=== PATIENT | female | born 2000 | race Caucasian/White ===

== ENCOUNTER → 2019-12-29 | Outpatient (CLI) | payer MEDICAID, SELFPAY ==
[2019-12-29 17:02] LABS: Chlamydia Trachomatis by PCR Negative (Negative); Neisserai gonorrhoeae by PCR Negative (Negative); Probe Check PASS; Sample Adequacy Control PASS; Specimen Processing Control PASS
== END | disposition home or self-care (01) ==
LOC: LABSPEC 14:45
PROVIDERS: Visit Provider Obstetrics & Gynecology
DX: Z11.3 Encounter for screening for infections with a predominantly sexual mode of transmission (principal)
CPT/HCPCS: 87491; 87591

== ENCOUNTER → 2020-01-19 14:29 | Outpatient (CLI) | payer MEDICAID, SELFPAY ==
[2020-01-19 15:53] LABS: Absolute Lymphocyte Count 1.73 X10^3/uL (0.83-4.51); Absolute Neutrophil Count 6.6 X10^3/uL (2.0-7.7); Basophil# 0.03 X10^3/uL; Basophil% 0.3 % (0-1); Eosinophil# 0.02 X10^3/uL; Eosinophils% 0.2 % (0-5); Hematocrit 42.8 % (37-47); Hemoglobin 14.2 g/dL (12.0-15.0); Lymphocyte # 1.73 X10^3/ul (4.0); Lymphocyte % 19.4 % (19-41); Mean Corp Hgb Conc 33.2 g/dL (32-36); Mean Corpuscular Hgb 28.2 pg (27.0-32.0); Mean Corpuscular Volume 85.1 fL (81-99); Mean Platelet Vol. 10.1 fl (6.2-12.0); Monocyte# 0.46 X10^3/uL; Monocyte% 5.2 % (0-10); NRBC Flagged by Analyzer 0 % (0-5); Neutrophil # 6.63 X10^3/uL (2.7-7.7); Neutrophil % 74.5 % (47-70); Platelet Count 337 K/mm3 (150-450); Red Blood Count 5.03 M/mm3 (4.2-5.4); White Blood Count 8.9 K/mm3 (4.4-11.0)
[2020-01-19 15:54] LABS: Color, Urine Yellow (Yellow); Glucose, Dipstick Normal (Normal); Leukocyte Esterase-Dipstick Negative /ul (Negative); Nitrite-Dipstick Negative (Negative); Occult Blood-Urine 25 /ul (Negative); Protein-Dipstick 15 mg/dl (Negative); Urine Bilirubin Dipstick Negative (Negative); Urine Clarity Sl. Cloudy (Clear); Urine Urobilinogen 1 mg/dl (Normal)
[2020-01-19 16:00] LABS: Ketone-Dipstick 150 mg/dl (Negative)
[2020-01-19 16:37] LABS: Amphetamine Urine VISTA NEGATIVE (<1000 ng/mL); Barbiturate Urine VISTA NEGATIVE (< 200 ng/mL); Benzodiazepine Urine VISTA NEGATIVE (< 200 ng/mL); Cocaine Urine VISTA NEGATIVE (< 300 ng/mL); Ecstacy Urine VISTA NEGATIVE (< 500 ng/mL); Methadone Urine VISTA NEGATIVE (< 300 ng/mL); PCP Urine VISTA NEGATIVE (< 25 ng/mL); THC Urine VISTA NEGATIVE (< 50 ng/mL); Vista UDS pH Range 6
[2020-01-19 17:06] LABS: Thyroid Stim Hormone (TSH) 1.24 uIU/mL (0.358-3.74)
[2020-01-20 11:20] LABS: HIV - WCH Non-Reactive (Nonreactive); Hepatitis B Surface Antigen Non-Reactive (Nonreactive); Hepatitis C Antibody Non-Reactive (Nonreactive); Rubella IgG 0.5 IU/mL
[2020-01-21 00:55] LABS: Prenatal RPR NONREACTIVE (NONREACTIVE)
== END ==
PROVIDERS: Visit Provider Obstetrics & Gynecology
DX: Z34.81 Encounter for supervision of other normal pregnancy, first trimester (principal)
CPT/HCPCS: 36415; 80307; 81002; 84443; 85025; 86703; 86762; 86803; 87340

== ENCOUNTER → 2020-06-01 10:34 | Outpatient (CLI) | payer MEDICAID, SELFPAY ==
[2020-06-01 14:01] LABS: Glucose Challenge Gest 1H 50g 194 mg/dL (70-140)
[2020-06-01 14:03] LABS: Hematocrit 34.5 % (37-47); Hemoglobin 11.1 g/dL (12.0-15.0); Mean Corp Hgb Conc 32.2 g/dL (32-36); Mean Corpuscular Hgb 28.6 pg (27.0-32.0); Mean Corpuscular Volume 88.9 fL (81-99); Mean Platelet Vol. 10.2 fl (6.2-12.0); Platelet Count 264 K/mm3 (150-450); RBC Distribution Width CV 13.7 % (11.6-14.6); RBC Distribution Width SD 44.7 fl (35.1-43.9); Red Blood Count 3.88 M/mm3 (4.2-5.4); White Blood Count 12.6 K/mm3 (4.4-11.0)
== END ==
PROVIDERS: Visit Provider Obstetrics & Gynecology
DX: Z34.83 Encounter for supervision of other normal pregnancy, third trimester (principal)
CPT/HCPCS: 36415; 82950; 85027

== ENCOUNTER → 2020-06-09 10:01 | Outpatient (CLI) ==
[2020-06-09 10:39] LABS: Glucose GTT-Gestation. Fasting 93 mg/dL (<105)
[2020-06-09 11:48] LABS: Glucose GTT-Gestational 1 Hr 137 mg/dL (<190)
== END ==
PROVIDERS: Referring Provider Obstetrics & Gynecology; Visit Provider Obstetrics & Gynecology
DX: O24.912 Unspecified diabetes mellitus in pregnancy, second trimester (principal); Z3A.00 Weeks of gestation of pregnancy not specified
CPT/HCPCS: 36415; 82951; 82952

== ENCOUNTER → 2020-06-15 06:59 | Outpatient (CLI) | payer MEDICAID, SELFPAY ==
[2020-06-15 07:57] LABS: Glucose GTT-Gestation. Fasting 86 mg/dL (<105)
[2020-06-15 08:53] LABS: Glucose GTT-Gestational 1 Hr 139 mg/dL (<190)
[2020-06-15 11:21] LABS: Glucose GTT-Gestational 3 Hr 130 L (<145)
[2020-06-15 11:23] LABS: Glucose GTT-Gestational 2 Hr 124 mg/dL (<165)
== END ==
PROVIDERS: Referring Provider Student in an Organized Health Care Education/Training Program; Visit Provider Student in an Organized Health Care Education/Training Program
DX: Z34.93 Encounter for supervision of normal pregnancy, unspecified, third trimester (principal)
CPT/HCPCS: 36415; 82951; 82952

== ENCOUNTER → 2020-08-02 | Outpatient (CLI) | payer MEDICAID, SELFPAY | END | disposition home or self-care (01) | LOC: LABSPEC 16:21 | PROVIDERS: Visit Provider Student in an Organized Health Care Education/Training Program | DX: Z36.85 Encounter for antenatal screening for Streptococcus B (principal) | CPT/HCPCS: 87081 ==

== ENCOUNTER → 2020-08-10 | Outpatient (CLI) | payer MEDICAID, SELFPAY | END | disposition home or self-care (01) | LOC: LABSPEC 10:12 | PROVIDERS: Referring Provider Student in an Organized Health Care Education/Training Program; Visit Provider Student in an Organized Health Care Education/Training Program | DX: Z03.818 Encounter for observation for suspected exposure to other biological agents ruled out (principal) | CPT/HCPCS: 87635; C9803; U0003 ==

== ENCOUNTER 2020-08-17 06:55 | Inpatient (IN) | payer MEDICAID, SELFPAY ==
[2020-08-17 07:11] VITALS: BMI 40.8
[2020-08-17 07:28] VITALS: BP 101/66; PULSE 107
[2020-08-17 08:10] VITALS: TEMP 36.8
[2020-08-17 08:21] LABS: Absolute Lymphocyte Count 1.82 X10^3/uL (0.83-4.51); Absolute Neutrophil Count 7.6 X10^3/uL (2.0-7.7); Basophil# 0.04 X10^3/uL; Basophil% 0.4 % (0-1); Eosinophil# 0.03 X10^3/uL; Eosinophils% 0.3 % (0-5); Hematocrit 31.4 % (37-47); Hemoglobin 10.1 g/dL (12.0-15.0); Lymphocyte # 1.82 X10^3/ul (4.0); Lymphocyte % 17.6 % (19-41); Mean Corp Hgb Conc 32.2 g/dL (32-36); Mean Corpuscular Hgb 26.4 pg (27.0-32.0); Mean Corpuscular Volume 82.2 fL (81-99); Mean Platelet Vol. 10.9 fl (6.2-12.0); Monocyte# 0.74 X10^3/uL; Monocyte% 7.1 % (0-10); NRBC Flagged by Analyzer 0 % (0-5); Neutrophil % 73.2 % (47-70); Platelet Count 164 K/mm3 (150-450); RBC Distribution Width CV 15.1 % (11.6-14.6); RBC Distribution Width SD 43.3 fl (35.1-43.9); Red Blood Count 3.82 M/mm3 (4.2-5.4); White Blood Count 10.4 K/mm3 (4.4-11.0)
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
[2020-08-17 12:04] VITALS: BP 129/61; PULSE 102; TEMP 36.6
[2020-08-17] MEDS: miSOPROStol 25 MCG TABLET VAGINAL (12:48)
[2020-08-17] MEDS: miSOPROStol 50 MCG TABLET VAGINAL (16:30)
[2020-08-17 18:04] VITALS: BP 121/75; PULSE 90; TEMP 36.9
[2020-08-17] MEDS: Acetaminophen 500 MG Tablet PO (18:59)
[2020-08-17 19:29] VITALS: BP 123/75; PULSE 88
[2020-08-17] MEDS: 0.9% Saline Lock 10 ML Syringe IV (19:39)
[2020-08-17] MEDS: Lactated Ringers 500 ML 999 ML IV ×2 (19:42→22:46)
[2020-08-17] MEDS: Lactated Ringers 1,000 ML 50 ML IV (19:43)
[2020-08-17 22:48] VITALS: BP 112/64; PULSE 80; TEMP 37.1; O2SAT 98
[2020-08-18] VITALS (64 sets, daily range): BP systolic 94–130; BP diastolic 43–81; PULSE 59–97; RESP 12–20; TEMP 36.1–36.9; O2SAT 92–100
--- NOTE | 2020-08-18 01:30 | PCM.PN.BLA ---
Progress Note LABOR PROGRESS NOTE Reports mild contractions. AVSS GEN - NAD, AAO x 3 FHR 140, moderate variability, + accelerations, + variable deceleration TOCO 4/10 min SVE 1.5/60/-4, soft, midposition A/P: 20yo G1 @ 39 1/7wga, Cat I FHR -Contractions too frequent for cytotec -Attempted lepe bulb placement however poorly tolerated and unable to maintain catheter placement due to patient movement -Start pitocin STROKE Vital Signs/Narrative: Vital Signs Temp Pulse BP Pulse Ox 08/17/20 22:48 98.8 F 80 112/64 98
[2020-08-18] MEDS: Ondansetron 4 MG/2 ML Vial IV (02:06)
[2020-08-18] MEDS: 0.9% Saline Lock 10 ML Syringe IV (02:08)
[2020-08-18] MEDS: Acetaminophen 500 MG Tablet PO ×2 (02:25→09:33)
[2020-08-18] MEDS: Oxytocin 30 units/NS 500 ml 30 UNITS/500 ML IV.SOLN IV (02:35)
--- NOTE | 2020-08-18 07:53 | PCM.PN.BLA ---
Progress Note LABOR PROGRESS NOTE No complaints. AVSS GEN - NAD, AAO x 3 FHR 135, moderate variability, +accelerations, no decelerations TOCO 4/10 min SVE 3/60/-3, soft, midposition A/P: 20yo G1 @ 39 1/7wga, Cat I FHR -Continue pitocin as tolerated by mother and fetus -Discussed amniotomy r/b, pt declines at this time. May consider again following epidural. -Maternal and statuses reassuring STROKE Vital Signs/Narrative: Vital Signs Temp Pulse BP Pulse Ox 08/18/20 07:33 97.3 F L 80 98 08/18/20 07:32 78 127/66 H 08/18/20 06:14 97.5 F L 75 112/68 97 08/18/20 05:50 75 112/66 08/18/20 05:49 97.1 F L 98 08/18/20 04:39 97.0 F L 69 115/61 98
[2020-08-18] MEDS: Lactated Ringers 500 ML 999 ML IV (09:34)
[2020-08-18] MEDS: fentaNYL-bupivacaine (epidural) 100 ML BAG EPIDURAL ×3 (10:30→18:07)
[2020-08-18] MEDS: Lactated Ringers 1,000 ML 200 ML IV ×2 (11:33→16:30)
--- NOTE | 2020-08-18 19:15 | PCM.PN.OB ---
Patient Problems: Active and Suspected Problems (Last Updated 08/17/20 @ 08:[address] Fernanda Leyva MD) 39 weeks gestation of (Acute) Subjective: Patient has progressed to 5 to 6 cm 80% -1 station and has been at approximately that station and dilation for approximately 7-8 hours. Adequate contractions verified with internal and intrauterine pressure catheter monitors. Epidural is not functioning well despite multiple adjustments and replacement. Given this the patient and her request that we proceed with section for failure to progress. We have discussed the procedure at length including the possibly of bleeding, infection, and injury to surrounding structures such as bowel bladder and they desire that we proceed. All questions were answered. - Physical Exam Vitals/I&O's: Vital Signs Temp Pulse BP Pulse Ox 97.6 F L 76 122/80 H 100 08/18/20 18:12 08/18/20 19:11 08/18/20 19:09 08/18/20 19:11 Weight: 223 lb Body Mass Index (BMI) 40.8 Intake and Output for Last 24 Hours 08/16/20 08/17/20 08/18/20 23:59 23:59 23:59 Intake Total 1152.5 / 1152.5 3173.39 / 3173.39 Output Total 1200 / 1200 Balance 1152.5 / 1152.5 1973.39 / 1973.39 Current Medications Acetaminophen (Acetaminophen 500 Mg Tablet) 500 - 1,000 mg PO Q6H PRN PRN PRN Reason: Pain Score 1-3 Last Admin: 08/18/20 09:33 Dose: 1,000 mg Documented by: Al Hydroxide/Mg Hydroxide (Mag Hydrox/Al Hydrox/Simeth 30 Ml Udc) 15 - 30 ml PO Q4H PRN PRN PRN Reason: INDIGESTION Citric Acid/Sodium Citrate (Sodium Citrate/Citric Acid 30 Ml Udc) 30 ml PO X1 PRN PRN Reason: Section Ephedrine Sulfate (Ephedrine Sulfate 50 Mg/Ml Ampul) 10 mg IV Q10M PRN PRN Reason: hypotension Ephedrine Sulfate (Ephedrine Sulfate 50 Mg/Ml Ampul) 10 mg IM Q30M PRN PRN Reason: hypotension Fentanyl Citrate (Fentanyl 100 Mcg/2 Ml Ampul) 25 - 50 mcg IV Q2H PRN PRN PRN Reason: Pain Score 4-10 Fentanyl/Bupivacaine/Sodium Chlor (Fentanyl-Bupivacaine (Epidural) 100 Ml Bag) 0 ml EPIDURAL UD FIDELINA; Protocol Last Admin: 08/18/20 18:07 Dose: 100 ml Documented by: Lactated Ringer's () 500 mls @ 999 mls/hr IV .Q31M PRN PRN Reason: Epidural Last Infusion: 08/18/20 10:05 Dose: Infused Documented by: Lactated Ringer's () 500 mls @ 999 mls/hr IV .Q31M PRN PRN Reason: Corrective Measures Last Infusion: 08/17/20 23:17 Dose: Infused Documented by: Lactated Ringer's () 1,000 mls @ 50 mls/hr IV .Q20H FIDELINA Last Admin: 08/18/20 16:30 Dose: 200 mls/hr Documented by: Oxytocin/Sodium Chloride () 30 units in 500 mls @ 2 mls/hr IV .Q250H FIDELINA Last Infusion: 08/18/20 12:30 Dose: 14 mls/hr Documented by: Nalbuphine HCl (Nalbuphine 10 Mg/Ml Ampul) 5 mg IV Q3H PRN PRN PRN Reason: ITCHING Naloxone HCl (Naloxone 0.4 Mg/Ml Syringe) 0.02 mg IV Q1M PRN PRN Reason: RR <10 and pt unresponsive Ondansetron HCl (Ondansetron 4 Mg/2 Ml Vial) 4 mg IV Q4H PRN PRN PRN Reason: NAUSEA Last Admin: 08/18/20 02:06 Dose: 4 mg Documented by: Prochlorperazine Edisylate (Prochlorperazine 10 Mg/2 Ml Vial) 10 mg IV Q6H PRN PRN PRN Reason: NAUSEA Sodium Chloride (0.9% Saline Lock 10 Ml Syringe) 10 - 40 ml IV X1 PRN PRN Reason: SALINE FLUSH Last Admin: 08/18/20 02:08 Dose: 10 ml Documented by: Medical Necessity - Tobacco Use Smoking Status: Never smoker Assessment/Plan All Active Problems (Last Updated 08/17/20 @ 08:[address] Fernanda Leyva MD) 39 weeks gestation of (Acute)
--- NOTE | 2020-08-18 19:26 | OP.PCM_ITS ---
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 Baby weighed 9 pounds 0 ounces and was not well engaged in the pelvis. Indication: This is a 20-year-old who presented for elective induction at 39 weeks gestation. Cytotec followed by Mcnulty bulb catheter was used to ripen the cervix. Rupture of membranes was completed and patient progressed to about 5 to 6 cm but despite adequate contractions noted on internal monitors the cervix failed to progress after approximately 8 hours. Further epidural could not be adjusted and despite replacement the patient continued to be extremely painful. care has otherwise been uneventful. The patient has been counseled regarding the risk and indications of this procedure including the possibility of bleeding infection and injury to surrounding structures such as bowel bladder. All questions were answered. Procedure: Patient was taken to the operating room where after spinal anesthesia was placed, the patient was prepped and draped in usual sterile fashion. A Mcnulty catheter had been previously placed. The abdomen was entered through a Pfannenstiel incision and peritoneum was entered bluntly. After developing a bladder flap on the lower uterine segment a low transverse incision was made on the uterus and head was easily delivered onto the operative field the nose mouth and oropharynx were bulb suctioned. Subsequently a viable male infant was born with Apgars of 8/9. The infant was noted to cry move all extremities vigorously on the operative field. The umbilical cord was doubly clamped and ligated and infant handed to the nursery personnel who were present for the delivery. Placenta was delivered and noted to be 3 vessels and normal. Uterus was exteriorized and remaining placental tissue was removed. The uterus was then closed in 2 layers first with running locked 0 Vicryl suture followed by a second imbricating layer with 0 Vicryl suture. 0 Vicryl suture was then used in a horizontal mattress interrupted fashion to affect final hemostasis of the uterine incision line. Normal fallopian tubes and ovaries were visualized and the uterus was returned to the pelvis. Hemostasis was noted and rectus abdominis muscles were reapproximated in the midline with interrupted Number 0 Vicryl suture in a horizontal mattress fashion. Fascia was closed with running Number 1 PDS Strata fix suture. Subcutaneous tissue was irrigated with copious amounts of saline solution and then closed with running 3-0 Vicryl suture. Skin was closed with 4-0 monocryl suture in a running subcuticular fashion. Steri strips and a Mepilex dressing were placed across the incision. The patient tolerated the procedure well and was taken to the recovery room in satisfactory condition. Sponge, needle, and instrument counts were all reportedly correct. EBL was less than 500 cc. Ancef 2 gms IV was given prior to the procedure. Specimen to Pathology: None Complications: None Amniotic Membrane Rupture Type: Artificial Amniotic Fluid Description: Clear Placenta Disposition: [facility] Specimen(s) sent to pathology: None Drain: Mcnulty to straight drain Fluids Replaced: Crystalloid Cord Vessel Description: 3 Vessels Esitmated Blood Loss (ml): 500 cc Infant Gender: Male (1 minute): 8 (5 minute): 9 Antibiotic Given: Ancef 2 grams IV x1 Pt instructed on risks of surgery: Bleeding, Infection, Injury to surrounding structure(s) including bowel and bladder Complications: None - Admit VTE Documentation VTE Present on Admission: Yes VTE Mechan Device Prophylaxis: SCD's VTE Pharm Prophylaxis ordered?: Yes
[2020-08-18] MEDS: Acetaminophen 500 MG Tablet 1000 MG PO (19:28)
[2020-08-18] MEDS: Sodium Citrate/Citric Acid 30 ML UDC PO (19:29)
--- NOTE | 2020-08-18 19:33 | DCINST_ITS ---
Discharge Diet: No Restrictions Discharge Activity: May not drive while taking narcotic pain medications., May Shower, May Take a Tub Bath May resume sexual activity in: 4-6 weeks Lifting Restrictions: 20 pounds Additional Activity Instructions:: Nothing in the vagina for 4-6 weeks. You may return to work/school in 6 weeks. Call your doctor if your incision/area has: Continuous Slow Oozing, Sudden Increased Bleeding, Increased Pain/ Swelling, Increased Redness, Foul Smelling Discharge Call your doctor if you observe: Fever of 101 or Higher, Inability to urinate, Inability to have a bowel movement, Using more than one pad per hour Additional Instructions: If you experience any of the following, contact your healthcare provider. * Bleeding that soaks a pad every hour for 2 hours * Fever 100.4 or higher * Unrelieved incision or abdominal pain * Swelling, redness, discharge or bleeding from your incision or episiotomy site * Your incision begins to separate * Problems urinating (including inability to urinate or burning while urinating). * Visual changes * Severe headache * Flu-like symptoms * Pain or redness in one of both of your breasts * Pain, warmth, tenderness or swelling in your legs, especially the calf area * Frequent nausea and vomiting * Symptoms of depression or anxiety If you experience any of the following, call 911 or go to the nearest Emergency Room. * Chest pain * Problems breathing * Seizure activity * Partial or complete paralysis of a body part, slurred speech, weakness or drooping of the face, or a sudden inability to walk or hold your balance Allergies/Adverse Reactions: Allergies No Known Allergies Allergy (Verified 08/17/20 07:56) Medications to take at Discharge Docusate Sodium [Colace] 100 mg PO BID PRN PRN #60 cap 08/18/20 Oxycodone [Oxyir] 5 mg PO Q6H PRN PRN 7 Days #20 tablet 08/18/20 The following prescriptions were given: Docusate Sodium [Colace] 100 mg PO BID PRN PRN #60 cap PRN Reason: Constipation Transmission Status: Pending to [facility] Oxycodone [Oxyir] 5 mg PO Q6H PRN PRN 7 Days #20 tablet PRN Reason: Pain Score 6-10 Transmission Status: Sent to [facility] Follow-Up: Call to make an appointment with your doctor for an incision check in 1-2 weeks. You will also need a 6 week post- follow up appointment. Test results from this visit will be discussed in further detail at your follow- up appointment, if applicable. Please Follow Up With: Liliam Murdock, DO - [phone] When: Call to make an appointment for an incision check in 2 weeks. Primary Care Physician: Care Physician,No Primary [Primary Care Provider] -
[2020-08-18] MEDS: Cefazolin 2 GM in 0.9% Normal Saline 100 ML IV (19:46)
[2020-08-18] MEDS: Oxytocin 30 units/NS 500 ml 30 UNITS/500 ML IV.SOLN 167 UNITS IV (21:12)
--- NOTE | 2020-08-18 23:22 | NURSING ---
This RN assuming care of patient and infant at this time. Report received for Reyes Nam RN.
[2020-08-19] VITALS (16 sets, daily range): BP systolic 87–110; BP diastolic 48–61; PULSE 64–93; RESP 12–16; TEMP 36.2–36.8; O2SAT 96–99
[2020-08-19] MEDS: Lactated Ringers 1,000 ML 100 ML IV ×2 (00:14→13:11)
[2020-08-19] MEDS: Ketorolac 30 MG/ML Syringe IV ×4 (02:05→21:42)
[2020-08-19] MEDS: Acetaminophen 500 MG Tablet 1000 MG PO ×4 (02:05→21:15)
[2020-08-19] MEDS: DiphenhydrAMINE 25 MG Capsule PO ×2 (02:12→08:49)
[2020-08-19] MEDS: Cefazolin 1 GM/50 ML BAG IV ×2 (03:12→11:02)
[2020-08-19] MEDS: Ondansetron 4 MG/2 ML Vial IV (03:12)
[2020-08-19 03:38] LABS: Hematocrit 32.2 % (37-47); Hemoglobin 10.4 g/dL (12.0-15.0); Mean Corp Hgb Conc 32.3 g/dL (32-36); Mean Corpuscular Hgb 25.6 pg (27.0-32.0); Mean Corpuscular Volume 79.1 fL (81-99); Platelet Count 196 K/mm3 (150-450); RBC Distribution Width CV 14.4 % (11.6-14.6); RBC Distribution Width SD 40.4 fl (35.1-43.9); Red Blood Count 4.07 M/mm3 (4.2-5.4); White Blood Count 18.3 K/mm3 (4.4-11.0)
[2020-08-19] MEDS: Enoxaparin 40 MG/0.4 ML Syringe SC ×2 (08:02→21:16)
--- NOTE | 2020-08-19 09:01 | PN.OBGYN_ITS ---
Patient Problems: Active and Suspected Problems (Last Updated 08/17/20 @ 08:[address] Fernanda Leyva MD) 39 weeks gestation of (Acute) Subjective: Patient without complaints. Tolerating liquids well. Reports minimal vaginal bleeding and minimal pain. Breast-feeding going well but baby does have a small cleft palate. Objective: Wound is clean, dry, intact. Good urine output. Hemoglobin stable. - Physical Exam Vitals/I&O's: Vital Signs Temp Pulse Resp BP Pulse Ox 97.7 F L 71 14 102/55 L 99 08/19/20 08:59 08/19/20 08:59 08/19/20 08:59 08/19/20 08:59 08/19/20 08:59 Oxygen Delivery Method Room Air Weight: 223 lb Body Mass Index (BMI) 40.8 Intake and Output for Last 24 Hours 08/17/20 08/18/20 08/19/20 23:59 23:59 23:59 Intake Total 1152.5 / 1152.5 3996.96 / 3996.96 550 / 550 Output Total 1400 / 1400 425 / 425 Balance 1152.5 / 1152.5 2596.96 / 2596.96 125 / 125 Laboratory Results 08/19/20 03:25: WBC 18.3 H, RBC 4.07 L, Hgb 10.4 L, Hct 32.2 L, MCV 79.1 L, MCH 25.6 L, MCHC 32.3, RDW Std Deviation 40.4, RDW Coeff of [place] 14.4, Plt Count 196, MPV 11.0 Current Medications Acetaminophen (Acetaminophen 500 Mg Tablet) 1,000 mg PO Q6H [facility] Last Admin: 08/19/20 08:02 Dose: 1,000 mg Documented by: Bisacodyl (Bisacodyl 10 Mg Suppository) 10 mg RECTAL UD PRN PRN Reason: If no BM Diphenhydramine HCl (Diphenhydramine 25 Mg Capsule) 25 mg PO Q6H PRN PRN PRN Reason: ITCHING Stop: 08/19/20 21:17 Last Admin: 08/19/20 08:49 Dose: 25 mg Documented by: Enoxaparin Sodium (Enoxaparin 40 Mg/0.4 Ml Syringe) 40 mg SC Q12H [facility] Last Admin: 08/19/20 08:02 Dose: 40 mg Documented by: Hydrocortisone (Hydrocortisone 2.5% Crm) 1 applic TOPICAL TID PRN PRN; Protocol PRN Reason: Discomfort Cefazolin Sodium () 1 gm in 50 mls @ 150 mls/hr IV Q8H [facility] Stop: 08/19/20 11:49 Last Infusion: 08/19/20 03:45 Dose: Infused Documented by: Lactated Ringer's () 1,000 mls @ 100 mls/hr IV .Q10H [facility] Last Admin: 08/19/20 00:14 Dose: 100 mls/hr Documented by: Ibuprofen (Ibuprofen 600 Mg Tablet) 600 mg PO Q6H [facility] Ketorolac Tromethamine (Ketorolac 30 Mg/Ml Syringe) 30 mg IV Q6H [facility] Stop: 08/19/20 20:01 Last Admin: 08/19/20 08:02 Dose: 30 mg Documented by: Methylergonovine Maleate (Methylergonovine 0.2 Mg/Ml Ampul) 0.2 mg IM X1 PRN PRN Reason: Uterine Atony Nalbuphine HCl (Nalbuphine 10 Mg/Ml Ampul) 5 mg IV Q3H PRN PRN PRN Reason: ITCHING Stop: 08/19/20 21:17 Naloxone HCl (Naloxone 0.4 Mg/Ml Syringe) 0.02 mg IV Q1M PRN PRN Reason: RR <10 and pt unresponsive Ondansetron HCl (Ondansetron 4 Mg/2 Ml Vial) 4 mg IV Q4H PRN PRN PRN Reason: Nausea Last Admin: 08/19/20 03:12 Dose: 4 mg Documented by: Oxycodone HCl (Oxycodone 5 Mg Tablet) 5 - 10 mg PO Q4H PRN PRN PRN Reason: Pain Score 4-10 Prochlorperazine Edisylate (Prochlorperazine 10 Mg/2 Ml Vial) 10 mg IV Q6H PRN PRN PRN Reason: NAUSEA Senna/Docusate Sodium (Senna/Docusate Sodium 1 Tablet) 1 - 2 tablet PO DAILY [facility] Simethicone (Simethicone 80 Mg Tablet) 80 mg PO PCHS PRN PRN Reason: Indigestion/stomach pain Sodium Chloride (0.9% Saline Lock 10 Ml Syringe) 5 - 15 ml IV PRN PRN PRN Reason: SALINE FLUSH Sodium Chloride (0.9% Saline Lock 10 Ml Syringe) 5 - 15 ml IV UD PRN PRN Reason: SALINE FLUSH Medical Necessity - Tobacco Use Smoking Status: Never smoker Assessment/Plan All Active Problems (Last Updated 08/17/20 @ 08:[address] Fernanda Leyva MD) 39 weeks gestation of (Acute) Doing well postoperative day #1 status post primary section for failure to progress and cephalopelvic disproportion. Continuing present care.
[2020-08-19] MEDS: Senna/Docusate Sodium 1 Tablet PO (11:02)
[2020-08-19] MEDS: 0.9% Saline Lock 10 ML Syringe IV ×2 (15:39→21:43)
[2020-08-20 01:32] VITALS: BP 103/58; PULSE 90; TEMP 36.2
[2020-08-20] MEDS: Acetaminophen 500 MG Tablet 1000 MG PO ×4 (05:06→23:08)
[2020-08-20] MEDS: Ibuprofen 600 MG Tablet PO ×4 (05:07→23:07)
[2020-08-20 08:19] VITALS: BP 107/56; PULSE 90; RESP 14; TEMP 36.4
[2020-08-20] MEDS: Enoxaparin 40 MG/0.4 ML Syringe SC ×2 (10:56→23:07)
[2020-08-20] MEDS: Senna/Docusate Sodium 1 Tablet PO (10:56)
--- NOTE | 2020-08-20 11:08 | PCM.PN.OB ---
Patient Problems: Active and Suspected Problems (Last Updated 08/17/20 @ 08:[address] Fernanda Leyva MD) 39 weeks gestation of (Acute) Subjective: Patient without complaints. Tolerating diet well. Positive flatus. Minimal vaginal bleeding reported. Is ready to go home but thinks the baby may need to stay a few more days. Objective: Wound is clean, dry, intact. - Physical Exam Vitals/I&O's: Vital Signs Temp Pulse Resp BP Pulse Ox 97.6 F L 90 14 107/56 L 97 08/20/20 08:19 08/20/20 08:19 08/20/20 08:19 08/20/20 08:19 08/19/20 20:43 Oxygen Delivery Method Room Air Weight: 223 lb Body Mass Index (BMI) 40.8 Intake and Output for Last 24 Hours 08/18/20 08/19/20 08/20/20 23:59 23:59 23:59 Intake Total 3996.96 / 3996.96 2116.67 / 2116.67 Output Total 1400 / 1400 1475 / 1475 Balance 2596.96 / 2596.96 641.67 / 641.67 Current Medications Acetaminophen (Acetaminophen 500 Mg Tablet) 1,000 mg PO Q6H [facility] Last Admin: 08/20/20 10:56 Dose: 1,000 mg Documented by: Bisacodyl (Bisacodyl 10 Mg Suppository) 10 mg RECTAL UD PRN PRN Reason: If no BM Enoxaparin Sodium (Enoxaparin 40 Mg/0.4 Ml Syringe) 40 mg SC Q12H [facility] Last Admin: 08/20/20 10:56 Dose: 40 mg Documented by: Hydrocortisone (Hydrocortisone 2.5% Crm) 1 applic TOPICAL TID PRN PRN; Protocol PRN Reason: Discomfort Ibuprofen (Ibuprofen 600 Mg Tablet) 600 mg PO Q6H [facility] Last Admin: 08/20/20 10:56 Dose: 600 mg Documented by: Methylergonovine Maleate (Methylergonovine 0.2 Mg/Ml Ampul) 0.2 mg IM X1 PRN PRN Reason: Uterine Atony Naloxone HCl (Naloxone 0.4 Mg/Ml Syringe) 0.02 mg IV Q1M PRN PRN Reason: RR <10 and pt unresponsive Ondansetron HCl (Ondansetron 4 Mg/2 Ml Vial) 4 mg IV Q4H PRN PRN PRN Reason: Nausea Last Admin: 08/19/20 03:12 Dose: 4 mg Documented by: Oxycodone HCl (Oxycodone 5 Mg Tablet) 5 - 10 mg PO Q4H PRN PRN PRN Reason: Pain Score 4-10 Prochlorperazine Edisylate (Prochlorperazine 10 Mg/2 Ml Vial) 10 mg IV Q6H PRN PRN PRN Reason: NAUSEA Senna/Docusate Sodium (Senna/Docusate Sodium 1 Tablet) 1 - 2 tablet PO DAILY [facility] Last Admin: 08/20/20 10:56 Dose: 1 tablet Documented by: Simethicone (Simethicone 80 Mg Tablet) 80 mg PO PCHS PRN PRN Reason: Indigestion/stomach pain Sodium Chloride (0.9% Saline Lock 10 Ml Syringe) 5 - 15 ml IV PRN PRN PRN Reason: SALINE FLUSH Last Admin: 08/19/20 21:43 Dose: 10 ml Documented by: Sodium Chloride (0.9% Saline Lock 10 Ml Syringe) 5 - 15 ml IV UD PRN PRN Reason: SALINE FLUSH Medical Necessity - Tobacco Use Smoking Status: Never smoker Assessment/Plan All Active Problems (Last Updated 08/17/20 @ 08:[address] Fernanda Leyva MD) 39 weeks gestation of (Acute) Doing well postoperative day #2 status post repeat . Home-going instructions given but anticipate that patient may stay 1-2 more days because the baby will need to stay.
[2020-08-20 13:48] VITALS: BP 112/64; PULSE 85; RESP 15; TEMP 36.2
--- NOTE | 2020-08-20 17:45 | CASEMGMT ---
Social Work Assessment Labor and Delivery Unit Date of Referral: 08/18/2020 Time of Referral: 21:43 Date of Intervention: 08/20/2020 Time of Intervention: 17:45 Reason for Referral: History of depression History obtained from: Medical record and mother of baby (MOB) Household composition: MOB reports lives home with significant other/FOB- Issa Maradiaga Educational Status: MOB reports graduated high school Financial Status: Limited Supplies: MOB reports to have all needs met for baby including, diapers, bottles, wipes, clothes, car seat, crib etc. Childcare/Caregiver(s): MOB reports good support from family and states her mother lives about 5 minutes away and will be able to help out with baby Lawrence smyth when needed. Transportation: MOB denies any issues Programs/Agencies Involved: [facility], [facility] Children Services/Legal Issues: No issues Behavioral Health Issues: Mental Health History: MOB reports history of depression after aunt . MOB reports did not feel counseling or medication was needed. MOB denies any current issues or concerns with mental health. Reviewed signs/symptoms of Post- Depression and provided MOB and FOB with resources. Substance Use History: MOB and FOB deny any issues with substance use. Family/Social Stressors: MOB reports baby was born with cleft palette. Support Systems: MOB reports good support from FOB and family. Depression and Anxiety/Shaken Baby/Safe Sleeping: Reviewed and resources provided. ASSESSMENT: Met with MOB and FOB in room. Introduced role and reason for referral. MOB openly discussed history of depression after her aunt . MOB denies any issues or concerns with mental health. MOB bottle feeding baby Lawrence smyth upon entering room. MOB states attempted to breastfeed and began discussing that baby was born with cleft palette. MOB states baby doing well with feedings. MOB and FOB discussed being new parents. Education provided on [employer] [facility]. MOB in agreement to referral. MOB and FOB deny any further needs or concerns at this time. Nursing updated on the above. Nursing continue to provide teaching. PLAN: Home with resources provided. Referral to [facility]. No other services requested or indicated. Yary Rosas, MUNICIPAL FIREFIGHTER, GRAIN MILL WORKER
[2020-08-20 21:00] VITALS: BP 113/59; PULSE 95; RESP 18; TEMP 36.8; O2SAT 97
[2020-08-21 01:15] VITALS: BP 109/65; PULSE 83; RESP 18; TEMP 36.6; O2SAT 97
--- NOTE | 2020-08-21 03:37 | NURSING ---
This RN assuming care of patient and infant at this time. Report received from Amaury WELCH.
[2020-08-21] MEDS: Ibuprofen 600 MG Tablet PO ×2 (05:08→11:02)
[2020-08-21] MEDS: Acetaminophen 500 MG Tablet 1000 MG PO ×2 (05:08→11:02)
[2020-08-21 08:45] VITALS: BP 132/72; PULSE 79; RESP 18; TEMP 36.4; O2SAT 97
--- NOTE | 2020-08-21 09:52 | PCM.PN.OB ---
Patient Problems: Active and Suspected Problems (Last Updated 08/17/20 @ 08:[address] Fernanda Leyva MD) 39 weeks gestation of (Acute) Subjective: Patient without complaints. Bottlefeeding. Ready to go home. Objective: Mepilex dressing is clean and dry. - Physical Exam Vitals/I&O's: Vital Signs Temp Pulse Resp BP Pulse Ox 97.5 F L 79 18 132/72 H 97 08/21/20 08:45 08/21/20 08:45 08/21/20 08:45 08/21/20 08:45 08/21/20 08:45 Oxygen Delivery Method Room Air Weight: 223 lb Body Mass Index (BMI) 40.8 Intake and Output for Last 24 Hours 08/19/20 08/20/20 08/21/20 23:59 23:59 23:59 Intake Total 2116.67 / 2116.67 Output Total 1475 / 1475 Balance 641.67 / 641.67 Current Medications Acetaminophen (Acetaminophen 500 Mg Tablet) 1,000 mg PO Q6H [facility] Last Admin: 08/21/20 05:08 Dose: 1,000 mg Documented by: Bisacodyl (Bisacodyl 10 Mg Suppository) 10 mg RECTAL UD PRN PRN Reason: If no BM Enoxaparin Sodium (Enoxaparin 40 Mg/0.4 Ml Syringe) 40 mg SC Q12H [facility] Hydrocortisone (Hydrocortisone 2.5% Crm) 1 applic TOPICAL TID PRN PRN; Protocol PRN Reason: Discomfort Ibuprofen (Ibuprofen 600 Mg Tablet) 600 mg PO Q6H [facility] Last Admin: 08/21/20 05:08 Dose: 600 mg Documented by: Methylergonovine Maleate (Methylergonovine 0.2 Mg/Ml Ampul) 0.2 mg IM X1 PRN PRN Reason: Uterine Atony Naloxone HCl (Naloxone 0.4 Mg/Ml Syringe) 0.02 mg IV Q1M PRN PRN Reason: RR <10 and pt unresponsive Ondansetron HCl (Ondansetron 4 Mg/2 Ml Vial) 4 mg IV Q4H PRN PRN PRN Reason: Nausea Last Admin: 08/19/20 03:12 Dose: 4 mg Documented by: Oxycodone HCl (Oxycodone 5 Mg Tablet) 5 - 10 mg PO Q4H PRN PRN PRN Reason: Pain Score 4-10 Prochlorperazine Edisylate (Prochlorperazine 10 Mg/2 Ml Vial) 10 mg IV Q6H PRN PRN PRN Reason: NAUSEA Senna/Docusate Sodium (Senna/Docusate Sodium 1 Tablet) 1 - 2 tablet PO DAILY [facility] Last Admin: 08/20/20 10:56 Dose: 1 tablet Documented by: Simethicone (Simethicone 80 Mg Tablet) 80 mg PO PCHS PRN PRN Reason: Indigestion/stomach pain Sodium Chloride (0.9% Saline Lock 10 Ml Syringe) 5 - 15 ml IV PRN PRN PRN Reason: SALINE FLUSH Last Admin: 08/19/20 21:43 Dose: 10 ml Documented by: Sodium Chloride (0.9% Saline Lock 10 Ml Syringe) 5 - 15 ml IV UD PRN PRN Reason: SALINE FLUSH Medical Necessity - Tobacco Use Smoking Status: Never smoker Assessment/Plan All Active Problems (Last Updated 08/17/20 @ 08:[address] Fernanda Leyva MD) 39 weeks gestation of (Acute) Doing well post operative day #3 status post primary section for failure to progress. Will release to home with routine instructions.
--- NOTE | 2020-08-21 09:56 | DS.PCM_ITS ---
Discharge Summary Date of Admission: 08/17/20 Date of Discharge: 08/21/20 Summary: Admission diagnosis: Term Intrauterine Discharge diagnosis: Term Intrauterine and Failure to Progress Procedure: Primary Low Transverse Cervical Section HPI: Uneventful care. PE: Unremarkable. Hospital Course: The patient is a 20 year old G 1 P 0 who presented to L and D at 39 weeks gestation. She subsequently had a primary for failure to progress. Postoperatively she did well demonstrating a stable HGB on POD 1 and bowel fxn by POD 3 at which time it was felt she was ready for discharge. Homegoing Instruction: She was instructed not to drive for several days or if using narcotic pain medication, not to put anything in the vagina for 4 weeks, not to lift >25 lbs for 6 weeks and to call the office for an appointment in 2 weeks and 6 weeks. Discharge Medications: She was given a prescription for Oxycodone and Colace and also plans to use Aleve or Motrin or Tylenol at home as needed for pain and constipation. Patient Problems: Active and Suspected Problems (Last Updated 08/17/20 @ 08:[address] Fernanda Leyva MD) 39 weeks gestation of (Acute) - Physical Exam Vitals/I&O's: Vital Signs Temp Pulse Resp BP Pulse Ox 97.5 F L 79 18 132/72 H 97 08/21/20 08:45 08/21/20 08:45 08/21/20 08:45 08/21/20 08:45 08/21/20 08:45 Oxygen Delivery Method Room Air Weight: 223 lb Body Mass Index (BMI) 40.8 Intake and Output for Last 24 Hours 08/19/20 08/20/20 08/21/20 23:59 23:59 23:59 Intake Total 2116.67 / 2116.67 Output Total 1475 / 1475 Balance 641.67 / 641.67 Current Medications Acetaminophen (Acetaminophen 500 Mg Tablet) 1,000 mg PO Q6H [facility] Last Admin: 08/21/20 05:08 Dose: 1,000 mg Documented by: Bisacodyl (Bisacodyl 10 Mg Suppository) 10 mg RECTAL UD PRN PRN Reason: If no BM Enoxaparin Sodium (Enoxaparin 40 Mg/0.4 Ml Syringe) 40 mg SC Q12H [facility] Hydrocortisone (Hydrocortisone 2.5% Crm) 1 applic TOPICAL TID PRN PRN; Protocol PRN Reason: Discomfort Ibuprofen (Ibuprofen 600 Mg Tablet) 600 mg PO Q6H [facility] OF [facility] Last Admin: 08/21/20 05:08 Dose: 600 mg Documented by: Methylergonovine Maleate (Methylergonovine 0.2 Mg/Ml Ampul) 0.2 mg IM X1 PRN PRN Reason: Uterine Atony Naloxone HCl (Naloxone 0.4 Mg/Ml Syringe) 0.02 mg IV Q1M PRN PRN Reason: RR <10 and pt unresponsive Ondansetron HCl (Ondansetron 4 Mg/2 Ml Vial) 4 mg IV Q4H PRN PRN PRN Reason: Nausea Last Admin: 08/19/20 03:12 Dose: 4 mg Documented by: Oxycodone HCl (Oxycodone 5 Mg Tablet) 5 - 10 mg PO Q4H PRN PRN PRN Reason: Pain Score 4-10 Prochlorperazine Edisylate (Prochlorperazine 10 Mg/2 Ml Vial) 10 mg IV Q6H PRN PRN PRN Reason: NAUSEA Senna/Docusate Sodium (Senna/Docusate Sodium 1 Tablet) 1 - 2 tablet PO DAILY [facility] Last Admin: 08/20/20 10:56 Dose: 1 tablet Documented by: Simethicone (Simethicone 80 Mg Tablet) 80 mg PO PCHS PRN PRN Reason: Indigestion/stomach pain Sodium Chloride (0.9% Saline Lock 10 Ml Syringe) 5 - 15 ml IV PRN PRN PRN Reason: SALINE FLUSH Last Admin: 08/19/20 21:43 Dose: 10 ml Documented by: Sodium Chloride (0.9% Saline Lock 10 Ml Syringe) 5 - 15 ml IV UD PRN PRN Reason: SALINE FLUSH
[2020-08-21] MEDS: Senna/Docusate Sodium 1 Tablet PO (11:03)
== END 2020-08-21 12:40 | disposition home or self-care (01) | DRG 540 ==
PROVIDERS: Student in an Organized Health Care Education/Training Program; Admitting Provider Obstetrics & Gynecology; Referring Provider Obstetrics & Gynecology; Visit Provider Obstetrics & Gynecology
DX: O62.1 Secondary uterine inertia (principal); O66.2 Obstructed labor due to unusually large fetus; Z3A.39 39 weeks gestation of pregnancy; Z37.0 Single live birth; O76 Abnormality in fetal heart rate and rhythm complicating labor and delivery
CPT/HCPCS: 59025; 59050; 85025; 85027; 86850; 86900; 86901; 99218; J7120; A4216; G0378; J2405; J3490

== ENCOUNTER → 2020-09-26 | Outpatient (CLI) | payer MEDICAID, SELFPAY ==
[2020-09-30 01:30] LABS: HPV Reflexed? NOT INDICATED
== END | disposition home or self-care (01) ==
LOC: LABSPEC 16:55
PROVIDERS: Visit Provider Student in an Organized Health Care Education/Training Program
DX: Z12.4 Encounter for screening for malignant neoplasm of cervix (principal)
CPT/HCPCS: 88175; G0145

== ENCOUNTER → 2023-01-22 | Outpatient (CLI) | payer OTHER, SELFPAY ==
[2023-01-22 16:13] LABS: Absolute Lymphocyte Count 1.61 X10^3/uL (0.83-4.51); Absolute Neutrophil Count 6.1 X10^3/uL (2.0-7.7); Basophil# 0.04 X10^3/uL; Basophil% 0.5 % (0-1); Eosinophil# 0.02 X10^3/uL; Eosinophils% 0.2 % (0-5); Hematocrit 40.1 % (37-47); Hemoglobin 13.2 g/dL (12.0-15.0); Lymphocyte # 1.61 X10^3/ul (0.83-4.51); Lymphocyte % 19.1 % (19-41); Mean Corp Hgb Conc 32.9 g/dL (32-36); Mean Corpuscular Hgb 27.1 pg (27.0-32.0); Mean Corpuscular Volume 82.3 fL (81-99); Mean Platelet Vol. 10.7 fl (6.2-12.0); Monocyte# 0.59 X10^3/uL; NRBC Flagged by Analyzer 0 % (0-5); Neutrophil # 6.13 X10^3/uL (2.7-7.7); Neutrophil % 72.8 % (47-70); Platelet Count 256 K/mm3 (150-450); RBC Distribution Width SD 41.2 fl (35.1-43.9); Red Blood Count 4.87 M/mm3 (4.2-5.4); White Blood Count 8.4 K/mm3 (4.4-11.0)
[2023-01-22 17:16] LABS: HIV - WCH Non-Reactive (Nonreactive); Hepatitis B Surface Antigen Non-Reactive (Nonreactive); Hepatitis C Antibody Non-Reactive (Nonreactive); Rubella IgG Reactive (Nonreactive); Syphilis Antibodies Non-reactive
[2023-01-24 05:07] LABS: V-Zoster IgG (Immunity) < 135 index (Immune >165)
== END | disposition home or self-care (01) ==
LOC: WOBLAB 15:24
PROVIDERS: Visit Provider Student in an Organized Health Care Education/Training Program
DX: Z34.81 Encounter for supervision of other normal pregnancy, first trimester (principal)
CPT/HCPCS: 36415; 85025; 86703; 86762; 86780; 86787; 86803; 87086; 87088; 87340

== ENCOUNTER → 2023-06-18 | Outpatient (CLI) | payer OTHER, SELFPAY ==
[2023-06-18 10:08] LABS: Glucose GTT-Gestation. Fasting 79 mg/dL (<105)
[2023-06-18 10:37] LABS: HIV - WCH Non-Reactive (Nonreactive); Syphilis Antibodies Non-reactive
[2023-06-18 11:36] LABS: Absolute Lymphocyte Count 1.55 X10^3/uL (0.83-4.51); Absolute Neutrophil Count 7.7 X10^3/uL (2.0-7.7); Basophil# 0.04 X10^3/uL; Basophil% 0.4 % (0-1); Eosinophil# 0.06 X10^3/uL; Eosinophils% 0.6 % (0-5); Hematocrit 35.2 % (37-47); Hemoglobin 11.9 g/dL (12.0-15.0); Lymphocyte # 1.55 X10^3/ul (0.83-4.51); Lymphocyte % 15.8 % (19-41); Mean Corp Hgb Conc 33.8 g/dL (32-36); Mean Corpuscular Hgb 28.6 pg (27.0-32.0); Mean Corpuscular Volume 84.6 fL (81-99); Mean Platelet Vol. 10.4 fl (6.2-12.0); Monocyte# 0.37 X10^3/uL; Monocyte% 3.8 % (0-10); NRBC Flagged by Analyzer 0 % (0-5); Neutrophil # 7.65 X10^3/uL (2.7-7.7); Neutrophil % 78.3 % (47-70); Platelet Count 209 K/mm3 (150-450); RBC Distribution Width SD 42.8 fl (35.1-43.9); Red Blood Count 4.16 M/mm3 (4.2-5.4); White Blood Count 9.8 K/mm3 (4.4-11.0)
[2023-06-18 12:04] LABS: Glucose GTT-Gestational 1 Hr 152 mg/dL (<190)
[2023-06-18 12:19] LABS: Glucose GTT-Gestational 2 Hr 123 mg/dL (<165)
[2023-06-18 13:09] LABS: Glucose GTT-Gestational 3 Hr 124 L (<145)
== END | disposition home or self-care (01) ==
LOC: LAB 09:07
PROVIDERS: Referring Provider Advanced Practice Midwife; Visit Provider Advanced Practice Midwife
DX: O09.90 Supervision of high risk pregnancy, unspecified, unspecified trimester (principal); Z3A.00 Weeks of gestation of pregnancy not specified
CPT/HCPCS: 36415; 82951; 82952; 85025; 86703; 86780

== ENCOUNTER → 2023-08-20 | Outpatient (CLI) | payer OTHER, SELFPAY ==
--- OUTSIDE RECORDS SUMMARY | 2023-08-20 18:30 | XMS RPT_ITS | CCD ---
Author Name Unknown Address [address] [place] [address] Organization [facility] Care Team Providers Care Healthcare Account Manager Name Role Phone ORONA, KELLIE T Unavailable Unavailable ORONA, KELLIE T Unavailable Unavailable ORONA, KELLIE T Unavailable Unavailable ORONA, KELLIE T Unavailable Unavailable PROVIDER, UNKNOWN Unavailable Unavailable PROVIDER, UNKNOWN Unavailable Unavailable PROVIDER, UNKNOWN Unavailable Unavailable SANCHO ORONA MD Unavailable Unavailable SANCHO ORONA MD Unavailable Unavailable SANCHO ORONA MD Unavailable Unavailable ORONA, KELLIE T Unavailable Unavailable PROVIDER, UNKNOWN Unavailable Unavailable PROVIDER, UNKNOWN Unavailable Unavailable PROVIDER, UNKNOWN Unavailable Unavailable BRISEYDA NOVAK MD Unavailable Unavailable BRISEYDA NOVAK MD Unavailable Unavailable BRISEYDA NOVAK MD Unavailable Unavailable ORONA, KELLIE T Unavailable Unavailable PROVIDER, UNKNOWN Unavailable Unavailable PROVIDER, UNKNOWN Unavailable Unavailable PROVIDER, UNKNOWN Unavailable Unavailable MATTY GROSSMANOTHY DO Unavailable Unavailable OMLEY ROXANNE DO Unavailable Unavailable OMLEY, ROXANNE DO Unavailable Unavailable ORONA, KELLIE T Unavailable Unavailable ORONA, KELLIE T Unavailable Unavailable PROVIDER, UNKNOWN Unavailable Unavailable PROVIDER, UNKNOWN Unavailable Unavailable PROVIDER, UNKNOWN Unavailable Unavailable Problems Problem Classification Problem Date Documented Da te Episodic/Chronic Abdominal pain (3 sources) Right upper quadrant pain; Translations: [Right upper quadrant pain] Onset: 04-08-2017 Episodic Genitourinary symptoms and ill-defined conditions (1 source) Other specified disorders of urinary system; Translations: [Other specified disorders of urinary system] Onset: 03-15-2017 Episodic Results Test Name Value Interpretation Reference Range Facil ity Encounters Encounter Date Encounter Type Care Provider Facility Start: 03-04-2018 End: 03-04-2018 Emergency department patient visit ROXANNE DAY [facility] Start: 04-11-2017 End: 04-11-2017 Emergency department patient visit BRISEYDA NOVAK [facility] Start: 04-08-2017 End: 04-08-2017 Patient encounter SANCHO ORONA [facility] Start: 03-15-2017 End: 03-15-2017 Patient encounter KELLIE Hernandez [facility] Payers Date Payer Category Payer Policy ID Unknown [id number] Summary Purpose Family History No Family History Records Found Advance Directives No Advanced Directives Records Found Additional Source Comments INFORMATION SOURCE (unrecogn ized section and content) FOR RECORDS PERTAINING TO PATIENTS WHO ARE OR HAVE BEEN ENROLLED IN A CHEMICAL DEPENDENCY/SUBSTANCEABUSE PROGRAM, SOME INFORMATION MAY BE OMITTED. This clinical summary was aggregated from multiple sources. Caution should be exercised in using it in the provision of clinical care. This summary normalizes information from multiple sources, and as a consequence, information in this document may materially change the coding, format and clinical context of patient data. In addition, data may be omitted in some cases. CLINICAL DECISIONS SHOULD BE BASED ON THE PRIMARY CLINICAL RECORDS. [employer] [facility]. provides no warranty or guarantee of the accuracy or completeness of information in this document.
== END | disposition home or self-care (01) ==
PROVIDERS: Referring Provider Advanced Practice Midwife; Visit Provider Advanced Practice Midwife
DX: Z34.90 Encounter for supervision of normal pregnancy, unspecified, unspecified trimester (principal)
CPT/HCPCS: 87081

== ENCOUNTER 2023-09-09 05:30 | Inpatient (IN) | payer OTHER, SELFPAY ==
[2023-09-09] VITALS (26 sets, daily range): BP systolic 96–125; BP diastolic 44–102; PULSE 70–97; RESP 13–21; TEMP 36.1–36.9; O2SAT 16–100
--- OUTSIDE RECORDS SUMMARY | 2023-09-09 05:43 | XMS RPT_ITS | CCD ---
Author Name Unknown Address [address] [place] [address] Organization [facility] Care Team Providers Care Traffic Director Name Role Phone ORONA, KELLIE T Unavailable [...] 03-04-2018 Emergency department patient visit ROXANNE DAY [facility] Start: 04-11-2017 End: 04-11-2017 Emergency department patient visit BRISEYDA NOVAK [facility] Start: 04-08-2017 End: 04-08-2017 Patient encounter SANCHO ORONA [facility] Start: 03-15-2017 End: 03-15-2017 Patient encounter KELLIE [facility] Payers Date Payer Category Payer Policy ID Unknown [id number] Summary Purpose Family History No Family History [...] BE BASED ON THE PRIMARY CLINICAL RECORDS. [facility]. provides no warranty or guarantee of the accuracy or completeness of information in this document.
[2023-09-09] MEDS: Lactated Ringers 1,000 ML 999 ML IV (05:55)
[2023-09-09 06:27] LABS: Absolute Lymphocyte Count 2.33 X10^3/uL (0.83-4.51); Absolute Neutrophil Count 7.6 X10^3/uL (2.0-7.7); Basophil# 0.07 X10^3/uL; Basophil% 0.6 % (0-1); Eosinophil# 0.09 X10^3/uL; Eosinophils% 0.8 % (0-5); Hematocrit 32.9 % (37-47); Hemoglobin 10.6 g/dL (12.0-15.0); Lymphocyte # 2.33 X10^3/ul (0.83-4.51); Lymphocyte % 20.9 % (19-41); Mean Corp Hgb Conc 32.2 g/dL (32-36); Mean Corpuscular Hgb 25.9 pg (27.0-32.0); Mean Corpuscular Volume 80.4 fL (81-99); Mean Platelet Vol. 10.6 fl (6.2-12.0); Monocyte# 0.81 X10^3/uL; Monocyte% 7.3 % (0-10); NRBC Flagged by Analyzer 0 % (0-5); Neutrophil # 7.64 X10^3/uL (2.7-7.7); Neutrophil % 68.5 % (47-70); Platelet Count 185 K/mm3 (150-450); RBC Distribution Width CV 14.6 % (11.6-14.6); RBC Distribution Width SD 41.6 fl (35.1-43.9); Red Blood Count 4.09 M/mm3 (4.2-5.4); White Blood Count 11.2 K/mm3 (4.4-11.0)
[2023-09-09] MEDS: Acetaminophen 500 MG Tablet 1000 MG PO ×3 (06:39→19:17)
[2023-09-09] MEDS: Sodium Citrate/Citric Acid 30 ML UDC PO (06:39)
[2023-09-09] MEDS: Lactated Ringers 1,000 ML 150 ML IV (07:01)
--- NOTE | 2023-09-09 07:21 | HP.PCM.OB_ITS ---
HPI - General General Date of Admission: 09/09/23 HPI Narrative GABRIELE SCHWARTZ, is a 23 y/o @ 39 weeks 2 days who presents to L&D for a repeat section Maternal Data Information VILMA Calculator Estimated Delivery Date Method Current WG Current Estimate 09/14/23 Manual 39w 2d [facility] PFS PFS Medical History Depression Home Medications docusate sodium 100 mg capsule 100 mg PO BID PRN PRN Constipation #60 caps 08/18/20 [Rx Last Taken Unknown] Allergy/AdvReac Type Severity Reaction Status Date / Time No Known Allergies Allergy Verified 09/06/23 10:09 Family History Grandmother No problems noted. Son Cleft palate Other Diabetes Heart disease Surgical History H/O section Social History adopted: No household members: spouse and children housing: house current occupational status: employed current occupation: [employer] current occupational exposures/hazards: No pets and animals: No history of recent travel: No sexually active: Yes Smoking Status: Former smoker alcohol intake: never substance use type: does not use caffeine: Yes seatbelt use: always do you feel safe at home: Yes additional social history: spouse - issa children - lawrence History 2 Elective abortions Hx Para 1 Spontaneous abortions Hx # Term Pregnancies Ectopic pregnancies Hx # Pregnancies Multiple births # of living children 1 Past Pregnancies Del. Date Name GA/Weeks Outcome Route Bth Weight Gen Labor Lgth Anesthesia Del Locatn Provider FOB 08/18/20 Lawrence 2020 38 live - full term Male [facility] Andrzej Delivery Date: 08/18/20 Last Updated by: Lindsey Recinos Baby with cleft palate Visit Details Expected Delivery Route/Plan desires repeat C/S Plans Covid status: unvaccinated Flu vaccine: Declines Tdap vaccine: [] Rhogam: NA LARC form signed: yes Problem list reviewed and updated with the most current plan of care details and appropriate orders placed. Relevant counseling for the gestational age provided. Continue routine care and follow up unless otherwise noted in visit notes/problem list details OB Flowsheet Initial Weight: Not Recorded Date -?-?-?-?-?-?-?-?-?-?-?-?- EGA Weight BP Urine Prot -?-?-?-?-?-?-?-?-?-?-?-?- Glucose FHR FuHt Pres Dilation -?-?-?-?-?-?-?-?-?-?-?-?- Effaced St Visit Note 05/28/23 -?-?-?-?-?-?-?-?-?-?-?-?- 24w 3d 219 lb 114/81 Negative -?-?-?-?-?-?-?-?-?-?-?-?- Negative 140 -?-?-?-?-?-?-?-?-?-?-?-?- KW-Transfer from [place], had all appts until 20 weeks with them. Had labs and anatomy US with them. R C/S desired. Desires to skip 1 hour GCT and do 3 hour at 28 weeks. no vb/cramping. good fm. Larc done today 06/18/23 -?-?-?-?-?-?-?-?-?-?-?-?- 27w 3d 222 lb 6 oz 115/81 Nega tive -?-?-?-?-?-?-?-?-?-?-?-?- Negative 140 -?-?-?-?-?-?-?-?-?-?-?-?- KW- no vb/ctx/lo f/ good fm. passed 3 hr gct. C/S with JV 09/09/23 730am 07/08/23 -?-?-?-?-?-?-?-?-?-?-?-?- 30w 2d 221 lb 6 oz 113/78 Nega tive -?-?-?-?-?-?-?-?-?-?-?-?- Negative 141 -?-?-?-?-?-?-?-?-?-?-?-?- JV- no lof, vagi nal bleeding, or dec fm. tdap today. 07/23/23 -?-?-?-?-?-?-?-?-?-?-?-?- 32w 3d 224 lb 6 oz 125/76 Nega tive -?-?-?-?-?-?-?-?-?-?-?-?- Negative 159 32 -?-?-?-?-?-?-?-?-?-?-?-?- JV- pt complains of back and hip pain. exercises discussed. 08/06/23 -?-?-?-?-?-?-?-?-?-?-?-?- 34w 3d 230 lb 6 oz 117/80 Nega tive -?-?-?-?-?-?-?-?-?-?-?-?- Negative 155 35 -?-?-?-?-?-?-?-?-?-?-?-?- KW-no vb/ryne allen fm. discussed feeding plan. wants to pump not breastfeed. gbs next visit. 08/20/23 -?-?-?-?-?-?-?-?-?-?-?-?- 36w 3d 230 lb 6 oz Negative -?-?-?-?-?-?-?-?-?-?-?-?- Negative 150 36 -?-?-?-?-?-?-?-?-?-?-?-?- KW- no vb/john rey. declines SVE. GBS done. 08/27/23 -?-?-?-?-?-?-?-?-?-?-?-?- 37w 3d 231 lb 2 oz 116/78 Nega tive -?-?-?-?-?-?-?-?-?-?-?-?- Negative 150 37 -?-?-?-?-?-?-?-?-?-?-?-?- kw- no vb/lof/ct xVirgen rey. 09/06/23 -?-?-?-?-?-?-?-?-?-?-?-?- 38w 6d 233 lb 2 oz 124/80 Nega tive -?--?-?-?-?-?-?-?-?-?-?-?- Negative 150 39 -?-?-?-?-?-?-?-?-?-?-?-?- JV- no lof vagin al bleeding, or dec fm. consent signed for surgery today. ROS Constitutional Constitutional: Denies change in weight, fatigue, fever(s), headache(s), poor appetite or weakness Eyes Eyes: Denies blurry vision, change in vision, seeing flashes or spots in vision ENT HEENT: Denies dizziness, headache(s), loss taste/smell or sore throat Cardiovascular Cardiovascular: Denies chest pain, dizziness, dyspnea, irregular heart rhythm, leg edema, palpitations, rapid heart rate or vomiting Respiratory/Chest Respiratory/Chest: Denies chest tightness, cough, dyspnea or breast pain Gastrointestinal Gastrointestinal: Denies abdominal pain, anorexia, constipation, cramping, diarrhea, hemorrhoids, vomiting or weight changes Genitourinary Genitourinary: Denies dysuria, flank pain, genital lesions, genital pain, urinary frequency or urinary urgency Musculoskeletal Musculoskeletal: Denies back pain, difficulty walking, joint pain, limited range of motion, muscle cramps or numbness Integumentary Integumentary: Denies lesions or unusual bruising Neurologic Neurologic: Denies abnormal movements, abnormal speech, dizziness, numbness, seizure-like activity or syncope Psychiatric Psychiatric: Denies anxiety, behavioral changes, change in appetite, change in libido, cognitive impairment, confusion, depression, difficulty concentrating, hallucinations or suicidal thoughts Endocrine Endocrinology: Denies excessive sweating, polydipsia or polyuria Hematologic/Lymphatic Hematologic/Lymphatic: Denies easy bleeding, easy bruising or lymphadenopathy Allergic/Immunologic Allergic/Immunologic: Denies itchy eyes, lip swelling, seasonal rhinorrhea, rhinitis, throat swelling, tongue swelling, eczemia, wheezing or asthma Vital Signs Vital Signs Vital Signs: 09/09/23 05:41 09/09/23 05:41 09/09/23 06:02 Temperature 97.4 F L Temperature Source Temporal Pulse Rate 73 73 Respiratory Rate 15 Blood Pressure 123/72 H 123/72 H Blood Pressure Mean 89 BP Systolic 123 BP Diastolic 72 Blood Pressure Source Monitor Blood Pressure Position Semi-Fowlers Blood Pressure Location Left Arm Pulse Ox 98 Oxygen Delivery Method Room Air Weight Weight: 231 lb 4.238 oz Physical Exam Const alert, oriented x3, no apparent distress and healthy appearing General Appearance: cooperative; Negative for anxious HEENT normocephalic Face and Sinus: normal facial exam Eyes EOMs intact bilaterally and no scleral icterus General Eye: normal appearance of both eyes Neck full ROM and supple Lymph Lymphatic: no lymphadenopathy noted Chest Chest: abnormal inspection of the chest Resp normal respiratory effort Effort and Inspection: able to speak in complete sentences Cardio regular rate GI soft to palpation and non-tender Inspection: gravid Palpation: soft; Negative for tender Back/Spine no CVA tenderness Extremity normal to inspection, full ROM and no clubbing, cyanosis or edema General Extremity: Negative for calf tenderness or edema Skin Lesions: no lesions Rashes: no rashes Psych mental status grossly normal Labs Labs Labs: Blood Type O POSITIVE Antibody Screen NEGATIVE Hct 32.9 % (37-47) L Hgb 10.6 g/dL (12.0-15.0) L Syphilis Total Ab Non-reactive VZV IgG Antibody < 135 index (Immune >165) L Rubella IgG Antibody Reactive (Nonreactive) Hep Bs Antigen Non-Reactive (Nonreactive) Hepatitis C Antibody Non-Reactive (Nonreactive) HIV 1&2 Antibody Non-Reactive (Nonreactive) Glucose 1 Hr 50 gm 194 mg/dL (70-140) H Gest Glucose Tolerance MG/DL Rhogam given: No Assessment & Plan (1) Need for Tdap vaccination: COMMENT: Given 07/08/23 (2) Obesity affecting : COMMENT: passed 3 hour gct (3) History of delivery affecting : COMMENT: plans RLTCS. Scheduled for 09/09/23 @ 7:30 with JV (4) : QUALIFIERS: Weeks of gestation: 38 weeks Qualified Code(s): Z3A.38 - 38 weeks gestation of COMMENT: GBS neg, declines NIPT (5) Supervision of high-risk : COMMENT: VILMA 09/14/23 PC: Lawrence, Spouse Issa PLAN: Plan After discussing the patient's diagnosis and treatment plan options, patient wishes to proceed with surgical management. I have discussed with the patient the risks, benefits, and alternatives of the procedure which include but are not limited to risks of anesthesia, bleeding, infection, possible damage to bowel, bladder, or surrounding vasculature which could lead to additional surgery to evaluate any complications. Patient agrees to procedure and wishes to proceed. ACOG/uptodate references given for additional information regarding procedure. plan repeat section today.
--- NOTE | 2023-09-09 07:22 | DCINST_ITS ---
Discharge Instructions Diet Discharge Diet: No restrictions Activity Discharge Activity: May Not Drive (for 2 weeks or while taking narcotic pain medications.), May Shower and May Take a Tub Bath (in 7 days.) May resume sexual activity in: 4-6 weeks Weight Bearing Status: Full weight bearing Lifting Restrictions: 20 pounds Dressing / Incision Call your doctor if your incision/area has: Continuous Slow Oozing, Sudden Increased Bleeding, Increased Pain/ Swelling, Increased Redness and Foul Smelling Discharge Call your doctor if you observe: Fever of 101 or Higher and Using more than 1 pad per hour Suture Line Care: Avoid Pulling/Pushing and Avoid Pinching/Bending Cleanse incision/area with: Soap & Water and Keep Dressing Clean & Dry Follow Up Care Please Follow Up With: Priscilla Moroe DO When: Call [phone] to make an appointment for an incision check in 1-2 weeks. Test Results: Test results from this visit will be discussed in further detail at your follow- up appointment, if applicable. Discharge Plan Admission Admit Date/Time: 09/09/23 05:30 Attending Provider: Priscilla Moore Primary Care Provider: Care Physician,Lauren Primary Discharge Orders/Prescriptions Prescriptions: New naproxen 500 mg tablet 500 mg PO BID PRN (Reason: pain) Qty: 30 0RF No Action docusate sodium 100 MG capsule 100 mg PO BID PRN PRN (Reason: Constipation) Qty: 60 1RF Referrals / Follow Up: Care PhysicianLauren Primary [Primary Care Provider] - Disposition Disposition (needs filled in before D/C Order can be placed): Home, Self Care
[2023-09-09] MEDS: Cefazolin 2 GM in 0.9% Normal Saline (100mL Bag) 100 ML IV (07:25)
--- NOTE | 2023-09-09 08:34 | OP.PCM_ITS ---
Assessment & Plan (1) Obesity affecting : COMMENT: passed 3 hour gct (2) History of delivery affecting : COMMENT: plans RLTCS. Scheduled for 09/09/23 @ 7:30 with JV (3) : QUALIFIERS: Weeks of gestation: 38 weeks Qualified Code(s): Z3A.38 - 38 weeks gestation of COMMENT: GBS neg, declines NIPT (4) Supervision of high-risk : COMMENT: VILMA 09/14/23 PC: Lawrence, Spouse Issa Maternal Data Information VILMA Calculator Estimated Delivery Date Method Current WG Current Estimate 09/14/23 Manual 39w 2d per [facility] records Final VILMA Source: LMP Details Operative Information Date of Procedure: 09/09/23 Pre-Operative Diagnosis: 23 y/o @ 39 weeks 2 days, prior section, desires repeat section Post-Operative Diagnosis: 23 y/o @ 39 weeks 2 days, prior section, desires repeat section Indications for : Repeat Elective Classification: Scheduled Procedure Type: low transverse computer support specialist #1: Daniel Prince Type of Anesthesia: Spinal Antibiotic Given: Ancef 3 grams IV x1 Estimated Blood Loss: 400cc Procedure Start Time: 07:48 Time of Delivery: 08:29 Findings Description of Procedure: The patient is a 23 presented for repeat . Spinal anesthesia was placed without difficulty. Mcnulty catheter was placed. The patient was placed in the dorsal supine position with leftward tilt. Patient was prepped and draped in the normal sterile fashion. Pfannenstiel skin incision was made with the scalpel and carried through to the underlying layer of fascia with the sca lpel. Fascia was nicked in the midline and the incision extended laterally. The rectus bellies were dissected off superiorly and inferiorly with out complication both sharply and bluntly. The peritoneum was entered digitally. The incision was stretched and a low transverse uterine incision was made with the scalpel. The 's head was delivered atraumatically followed by the anterior and posterior shoulders without complication the rest of the infant delivered. The cord was clamped and cut and the infant was handed off to awaiting nurse. The placenta was delivered spontaneously immediately following and was noted to be intact and have a three-vessel cord. The uterus was exteriorized cleared of all clots and debris, and the incision was closed in a double layer closure using #1 Vicryl and Monocryl. The ovaries and fallopian tubes were noted to be within normal limits. The uterus was returned to the maternal abdomen and gutters were cleared of all clots and debris. The pe ritoneum was closed with 3-0 Monocryl in a running fashion. Gloves were changed prior to fascial closure. Fascia was closed with 0 PDS in a running fashion. Subcutaneous tissue was copiously irrigated and the skin was closed with 3-0 Monocryl in a subcuticular fashion. Mepilex dressing was applied without complication. Patient was taken to recovery in stable condition. It was discussed with the patient that based on the clinical information obtained during this encounter, combined with her history, at this time I would recommend for future deliveries if further pregnancies are desired. Presentation: Positive for Vertex Amniotic Membrane Rupture Type: Artificial Time of Membrane Ruptured: 0752 Amniotic Fluid Description: Clear Placental Delivery Description: Manual Removal Placenta Disposition: [facility] Cord Vessel Description: 3 Vessels Cord Entanglement: None A Gender: Male (1 minute): 9 (5 minute): 9 Delayed Cord Clamping: Yes Complications Risks of Surgery Discussed w/Patient: Bleeding, Anesthesia Risks, Infection, Need for Future C-Sections and Injury to surrounding structure(s) including bowel and bladder Complications: none Multi Select Codes Urinary/Genital Urinary/Genital CPT Codes: 61105 Delivery [facility]
[2023-09-09 08:47] LABS: Syphilis Antibodies Non-reactive
[2023-09-09] MEDS: Oxytocin 15 Units/NS 250ml 15 UNITS/250 ML IV.SOLN 83 UNITS IV (08:50)
[2023-09-09] MEDS: Ketorolac 30 MG/ML Syringe IV ×3 (09:21→21:33)
[2023-09-09] MEDS: Lactated Ringers 1,000 ML 100 ML IV (11:50)
[2023-09-09] MEDS: Enoxaparin 40 MG/0.4 ML Syringe SC (20:32)
[2023-09-09] MEDS: 0.9% Saline Lock 10 ML Syringe IV (21:33)
[2023-09-10 01:02] VITALS: RESP 16; O2SAT 96
[2023-09-10] MEDS: Acetaminophen 500 MG Tablet 1000 MG PO ×3 (01:11→13:29)
[2023-09-10] MEDS: Ketorolac 30 MG/ML Syringe IV (03:00)
[2023-09-10] MEDS: 0.9% Saline Lock 10 ML Syringe IV (03:00)
[2023-09-10 03:02] VITALS: BP 118/68; PULSE 80; RESP 16; TEMP 36.6; O2SAT 98
[2023-09-10 04:19] LABS: Hematocrit 28.1 % (37-47); Mean Corpuscular Hgb 26.2 pg (27.0-32.0); Mean Corpuscular Volume 81.7 fL (81-99); Mean Platelet Vol. 10.3 fl (6.2-12.0); Platelet Count 140 K/mm3 (150-450); RBC Distribution Width CV 14.9 % (11.6-14.6); RBC Distribution Width SD 42.5 fl (35.1-43.9); Red Blood Count 3.44 M/mm3 (4.2-5.4); White Blood Count 10.9 K/mm3 (4.4-11.0)
[2023-09-10 05:02] VITALS: RESP 16; O2SAT 98
--- NOTE | 2023-09-10 08:07 | PN.OBGYN_ITS ---
Subjective Subjective Patient doing well without complaints. Tolerating PO. Ambulating and voiding without difficulty. Feeding well. Denies chest pain, shortness of breath, calf pain/swelling, fevers, chills, lightheadedness. Objective Data Objective Data Vital Signs: Vital Signs Temp Pulse Resp BP Pulse Ox O2 Del Method 97.8 F 80 16 118/68 98 Room Air 09/10/23 03:02 09/10/23 03:02 09/10/23 05:02 09/10/23 03:02 09/10/23 05:02 09/10/23 05:02 Oxygen Delivery Method Room Air Weight: 231 lb 4.238 oz Intake & Output: Intake and Output for Last 24 Hours 09/08/23 09/09/23 09/10/23 23:59 23:59 23:59 Intake Total 3624 / 3624 Output Total 0 / 0 1200 / 1200 Balance 1974 / 1574 -1200 / -1200 Lab / Micro Data 09/10/23 04:12 Labs: Laboratory Results - last 24 hr 09/09/23 06:05: Syphilis Total Ab Non-reactive 09/10/23 04:12: WBC 10.9, RBC 3.44 L, Hgb 9.0 L, Hct 28.1 L, MCV 81.7, MCH 26.2 L, MCHC 32.0, RDW Std Deviation 42.5, RDW Coeff of [place] 14.9 H, Plt Count 140 L, MPV 10.3 Micro: Microbiology 09/09/23 06:00 Interface Orders Chlamydia trachomatis (PCR) - Final 09/09/23 06:00 Interface Orders Neisseria gonorrhoeae (PCR) - Final ROS Constitutional Constitutional: Reports systems reviewed and no addt'l complaints, except as documented; Denies anorexia or headache(s) Cardiovascular Cardiovascular: Reports systems reviewed and no addt'l complaints, except as documented; Denies dizziness, dyspnea, nausea or tachypnea Respiratory/Chest Respiratory/Chest: Reports systems reviewed and no addt'l complaints, except as documented; Denies cough, dyspnea, shortness of breath at rest or tachypnea Gastrointestinal Gastrointestinal: Reports systems reviewed and no addt'l complaints, except as documented; Denies abdominal pain, constipation or nausea Genitourinary Genitourinary: Reports systems reviewed and no addt'l complaints, except as documented; Denies burning urination, difficulty urinating, dysuria, urinary frequency or urinary incontinence Musculoskeletal Musculoskeletal: Reports systems reviewed and no addt'l complaints, except as documented Integumentary Integumentary: Reports systems reviewed and no addt'l complaints, except as documented Neurologic Neurologic: Reports systems reviewed and no addt'l complaints, except as do cumented; Denies abnormal speech, dizziness or headache(s) Psychiatric Psychiatric: Reports systems reviewed and no addt'l complaints, except as docume nted Endocrine Endocrinology: Reports systems reviewed and no addt'l complaints, except as documented Hematologic/Lymphatic Hematologic/Lymphatic: Reports systems reviewed and no addt'l complaints, except as documented Physical Exam Const alert, oriented x3 and no apparent distress Neck full ROM Resp normal respiratory effort, normal air movement and no retractions Effort and Inspection: able to speak in complete sentences and symmetric chest movement GI soft to palpation Inspection: incision intact Bladder / Kidney Exam: bladder normal to palpation Uterus Palpation: uterus fundus firm Extremity normal to inspection and full ROM Psych mental status grossly normal, thought process normal and cooperative Assessment & Plan (1) Status post repeat low transverse section: PLAN: s/p LTCS PPD # 1 1. routine post care 2. breast feeding- support given 3. rh positive 4. rubella immune 5. Discharge Home (2) Supervision of high-risk : COMMENT: VILMA 09/14/23 PC: Lawrence, Spouse Issa (3) : QUALIFIERS: Weeks of gestation: 38 weeks Qualified Code(s): Z3A.38 - 38 weeks gestation of COMMENT: GBS neg, declines NIPT (4) History of delivery affecting : COMMENT: plans RLTCS. Scheduled for 09/09/23 @ 7:30 with JV (5) Obesity affecting : COMMENT: passed 3 hour gct (6) Need for Tdap vaccination: COMMENT: Given 07/08/23 Charges/Coding Multi Select Codes Urinary/Genital Urinary/Genital CPT Codes: No Charge
--- NOTE | 2023-09-10 08:10 | DCINST_ITS ---
Discharge Instructions Diet Discharge Diet: No restrictions Activity May resume sexual activity in: 4-6 weeks Weight Bearing Status: Full weight bearing Dressing / Incision Call your doctor if your incision/area has: Continuous Slow Oozing, Sudden Increased Bleeding, Increased Pain/ Swelling, Increased Redness and Foul Smelling Discharge Call your doctor if you observe: Fever of 101 or Higher and Using more than 1 pad per hour Suture Line Care: Avoid Pulling/Pushing and Avoid Pinching/Bending Cleanse incision/area with: Soap & Water and Keep Dressing Clean & Dry Follow Up Care Please Follow Up With: Priscilla Moore DO Test Results: Test results from this visit will be discussed in further detail at your follow- up appointment, if applicable. Discharge Plan Admission Admit Date/Time: 09/09/23 05:30 Attending Provider: Priscilla Moore Primary Care Provider: Lauren Bender Primary Discharge Orders/Prescriptions Prescriptions: New naproxen 500 mg tablet 500 mg PO BID PRN (Reason: pain) Qty: 30 0RF No Action docusate sodium 100 MG capsule 100 mg PO BID PRN PRN (Reason: Constipation) Qty: 60 1RF Referrals / Follow Up: Care Physician,Lauren Primary [Primary Care Provider] - Disposition Disposition (needs filled in before D/C Order can be placed): Home, Self Care
[2023-09-10 08:15] VITALS: BP 109/78; PULSE 90; RESP 18; TEMP 36.6; O2SAT 100
[2023-09-10] MEDS: Enoxaparin 40 MG/0.4 ML Syringe SC (08:19)
[2023-09-10] MEDS: Senna/Docusate Sodium 1 Tablet PO (09:37)
[2023-09-10] MEDS: Naproxen 500 MG Tablet PO (09:38)
--- NOTE | 2023-09-10 11:08 | CASEMGMT ---
Social Work Assessment Labor and Delivery Unit Patient Address:[address] [place] [id number] Phone number: [phone] Date of Referral: 09/09/23 Time of Referral:? 163 Referred By: Priscilla Moore Date of Intervention: ?09/10/23? Time of Intervention:? 1030 Reason for Referral:? hx of depression Sw completed chart review and acknowledges social work consult due to maternal history of depression. Sw presented to bedside and introduced self to mother of baby (CARMEN- Teresa) and father of baby (FOB- Jason). Sw explained sw role during hospitalization and completed psychosocial assessment. Sw asked FOB to step out of room momentarily so that MOB could complete Dobbins Depression Scale. FOB left room respectfully. History obtained from: medical records, MOB and FOB Household composition: Currently residing in the family home is ULICES MORALES, their older son (Lawrence- 08/18/21) and now baby boy. Parents state that there are no housing concerns, they house is safe and secure, not in jeopardy of losing it. Patient's parent/guardian status:? ?MOB states that she and FOJame have been together for 7 years, they met while they were in school together. While meeting with MOB privately she denies any concerns of domestic violence or intimate partner violence. Medical History: ?CARMEN is 23 year old female who is 2, para 1- now 2 following delivery of . CARMEN received routine care with [facility] during . CARMEN delivered baby via repeat on 09/08/23 at 39 weeks gestation. Baby boy, named Juve Gonzalez, was born weighing 7lb 8oz and his apgars were 9 and 9 at one and five minutes of life respectfully. CARMEN states that she is pumping and bottle feeding baby. Baby will be followed by Dr. Ash for pediatrics. Educational Status:? Both parents graduated high school, no college education. CARMEN states that she grew up Sikh until her parents left the amish when she was in 5th grade. CARMEN states that when she was transitioned to their local elementary school they put her on an IEP to help her get caught up with same aged peers. Financial Status: Both parents are gainfully employed outside of the home. 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 Infant Supplies:?? Parents state that they have obtained all necessary baby supplies, including: car seat, safe sleep space, clothes, diapers, wipes and a breast pump. Childcare/Caregiver(s):? MOB states that when both parents have returned to work she has a mining manager watch the children. Transportation:?? Both parents have their drivers license and reliable means of transportation. No barriers at this time. Programs/Agencies Involved: ???None Children Services/Legal Issues:??? No history of involvement, no issues or concerns warranting a referral to be made at this time. Behavioral Health Issues: ??Mental Health History:?FOaJme states that he was diagnosed with ADHD as a child and was prescribed medication when he was in school. MOB states that 6 or 7 years ago she was diagnosed with depression when her aunt . MOB states that she did not want to take medication to help with symptoms so she has always managed her symptoms on her own. MOB states that her depression does not debilitate her and she is still able to participate in daily functioning. MOB completed Dobbins Depression scale, her score was an 8. Sw provided support and education. MOB states that she has a sister she can talk to if she starts to feel as though she is experiencing symptoms. ?? Substance Use History: MOB denies substance use prior to and during . ?? Family History: Parents deny family history of addiction/ substance use and significant mental health history. ? Drug Screens: No toxicology screens observed for this in chart review. ?? Family/Social Stressors:? Parents deny any stressors or concerns at this time. Support Systems: MOB states that her sisters and her mom are their biggest supports. Depression/Shaken Baby/Safe Sleeping:? Sw educated parents on signs and symptoms of baby blues, depression and anxiety. Parents expressed understanding. Sw educated parents on shaken baby prevention and ABCs of safe sleep. Parents expressed understanding. ASSESSMENT:? MOB and baby admitted following labor and delivery. MOB and FOB both participated in psychosocial assessment. MOB answered questions, initially MOB appeared slightly withdrawn, throughout conversation MOB engaged more and made eye contact with this sw'er. Parents appreciative of sw involvement and support. Parents have obtained all necessary baby supplies and have adequate supports in place. PLAN:? MOB and baby to be discharged when medically ready. ?No other services requested or indicated. Renée Gutierrez, FILE DRAWER FINISHER, MARKETING INTELLIGENCE ANALYST
[2023-09-10 12:25] VITALS: BP 135/65; PULSE 94; RESP 16; TEMP 36.4
== END 2023-09-10 13:35 | disposition home or self-care (01) | DRG 788 ==
PROVIDERS: Admitting Provider Obstetrics & Gynecology; Visit Provider Obstetrics & Gynecology
PROC: 10D00Z1 Extraction of Products of Conception, Low, Open Approach (ICD-10-PCS; CPT 59514; principal; 2023-09-09 07:15)
DX: O34.211 Maternal care for low transverse scar from previous cesarean delivery (principal); E66.8 Other obesity; O99.214 Obesity complicating childbirth; Z37.0 Single live birth; Z87.891 Personal history of nicotine dependence; Z3A.39 39 weeks gestation of pregnancy
CPT/HCPCS: 59025; 85025; 85027; 86780; 86850; 86900; 86901; 87491; 87591; 99221; J7120; A4216; G0378; J2405

== ENCOUNTER → 2023-10-23 | Outpatient (CLI) | payer OTHER, SELFPAY ==
--- OUTSIDE RECORDS SUMMARY | 2023-10-23 18:44 | XMS RPT_ITS | CCD ---
Author Name Unknown Address [address] [place] [address] Organization [facility] Care Team Providers Care Log Loader Name Role Phone ORONA, KELLIE T Unavailable [...] department patient visit ROXANNE DAY [facility] Start: 04-11-2017 End: 04-11-2017 Emergency department patient visit BRISEYDA NOVAK [facility] Start: 04-08-2017 End: 04-08-2017 Patient encounter SANCHO ORONA [facility] Start: 03-15-2017 End: 03-15-2017 Patient encounter KELLIE Hernandez [facility] Payers Date Payer Category Payer Policy ID Unknown [id number] Summary Purpose Family History No Family History [...] BE BASED ON THE PRIMARY CLINICAL RECORDS. [employer] [facility]. provides no warranty or guarantee of the accuracy or completeness of information in this document.
[2023-10-30 12:43] LABS: HPV Reflexed? NOT INDICATED
== END | disposition home or self-care (01) ==
LOC: LABSPEC 13:55
PROVIDERS: Referring Provider Registered Nurse; Visit Provider Registered Nurse
DX: Z12.4 Encounter for screening for malignant neoplasm of cervix (principal)
CPT/HCPCS: 88175; G0145

== ENCOUNTER → 2025-08-06 | Outpatient (CLI) | payer SELFPAY ==
[2025-08-09 17:08] LABS: Chlamydia By Nucleic Acid AMP Negative (Negative); Gonococcus By Nucleic Acid AMP Negative (Negative)
== END | disposition home or self-care (01) ==
PROVIDERS: Visit Provider Advanced Practice Midwife
DX: O09.90 Supervision of high risk pregnancy, unspecified, unspecified trimester (principal); O20.0 Threatened abortion
CPT/HCPCS: 36415; 84702; 87086; 87088; 87491; 87591

== ENCOUNTER → 2025-08-08 | Outpatient (CLI) | payer MEDICAID, SELFPAY ==
--- OUTSIDE RECORDS SUMMARY | 2025-08-08 14:52 | XMS RPT_ITS | CCD ---
Author Organization [facility] Care Team Providers Care Municipal Bond Trader Name Role Phone ORONA, KELLIE T Unavailable [...] UNKNOWN Unavailable Unavailable PROVIDER, UNKNOWN Unavailable Unavailable OMLEY, ROXANNE DO Unavailable Unavailable OMLEY, ROXANNE DO Unavailable Unavailable OMLEY, ROXANNE DO Unavailable Unavailable ORONA, KELLIE T Unavailable Unavailable ORONA, KELLIE T Unavailable Unavailable PROVIDER, UNKNOWN Unavailable Unavailable PROVIDER, UNKNOWN Unavailable Unavailable PROVIDER, UNKNOWN Unavailable Unavailable Care Physician, No Primary Primary Care Provider Unavailable Care Physician, No Primary Referring Provider Un available BETH Nichols Attending Provider [phone] Care Physician, No Primary Primary Care Provider Unavailable Care Physician, No Primary Referring Provider Un available BETH Nichols Attending Provider [phone] Dr. Priscilla Moore Attending Provider [phone] Dr. Priscilla Moore Admit Provider Dr. Priscilla Moore Other Provider Care Physician, No Primary Primary Care Provider Unavailable Care Physician, No Primary Referring Provider Un available Dr. Priscilla Moore Attending Provider [phone] BETH Nichols Attending Provider [phone] Priscilla Moore Admit Provider Dr. Priscilla Moore Other Provider Flash PAZ, JACKSON-Maury Summers Attending Provider BETH Ohara Attending Provider Care Physician, No Primary Primary Care Unava ilable Feli Nichols Attending Unavailable Feli Nichols Referring Unavailable Care Physician, No Primary Primary Care Unava ilable Feli Nichols Attending Unavailable Feli Nichols Referring Unavailable Care Physician, No Primary Primary Care Unava ilable Care Physician, No Primary Referring Unava ilable Feli Nichols Attending Unavailable Care Physician, No Primary Primary Care Unava ilable Care Physician, No Primary Referring Unava ilable Feli Nichols Attending Unavailable Care Physician, No Primary Primary Care Unava ilable Feli Nichols Attending Unavailable Care Physician, No Primary Referring Unava ilable Care Physician, No Primary Primary Care Unava ilable Care Physician, No Primary Referring Unava ilable Priscilla Moore Attending Unavailabl e Care Physician, No Primary Primary Care Unava ilable Care Physician, No Primary Referring Unava ilable Priscilla Moore Attending Unavailabl e Care Physician, No Primary Primary Care Unava ilable Care Physician, No Primary Referring Unava ilable Feli Nichols Attending Unavailable Care Physician, No Primary Primary Care Unava ilable Feli Nichols Attending Unavailable Care Physician, No Primary Referring Unava ilable Care Physician, No Primary Referring Unava ilable Care Physician, No Primary Primary Care Unava ilable Priscilla Moore Attending Unavailabl e Care Physician, No Primary Referring Unava ilable Care Physician, No Primary Primary Care Unava ilable Melina Vidales NP Attending Unavailable Lily Ohara Attending Unavailable Care Physician, No Primary Referring Unava ilable Care Physician, No Primary Primary Care Unava ilable Priscilla Moore Consulting Unavailabl e Care Physician, No Primary Primary Care Unava ilable Priscilla Moore Admitting UnavailFeli Booth Attending Unavailable Priscilla Moore Attending Unavailabl e Care Physician, No Primary Primary Care Unava ilable Priscilla Moore Admitting Unavailabl e Priscilla Moore Attending Unavailabl e Care Physician, No Primary Primary Care Unava ilable Liliam Murdock Attending Unavailable Lily Ohara Referring Unavailable Lily Ohara Attending Unavailable Care Physician, No Primary Primary Care Unava ilable Unavailable Primary Care Provider Unavailabl e SELF Referring Unavailable LINDSEY TINEO Attending Unavailable Medications Current Medications Medication Drug Class(es) Dates Sig (Normalized) Sig (Original) Levonorgestrel-Eth inyl Estrad (2 sources) Progestin, Estrogen, Progestin-containing Intrauterine Device Start: 10-23-2023 Levonorgestrel-Et hinyl Estrad (Altavera (28)) 0.15-0.03 mg tablet Active 1 TABLET PO DAILY October 23, 2023 12:47pm continuous use Start: 09-23-2023 End: 10-23-2023 Levonorgestrel-Ethinyl Estra d (Altavera (28)) 0.15-0.03 mg tablet Discontinued 1 TABLET PO DAILY September 23, 2023 1:00am October 23, 2023 12:56pm Ethinyl Estradiol / norgestimate (3 sources) Progestin, Estrogen Start: 10-27-2024 take 1 tablet by mouth once daily SPRINTEC 0.25-35 mg-mcg per tablet Take 1 tablet by mouth once daily. 84 tablet 4 10/27/2024 Active Start: 09-01-2024 End: 10-27-2024 take 1 tablet by mouth once daily SPRINTEC 0.25-35 mg-mcg per tablet Take 1 tablet by mouth once daily. 09/01/2024 10/27/2024 Discontinued Completed/Discontinued Medications Medication Drug Class(es) Dates Sig (Normalized) Sig (Original) docusate sodium 100 mg oral capsule (3 sources) Start: 08-18-2020 End: 09-23-2023 take 100 mg by mouth twice daily as needed Docusate Sodium Discontinued 100 MG PO TWICE DAILY NEEDED August 18, 2020 1:00am September 23, 2023 12:05pm naproxen 500 mg oral tablet (2 sources) Nonsteroidal Anti-inflammatory Drug Start: 09-09-2023 End: 09-23-2023 take 500 mg by mouth twice daily Naproxen Discontinued 500 MG PO TWICE A DAY September 09, 2023 1:00am September 23, 2023 12:04pm oxyCODONE hydrochloride 5 mg oral tablet (5 sources) Opioid Agonist Start: 09-10-2023 End: 09-23-2023 take 5-10 mg by mouth every four hours as needed Oxycodone Discontinued 5 - 10 MG PO EVERY 4 HOURS NEEDED 05 21September 10, 2023 September 23, 2023 12:05pm Start: 08-18-2020 End: 08-25-2020 take 5 mg by mouth every six hours as needed Oxycodone Discontinued 5 MG PO EVERY 6 HOURS NEEDED 07 03August 18, 2020 August 25, 2020 1:02am Problems Active Problems Problem Classification Problem Date Documented Date Episodic/Chronic Contraceptive and procreative management (1 source) Oral contraception; Translations: [Encounter for surveillance of contraceptive pills] 10-27-2024 Episodic Immunizations and screening for infectious disease (17 sources) Requires diphtheria, tetanus and pertussis vaccination; Translations: [Encounter for immunization] Onset: 08-27-2023 07-08-2023 Episodic Other aftercare (2 sources) Encounter for follow-up examination after completed treatment for conditions other than malignant neoplasm; Translations: [Follow-up examination, following surgery, unspecified] Onset: 09-23-2023 09-23-2023 Episodic Other complications of (3 sources) Maternal obesity complicating , childbirth and the puerperium, antepartum; Translations: [Obesity complicating , unspecified trimester] 06-18-2023 Chronic Other complications of (20 sources) Obesity complicating , unspecified trimester; Translations: [Obesity complicating , childbirth, or the puerperium, unspecified as to episode of care or not applicable] Onset: 08-27-2023 05-28-2023 Chronic Other complications of (3 sources) High risk ; Translations: [Supervision of high risk , unspecified, unspecified trimester] 05-28-2023 Episodic Other complications of (20 sources) Supervision of high risk , unspecified, unspecified trimester; Translations: [Supervision of unspecified high-risk ] Onset: 08-27-2023 05-28-2023 Episodic Other complications of (1 source) Supervision of other high risk pregnancies, third trimester; Translations: [Supervision of other high risk pregnancies, third trimester] Onset: 09-16-2023 Episodic Other and delivery including normal (20 sources) ; Translations: [Encounter for supervision of normal , unspecified, unspecified trimester] Onset: 01-25-2023 06-18-2023 Episodic Other screening for suspected conditions (not mental disorders or infectious disease) (2 sources) Encounter for screening for malignant neoplasm of cervix; Translations: [Cancer cervix screening status] Onset: 10-28-2023 10-27-2024 Episodic Previous (13 sources) Maternal care for unspecified type scar from previous delivery; Translations: [Previous delivery, unspecified as to episode of care or not applicable] Onset: 08-27-2023 05-28-2023 Episodic Residual codes; unclassified (5 sources) History of uterine scar from previous surgery; Translations: [Other postprocedural status] Onset: 09-16-2023 09-10-2023 Episodic Residual codes; unclassified (1 source) 38 weeks gestation of ; Translations: [38 weeks gestation of ] Onset: 09-16-2023 Episodic Residual codes; unclassified (1 source) 37 weeks gestation of ; Translations: [37 weeks gestation of ] Onset: 08-27-2023 Episodic Residual codes; unclassified (1 source) 36 weeks gestation of ; Translations: [36 weeks gestation of ] Onset: 08-20-2023 Episodic Residual codes; unclassified (1 source) 34 weeks gestation of ; Translations: [34 weeks gestation of ] Onset: 08-06-2023 Episodic Past or Other Problems Problem Classification Problem Date Documented Da te Episodic/Chronic Abdominal pain (3 sources) Right upper quadrant pain; Translations: [Right upper quadrant pain] Onset: 04-08-2017 Episodic Genitourinary symptoms and ill-defined conditions (1 source) Other specified disorders of urinary system; Translations: [Other specified disorders of urinary system] Onset: 03-15-2017 Episodic Residual codes; unclassified (1 source) 32 weeks gestation of ; Translations: [32 weeks gestation of ] Onset: 07-23-2023 Episodic Residual codes; unclassified (1 source) 27 weeks gestation of ; Translations: [27 weeks gestation of ] Onset: 06-18-2023 Episodic Results Test Name Value Interpretation Reference Range Facil ity CNCOon 11-10-2024 CNCO Letter Text Normal [facility] CNOVon 10-27-2024 CNOV Office Visit (OBGYWM) TERESA CERON V ([id number]) 2000 F Date Time Provider Department 10/27/24 10:00 AM LINDSEY TINEO OBGYWM During your visit today, we recorded the following information about you: Blood pressure Weight Height Last Period 112/64 103.9 kg 1.575 m 10/19/24 Lindsey Tineo APRN.CNM 10/27/2024 11:09 AM Signed Teresa is a 24 year old who presents for an annual gynecologic exam without complaints. Still get period: Yes LMP: 10/19/2024 Menses: takes OCP continuously gets period every 3 months Menstrual flow: Heavy Bleeding amount bothersome: Yes Bleeding between periods: No Period symptoms: Cramps, headaches Sexually active: Yes Contraception: Pill Contraception frequency: Always HPV vaccine: No HPV: NA Last pap smear: possibly 1 year ago per patient History of abnormal pap: No Colposcopy: No. Leep: No. Cone biopsy: No. Bothersome pelvic pain: No Last mammogram: never Sexually active: Yes Pain with intercourse: No Postcoital bleeding: No Mood swings: No Insomnia: No OB History Gravida2 Para2 Term2 Preterm0 AB0 Living2 SAB0 IAB0 Ectopic0 Multiple0 Live Births2 Auditor History LMP: 10/19/2024 (Exact Date), Having periods Age at Menarche: Age at First : Age at Menopause: Auditor History Comments: Sexual Activity: Yes; Male Contraception: Pill No past medical history on file.No past surgical history on file.No family history on file.SOCIAL HISTORY Social History Tobacco Use Smoking status: Never Smokeless tobacco: Never Substance Use Topics Alcohol use: Never Drug use: Never REVIEW OF SYSTEMS Abdomen: No abdominal pain, nausea, vomiting, diarrhea, or constipation. No bloating, early satiety, indigestion, or increased flatulence. Bladder: No dysuria, gross hematuria, urinary frequency, urinary urgency, or incontinence. Breast: No breast lumps, nipple d/c, overlying skin changes, redness or skin retraction. Allergies and current medication updated:Yes SENSITIVE EXAM: The sensitive examination was discussed with the Patient or Patient's Authorized Electric Motor Tester. As applicable, any other physician, advance practice provider, medical student, or other health professional student that will be observing or involved in the sensitive examination for educational or training purposes was discussed with the Patient or Authorized Electric Motor Tester. The Patient or Authorized Electric Motor Tester has agreed to proceed with the sensitive examination. (Sensitive examination includes inspection and/or palpation of the breasts, pelvis, prostate and anorectal regions). EXAM: BP 112/64 Ht 5' 2 (1.58m) Wt 229 lb (103.9kg) LMP 10/19/2024 BMI 41.87 kg/(m2). GENERAL: pleasant, female in no apparent distress HEENT: Normocephalic, atraumatic, mucus membranes moist, and no lesions NECK: Supple, full range of motion, no adenopathy, and thyroid normal DERMATOLOGY: Normal, without lesions, non-icteric, and non-hirsute BREAST: soft, non-tender, symmetric, no dominant mass, normal nipple-areolar complex, no lymphadenopathy, and no nipple discharge CHEST: Normal inspiratory effort ABDOMEN: soft, non-tender, and no masses PELVIC: external genitalia normal, normal Bartholin's glands, urethra, Trail's glands, no vulvar lesions, no cervical lesions, good vaginal support, physiologic discharge present, normal appearing perineal body and perianal region BIMANUAL: uterus normal size, shape and consistency, no adnexal masses, and non-tender RECTOVAGINAL: deferred. NEURO: alert and oriented x3,exam grossly non-focal EXTREMITIES: normal ASSESSMENT/PLAN: 1. Encounter for gynecological examination (general) (routine) with abnormal findings - ICD9: V72.31, ICD10: Z01.411 (primary diagnosis) - Completed pelvic and breast exam - Encouraged monthly BSE - Follow up for annual exam in one year. - PAP TEST 2. Screening for cervical cancer - ICD9: V76.2, ICD10: Z12.4 - Completed pelvic and breast exam - Encouraged monthly BSE - Follow up for annual exam in one year. - PAP TEST 3. Encounter for screening for human papillomavirus (HPV) - ICD9: V73.81, ICD10: Z11.51 - PAP TEST 4. Encounter for surveillance of contraceptive pills - ICD9: V25.41, ICD10: Z30.41 - discussed with patient on how to take OCP's. - counseled on benefits, risks and possible severe side effects of OCP's. - discussed need to use Condoms to help to prevent STD's including HIV etc. 1) Health maintenance: Pap done with HPV. Nutrition, exercise and routine health maintenance exams reviewed. Calcium/Vitamin D supplementation information provided. Lipids/glucose: followed by PCP Vitamin D: followed by PCP 2) Contraception: combined hormonal contraceptives. Contraceptive options reviewed and information provided. 3) STD screening: Declined STD check. 4) Follow (more content not included)... Normal [facility] PAP TESTon 10-27-2024 ADEQUACY Normal [facility] Comment on above: Order Comment: Speci men Type: FLUID SPECIMEN Ordering Facility: [facility] Address: [address] [place] [address] Result Comment: Mu sfactory for interpretation. Transformation zone present Performed By: #### L [id number] #### [facility] CLIA [id number] [address] [place] [address] [place] CASE REPORT Normal [facility] Comment on above: Order Comment: Speci men Type: FLUID SPECIMEN Ordering Facility: [facility] Address: [address] [place] [address] Result Comment: Gyne cologic Cytology Report Case: [id number] Authorizing Provider: Lindsey Tineo APRN.CNM Collected: 10/27/2024 10:29 AM Ordering Location: OB/Gynecology Received: 10/27/2024 01:20 PM First Screen: Deanna Beltrán CT, ASCP Specimen: Pap Test, ThinPrep, Cervix Performed By: #### L [id number] #### [facility] CLIA [id number] [address] [place] [address] [place] CLINICAL HISTORY, CYTOLOGY, TUBE WINDER Routine Exam Normal [facility] Comment on above: Order Comment: Speci men Type: FLUID SPECIMEN Ordering Facility: [facility] Address: [address] [place], [place] [id number] Performed By: #### L [id number] #### [facility] CLIA [id number] [address] [place] [address] [place] FINAL PERFORMING LAB Normal [facility] Comment on above: Order Comment: Speci men Type: FLUID SPECIMEN Ordering Facility: [facility] Address: [address] [place] [address] Result Comment: Tech nical component, radiator core tester screening performed at [facility], [address] [place] [address] [place] [address] CLIA# [id number] Diagnostic interpretation performed at [facility], [address] [place] [address] [place] [address] CLIA# [id number] Hydrometer Tester: Kwesi Parsons M.D. Performed By: #### L [id number] #### [facility] CLIA [id number] [address] [place] [address] [place] INTERPRETATION, CYTOLOGY, TUBE WINDER Normal [facility] Comment on above: Order Comment: Speci men Type: FLUID SPECIMEN Ordering Facility: [facility] Address: [address] [place], [place] [id number] Result Comment: Nega tive for intraepithelial lesion or malignancy. at 1227 EDT Performed By: #### L [id number] #### [facility] CLIA [id number] [address] [place] [address] [place] LMP 10/19/2024 Normal [facility] Comment on above: Order Comment: Speci men Type: FLUID SPECIMEN Ordering Facility: [facility] Address: [address] [place] [address] Performed By: #### L [id number] #### [facility] CLIA [id number] [address] [place] [address] [place] PAP DISCLAIMER COMMENT The Pap Smear is a screening test for cervical cancer. False negative results occur with all screening tests, emphasizing the need for rescreening at recommended intervals, and clinical correlation. Normal [facility] Comment on above: Order Comment: Speci men Type: FLUID SPECIMEN Ordering Facility: [facility] Address: [address] [place] [address] Performed By: #### L [id number] #### [facility] CLIA [id number] [address] [place] [address] PAP ERISA ATTORNEY COMMENT This specimen has been analyzed by the ThinPrep Imaging System, an automated imaging and review system, which assists the laboratory in evaluating cells on ThinPrep Pap tests. Following automated imaging, selected mata from every slide are reviewed by a radiator core tester. Normal [facility] Comment on above: Order Comment: Speci men Type: FLUID SPECIMEN Ordering Facility: [facility] Address: [address] [place] [address] Performed By: #### L [id number] #### [facility] CLIA [id number] [address] [place] [address] [place] PAP I-G w/rfx hrHPV-Aptimaon 10-28-2023 ADEQ Comment Normal . [facility] Comment on above: Order Comment: Speci men Comment: [id number] Comment: Source.............CervixSpecimen Comment: Other..............OtherSpecimen Comment: No. of containers..01 ThinPrep Vial Result Comment: Sati sfactory for evaluation. Endocervical and/or squamous metaplastic cells (endocervical component) are present. Performed By: #### L [id number] ####[facility] [address] [place], [address] COMM . Normal . [facility] Comment on above: Order Comment: Speci men Comment: [id number] Comment: Source.............CervixSpecimen Comment: Other..............OtherSpecimen Comment: No. of containers..01 ThinPrep Vial Performed By: #### L [id number] ####[facility] [address] [place], [place], [id number] COMMENT Comment Normal . [facility] Comment on above: Order Comment: Speci men Comment: [id number] Comment: Source.............CervixSpecimen Comment: Other..............OtherSpecimen Comment: No. of containers..01 ThinPrep Vial Result Comment: This liquid based ThinPrep(R) pap test was screened with the use of an image guided system. Performed By: #### L [id number] ####[facility] [address] [place], [place], [id number] DIAG Comment Normal . [facility] Comment on above: Order Comment: Speci men Comment: [id number] Comment: Source.............CervixSpecimen Comment: Other..............OtherSpecimen Comment: No. of containers..01 ThinPrep Vial Result Comment: NEGA TIVE FOR INTRAEPITHELIAL LESION OR MALIGNANCY. Performed By: #### L [id number] ####[facility] [address] [place], [place], [id number] HPV RFLX Comment Normal . [facility] Comment on above: Order Comment: Speci men Comment: [id number] Comment: Source.............CervixSpecimen Comment: Other..............OtherSpecimen Comment: No. of containers..01 ThinPrep Vial Result Comment: The HPV DNA reflex criteria were not met with this specimen result therefore, no HPV testing was performed. Performed at: [address] [id number] Greens Picker: Pricila Montesinos MD, Phone: [phone] Performed By: #### L [id number] ####[facility] [address] [place], [place], [id number] PAPSMR Comment Normal . [facility] Comment on above: Order Comment: Speci men Comment: [id number] Comment: Source.............CervixSpecimen Comment: Other..............OtherSpecimen Comment: No. of containers..01 ThinPrep Vial Result Comment: The Pap smear is a screening test designed to aid in the detection of premalignant and malignant conditions of the uterine cervix. It is not a diagnostic procedure and should not be used as the sole means of detecting cervical cancer. Both false-positive and false-negative reports do occur. Performed By: #### L [id number] ####[facility] [address] [place], [place], [id number] PERFORM Comment Normal . [facility] Comment on above: Order Comment: Speci men Comment: [id number] Comment: Source.............CervixSpecimen Comment: Other..............OtherSpecimen Comment: No. of containers..01 ThinPrep Vial Result Comment: Deepthi Ortega Highway Patrol Pilot (ASCP) Performed By: #### L [id number] ####[facility] [address] [place], [place], [id number] Irrigation Technician Office Visit Reporton 10-23-2023 Irrigation Technician Office Visit Report [facility] [address] [place], [place] [address] OFFICE VISIT Date of Service: 10/23/23 MR#: [id number] Acct: [id number] Name: TERESA CERON V Rep #: [id number] : 2000 Provider: BETH scruggs Age/Sex: 23/F Location: [facility] Status: Signed Intake Vital Signs 09/23/23 10:58 10/23/23 11:32 10/23/23 11:33 Height 5 ft 2 in 5 ft 2 in 5 ft 2 in Weight: 211 lb 6 oz 210 lb BMI 38.6 38.4 BP 112/72 119/75 Intake Visit Reasons: visit (obstetrics) Chief Complaint: pt here for 6 week visit. Director Hr Communications Required: No Is patient in pain?: No Allergies No Known Allergies Allergy (Verified 10/23/23 11:31) Medications levonorgestrel 0.15 mg-ethinyl estradiol 0.03 mg tablet (Altavera (28)) 1 tab PO DAILY control #28 tabs 10/23/23 [Rx Confirmed 10/23/23] : No PFSH Medical History Depression Surgical History H/O section History of delivery affecting Family History Grandmother No problems noted. Son Cleft palate Other Diabetes Heart disease Social History (Updated 10/23/23 @ 11:35 by Cindy Rodriguez) adopted: No household members: spouse and children housing: house number of children: 2 current occupational status: employed current occupation: [employer] current occupational exposures/hazards: No pets and animals: No history of recent travel: No sexually active: Yes Smoking Status: Former smoker alcohol intake: never substance use type: does not use caffeine: Yes seatbelt use: always do you feel safe at home: Yes additional social history: spouse - issa children - lawrence History 2 Elective abortions Hx Para 2 Spontaneous abortions Hx # Term Pregnancies Ectopic pregnancies Hx # Pregnancies Multiple births # of living children 2 Past Pregnancies Del. Date Name GA/Weeks Outcome Route Bth Weight Gen Labor Lgth Anesthesia Del Locatn Provider FOB 08/18/20 Lawrence 2020 38 live - full term Male [facility] Andrzej 09/09/23 Juve 39 live - full term 7lbs 8oz Male spinal [facility] Priscilla Rudolph Delivery Date: 08/18/20 Last Updated by: Lindsey Recinos Baby with cleft palate Delivery Date: 09/09/23 Last Updated by: Grecia Sinha repeat section Depression Screen PHQ-2/9 PHQ-2 Over the last 2 weeks, how often have you been bothered by any of the following problems? 1. Little interest or pleasure in doing things: not at all 2. Feeling down, depressed, or hopeless: not at all Total score: 0 Post HPI Routine Follow-Up: Details: TERESA CERON is a 23 year old who presents for her post visit. Infant Feeding: Bottle Menses resumed: Yes [place] since delivery: Yes Emotional Support: Yes Last Pap:: 09/2020 ROS Const Denies excessive sweating Card Reports system reviewed and no additional complaints, except as documented, Denies chest pain, Denies chest pain with activity, Denies edema, Denies leg edema and Denies palpitations Resp Reports system reviewed and no additional complaints, except as documented GI Reports system reviewed and no additional complaints, except as documented, Denies abdominal pain and Denies bloating Reports system reviewed and no additional complaints, except as documented, Denies difficulty voiding, Denies dysuria, Denies urinary frequency, Denies urinary incontinence, Denies urinary hesitancy, Denies urinary urgency, Denies vaginal discharge and Denies vaginal odor Musc Reports system reviewed and no additional complaints, except as documented Skin/Breast Reports system reviewed and no additional complaints, except as documented Neuro Yes system reviewed and no additional complaints, except as documented Psych Reports system reviewed and no additional complaints, except as documented Endo Reports system reviewed and no additional complaints, except as documented, Denies cold intolerance, Denies deepening of the voice, Denies excessive sweating, Denies heat intolerance, Denies palpitations, Denies polydipsia and Denies polyuria Chris/Lymph Reports system reviewed and no additional complaints, except as documented Aller/Immun Reports system reviewed and no additional complaints, except as documented Exam Const General: cooperative, healthy appearing and comfortable Neck Neck: no lymphadenopathy and supple Thyroid: thyroid normal Chest Breast inspection: normal inspection of the breasts and normal inspection of the axillae Resp Effort Inspection: normal respi (more content not included)... Normal [facility] Irrigation Technician Office Visit Reporton 09-23-2023 Irrigation Technician Office Visit Report [facility] [address] [place] [address] OFFICE VISIT Date of Service: 09/23/23 MR#: [id number] Acct: [id number] Name: TERESA CERON V Rep #: [id number] : 2000 Provider: ANTON hoyos Age/Sex: 23/F Location: [facility] Status: Signed Intake Vital Signs 08/06/23 10:51 09/06/23 10:11 09/23/23 10:58 Height 5 ft 2 in 5 ft 2 in 5 ft 2 in Weight: 211 lb 6 oz BMI 38.6 BP 112/72 Intake Visit Reasons: 2 WK C/S CHECK, *sched 6 wk pp visit* Chief Complaint: 2 Week incision check Director Hr Communications Required: No Is patient in pain?: No Allergies No Known Allergies Allergy (Verified 09/23/23 10:59) Medications levonorgestrel 0.15 mg-ethinyl estradiol 0.03 mg tablet (Altavera (28)) 1 tab PO DAILY #28 tabs 09/23/23 [Rx Confirmed 09/23/23] Is last menstrual period known: No Post menopausal: No Patient : No : Yes PFSH Medical History Depression Surgical History H/O section History of delivery affecting Family History Grandmother No problems noted. Son Cleft palate Other Diabetes Heart disease Social History adopted: No household members: spouse and children housing: house current occupational status: employed current occupation: [employer] current occupational exposures/hazards: No pets and animals: No history of recent travel: No sexually active: Yes Smoking Status: Former smoker alcohol intake: never substance use type: does not use caffeine: Yes seatbelt use: always do you feel safe at home: Yes additional social history: spouse - issa children - lawrence HPI 2 WK C/S CHECK, *sched 6 wk pp visit* Details: TERESA CERON is a 23 year old who presents for 2 week postop c section Dr Moore. States doing well physically and emotionally. Baby Juve also doing well, bottle feeding. She is anxious to start oral contraceptives as she does not want another . She is not sexually active History 2 Elective abortions Hx Para 2 Spontaneous abortions Hx # Term Pregnancies Ectopic pregnancies Hx # Pregnancies Multiple births # of living children 2 Past Pregnancies Del. Date Name GA/Weeks Outcome Route Bth Weight Gen Labor Lgth Anesthesia Del Locatn Provider FOB 08/18/20 Lawrence 2020 38 live - full term Male [facility] Weeman 09/09/23 Juve 39 live - full term 7lbs 8oz Male spinal [facility] Priscilla Claude Espitia Issa Delivery Date: 08/18/20 Last Updated by: Lindsey Recinos Baby with cleft palate Delivery Date: 09/09/23 Last Updated by: Grecia Sinha repeat section Exam Const General: cooperative and no acute distress Orientation: oriented x3 GI Inspection: incision (well healed, nonerythematous) Palpation: soft and nontender Coding Level of Care Code No Charge Diagnoses Postop check Z09 Status post repeat low transverse section Z98.891 Assessment and Plan Assessment and Plan (1) Postop check: (2) Status post repeat low transverse section: Status: Acute Comment: 09/09/23 NING An Medications: New levonorgestrel-ethin yl estrad 0.15-0.03 mg (Altavera (28)) 1 TAB PO DAILY 28 tabs 3RF Plan Discussed use, benefits, risks and side effects of altavera. Instruct on today start and reviewed use of condoms. Written information given. routine pp care RTO 4 weeks 09/23/23 1115 Date Melina Vidales MEAL COOK MEAL COOK-C Cosigner Signature: Date (if applicable) CC: Normal [facility] Basophil percentageOrdered B y: Priscilla Espitia on 09-10-2023 Hemoglobin (Bld) [Mass/Vol] 9.0 g/dL 12.0-15.0 [facility] WBC (Bld) [#/Vol] 10.9 10*3/uL 4.4-11.0 [facility] CBC-Complete Blood Cnt No Di ffon 09-10-2023 Erythrocyte distribution width (RBC) [Ratio] 14.9 % High 11.6-14.6 [facility] Comment on above: Order Comment: Comme nts: Day #1Reason for Laboratory Test Performed By: #### L 100.0500 ####[facility] [address] [place], [address] Hematocrit (Bld) [Volume fraction] 28.1 % Low 37-47 [facility] Comment on above: Order Comment: Comme nts: Day #1Reason for Laboratory Test Performed By: #### L 100.0500 ####[facility] [address] [place], [address] Hemoglobin (Bld) [Mass/Vol] 9.0 g/dL Low 12.0-15.0 [facility] Comment on above: Order Comment: Comme nts: Day #1Reason for Laboratory Test Performed By: #### L 100.0500 ####[facility] [address] [place], [address] MCH (RBC) [Entitic mass] 26.2 pg Low 27.0-32.0 [facility] Comment on above: Order Comment: Comme nts: Day #1Reason for Laboratory Test Performed By: #### L 100.0500 ####[facility] [address] [place], [address] MCHC (RBC) [Mass/Vol] 32.0 g/dL Normal 32-36 [facility] Comment on above: Order Comment: Comme nts: Day #1Reason for Laboratory Test Performed By: #### L 100.0500 ####[facility] [address] [place], [address] MCV (RBC) [Entitic vol] 81.7 fL Normal 81-99 [facility] Comment on above: Order Comment: Comme nts: Day #1Reason for Laboratory Test Performed By: #### L 100.0500 ####[facility] [address] [place], [address] Platelet mean volume (Bld) [Entitic vol] 10.3 fL Normal 6.2-12.0 [facility] Comment on above: Order Comment: Comme nts: Day #1Reason for Laboratory Test Performed By: #### L 100.0500 ####[facility] [address] [place], [address] Platelets (Bld) [#/Vol] 140 10*3/uL Low 150-450 [facility] Comment on above: Order Comment: Comme nts: Day #1Reason for Laboratory Test Performed By: #### L 100.0500 ####[facility] [address] [place], [address] RBC (Bld) [#/Vol] 3.44 10*6/uL Low 4.2-5.4 [facility] Comment on above: Order Comment: Comme nts: Day #1Reason for Laboratory Test Performed By: #### L 100.0500 ####[facility] [address] [place], [address] RDW SD 42.5 fl Normal 35.1-43.9 [facility] Comment on above: Order Comment: Comme nts: Day #1Reason for Laboratory Test Performed By: #### L 100.0500 ####[facility] [address] [place], [address] WBC (Bld) [#/Vol] 10.9 10*3/uL Normal 4.4-11.0 [facility] Comment on above: Order Comment: Comme nts: Day #1Reason for Laboratory Test Performed By: #### L 100.0500 ####[facility] [address] [place], [address] Determination of erythrocyte mean corpuscular volume (MCV)Ordered By: Priscilla Espitia on 09-10-2023 MCV (RBC) [Entitic vol] 81.7 fL 81-99 [facility] Discharge Instructionon 08-20 Discharge Instruction [facility] Medical Records Department [address] [place] [address] Instructions for Home/Discharge Instructions 09/10/23 0810 MR#: [id number] Acct: [id number] Name: TERESA CERON V Rep #: [id number] : 2000 23 From: Feli Nichols CNM PCP: Adan Physician,No Primary Status:ADM IN Discharge Instructions Diet Discharge Diet: No restrictions Activity May resume sexual activity in: 4-6 weeks Weight Bearing Status: Full weight bearing Dressing / Incision Call your doctor if your incision/area has: Continuous Slow Oozing, Sudden Increased Bleeding, Increased Pain/ Swelling, Increased Redness and Foul Smelling Discharge Call your doctor if you observe: Fever of 101 or Higher and Using more than 1 pad per hour Suture Line Care: Avoid Pulling/Pushing and Avoid Pinching/Bending Cleanse incision/area with: Soap Water and Keep Dressing Clean Dry Follow Up Care Please Follow Up With: Priscilla Moore DO Test Results: Test results from this visit will be discussed in further detail at your follow-up appointment, if applicable. Discharge Plan Admission Admit Date/Time: 09/09/23 05:30 Attending Provider: Priscilla Moore Primary Care Provider: Care Physician,No Primary Discharge Orders/Prescriptions Prescriptions: New naproxen 500 mg tablet 500 mg PO BID PRN (Reason: pain) Qty: 30 0RF No Action docusate sodium 100 MG capsule 100 mg PO BID PRN PRN (Reason: Constipation) Qty: 60 1RF Referrals / Follow Up: Care Physician,No Primary [Primary Care Provider] - Disposition Disposition (needs filled in before D/C Order can be placed): Home, Self Care 09/10/23 0810 Feli Nichols CNM CC: No Primary Care Physician Signed Normal [facility] Erythrocyte distribution wid th ratioOrdered By: Priscilla Espitia on 09-10-2023 Erythrocyte distribution width (RBC) [Ratio] 14.9 % 11.6-14.6 [facility] Erythrocyte distribution wid th standard deviationOrdered By: Priscilla Espitia on 09-10-2023 Erythrocyte distribution width (RBC) [Entitic vol] 42.5 fL 35.1-43.9 [facility] Hematocrit Auto (Bld) [Volum e fraction]Ordered By: Priscilla Espitia on 09-10-2023 Hematocrit (Bld) [Volume fraction] 28.1 % 37-47 [facility] Laboratory - Hematology and Cell countsOrdered By: Priscilla Espitia on 09-10-2023 MCH (RBC) [Entitic mass] 26.2 pg 27.0-32.0 [facility] MCHC (RBC) [Mass/Vol] 32.0 g/dL 32-36 [facility] Platelets (Bld) [#/Vol] 140 10*3/uL 150-450 [facility] Platelet mean volume Jonny-Ec ker (Bld) [Entitic vol]Ordered By: Priscilla Espitia on 09-10-2023 Platelet mean volume (Bld) [Entitic vol] 10.3 fL 6.2-12.0 [facility] RBC Auto (Bld) [#/Vol]Ordere d By: Priscilla Espitia on 09-10-2023 RBC (Bld) [#/Vol] 3.44 10*6/uL 4.2-5.4 [facility] Absolute lymphocyte countOrd ered By: Priscilla Espitia on 09-09-2023 Lymphocytes Auto (Unsp spec) [#/Vol] 2.33 10*3/uL 0.83-4.51 [facility] Automated lymphocyte count a s percentage of total leukocytesOrdered By: Priscilla Espitia on 09-09-2023 Lymphocytes/100 WBC Auto (Unsp spec) 20.9 % 19-41 [facility] Basophil percentageOrdered B y: Priscilla Espitia on 09-09-2023 Basophils/100 WBC (Bld) 0.6 % 0-1 [facility] Eosinophils/100 WBC (Bld) 0.8 % 0-5 [facility] Monocytes/100 WBC (Bld) 7.3 % 0-10 [facility] Neutrophils (Bld) [#/Vol] 7.6 10*3/uL 2.0-7.7 [facility] Neutrophils/100 WBC (Bld) 68.5 % 47-70 [facility] CBC W/Diff, Automatedon 08-20 Absolute Lymph 2.33 X10 3/uL Normal 0.83-4.51 [facility] Comment on above: Performed By: #### Jame TS, L100.0100 #### [facility] [address] [place], [address] Absolute Neut 7.6 X10 3/uL Normal 2.0-7.7 [facility] Comment on above: Performed By: #### Jame TS, L100.0100 #### [facility] [address] [place], [address] Basophils/100 WBC (Bld) 0.6 % Normal 0-1 [facility] Comment on above: Performed By: #### Jame TS, L100.0100 #### [facility] [address] [place], [address] Eosinophils/100 WBC (Bld) 0.8 % Normal 0-5 [facility] Comment on above: Performed By: #### Jame TS, L100.0100 #### [facility] [address] [place], [address] Erythrocyte distribution width (RBC) [Ratio] 14.6 % Normal 11.6-14.6 [facility] Comment on above: Performed By: #### Jame WOO, L100.0100 #### [facility] [address] [place], [address] Hematocrit (Bld) [Volume fraction] 32.9 % Low 37-47 [facility] Comment on above: Performed By: #### Jame WOO, L100.0100 #### [facility] [address] [place], [address] Hemoglobin (Bld) [Mass/Vol] 10.6 g/dL Low 12.0-15.0 [facility] Comment on above: Performed By: #### Jame WOO, L100.0100 #### [facility] [address] [place], [address] IG% 1.900 High 0.0-0.9 [facility] Comment on above: Result Comment: IG% - Immature Granulocytes (promyelocytes, myelocytes and metamyelocytes) > 1% indicates that a LEFT SHIFT is Present. Performed By: #### Jame WOO, L100.0100 #### [facility] [address] [place], [address] Lymphocytes/100 WBC (Bld) 20.9 % Normal 19-41 [facility] Comment on above: Performed By: #### Jame WOO, L100.0100 #### [facility] [address] [place], [address] MCH (RBC) [Entitic mass] 25.9 pg Low 27.0-32.0 [facility] Comment on above: Performed By: #### Jame WOO, L100.0100 #### [facility] [address] [place], [address] MCHC (RBC) [Mass/Vol] 32.2 g/dL Normal 32-36 [facility] Comment on above: Performed By: #### Jame WOO, L100.0100 #### [facility] [address] [place], [address] MCV (RBC) [Entitic vol] 80.4 fL Low 81-99 [facility] Comment on above: Performed By: #### Jame WOO, L100.0100 #### [facility] [address] [place], [address] Monocytes/100 WBC (Bld) 7.3 % Normal 0-10 [facility] Comment on above: Performed By: #### Jame WOO, L100.0100 #### [facility] [address] [place], [address] Neutrophils/100 WBC (Bld) 68.5 % Normal 47-70 [facility] Comment on above: Performed By: #### Jame WOO, L100.0100 #### [facility] [address] [place], [address] Nucleated RBC (Bld) [#/Vol] 0 10*3/uL Normal 0-5 [facility] Comment on above: Performed By: #### Jame WOO, L100.0100 #### [facility] [address] [place], [address] Platelet mean volume (Bld) [Entitic vol] 10.6 fL Normal 6.2-12.0 [facility] Comment on above: Performed By: #### Jame WOO, L100.0100 #### [facility] [address] [place], [address] Platelets (Bld) [#/Vol] 185 10*3/uL Normal 150-450 [facility] Comment on above: Performed By: #### Jame WOO, L100.0100 #### [facility] [address] [place], [address] RBC (Bld) [#/Vol] 4.09 10*6/uL Low 4.2-5.4 [facility] Comment on above: Performed By: #### B TS, L100.0100 #### [facility] [address] [place], [address] RDW SD 41.6 fl Normal 35.1-43.9 [facility] Comment on above: Performed By: #### B TS, L100.0100 #### [facility] [address] [place], [address] WBC (Bld) [#/Vol] 11.2 10*3/uL High 4.4-11.0 [facility] Comment on above: Performed By: #### B , L100.0100 #### [facility] [address] [place], [address] Discharge Instructionon 08-20 Discharge Instruction [facility] Medical Records Department [address] [place] [address] Instructions for Home/Discharge Instructions 09/09/23 0722 MR#: [id number] Acct: [id number] Name: TERESA CERON V Rep #: [id number] : 2000 23 From: Priscilla Moore DO PCP: Care Physician,No Primary Status:ADM IN Discharge Instructions Diet Discharge Diet: No restrictions Activity Discharge Activity: May Not Drive (for 2 weeks or while taking narcotic pain medications.), May Shower and May Take a Tub Bath (in 7 days.) May resume sexual activity in: 4-6 weeks Weight Bearing Status: Full weight bearing Lifting Restrictions: 20 pounds Dressing / Incision Call your doctor if your incision/area has: Continuous Slow Oozing, Sudden Increased Bleeding, Increased Pain/ Swelling, Increased Redness and Foul Smelling Discharge Call your doctor if you observe: Fever of 101 or Higher and Using more than 1 pad per hour Suture Line Care: Avoid Pulling/Pushing and Avoid Pinching/Bending Cleanse incision/area with: Soap Water and Keep Dressing Clean Dry Follow Up Care Please Follow Up With: Priscilla Moore DO When: Call [phone] to make an appointment for an incision check in 1-2 weeks. Test Results: Test results from this visit will be discussed in further detail at your follow-up appointment, if applicable. Discharge Plan Admission Admit Date/Time: 09/09/23 05:30 Attending Provider: Priscilla Moore Primary Care Provider: Adan Physician,Lauren Primary Discharge Orders/Prescriptions Prescriptions: New naproxen 500 mg tablet 500 mg PO BID PRN (Reason: pain) Qty: 30 0RF No Action docusate sodium 100 MG capsule 100 mg PO BID PRN PRN (Reason: Constipation) Qty: 60 1RF Referrals / Follow Up: Care Physician,No Primary [Primary Care Provider] - Disposition Disposition (needs filled in before D/C Order can be placed): Home, Self Care 09/09/23722 Priscilla Moore DO CC: No Primary Care Physician Signed [facility] H AND P Exam - OB/GYNon 08-20 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 [facility] Medical Records Department [address] [place] [address] H P Exam - DEMOLITION CRANE OPERATOR 09/09/23720 MR#: [id number] Acct: [id number] Name: TERESA CERON V Rep #: [id number] : 2000 23 From: Priscilla Moore DO PCP: Care Physician,No Primary Status:ADM IN Location: [address] HPI - General General Date of Admission: 09/09/23 HPI Narrative TERESA CERON, is a 23 y/o @ 39 weeks 2 days who presents to [facility] for a repeat section Maternal Data Information VILMA Calculator Estimated Delivery Date Method Current WG Current Estimate 09/14/23 Manual 39w 2d per [place] records [facility] Medical History Depression Home Medications docusate sodium 100 mg capsule 100 mg PO BID PRN PRN Constipation #60 caps 08/18/20 [Rx Last Taken Unknown] Allergy/AdvReac Type Severity Reaction Status Date / Time No Known Allergies Allergy Verified 09/06/23 10:09 Family History Grandmother No problems noted. Son Cleft palate Other Diabetes Heart disease Surgical History H/O section Social History adopted: No household members: spouse and children housing: house current occupational status: employed current occupation: [employer] current occupational exposures/hazards: No pets and animals: No history of recent travel: No sexually active: Yes Smoking Status: Former smoker alcohol intake: never substance use type: does not use caffeine: Yes seatbelt use: always do you feel safe at home: Yes additional social history: spouse - issa children - lawrence History 2 Elective abortions Hx Para 1 Spontaneous abortions Hx # Term Pregnancies Ectopic pregnancies Hx # Pregnancies Multiple births # of living children 1 Past Pregnancies Del. Date Name GA/Weeks Outcome Route Bth Weight Gen Labor Lgth Anesthesia Del Locatn Provider FOB 08/18/20 Lawrence 2020 38 live - full term Male [facility]: [facility] [place] Delivery Date: 08/18/20 Last Updated by: Lindsey Recinos Baby with cleft palate Visit Details Expected Delivery Route/Plan desires repeat C/S Plans Covid status: unvaccinated Flu vaccine: Declines Tdap vaccine: [] Rhogam: NA LARC form signed: yes Problem list reviewed and updated with the most current plan of care details and appropriate orders placed. Relevant counseling for the gestational age provided. Continue routine care and follow up unless otherwise noted in visit notes/problem list details OB Flowsheet Initial Weight: Not Recorded Date -???-???-???-???-??? -???-???-???-???-??? -???-???- EGA Weight BP Urine Prot -???-???-???-???-??? -???-???-???-???-??? -???-???- Glucose FHR FuHt Pres Dilation -???-???-???-???-??? -???-???-???-???-??? -???-???- Effaced St Visit Note 05/28/23 -???-???-???-???-??? -???-???-???-???-??? -???-???- 24w 3d 219 lb 114/81 Negative -???-???-???-???-??? -???-???-???-???-??? -???-???- Negative 140 -???-???-???-???-??? -???-???-???-???-??? -???-???- KW-Transfer from [place], had all appts until 20 weeks with them. Had labs and anatomy US with them. R C/S desired. Desires to skip 1 hour GCT and do 3 hour at 28 weeks. no vb/cramping. good fm. Larc done today 06/18/23 -???-???-???-???-??? -???-???-???-???-??? -???-???- 27w 3d 222 lb 6 oz 115/81 Negative -???-???-???-???-??? -???-???-???-???-??? -???-???- Negative 140 -???-???-???-???-??? -???-???-???-???-??? -???-???- KW- no vb/ct x/lof/ good fm. passed 3 hr gct. C/S with JV 09/09/23 730am 07/08/23 -???-???-???-???-??? -???-???-???-???-??? -???-???- 30w 2d 221 lb 6 oz 113/78 Negative -???-???-???-???-??? -???-???-???-???-??? -???-???- Negative 141 -???-???-???-???-??? -???-???-???-???-??? -???-???- JV- no lof, vaginal bleeding, or dec fm. tdap today. 07/23/23 -???-???-???-???-??? -???-???-???-???-??? -???-???- 32w 3d 224 lb 6 oz 125/76 Negative -???-???-???-???-??? -???-???-???-???-??? -???-???- Negative 159 32 -???-???-???-???-??? -???-???-???-???-??? -???-???- JV- pt compl ains of back and hip pain. exercises discussed. 08/06/23 -???-???-???-???-??? -???-???-???-???-??? -???-???- 34w 3d 230 lb 6 oz 117/80 Negative -???-???-???-???-??? -???-???-???-???-??? -???-???- Negative 155 35 -???-???-???-???-??? -???-???-???-???-??? 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 discussed infant feeding plan. wants to pump not breastfeed. gbs next visit. 08/20/23 -???-???-???-???-??? -???-???-???-???-??? -???-???- 36w 3d 230 lb 6 oz Negative -???-???-???-???-??? -???-???-???-???-??? -???-???- Negative 150 36 -???-???-???-???-??? -?? (more content not included)... Normal [facility] Immature granulocytes/100 WB C Auto (Bld)Ordered By: Priscilla Espitia on 09-09-2023 Immature granulocytes/100 WBC (Bld) 1.900 % 0.0-0.9 [facility] Comment on above: IG% - Immature Granu locytes (promyelocytes, myelocytes and metamyelocytes) > 1% indicates that a LEFT SHIFT is Present. L509.8000on 09-09-2023 Syphilis Abs Non-Reactive Normal [facility] Comment on above: Performed By: #### L 509.8000 #### [facility] [address] [place], [place], [address] Laboratory - Hematology and Cell countsOrdered By: Priscilla Espitia on 09-09-2023 Nucleated RBC/100 WBC (Bld) [Ratio] 0 % 0-5 [facility] M8200.2100on 09-09-2023 M8200.2100 Normal Reference Range = Negative Chlamydia Trachomatis PCR GeneXpert Instrument, PCR method Chlamydia Trachomatis PCR Negative Normal [facility] Comment on above: Performed By: #### M 8200.2200, M8200.2100 ####[facility] [id number] [place], [place], [address] M8200.2200on 09-09-2023 M8200.2200 Normal Reference Range = Negative N gonorrhoea DNA Genital Ql JUSTIN+probe GeneXpert Instrument, PCR method N. gonorrhoeae PCR Negative Normal [facility] Comment on above: Performed By: #### M 8200.2200, M8200.2100 ####[facility] [address] [place], [address] Neisseria gonorrhoeae genita l PCROrdered By: Ruth Will on 09-09-2023 N. gonorrhoeae DNA JUSTIN+probe Ql (Genital specimen) [facility] No Panel InformationOrdered By: Ruth Will on 09-09-2023 Chlamydia trachomatis (PCR) [facility] Operative Reporton 4 Operative Report [facility] Medical Records Department [address] [place] [address] Operative Report 09/09/23 0834 MR#: [id number] Acct: [id number] Name: TERESA CERON V Rep #: [id number] : 2000 23 From: Priscilla Moore DO PCP: Care Physician,No Primary Status:ADM IN Location: [place] [address] Assessment Plan (1) Obesity affecting : COMMENT: passed 3 hour gct (2) History of delivery affecting : COMMENT: plans RLTCS. Scheduled for 09/09/23 @ 7:30 with JV (3) : QUALIFIERS: Weeks of gestation: 38 weeks Qualified Code(s): Z3A.38 - 38 weeks gestation of COMMENT: GBS neg, declines NIPT (4) Supervision of high-risk : COMMENT: VILMA 09/14/23 PC: Lawrence, Spouse Issa Maternal Data Information VILMA Calculator Estimated Delivery Date Method Current WG Current Estimate 09/14/23 Manual 39w 2d [facility] Final VILMA Source: LMP Details Operative Information Date of Procedure: 09/09/23 Pre-Operative Diagnosis: 23 y/o @ 39 weeks 2 days, prior section, desires repeat section Post-Operative Diagnosis: 23 y/o @ 39 weeks 2 days, prior section, desires repeat section Indications for : Repeat Elective Classification: Scheduled Procedure Type: low transverse merchandise adjustment clerk #1: Daniel Prince Type of Anesthesia: Spinal Antibiotic Given: Ancef 3 grams IV x1 Estimated Blood Loss: 400cc Procedure Start Time: 07:48 Time of Delivery: 08:29 Findings Description of Procedure: The patient is a 23 presented for repeat . Spinal anesthesia was placed without difficulty. Mcnulty catheter was placed. The patient was placed in the dorsal supine position with leftward tilt. Patient was prepped and draped in the normal sterile fashion. Pfannenstiel skin incision was made with the scalpel and carried through to the underlying layer of fascia with the scalpel. Fascia was nicked in the midline and the incision extended laterally. The rectus bellies were dissected off superiorly and inferiorly with out complication both sharply and bluntly. The peritoneum was entered digitally. The incision was stretched and a low transverse uterine incision was made with the scalpel. The 's head was delivered atraumatically followed by the anterior and posterior shoulders without complication the rest of the delivered. The cord was clamped and cut and the infant was handed off to awaiting nurse. The placenta was delivered spontaneously immediately following and was noted to be intact and have a three-vessel cord. The uterus was exteriorized cleared of all clots and debris, and the incision was closed in a double layer closure using #1 Vicryl and Monocryl. The ovaries and fallopian tubes were noted to be within normal limits. The uterus was returned to the maternal abdomen and gutters were cleared of all clots and debris. The peritoneum was closed with 3-0 Monocryl in a running fashion. Gloves were changed prior to fascial closure. Fascia was closed with 0 PDS in a running fashion. Subcutaneous tissue was copiously irrigated and the skin was closed with 3-0 Monocryl in a subcuticular fashion. Mepilex dressing was applied without complication. Patient was taken to recovery in stable condition. It was discussed with the patient that based on the clinical information obtained during this encounter, combined with her history, at this time I would recommend for future deliveries if further pregnancies are desired. Presentation: Positive for Vertex Amniotic Membrane Rupture Type: Artificial Time of Membrane Ruptured: 0752 Amniotic Fluid Description: Clear Placental Delivery Description: Manual Removal Placenta Disposition: [facility] Cord Vessel Description: 3 Vessels Cord Entanglement: None Infant A Gender: Male (1 minute): 9 (5 minute): 9 Delayed Cord Clamping: Yes Complications Risks of Surgery Discussed w/Patient: Bleeding, Anesthesia Risks, Infection, Need for Future C- Sections and Injury to surrounding structure(s) including bowel and bladder Complications: none Multi Select Codes Urinary/Genital Urinary/Genital CPT Codes: 69223 Delivery global pkg 09/09/23 0841 Cosigner Signature (if applicable): CC: Dr. Priscilla Moore, ; No Primary Care Physician Signed Normal [facility] Serum Treponema species anti body detectionOrdered By: Priscilla Espitia on 09-09-2023 Treponema sp Ab Ql (S) Non-Reactive [facility] Type AND Screenon 09-09-2023 Ab SCREEN GEL Negative Normal [facility] Comment on above: Order Comment: S Performed By: #### B TS, L100.0100 #### [facility] [address] [place], [address] ABO and Rh group Nom (Bld) Blood group O Rh(D) positive Normal [facility] Comment on above: Order Comment: S Performed By: #### B TS, L100.0100 #### [facility] [address] [place], [address] Laboratory - Chemistry and C hemistry - challengeon 09-06-2023 Glucose Ql (U) Negative [facility] Laboratory - Urinalysison Protein Ql (U) Negative [facility] Irrigation Technician Office Visit Reporton 09-06-2023 Irrigation Technician Office Visit Report [facility] [address] [place] [address] OFFICE VISIT Date of Service: 09/06/23 MR#: [id number] Acct: [id number] Name: TERESA CERON V Rep #: [id number] : 2000 Provider: Dr. Priscilla Maya DO Age/Sex: 23/F Location: [facility] Status: Signed Intake Vital Signs 08/06/23 10:51 08/27/23 10:25 09/06/23 10:09 09/06/23 10:11 Height 5 ft 2 in 5 ft 2 in 5 ft 2 in 5 ft 2 in Weight: 233 lb 2 oz BMI 42.6 BP 124/80 H Intake Visit Reasons: 38 WK OB Director Hr Communications Required: No Is patient in pain?: No Allergies No Known Allergies Allergy (Verified 09/06/23 10:09) Medications docusate sodium 100 mg capsule 100 mg PO BID PRN PRN Constipation #60 caps 08/18/20 [Rx Confirmed 09/06/23] Last Menstrual Period: 11/08/22 Zika: Zika virus screening: Negative : No PFSH PFSH Medical History Depression Surgical History H/O section Family History Grandmother No problems noted. Son Cleft palate Other Diabetes Heart disease Social History adopted: No household members: spouse and children housing: house current occupational status: employed current occupation: [employer] current occupational exposures/hazards: No pets and animals: No history of recent travel: No sexually active: Yes Smoking Status: Never smoker alcohol intake: never substance use type: does not use caffeine: Yes seatbelt use: always do you feel safe at home: Yes additional social history: spouse - issa children - lawrence History 2 Elective abortions Hx Para 1 Spontaneous abortions Hx # Term Pregnancies Ectopic pregnancies Hx # Pregnancies Multiple births # of living children 1 Past Pregnancies Del. Date Name GA/Weeks Outcome Route Bth Weight Gen Labor Lgth Anesthesia Del Locatn Provider FOB 08/18/20 Lawrence 2020 38 live - full term Male [facility] Andr[facility] Delivery Date: 08/18/20 Last Updated by: Lindsey Recinos Baby with cleft palate HPI 38 WK OB Details: TERESA CERON is a 23 year old who presents for routine OB visit and pre-op exam. OB Visit VILMA Calculator Estimated Delivery Date Method Current WG Current Estimate 09/14/23 Manual 38w 6d per [facility] records Expected Delivery Route/Plan desires repeat C/S Specific Issue/Plans Covid status: unvaccinated Flu vaccine: Declines Tdap vaccine: [] Rhogam: NA LARC form signed: yes Problem list reviewed and updated with the most current plan of care details and appropriate orders placed. Relevant counseling for the gestational age provided. Continue routine care and follow up unless otherwise noted in visit notes/problem list details Initial Weight: Not Recorded Date -???-???-???-???-??? -???-???-???-???-??? -???-???- EGA Weight BP Urine Prot -???-???-???-???-??? -???-???-???-???-??? -???-???- Glucose FHR FuHt Pres Dilation -???-???-???-???-??? -???-???-???-???-??? -???-???- Effaced St Visit Note 05/28/23 -???-???-???-???-??? -???-???-???-???-??? -???-???- 24w 3d 219 lb 114/81 Negative -???-???-???-???-??? -???-???-???-???-??? -???-???- Negative 140 -???-???-???-???-??? -???-???-???-???-??? -???-???- KW-Transfer from [place], had all appts until 20 weeks with them. Had labs and anatomy US with them. R C/S desired. Desires to skip 1 hour GCT and do 3 hour at 28 weeks. no vb/cramping. good fm. Larc done today 06/18/23 -???-???-???-???-??? -???-???-???-???-??? -???-???- 27w 3d 222 lb 6 oz 115/81 Negative -???-???-???-???-??? -???-???-???-???-??? -???-???- Negative 140 -???-???-???-???-??? -???-???-???-???-??? -???-???- KW- no vb/ct x/lof/ good fm. passed 3 hr gct. C/S with JV 09/09/23 730am 07/08/23 -???-???-???-???-??? -???-???-???-???-??? -???-???- 30w 2d 221 lb 6 oz 113/78 Negative -???-???-???-???-??? -???-???-???-???-??? -???-???- Negative 141 -???-???-???-???-??? -???-???-???-???-??? -???-???- JV- no lof, vaginal bleeding, or dec fm. tdap today. 07/23/23 -???-???-???-???-??? -???-???-???-???-??? -???-???- 32w 3d 224 lb 6 oz 125/76 Negative -???-???-???-???-??? -???-???-???-???-??? -???-???- Negative 159 32 -???-???-???-???-??? -???-???-???-???-??? -???-???- JV- pt compl ains of back and hip pain. exercises discussed. 08/06/23 -???-???-???-???-??? -???-???-???-???-??? -???-???- 34w 3d 230 lb 6 oz 117/80 Negative -???-???-???-???-??? -???-???-???-???-??? -???-???- Negative 155 35 -???-???-???-???-??? -???-???-???-???-??? 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 alejandro fm. discussed (more content not included)... Normal [facility] Laboratory - Chemistry and C hemistry - challengeon 08-27-2023 Glucose Ql (U) Negative [facility] Laboratory - Urinalysison Protein Ql (U) Negative [facility] Irrigation Technician Office Visit Reporton 08-27-2023 Irrigation Technician Office Visit Report [facility] [address] [place] [address] OFFICE VISIT Date of Service: 08/27/23 MR#: [id number] Acct: [id number] Name: TERESA CERON V Rep #: [id number] : 2000 Provider: BETH Suarez ams Age/Sex: 23/F Location: [facility] Status: Signed Intake Vital Signs 08/06/23 10:51 08/20/23 14:21 08/27/23 10:25 Height 5 ft 2 in 5 ft 2 in 5 ft 2 in Weight: 231 lb 2 oz BMI 42.3 BP 116/78 Intake Visit Reasons: 37 WK OB Director Hr Communications Required: No Is patient in pain?: No Allergies No Known Allergies Allergy (Verified 08/27/23 10:25) Medications docusate sodium 100 mg capsule 100 mg PO BID PRN PRN Constipation #60 caps 08/18/20 [Rx Confirmed 08/27/23] Last Menstrual Period: 11/08/22 Zika: Zika virus screening: Negative : No PFSH PFSH Medical History Depression Surgical History H/O section Family History Grandmother No problems noted. Son Cleft palate Other Diabetes Heart disease Social History adopted: No household members: spouse and children housing: house current occupational status: employed current occupation: [employer] current occupational exposures/hazards: No pets and animals: No history of recent travel: No sexually active: Yes Smoking Status: Never smoker alcohol intake: never substance use type: does not use caffeine: Yes seatbelt use: always do you feel safe at home: Yes additional social history: spouse - issa children - lawrence History 2 Elective abortions Hx Para 1 Spontaneous abortions Hx # Term Pregnancies Ectopic pregnancies Hx # Pregnancies Multiple births # of living children 1 Past Pregnancies Del. Date Name GA/Weeks Outcome Route Bth Weight Gen Labor Lgth Anesthesia Del Locatn Provider FOB 08/18/20 [place] 2020 38 live - full term Male [facility] Andrzej Delivery Date: 08/18/20 Last Updated by: Lindsey Recinos Baby with cleft palate HPI 37 WK OB Details: TERESA CERON is a 23 year old who presents for routine OB visit. OB Visit VILMA Calculator Estimated Delivery Date Method Current Current Estimate 09/14/23 Manual 37w 3d per [facility] records Expected Delivery Route/Plan desires repeat C/S Specific Issue/Plans Covid status: unvaccinated Flu vaccine: Declines Tdap vaccine: [] Rhogam: NA LARC form signed: yes Problem list reviewed and updated with the most current plan of care details and appropriate orders placed. Relevant counseling for the gestational age provided. Continue routine care and follow up unless otherwise noted in visit notes/problem list details Initial Weight: Not Recorded Date -???-???-???-???-??? -???-???-???-???-??? -???-???- EGA Weight BP Urine Prot -???-???-???-???-??? -???-???-???-???-??? -???-???- Glucose FHR FuHt Pres Dilation -???-???-???-???-??? -???-???-???-???-??? -???-???- Effaced St Visit Note 05/28/23 -???-???-???-???-??? -???-???-???-???-??? -???-???- 24w 3d 219 lb 114/81 Negative -???-???-???-???-??? -???-???-???-???-??? -???-???- Negative 140 -???-???-???-???-??? -???-???-???-???-??? -???-???- KW-Transfer from [place], had all appts until 20 weeks with them. Had labs and anatomy US with them. R C/S desired. Desires to skip 1 hour GCT and do 3 hour at 28 weeks. no vb/cramping. good fm. Larc done today 06/18/23 -???-???-???-???-??? -???-???-???-???-??? -???-???- 27w 3d 222 lb 6 oz 115/81 Negative -???-???-???-???-??? -???-???-???-???-??? -???-???- Negative 140 -???-???-???-???-??? -???-???-???-???-??? -???-???- KW- no vb/ct x/lof/ good fm. passed 3 hr gct. C/S with JV 09/09/23 730am 07/08/23 -???-???-???-???-??? -???-???-???-???-??? -???-???- 30w 2d 221 lb 6 oz 113/78 Negative -???-???-???-???-??? -???-???-???-???-??? -???-???- Negative 141 -???-???-???-???-??? -???-???-???-???-??? -???-???- JV- no lof, vaginal bleeding, or dec fm. tdap today. 07/23/23 -???-???-???-???-??? -???-???-???-???-??? -???-???- 32w 3d 224 lb 6 oz 125/76 Negative -???-???-???-???-??? -???-???-???-???-??? -???-???- Negative 159 32 -???-???-???-???-??? -???-???-???-???-??? -???-???- JV- pt compl ains of back and hip pain. exercises discussed. 08/06/23 -???-???-???-???-??? -???-???-???-???-??? -???-???- 34w 3d 230 lb 6 oz 117/80 Negative -???-???-???-???-??? -???-???-???-???-??? -???-???- Negative 155 35 -???-???-???-???-??? -???-???-???-???-??? 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 discussed feeding plan. wants to pump not breastfeed. gbs (more content not included)... Normal [facility] Rule out Beta Strep (Grp. B) on 08-22-2023 JACQUELINE Group B Beta Streptococcus is not isolated. [facility] Comment on above: Performed By: #### L 8200.0000, M100.3400 #### [facility] [address] [place], [address] Group B Strep DNA By PCRon 0 08-20-2023 GBS DNA ASSAY Normal Negative [facility] Comment on above: Order Comment: Vagin al-Rectal Result Comment: ORDE R ERROR Performed By: #### L 8200.0000, M100.3400 #### [facility] [address] [place], [address] IC Normal [facility] Comment on above: Order Comment: Vagin al-Rectal Result Comment: ORDE R ERROR Performed By: #### L 8200.0000, M100.3400 #### [facility] [address] [place], [address] PROBE CHECK [facility] Comment on above: Order Comment: Vagin al-Rectal Result Comment: ORDE R ERROR Performed By: #### L 8200.0000, M100.3400 #### [facility] [address] [place], [address] SPC Normal [facility] Comment on above: Order Comment: Vagin al-Rectal Result Comment: ORDE R ERROR Performed By: #### L 8200.0000, M100.3400 #### [facility] [address] [place], [place], [id number] SWAB TYPE IS: Normal [facility] Comment on above: Order Comment: Vagin al-Rectal Result Comment: ORDE R ERROR Performed By: #### L 8200.0000, M100.3400 #### [facility] [address] [place], [address] Laboratory - Chemistry and C hemistry - challengeon 08-20-2023 Glucose Ql (U) Negative [facility] Laboratory - Urinalysison Protein Ql (U) Negative [facility] No Panel InformationOrdered By: Feli Nichols on 08-20-2023 Group B Streptococcus Culture Group B Beta Streptococcus is not isolated. [facility] Group B Streptococcus Culture Group B Beta Streptococcus is not isolated. [facility] Irrigation Technician Office Visit Reporton 08-20-2023 Irrigation Technician Office Visit Report [facility] [address] [place] [address] OFFICE VISIT Date of Service: 08/20/23 MR#: [id number] Acct: [id number] Name: TERESA CERON V Rep #: [id number] : 2000 Provider: BETH Suarez ams Age/Sex: 23/F Location: [facility] Status: Signed Intake Vital Signs 07/23/23 11:35 08/06/23 10:51 08/20/23 14:21 Height 5 ft 2 in 5 ft 2 in 5 ft 2 in Weight: 230 lb 6 oz BMI 42.1 Intake Visit Reasons: 36 WK OB Director Hr Communications Required: No Is patient in pain?: No Allergies No Known Allergies Allergy (Verified 08/20/23 14:21) Medications docusate sodium 100 mg capsule 100 mg PO BID PRN PRN Constipation #60 caps 08/18/20 [Rx Confirmed 08/20/23] Last Menstrual Period: 11/08/22 Zika: Zika virus screening: Negative : No PFSH PFSH Medical History Depression Surgical History H/O section Family History Grandmother No problems noted. Son Cleft palate Other Diabetes Heart disease Social History adopted: No household members: spouse and children housing: house current occupational status: employed current occupation: [employer] current occupational exposures/hazards: No pets and animals: No history of recent travel: No sexually active: Yes Smoking Status: Never smoker alcohol intake: never substance use type: does not use caffeine: Yes seatbelt use: always do you feel safe at home: Yes additional social history: spouse - issa children - lawrence History 2 Elective abortions Hx Para 1 Spontaneous abortions Hx # Term Pregnancies Ectopic pregnancies Hx # Pregnancies Multiple births # of living children 1 Past Pregnancies Del. Date Name GA/Weeks Outcome Route Bth Weight Infant Gen Labor Lgth Anesthesia Del Locatn Provider FOB 08/18/20 [place] 2020 38 live - full term Male [facility] Andrzej Delivery Date: 08/18/20 Last Updated by: Lindsey Recinos Baby with cleft palate HPI 36 WK OB Details: TERESA CERON is a 23 year old who presents for routine OB visit. OB Visit VILMA Calculator Estimated Delivery Date Method Current Current Estimate 09/14/23 Manual 36w 3d per [facility] records Expected Delivery Route/Plan desires repeat C/S Specific Issue/Plans Covid status: unvaccinated Flu vaccine: Declines Tdap vaccine: [] Rhogam: NA LARC form signed: yes Problem list reviewed and updated with the most current plan of care details and appropriate orders placed. Relevant counseling for the gestational age provided. Continue routine care and follow up unless otherwise noted in visit notes/problem list details Initial Weight: Not Recorded Date -???-???-???-???-??? -???-???-???-???-??? -???-???- EGA Weight BP Urine Prot -???-???-???-???-??? -???-???-???-???-??? -???-???- Glucose FHR FuHt Pres Dilation -???-???-???-???-??? -???-???-???-???-??? -???-???- Effaced St Visit Note 05/28/23 -???-???-???-???-??? -???-???-???-???-??? -???-???- 24w 3d 219 lb 114/81 Negative -???-???-???-???-??? -???-???-???-???-??? -???-???- Negative 140 -???-???-???-???-??? -???-???-???-???-??? -???-???- KW-Transfer from [place], had all appts until 20 weeks with them. Had labs and anatomy US with them. R C/S desired. Desires to skip 1 hour GCT and do 3 hour at 28 weeks. no vb/cramping. good fm. Larc done today 06/18/23 -???-???-???-???-??? -???-???-???-???-??? -???-???- 27w 3d 222 lb 6 oz 115/81 Negative -???-???-???-???-??? -???-???-???-???-??? -???-???- Negative 140 -???-???-???-???-??? -???-???-???-???-??? -???-???- KW- no vb/ct x/lof/ good fm. passed 3 hr gct. C/S with JV 09/09/23 730am 07/08/23 -???-???-???-???-??? -???-???-???-???-??? -???-???- 30w 2d 221 lb 6 oz 113/78 Negative -???-???-???-???-??? -???-???-???-???-??? -???-???- Negative 141 -???-???-???-???-??? -???-???-???-???-??? -???-???- JV- no lof, vaginal bleeding, or dec fm. tdap today. 07/23/23 -???-???-???-???-??? -???-???-???-???-??? -???-???- 32w 3d 224 lb 6 oz 125/76 Negative -???-???-???-???-??? -???-???-???-???-??? -???-???- Negative 159 32 -???-???-???-???-??? -???-???-???-???-??? -???-???- JV- pt compl ains of back and hip pain. exercises discussed. 08/06/23 -???-???-???-???-??? -???-???-???-???-??? -???-???- 34w 3d 230 lb 6 oz 117/80 Negative -???-???-???-???-??? -???-???-???-???-??? -???-???- Negative 155 35 -???-???-???-???-??? -???-???-???-???-??? 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 discussed feeding plan. wants to pump not breastfeed. gbs next visit. (more content not included)... Normal [facility] - Chemistry and C hemistry - challengeon 08-06-2023 Glucose Ql (U) Negative [facility] - Urinalysison Protein Ql (U) Negative [facility] Irrigation Technician Office Visit Reporton 08-06-2023 Irrigation Technician Office Visit Report [facility] [address] [place] [address] OFFICE VISIT Date of Service: 08/06/23 MR#: [id number] Acct: [id number] Name: TREESA CERON V Rep #: [id number] : 2000 Provider: BETH Suarez ams Age/Sex: 23/F Location: [facility] Status: Signed Intake Vital Signs 07/23/23 11:35 08/06/23 10:51 Height 5 ft 2 in 5 ft 2 in Weight: 230 lb 6 oz BMI 42.1 BP 117/80 Intake Visit Reasons: 34 WK OB Director Hr Communications Required: No Is patient in pain?: No Allergies No Known Allergies Allergy (Verified 08/06/23 10:52) Medications docusate sodium 100 mg capsule 100 mg PO BID PRN PRN Constipation #60 caps 08/18/20 [Rx Confirmed 08/06/23] Last Menstrual Period: 11/08/22 Zika: Zika virus screening: Negative : No PFSH PFSH Medical History Depression Surgical History H/O section Family History Grandmother No problems noted. Son Cleft palate Other Diabetes Heart disease Social History adopted: No household members: spouse and children housing: house current occupational status: employed current occupation: [employer] current occupational exposures/hazards: No pets and animals: No history of recent travel: No sexually active: Yes Smoking Status: Never smoker alcohol intake: never substance use type: does not use caffeine: Yes seatbelt use: always do you feel safe at home: Yes additional social history: spouse - issa children - lawrence History 2 Elective abortions Hx Para 1 Spontaneous abortions Hx # Term Pregnancies Ectopic pregnancies Hx # Pregnancies Multiple births # of living children 1 Past Pregnancies Del. Date Name GA/Weeks Outcome Route Bth Weight Gen Labor Lgth Anesthesia Del Locatn Provider FOB 08/18/20 [place] 2019 38 live - full term Male [facility] Andrzej Delivery Date: 08/18/20 Last Updated by: Lindsey Recinos Baby with cleft palate HPI 34 WK OB Details: TERESA CERON is a 23 year old who presents for routine OB visit. OB Visit VILMA Calculator Estimated Delivery Date Method Current WG Current Estimate 09/14/23 Manual 34w 3d per [facility] records Expected Delivery Route/Plan desires repeat C/S Specific Issue/Plans Covid status: unvaccinated Flu vaccine: Declines Tdap vaccine: [] Rhogam: NA LARC form signed: yes Problem list reviewed and updated with the most current plan of care details and appropriate orders placed. Relevant counseling for the gestational age provided. Continue routine care and follow up unless otherwise noted in visit notes/problem list details Initial Weight: Not Recorded Date -???-???-???-???-??? -???-???-???-???-??? -???-???- EGA Weight BP Urine Prot -???-???-???-???-??? -???-???-???-???-??? -???-???- Glucose FHR FuHt Pres Dilation -???-???-???-???-??? -???-???-???-???-??? -???-???- Effaced St Visit Note 05/28/23 -???-???-???-???-??? -???-???-???-???-??? -???-???- 24w 3d 219 lb 114/81 Negative -???-???-???-???-??? -???-???-???-???-??? -???-???- Negative 140 -???-???-???-???-??? -???-???-???-???-??? -???-???- KW-Transfer from [place], had all appts until 20 weeks with them. Had labs and anatomy US with them. R C/S desired. Desires to skip 1 hour GCT and do 3 hour at 28 weeks. no vb/cramping. good fm. Larc done today 06/18/23 -???-???-???-???-??? -???-???-???-???-??? -???-???- 27w 3d 222 lb 6 oz 115/81 Negative -???-???-???-???-??? -???-???-???-???-??? -???-???- Negative 140 -???-???-???-???-??? -???-???-???-???-??? -???-???- KW- no vb/ct x/lof/ good fm. passed 3 hr gct. C/S with JV 09/09/23 730am 07/08/23 -???-???-???-???-??? -???-???-???-???-??? -???-???- 30w 2d 221 lb 6 oz 113/78 Negative -???-???-???-???-??? -???-???-???-???-??? -???-???- Negative 141 -???-???-???-???-??? -???-???-???-???-??? -???-???- JV- no lof, vaginal bleeding, or dec fm. tdap today. 07/23/23 -???-???-???-???-??? -???-???-???-???-??? -???-???- 32w 3d 224 lb 6 oz 125/76 Negative -???-???-???-???-??? -???-???-???-???-??? -???-???- Negative 159 32 -???-???-???-???-??? -???-???-???-???-??? -???-???- JV- pt compl ains of back and hip pain. exercises discussed. 08/06/23 -???-???-???-???-??? -???-???-???-???-??? -???-???- 34w 3d 230 lb 6 oz 117/80 -???-???-???-???-??? -???-???-???-???-??? -???-???- 155 35 -???-???-???-???-??? -???-???-???-???-??? 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 discussed infant feeding plan. wants to pump not breastfeed. gbs next visit. ACOG First Trimester (more content not included)... Normal [facility] - Chemistry and C hemistry - challengeon 07-23-2023 Glucose Ql (U) Negative [facility] - Urinalysison 12 -05-2023 Protein Ql (U) Negative [facility] Irrigation Technician Office Visit Reporton 07-23-2023 Irrigation Technician Office Visit Report [facility] [address] [place] [address] OFFICE VISIT Date of Service: 07/23/23 MR#: [id number] Acct: [id number] Name: TERESA CERON V Rep #: [id number] : 2000 Provider: Dr. Priscilla Maya DO Age/Sex: 23/F Location: [facility] Status: Signed Intake Vital Signs 07/08/23 10:34 07/23/23 11:33 07/23/23 11:35 Height 5 ft 2 in 5 ft 2 in 5 ft 2 in Weight: 224 lb 6 oz BMI 41.0 BP 125/76 H Intake Visit Reasons: 32 WK OB Director Hr Communications Required: No Is patient in pain?: No Allergies No Known Allergies Allergy (Verified 07/23/23 11:32) Medications docusate sodium 100 mg capsule 100 mg PO BID PRN PRN Constipation #60 caps 08/18/20 [Rx Confirmed 07/23/23] Last Menstrual Period: 11/08/22 Zika: Zika virus screening: Negative : No PFSH PFSH Medical History Depression Surgical History H/O section Family History Grandmother No problems noted. Son Cleft palate Other Diabetes Heart disease Social History adopted: No household members: spouse and children housing: house current occupational status: employed current occupation: [employer] current occupational exposures/hazards: No pets and animals: No history of recent travel: No sexually active: Yes Smoking Status: Never smoker alcohol intake: never substance use type: does not use caffeine: Yes seatbelt use: always do you feel safe at home: Yes additional social history: spouse - issa children - lawrence History 2 Elective abortions Hx Para 1 Spontaneous abortions Hx # Term Pregnancies Ectopic pregnancies Hx # Pregnancies Multiple births # of living children 1 Past Pregnancies Del. Date Name GA/Weeks Outcome Route Bth Weight Gen Labor Lgth Anesthesia Del Rickatn Provider FOB 08/18/20 [place] 2019 38 live - full term Male PABLO Donnelly Delivery Date: 08/18/20 Last Updated by: Lindsey Recinos Baby with cleft palate HPI 32 WK OB Details: TERESA CERON is a 23 year old who presents for routine OB visit. OB Visit VILMA Calculator Estimated Delivery Date Method Current WG Current Estimate 09/14/23 Manual 32w 3d per [facility] records Expected Delivery Route/Plan desires repeat C/S Specific Issue/Plans Covid status: unvaccinated Flu vaccine: Declines Tdap vaccine: [] Rhogam: NA LARC form signed: yes Problem list reviewed and updated with the most current plan of care details and appropriate orders placed. Relevant counseling for the gestational age provided. Continue routine care and follow up unless otherwise noted in visit notes/problem list details Initial Weight: Not Recorded Date -???-???-???-???-??? -???-???-???-???-??? -???-???- EGA Weight BP Urine Prot -???-???-???-???-??? -???-???-???-???-??? -???-???- Glucose FHR FuHt Pres Dilation -???-???-???-???-??? -???-???-???-???-??? -???-???- Effaced St Visit Note 05/28/23 -???-???-???-???-??? -???-???-???-???-??? -???-???- 24w 3d 219 lb 114/81 Negative -???-???-???-???-??? -???-???-???-???-??? -???-???- Negative 140 -???-???-???-???-??? -???-???-???-???-??? -???-???- KW-Transfer from [place], had all appts until 20 weeks with them. Had labs and anatomy US with them. R C/S desired. Desires to skip 1 hour GCT and do 3 hour at 28 weeks. no vb/cramping. good fm. Larc done today 06/18/23 -???-???-???-???-??? -???-???-???-???-??? -???-???- 27w 3d 222 lb 6 oz 115/81 Negative -???-???-???-???-??? -???-???-???-???-??? -???-???- Negative 140 -???-???-???-???-??? -???-???-???-???-??? -???-???- KW- no vb/ct x/lof/ good fm. passed 3 hr gct. C/S with JV 09/09/23 730am 07/08/23 -???-???-???-???-??? -???-???-???-???-??? -???-???- 30w 2d 221 lb 6 oz 113/78 Negative -???-???-???-???-??? -???-???-???-???-??? -???-???- Negative 141 -???-???-???-???-??? -???-???-???-???-??? -???-???- JV- no lof, vaginal bleeding, or dec fm. tdap today. 07/23/23 -???-???-???-???-??? -???-???-???-???-??? -???-???- 32w 3d 224 lb 6 oz 125/76 -???-???-???-???-??? -???-???-???-???-??? -???-???- 159 32 -???-???-???-???-??? -???-???-???-???-??? -???-???- JV- pt compl ains of back and hip pain. exercises discussed. ACOG First Trimester First Trimester: Desire for , Alcohol, Tobacco Cessation, Illicit/Recreational Drug/Substance Use, Intimate Partner Violence, Barriers to care, Anticipated Course of Care, Use of Any medications, Sexual activity, Exercise, Dental Care, Sauna/Hot tub use, Seat Belt use, Chil (more content not included)... Normal [facility] - Chemistry and C hemistry - challengeon 07-08-2023 Glucose Ql (U) Negative [facility] - Urinalysison Protein Ql (U) Negative [facility] Irrigation Technician Office Visit Reporton 07-08-2023 Irrigation Technician Office Visit Report [facility] [address] [place] [address] [address] [place] [address] OFFICE VISIT Date of Service: 07/08/23 MR#: [id number] Acct: [id number] Name: TERESA CERON V Rep #: [id number] : 2000 Provider: Dr. Priscilla Maya DO Age/Sex: 23/F Location: [facility] Status: Signed Intake Vital Signs 06/18/23 13:15 06/18/23 13:36 07/08/23 10:34 07/08/23 10:34 Height 5 ft 2 in 5 ft 2 in 5 ft 2 in 5 ft 2 in Weight: 221 lb 6 oz BMI 40.4 BP 113/78 Intake Visit Reasons: 30 WK OB, pt to see JV per Kw Director Hr Communications Required: No Is patient in pain?: No Allergies No Known Allergies Allergy (Verified 07/08/23 10:34) Medications docusate sodium 100 mg capsule 100 mg PO BID PRN PRN Constipation #60 caps 08/18/20 [Rx Confirmed 07/08/23] Last Menstrual Period: 11/08/22 Zika: Zika virus screening: Negative : No PFSH PFSH Medical History Depression Surgical History H/O section Family History Grandmother No problems noted. Son Cleft palate Other Diabetes Heart disease Social History adopted: No household members: spouse and children housing: house current occupational status: employed current occupation: [employer] current occupational exposures/hazards: No pets and animals: No history of recent travel: No sexually active: Yes Smoking Status: Never smoker alcohol intake: never substance use type: does not use caffeine: Yes seatbelt use: always do you feel safe at home: Yes additional social history: spouse - issa children - lawrence History 2 Elective abortions Hx Para 1 Spontaneous abortions Hx # Term Pregnancies Ectopic pregnancies Hx # Pregnancies Multiple births # of living children 1 Past Pregnancies Del. Date Name GA/Weeks Outcome Route Bth Weight Gen Labor Lgth Anesthesia Del Locatn Provider FOB 08/18/20 [place] 2020 38 live - full term Male [facility] Andrzej Delivery Date: 08/18/20 Last Updated by: Lindsey Recinos Baby with cleft palate HPI 30 WK OB, pt to see JV per Kw Details: TERESA CERON is a 23 year old who presents for routine OB visit. OB Visit VILMA Calculator Estimated Delivery Date Method Current WG Current Estimate 09/14/23 Manual 30w 2d per [facility] records Expected Delivery Route/Plan desires repeat C/S Specific Issue/Plans Covid status: unvaccinated Flu vaccine: Declines Tdap vaccine: [] Rhogam: NA LARC form signed: yes Problem list reviewed and updated with the most current plan of care details and appropriate orders placed. Relevant counseling for the gestational age provided. Continue routine care and follow up unless otherwise noted in visit notes/problem list details Initial Weight: Not Recorded Date -???-???-???-???-??? -???-???-???-???-??? -???-???- EGA Weight BP Urine Prot -???-???-???-???-??? -???-???-???-???-??? -???-???- Glucose FHR FuHt Pres Dilation -???-???-???-???-??? -???-???-???-???-??? -???-???- Effaced St Visit Note 05/28/23 -???-???-???-???-??? -???-???-???-???-??? -???-???- 24w 3d 219 lb 114/81 Negative -???-???-???-???-??? -???-???-???-???-??? -???-???- Negative 140 -???-???-???-???-??? -???-???-???-???-??? -???-???- KW-Transfer from [place], had all appts until 20 weeks with them. Had labs and anatomy US with them. R C/S desired. Desires to skip 1 hour GCT and do 3 hour at 28 weeks. no vb/cramping. good fm. Larc done today 06/18/23 -???-???-???-???-??? -???-???-???-???-??? -???-???- 27w 3d 222 lb 6 oz 115/81 Negative -???-???-???-???-??? -???-???-???-???-??? -???-???- Negative 140 -???-???-???-???-??? -???-???-???-???-??? -???-???- KW- no vb/ct x/lof/ good fm. passed 3 hr gct. C/S with JV 09/09/23 730am 07/08/23 -???-???-???-???-??? -???-???-???-???-??? -???-???- 30w 2d 221 lb 6 oz 113/78 Negative -???-???-???-???-??? -???-???-???-???-??? -???-???- Negative 141 -???-???-???-???-??? -???-???-???-???-??? -???-???- JV- no lof, vaginal bleeding, or dec fm. tdap today. ACOG First Trimester First Trimester: Desire for , Alcohol, Tobacco Cessation, Illicit/Recreational Drug/Substance Use, Intimate Partner Violence, Barriers to care, Anticipated Course of Care, Use of Any medications, Sexual activity, Exercise, Dental Care, Sauna/Hot tub use, Seat Belt use, Childbirth classes/Hospital facilities, , Travel, Indications for Ultrasound and Screening for Aneuploidy; Discussed Unstable Housing, Discussed Communication Barriers, Discussed Environmenta (more content not included)... Normal [facility] Absolute lymphocyte countOrd ered By: Feli Nichols on 06-18-2023 Lymphocytes Auto (Unsp spec) [#/Vol] 1.55 10*3/uL 0.83-4.51 [facility] Basophil percentageOrdered B y: Feli Nichols on 06-18-2023 Basophils/100 WBC (Bld) 0.4 % 0-1 [facility] Eosinophils/100 WBC (Bld) 0.6 % 0-5 [facility] Neutrophils (Bld) [#/Vol] 7.7 10*3/uL 2.0-7.7 [facility] Neutrophils/100 WBC (Bld) 78.3 % 47-70 [facility] WBC (Bld) [#/Vol] 9.8 10*3/uL 4.4-11.0 [facility] Blood erythrocytes count (nu mber/volume)Ordered By: Feli Nichols on 06-18-2023 RBC (Bld) [#/Vol] 4.16 10*6/uL 4.2-5.4 [facility] Blood hemoglobin measurement (mass/volume)Ordered By: Feli Nichols on 06-18-2023 Hemoglobin (Bld) [Mass/Vol] 11.9 g/dL 12.0-15.0 [facility] Blood lymphocytes/100 leukoc ytesOrdered By: Feli Nichols on 06-18-2023 Lymphocytes/100 WBC (Bld) 15.8 % 19-41 [facility] Blood monocytes/100 leukocyt esOrdered By: Feli Nichols on 06-18-2023 Monocytes/100 WBC (Bld) 3.8 % 0-10 [facility] Blood platelet mean volumeOr dered By: Feli Nichosl on 06-18-2023 Platelet mean volume (Bld) [Entitic vol] 10.4 fL 6.2-12.0 [facility] CBC W/Diff, Automatedon 05-21 Absolute Lymph 1.55 X10 3/uL Normal 0.83-4.51 [facility] Comment on above: Performed By: #### L 100.0100, [id number], [id number], [id number] ####[facility] [address] [place], [address] Absolute Neut 7.7 X10 3/uL Normal 2.0-7.7 [facility] Comment on above: Performed By: #### L 100.0100, [id number], [id number], [id number] ####[facility] [address] [place], [address] Basophils/100 WBC (Bld) 0.4 % Normal 0-1 [facility] Comment on above: Performed By: #### L 100.0100, [id number], [id number], [id number] ####[facility] [address] [place], [address] Eosinophils/100 WBC (Bld) 0.6 % Normal 0-5 [facility] Comment on above: Performed By: #### L 100.0100, [id number], [id number], [id number] ####[facility] [address] [place], [address] Erythrocyte distribution width (RBC) [Ratio] 14.0 % Normal 11.6-14.6 [facility] Comment on above: Performed By: #### L 100.0100, [id number], [id number], [id number] ####[facility] [address] [place], [address] Hematocrit (Bld) [Volume fraction] 35.2 % Low 37-47 [facility] Comment on above: Performed By: #### L 100.0100, [id number], [id number], [id number] ####[facility] [address] [place], [address] Hemoglobin (Bld) [Mass/Vol] 11.9 g/dL Low 12.0-15.0 [facility] Comment on above: Performed By: #### L 100.0100, [id number], [id number], [id number] ####[facility] [address] [place], [address] IG% 1.100 High 0.0-0.9 [facility] Comment on above: Result Comment: IG% - Immature Granulocytes (promyelocytes, myelocytes and metamyelocytes) > 1% indicates that a LEFT SHIFT is Present. Performed By: #### L 100.0100, [id number], [id number], [id number] ####[facility] [address] [place], [address] Lymphocytes/100 WBC (Bld) 15.8 % Low 19-41 [facility] Comment on above: Performed By: #### L 100.0100, [id number], [id number], [id number] ####[facility] [address] [place], [address] MCH (RBC) [Entitic mass] 28.6 pg Normal 27.0-32.0 [facility] Comment on above: Performed By: #### L 100.0100, [id number], [id number], [id number] ####[facility] [address] [place], [address] MCHC (RBC) [Mass/Vol] 33.8 g/dL Normal 32-36 [facility] Comment on above: Performed By: #### L 100.0100, [id number], [id number], [id number] ####[facility] [address] [place], [address] MCV (RBC) [Entitic vol] 84.6 fL Normal 81-99 [facility] Comment on above: Performed By: #### L 100.0100, [id number], [id number], [id number] ####[facility] [address] [place], [address] Monocytes/100 WBC (Bld) 3.8 % Normal 0-10 [facility] Comment on above: Performed By: #### L 100.0100, [id number], [id number], [id number] ####[facility] [address] [place], [address] Neutrophils/100 WBC (Bld) 78.3 % High 47-70 [facility] Comment on above: Performed By: #### L 100.0100, [id number], [id number], [id number] ####[facility] [address] [place], [address] Nucleated RBC (Bld) [#/Vol] 0 10*3/uL Normal 0-5 [facility] Comment on above: Performed By: #### L 100.0100, [id number], [id number], [id number] ####[facility] [address] [place], [address] Platelet mean volume (Bld) [Entitic vol] 10.4 fL Normal 6.2-12.0 [facility] Comment on above: Performed By: #### L 100.0100, [id number], [id number], [id number] ####[facility] [address] [place], [address] Platelets (Bld) [#/Vol] 209 10*3/uL Normal 150-450 [facility] Comment on above: Performed By: #### L 100.0100, [id number], [id number], [id number] ####[facility] [address] [place], [address] RBC (Bld) [#/Vol] 4.16 10*6/uL Low 4.2-5.4 [facility] Comment on above: Performed By: #### L 100.0100, [id number], [id number], [id number] ####[facility] [address] [place], [address] RDW SD 42.8 fl Normal 35.1-43.9 [facility] Comment on above: Performed By: #### L 100.0100, [id number], [id number], [id number] ####[facility] [address] [place], [address] WBC (Bld) [#/Vol] 9.8 10*3/uL Normal 4.4-11.0 [facility] Comment on above: Performed By: #### L 100.0100, L3890.6005, L500.4710, L509.8000 ####[facility] [address] [place], [address] Determination of erythrocyte mean corpuscular volume (MCV)Ordered By: Feli Nichols on 06-18-2023 MCV (RBC) [Entitic vol] 84.6 fL 81-99 [facility] Gestational GTT 3HR 100gon 1 3HR GTT- GEST. Normal [facility] Comment on above: Order Comment: Y Result Comment: FAST ING 79 Col: 06/18/23 0917 GLUCOSE TOLERANCE TEST FOR Reference Interval GESTATIONAL DIABETES Fasting <105 mg/dL 1 hour <190 mg/dl 2 hour <165 mg/dl 3 hour <145 mg/dl 1 HR GLU 152 Col: 06/18/23 1025 2 HR GLU 123 Col: 06/18/23 1128 3 HR GLU 124 Col: 06/18/23 1228 Performed By: #### L 100.0100, L3890.6005, L500.4710, L509.8000 ####[facility] [address] [place], [address] HIV - WCHon 06-18-2023 [facility] Comment on above: Performed By: #### L 100.0100, L3890.6005, L500.4710, L509.8000 ####[facility] [address] [place], [address] HIV 1 and HIV-2 antibody ass ay with HIV-1 p24 antigen detectionOrdered By: Feli Nichols on 06-18-2023 HIV 1+2 Ab+HIV1 p24 Ag IA Ql Non-Reactive Nonreactive [facility] Hematocrit Auto (Bld) [Volum e fraction]Ordered By: Feli Nichols on 06-18-2023 Hematocrit (Bld) [Volume fraction] 35.2 % 37-47 [facility] L509.8000on 06-18-2023 Syphilis Abs Non-Reactive Normal [facility] Comment on above: Performed By: #### L 100.0100, L3890.6005, L500.4710, L509.8000 ####[facility] [address] [place], [place], [id number] Laboratory - Chemistry and C hemistry - challengeon 06-18-2023 Glucose Ql (U) Negative [facility] Laboratory - Hematology and Cell countsOrdered By: Feli Nichols on 06-18-2023 Erythrocyte distribution width (RBC) [Entitic vol] 42.8 fL 35.1-43.9 [facility] Erythrocyte distribution width (RBC) [Ratio] 14.0 % 11.6-14.6 [facility] Immature granulocytes/100 WBC (Bld) 1.100 % 0.0-0.9 [facility] Comment on above: IG% - Immature Granu locytes (promyelocytes, myelocytes and metamyelocytes) > 1% indicates that a LEFT SHIFT is Present. MCH (RBC) [Entitic mass] 28.6 pg 27.0-32.0 [facility] Nucleated RBC/100 WBC (Bld) [Ratio] 0 % 0-5 [facility] Laboratory - Urinalysison Protein Ql (U) Negative [facility] MCHC Auto (RBC) [Mass/Vol]Or dered By: Feli Nichols on 06-18-2023 MCHC (RBC) [Mass/Vol] 33.8 g/dL 32-36 [facility] Irrigation Technician Office Visit Reporton 06-18-2023 Irrigation Technician Office Visit Report [facility] [address] [place], [place] [address] OFFICE VISIT Date of Service: 06/18/23 MR#: [id number] Acct: [id number] Name: TERESA CERON V Rep #: [id number] : 2000 Provider: BETH Suarez ams Age/Sex: 22/F Location: [facility] Status: Signed Intake Vital Signs 05/28/23 13:24 06/18/23 13:14 06/18/23 13:15 Height 5 ft 2 in 5 ft 2 in 5 ft 2 in Weight: 222 lb 6 oz BMI 40.6 BP 115/81 H Intake Visit Reasons: 27 WK OB / 3 HR GLUCOSE in the AM Director Hr Communications Required: No Is patient in pain?: No Allergies No Known Allergies Allergy (Verified 06/18/23 13:15) Medications docusate sodium 100 mg capsule 100 mg PO BID PRN PRN Constipation #60 caps 08/18/20 [Rx Confirmed 06/18/23] Last Menstrual Period: 11/08/22 Zika: Zika virus screening: Negative : No PFSH PFSH Medical History (Updated 06/18/23 @ 13:33 by Feli Nichols CNM) Depression Surgical History H/O section Family History (Updated 05/28/23 @ 13:32 by Feli Nichols CNM) Grandmother No problems noted. Son Cleft palate Other Diabetes Heart disease Social History adopted: No household members: spouse and children housing: house current occupational status: employed current occupation: [employer] current occupational exposures/hazards: No pets and animals: No history of recent travel: No sexually active: Yes Smoking Status: Never smoker alcohol intake: never substance use type: does not use caffeine: Yes seatbelt use: always do you feel safe at home: Yes additional social history: spouse - issa children - lawrence History 2 Elective abortions Hx Para 1 Spontaneous abortions Hx # Term Pregnancies Ectopic pregnancies Hx # Pregnancies Multiple births # of living children 1 Past Pregnancies Del. Date Name GA/Weeks Outcome Route Bth Weight Gen Labor Lgth Anesthesia Del Locatn Provider FOB 08/18/20 Lawrence 2020 38 live - full term Male [facility] Andrzej Delivery Date: 08/18/20 Last Updated by: Lindsey Recinos Baby with cleft palate HPI 27 WK OB / 3 HR GLUCOSE in the AM Details: TERESA CERON is a 22 year old who presents for routine OB visit. OB Visit [facility]IL[facility] Calculator Estimated Delivery Date Method Current WG Current Estimate 09/14/23 Manual 27w 3d per [facility] records Expected Delivery Route/Plan desires repeat C/S Specific Issue/Plans Covid status: [] Flu vaccine: Declines Tdap vaccine: [] Rhogam: NA LARC form signed: yes Problem list reviewed and updated with the most current plan of care details and appropriate orders placed. Relevant counseling for the gestational age provided. Continue routine care and follow up unless otherwise noted in visit notes/problem list details Initial Weight: Not Recorded Date -???-???-???-???-??? -???-???-???-???-??? -???-???- EGA Weight BP Urine Prot -???-???-???-???-??? -???-???-???-???-??? -???-???- Glucose FHR FuHt Pres Dilation -???-???-???-???-??? -???-???-???-???-??? -???-???- Effaced St Visit Note 05/28/23 -???-???-???-???-??? -???-???-???-???-??? -???-???- 24w 3d 219 lb 114/81 Negative -???-???-???-???-??? -???-???-???-???-??? -???-???- Negative 140 -???-???-???-???-??? -???-???-???-???-??? -???-???- KW-Transfer from [place], had all appts until 20 weeks with them. Had labs and anatomy US with them. R C/S desired. Desires to skip 1 hour GCT and do 3 hour at 28 weeks. no vb/cramping. good fm. Larc done today 06/18/23 -???-???-???-???-??? -???-???-???-???-??? -???-???- 27w 3d 222 lb 6 oz 115/81 Negative -???-???-???-???-??? -???-???-???-???-??? -???-???- Negative 140 -???-???-???-???-??? -???-???-???-???-??? -???-???- KW- no vb/ct x/lof/ good fm. passed 3 hr gct. C/S with NING 09/09/23 730am ACOG First Trimester First Trimester: Desire for , Alcohol, Tobacco Cessation, Illicit/Recreational Drug/Substance Use, Intimate Partner Violence, Barriers to care, Anticipated Course of Care, Use of Any medications, Sexual activity, Exercise, Dental Care, Sauna/Hot tub use, Seat Belt use, Childbirth classes/Hospital facilities, , Travel, Indications for Ultrasound and Screening for Aneuploidy; Discussed Unstable Housing, Discussed Communication Barriers, Discussed Environmental/Work Hazards and Discussed Toxoplasmosis Precations Second Trimester Second Trimester: Signs and Symptoms of Labor, Selecting a care provider, Reproductive Life Planning Contreception, Care Planning, Depression/Anxiety and Intimate Partner Violence; Discussed Tobacco (more content not included)... Normal [facility] Platelets bldOrdered By: Yao Nichols on 06-18-2023 Platelets (Bld) [#/Vol] 209 10*3/uL 150-450 [facility] Quantitative serum or plasma 3 hour gestational glucose tolerance panelOrdered By: Feli Nichols on 06-18-2023 Glucose tolerance 3 hours gestational panel See comment [facility] Comment on above: FASTING 79 Col: 05/21 09/10 0917GLUCOSE TOLERANCE TEST FOR Reference Interval GESTATIONAL DIABETES Fasting <105 mg/dL 1 hour <190 mg/dl 2 hour <165 mg/dl 3 hour <145 mg/dl 1 HR GLU 152 Col: 06/18/23 1025 2 HR GLU 123 Col: 06/18/23 1128 3 HR GLU 124 Col: 06/18/23 1228 Serum Treponema species anti body detectionOrdered By: Feli Nichols on 06-18-2023 Treponema sp Ab Ql (S) Non-Reactive [facility] Laboratory - Chemistry and C hemistry - challengeon 05-28-2023 Glucose Ql (U) Negative [facility] Laboratory - Urinalysison Protein Ql (U) Negative [facility] Irrigation Technician Office Visit Reporton 05-28-2023 Irrigation Technician Office Visit Report [facility] [address] [place] [address] OFFICE VISIT Date of Service: 05/28/23 MR#: [id number] Acct: [id number] Name: TERESA CERON V Rep #: [id number] : 2000 Provider: BETH Suarez ams Age/Sex: 22/F Location: [facility] Status: Signed Intake Vital Signs 08/17/20 07:59 05/28/23 13:22 05/28/23 13:24 Height 5 ft 2 in 5 ft 2 in 5 ft 2 in Weight: 219 lb BMI 40.0 BP 114/81 H Intake Visit Reasons: transfer from [facility] 09/14 Director Hr Communications Required: No Is patient in pain?: No Allergies No Known Allergies Allergy (Verified 05/28/23 13:22) Medications docusate sodium 100 mg capsule 100 mg PO BID PRN PRN Constipation #60 caps 08/18/20 [Rx Confirmed 05/28/23] Last Menstrual Period: 11/08/22 Zika: Zika virus screening: Negative : No PFSH PFSH Medical History (Updated 05/28/23 @ 14:02 by Feli Nichols CNM) Depression Surgical History H/O section Family History (Updated 05/28/23 @ 13:32 by Feli Nichols CNM) Grandmother No problems noted. Son Cleft palate Other Diabetes Heart disease Social History adopted: No household members: spouse and children housing: house current occupational status: employed current occupation: [employer] current occupational exposures/hazards: No pets and animals: No history of recent travel: No sexually active: Yes Smoking Status: Never smoker alcohol intake: never substance use type: does not use caffeine: Yes seatbelt use: always do you feel safe at home: Yes additional social history: spouse - issa children - lawrence History 2 Elective abortions Hx Para 1 Spontaneous abortions Hx # Term Pregnancies Ectopic pregnancies Hx # Pregnancies Multiple births # of living children 1 Past Pregnancies Del. Date Name GA/Weeks Outcome Route Bth Weight Gen Labor Lgth Anesthesia Del Locatn Provider FOB 08/18/20 [place] 2020 38 live - full term Male [facility] Delivery Date: 08/18/20 Last Updated by: Lindsey Recinos Baby with cleft palate HPI transfer from [place] VILMA 09/14 Details: TERESA CERON is a 22 year old who presents for routine OB visit. OB Visit VILMA Calculator Estimated Delivery Date Method Current Current Estimate 09/14/23 Manual 24w 3d per [facility] records Comments: HIV: Urine Culture: Sequential Screen: NIPT Screen: Estimated Due Date: 09/14/23 Expected Delivery Route/Plan desires repeat C/S Specific Issue/Plans Covid status: [] Flu vaccine: Declines Tdap vaccine: [] Rhogam: NA LARC form signed: yes Problem list reviewed and updated with the most current plan of care details and appropriate orders placed. Relevant counseling for the gestational age provided. Continue routine care and follow up unless otherwise noted in visit notes/problem list details Initial Weight: Not Recorded Date -???-???-???-???-??? -???-???-???-???-??? -???-???- EGA Weight BP Urine Prot -???-???-???-???-??? -???-???-???-???-??? -???-???- Glucose FHR FuHt Pres Dilation -???-???-???-???-??? -???-???-???-???-??? -???-???- Effaced St Visit Note 05/28/23 -???-???-???-???-??? -???-???-???-???-??? -???-???- 24w 3d 219 lb 114/81 Negative -???-???-???-???-??? -???-???-???-???-??? -???-???- Negative 140 -???-???-???-???-??? -???-???-???-???-??? -???-???- KW-Transfer from [place], had all appts until 20 weeks with them. Had labs and anatomy US with them. R C/S desired. Desires to skip 1 hour GCT and do 3 hour at 28 weeks. no vb/cramping. good fm. Larc done today [facility] First Trimester First Trimester: Desire for , Alcohol, Tobacco Cessation, Illicit/Recreational Drug/Substance Use, Intimate Partner Violence, Barriers to care, Anticipated Course of Care, Use of Any medications, Sexual activity, Exercise, Dental Care, Sauna/Hot tub use, Seat Belt use, Childbirth classes/Hospital facilities, , Travel, Indications for Ultrasound and Screening for Aneuploidy; Discussed Unstable Housing, Discussed Communication Barriers, Discussed Environmental/Work Hazards and Discussed Toxoplasmosis Precations Second Trimester Second Trimester: Signs and Symptoms of Labor, Selecting a care provider, Reproductive Life Planning Contreception, Care Planning, Depression/Anxiety and Intimate Partner Violence; Discussed Tobacco Cessation Third Trimester Third Trimester: Pain Management Plans, Labor support person(s), Immediate Larc, Signs and Symptoms of Preeclampsia, Infant Feeding Yes , [place] [employer] (more content not included)... Normal [facility] V-Zoster IgG (Immunity)on V ZOSTER IgG < 135 Low Immune >165 [facility] Comment on above: Result Comment: Nega tive <135 Equivocal 135 - 165 Positive >165 A positive result generally indicates exposure to the pathogen or administration of specific immunoglobulins, but it is not indication of active infection or stage of disease. Performed at: [facility] [address] [id number] Greens Picker: Haris Flores PhD, Phone: [phone] Performed By: #### L 3400.0000, M100.2200, L3890.6300, L509.8000, L509.4005, BPNTSNC, L3890.6100, L100.0100, L3890.6005 ####[facility] [address] [place], [place], [id number] Urine Cultureon 01-23-2023 [facility] Mixed Gram Positive Organisms [place] Count 1000-10,000 MIXC Mixed contaminants. Submit a new specimen if indicated. Normal [facility] Comment on above: Performed By: #### L 3400.0000, M100.2200, L3890.6300, L509.8000, L509.4005, BPNTSNC, L3890.6100, L100.0100, L3890.6005 ####[facility] [address] [place], [place], [id number] CBC W/Diff, Automatedon Absolute Lymph 1.61 X10 3/uL Normal 0.83-4.51 [facility] Comment on above: Performed By: #### L 3400.0000, M100.2200, L3890.6300, L509.8000, L509.4005, BPNTSNC, L3890.6100, L100.0100, L3890.6005 ####[facility] [address] [place], [place], [id number] Absolute Neut 6.1 X10 3/uL Normal 2.0-7.7 [facility] Comment on above: Performed By: #### L 3400.0000, M100.2200, L3890.6300, L509.8000, L509.4005, BPNTSNC, L3890.6100, L100.0100, L3890.6005 ####[facility] [address] [place], [address] Basophils/100 WBC (Bld) 0.5 % Normal 0-1 [facility] Comment on above: Performed By: #### L 3400.0000, M100.2200, L3890.6300, L509.8000, L509.4005, BPNTSNC, L3890.6100, L100.0100, L3890.6005 ####[facility] [address] [place], [address] Eosinophils/100 WBC (Bld) 0.2 % Normal 0-5 [facility] Comment on above: Performed By: #### L 3400.0000, M100.2200, L3890.6300, L509.8000, L509.4005, BPNTSNC, L3890.6100, L100.0100, L3890.6005 ####[facility] [address] [place], [address] Erythrocyte distribution width (RBC) [Ratio] 14.0 % Normal 11.6-14.6 [facility] Comment on above: Performed By: #### L 3400.0000, M100.2200, L3890.6300, L509.8000, L509.4005, BPNTSNC, L3890.6100, L100.0100, L3890.6005 ####[facility] [address] [place], [address] Hematocrit (Bld) [Volume fraction] 40.1 % Normal 37-47 [facility] Comment on above: Performed By: #### L 3400.0000, M100.2200, L3890.6300, L509.8000, L509.4005, BPNTSNC, L3890.6100, L100.0100, L3890.6005 ####[facility] [address] [place], [address] Hemoglobin (Bld) [Mass/Vol] 13.2 g/dL Normal 12.0-15.0 [facility] Comment on above: Performed By: #### L 3400.0000, M100.2200, L3890.6300, L509.8000, L509.4005, BPNTSNC, L3890.6100, L100.0100, L3890.6005 ####[facility] [address] [place], [address] IG% 0.400 Normal 0.0-0.9 [facility] Comment on above: Result Comment: IG% - Immature Granulocytes (promyelocytes, myelocytes and metamyelocytes) > 1% indicates that a LEFT SHIFT is Present. Performed By: #### L 3400.0000, M100.2200, L3890.6300, L509.8000, L509.4005, BPNTSNC, L3890.6100, L100.0100, L3890.6005 ####[facility] [address] [place], [place], [phone](070) Lymphocytes/100 WBC (Bld) 19.1 % Normal 19-41 [facility] Comment on above: Performed By: #### L 3400.0000, M100.2200, L3890.6300, L509.8000, L509.4005, BPNTSNC, L3890.6100, L100.0100, L3890.6005 ####[facility] [address] [place], [address] MCH (RBC) [Entitic mass] 27.1 pg Normal 27.0-32.0 [facility] Comment on above: Performed By: #### L 3400.0000, M100.2200, L3890.6300, L509.8000, L509.4005, BPNTSNC, L3890.6100, L100.0100, L3890.6005 ####[facility] [address] [place], [address]( MCHC (RBC) [Mass/Vol] 32.9 g/dL Normal 32-36 [facility] Comment on above: Performed By: #### L 3400.0000, M100.2200, L3890.6300, L509.8000, L509.4005, BPNTSNC, L3890.6100, L100.0100, L3890.6005 ####[facility] [address] [place], [address] MCV (RBC) [Entitic vol] 82.3 fL Normal 81-99 [facility] Comment on above: Performed By: #### L 3400.0000, M100.2200, L3890.6300, L509.8000, L509.4005, BPNTSNC, L3890.6100, L100.0100, L3890.6005 ####[facility] [address] [place], [address] Monocytes/100 WBC (Bld) 7.0 % Normal 0-10 [facility] Comment on above: Performed By: #### L 3400.0000, M100.2200, L3890.6300, L509.8000, L509.4005, BPNTSNC, L3890.6100, L100.0100, L3890.6005 ####[facility] [address] [place], [address] Neutrophils/100 WBC (Bld) 72.8 % High 47-70 [facility] Comment on above: Performed By: #### L 3400.0000, M100.2200, L3890.6300, L509.8000, L509.4005, BPNTSNC, L3890.6100, L100.0100, L3890.6005 ####[facility] [address] [place], [address] Nucleated RBC (Bld) [#/Vol] 0 10*3/uL Normal 0-5 [facility] Comment on above: Performed By: #### L 3400.0000, M100.2200, L3890.6300, L509.8000, L509.4005, BPNTSNC, L3890.6100, L100.0100, L3890.6005 ####[facility] [address] [place], [address] Platelet mean volume (Bld) [Entitic vol] 10.7 fL Normal 6.2-12.0 [facility] Comment on above: Performed By: #### L 3400.0000, M100.2200, L3890.6300, L509.8000, L509.4005, BPNTSNC, L3890.6100, L100.0100, L3890.6005 ####[facility] [address] [place], [address] Platelets (Bld) [#/Vol] 256 10*3/uL Normal 150-450 [facility] Comment on above: Performed By: #### L 3400.0000, M100.2200, L3890.6300, L509.8000, L509.4005, BPNTSNC, L3890.6100, L100.0100, L3890.6005 ####[facility] [address] [facility] [place], [address] RBC (Bld) [#/Vol] 4.87 10*6/uL Normal 4.2-5.4 [facility] Comment on above: Performed By: #### L 3400.0000, M100.2200, L3890.6300, L509.8000, L509.4005, BPNTSNC, L3890.6100, L100.0100, L3890.6005 ####[facility] [address] [place], [address] RDW SD 41.2 fl Normal 35.1-43.9 [facility] Comment on above: Performed By: #### L 3400.0000, M100.2200, L3890.6300, L509.8000, L509.4005, BPNTSNC, L3890.6100, L100.0100, L3890.6005 ####[facility] [address] [place], [address] WBC (Bld) [#/Vol] 8.4 10*3/uL Normal 4.4-11.0 [facility] Comment on above: Performed By: #### L 3400.0000, M100.2200, L3890.6300, L509.8000, L509.4005, BPNTSNC, L3890.6100, L100.0100, L3890.6005 ####[facility] [address] [place], [address] HIV - WCHon 01-22-2023 HIV Non-Reactive Normal Nonreactive [facility] Comment on above: Performed By: #### L 3400.0000, M100.2200, L3890.6300, L509.8000, L509.4005, BPNTSNC, L3890.6100, L100.0100, L3890.6005 ####[facility] [address] [place], [address] Hepatitis B Surface Antigeno n 01-22-2023 HEP B Surf Ag Non-Reactive Normal Nonreactive [facility] Comment on above: Performed By: #### L 3400.0000, M100.2200, L3890.6300, L509.8000, L509.4005, BPNTSNC, L3890.6100, L100.0100, L3890.6005 ####[facility] [address] [facility] [place], [address] Hepatitis C Antibodyon 01-22 Hepatitis C Ab Non-Reactive Normal Nonreactive [facility] Comment on above: Result Comment: Non Reactive: < 0.8 Equivocal: >/= 0.8 to < 1.0 Reactive: >/= 1.0 The CDC recommends that a reactive/equivocal HCV antibody result be followed up by the HCV Nucleic Acid Amplification test (338714) Performed By: #### L 3400.0000, M100.2200, L3890.6300, L509.8000, L509.4005, BPNTSNC, L3890.6100, L100.0100, L3890.6005 ####[facility] [address] [place], [place], [id number] L509.8000on 01-22-2023 Syphilis Abs Non-Reactive Normal [facility] Comment on above: Performed By: #### L 3400.0000, M100.2200, L3890.6300, L509.8000, L509.4005, BPNTSNC, L3890.6100, L100.0100, L3890.6005 ####[facility] [address] [place], [address] T AND S-No Charge w /PNPon 01-22-2023 Ab SCREEN GEL Negative Normal [facility] Comment on above: Order Comment: PNN Performed By: #### L 3400.0000, M100.2200, L3890.6300, L509.8000, L509.4005, BPNTSNC, L3890.6100, L100.0100, L3890.6005 ####[facility] [address] [place], [address] ABO and Rh group Nom (Bld) Blood group O Rh(D) positive Normal [facility] Comment on above: Order Comment: PNN Performed By: #### L 3400.0000, M100.2200, L3890.6300, L509.8000, L509.4005, BPNTSNC, L3890.6100, L100.0100, L3890.6005 ####[facility] [id number] [place], [place], [id number] Rubella IgGon 01-22-2023 Rubella IgG Reactive Normal Nonreactive [facility] Comment on above: Result Comment: Anti body Results Interpretation of Immune Status Non Reactive Presumed Non-Immune Equivocal Equivocal Reactive Presumed Immune Performed By: #### L 3400.0000, M100.2200, L3890.6300, L509.8000, L509.4005, BPNTSNC, L3890.6100, L100.0100, L3890.6005 ####[facility] [id number] [place], [address] EMERGENCY REPORTon [address] [facility] EMERGENCY ROOM REPORT NAME ACCOUNT SEX AGE ADMIT DISCHARGE PT MED. RECORD# NUMBER DATE DATE TYPE TERESA CERON V [id number] F 03/04/18 03/04/18 3 [id number] ROOM: ER DATE OF : 2000 DICTATING PHYSICIAN: Roxanne Silva TIME SEEN: 0400 hours in room #7. CHIEF COMPLAINT/HISTORY OF PRESENT ILLNESS: Patient came to the emergency room complaining about sunburn. She was out swimming 48 hours ago and she used some sort of protection she said across her shoulders but she says now her shoulder is all blistering up. She has pain on them. She is using lotion on these now. She states it is very painful. She has been using Tylenol at home without relief of discomfort. She has never had this before. PAST MEDICAL HISTORY: She denies diabetes, , and chronic skin disorders. REVIEW OF SYSTEMS: No shortness of breath. No swallowing issues. No abdominal pain. No urinary problems. No fevers or chills. Review of systems otherwise negative. PHYSICAL EXAMINATION: Vital Signs: 131/92 blood pressure , 84 pulse, 14 respirations, 98.6 oral temperature, 96% saturation. She is seen in room #7 in the presence of her boyfriend and another woman who is the restaurant delivery driver. Very nice people. She is seen standing up because it hurt her so much to move. Her HEENT exam reveals normal pharynx, normal tympanic membranes. She has sunburn to the premaxillary area of both sides of her cheeks with blisters. No evidence of infection. Her lungs are clear. Heart rate and rhythm are regular without murmur. She has no expiratory wheeze or rales. She has blistering sunburn from the mid across the mantle of the shoulders down part of the way to the elbows and across her back, upper portion, about the upper 1/3 of her thoracic cavity to the level of the neck. Above the level of the neck it is a 1st degree burn. The 2nd degree burn area is the one that I just mentioned that is blistered. No evidence of infection. She has no low back pain. No abdominal discomfort. She is alert, oriented, and appropriate. EMERGENCY DEPARTMENT COURSE AND TREATMENT: She will be treated with ibuprofen 800 mg p.o. here, Depo-Medrol 40 mg, and tramadol 40 mg. We will give her a work excuse and instructions to reduce her exposure to sun. DIAGNOSIS: Actinic dermatitis. PLAN/DISPOSITION: Follow up with Dr. Ed Orona if not improved in 3 days. Page 1 of 2 TERESA CERON V Emergency Room Report Dictated By: Roxanne Silva DO 03/04/18 04:24 JOB #: [id number] Transcribed By: 03/04/18 20:44 Electronically signed by: E-SIGN ROXANNE SILVA DO 03/08/18 22:25 Page 2 of 2 TERESA CERON V Emergency Room Report Normal [facility] EMERGENCY REPORTon [address] [facility] EMERGENCY ROOM REPORT NAME NUMBER SEX AGE ADMIT DISC TYPE MED.RECORD# TERESA CERON V [id number] F 16 04/11/2017 04/11/2017 Cali.RVirgen [id number] ROOM:ER DATE OF :2000 PHYSICIAN NO.: PHYSICIAN NAME: PHYSICIAN:Briseyda Novak M.D. CHIEF COMPLAINT: Abdominal pain. HISTORY OF PRESENT ILLNESS: This is a 16-year-old female who presents with abdominal pain. The patient has had abdominal pain intermittently for several months. She has had a workup recently including the HIDA scan several days ago that was normal. However, the mother reports that the patient continues to have some symptoms this week and is having intermittent abdominal pain without nausea, vomiting or diarrhea. The patient is able to take p.o. PAST MEDICAL HISTORY: None. PAST SURGICAL HISTORY: None. SOCIAL HISTORY: Patient is not exposed to substances. REVIEW OF SYSTEMS: As per HPI, otherwise negative. PHYSICAL EXAMINATION: Afebrile, vital signs stable. This is a well-appearing female in no acute distress. Sclerae anicteric. Mucous membranes moist. Neck: No stridor. Lungs: Clear bilaterally without wheezes or rales. Heart: Regular without murmurs. Abdomen: Soft, mild upper abdominal tenderness to palpation without guarding or rebound. Extremities: No deformity. Skin examination: No rash. Neurologic: Alert and conversant. DIAGNOSTIC DATA: Urinalysis unremarkable. HCG is negative. CBC and CMP are unremarkable. EMERGENCY DEPARTMENT COURSE AND TREATMENT: Patient appears comfortable on reexamination after GI cocktail and actually feels better. DIAGNOSIS: Abdominal pain. PLAN/DISPOSITION: This is a chronic ongoing issue so the mother and the patient will continue to workup as an outpatient. Patient discharged home in improved condition. D: Briseyda Novak M.D. TD: 04/11/2017 17:21:06 JOB #: [id number] DR. BRISEYDA NOVAK EMERGENCY DEPARTMENT 05/01/17 09:51 Transcribed by: NMT 04/11/2017 17:21:06 Copy for: KISHORE RAIN MD Copy for: YEYO Guardado EMERGENCY ROOM REPORT TERESA CERON V 1 Normal [facility] CBCon 04-11-2017 Basophils Auto #/vol (Bld) 0.10 x10EE3/UL Normal 0.00 - 0.10 [facility] Comment on above: Performed By: #### 2 97900 ####[facility],[address] [place] [address] Basophils/100 WBC Auto (Bld) 0.8 % Normal 0.0 - 2.0 [facility] Comment on above: Performed By: #### 2 31780 ####[facility],[address] [place] [address] Blood morphology N/A Normal [facility] Comment on above: Result Comment: {CD] Performed By: #### 2 06855 ####[facility],[address] [place] [address] CBC Normal [facility] Comment on above: Result Comment: CBC- COMPLETE BLOOD COUNT Performed By: #### 2 95637 ####[facility],[address] [place] [address] 06704 Eosinophils 0.10 x10EE3/UL Normal 0.00 - 0.50 [facility] Comment on above: Performed By: #### 2 25383 ####[facility],[address] [place] [address] 85303 Eosinophils/100 leukocytes 1.0 % Normal 0.0 - 7.0 [facility] Comment on above: Performed By: #### 2 43338 ####[facility],[address] [place] [address] Erythrocyte distribution width Auto Ratio (RBC) 13.3 % Normal 12.0 - 15.6 [facility] Comment on above: Performed By: #### 2 62945 ####[facility],[address] [place], [place] [id number] Erythrocytes (RBC) 4.41 x 10EE6/UL Normal 4.10 - 5.30 [facility] Comment on above: Performed By: #### 2 10049 ####[facility],[address] [place] [address] 91024 Hematocrit (HCT) 36.1 % Normal 34.0 - 46.0 [facility] Comment on above: Performed By: #### 2 56269 ####[facility],[address] [place] [address] 17518 Hemoglobin mass conc (Bld) 12.0 g/dL Normal 12.0 - 16.0 [facility] Comment on above: Performed By: #### 2 94526 ####[facility],[address] [place] [address] 97560 Lymphocytes 2.30 x10EE3/UL Normal 0.80 - 2.80 [facility] Comment on above: Performed By: #### 2 68080 ####[facility],[address] [place] [address] 74075 Lymphocytes/100 leukocytes 31.1 % Normal 20.0 - 45.0 [facility] Comment on above: Performed By: #### 2 89127 ####[facility],[address] [place] [address] MANUAL DIFF N/A Normal [facility] Comment on above: Performed By: #### 2 42507 ####[facility],[address] [place] [address] MCH 27 pg Normal 27 - 33 [facility] Comment on above: Performed By: #### 2 50983 ####[facility],[address] [place] [address] MCHC mass conc (RBC) 33 X10 3 Normal 32 - 36 [facility] Comment on above: Performed By: #### 2 10888 ####[facility],[address] [place] [address] MCV 82 fL Normal 80 - 99 [facility] Comment on above: Performed By: #### 2 71302 ####[facility],[address] [place] [address] Monocytes 0.60 x10EE3/UL Normal 0.20 - 1.00 [facility] Comment on above: Performed By: #### 2 50394 ####[facility],[address] [place] [address] MONOS % 7.8 % Normal 0.0 - 10.0 [facility] Comment on above: Performed By: #### 2 24348 ####[facility],[address] [place] [address] Neutrophils 4.40 x10EE3/UL Normal 1.50 - 7.10 [facility] Comment on above: Performed By: #### 2 34132 ####[facility],[address] [place], [place] [id number] Neutrophils/100 WBC Auto (Bld) 59.3 % Normal 46.0 - 76.0 [facility] Comment on above: Performed By: #### 2 56533 ####[facility],[address] [place] [address] 83090 Platelet mean volume (PMV) 8.1 fL Normal 6.6 - 10.5 [facility] Comment on above: Result Comment: AUTO MATED DIFFERENTIAL Performed By: #### 2 23255 ####[facility],[address] [place] [address] 57887 Platelets 286 x10EE3/UL Normal 150 - 450 [facility] Comment on above: Performed By: #### 2 90457 ####[facility],[address] [place] [address] 52703 WBC (Leukocytes) 7.4 x 10EE3/UL Normal 4.5 - 10.8 [facility] Comment on above: Performed By: #### 2 38726 ####[facility],[address] [place] [address] 19631 CMP with eGFRon 04-11-2017 Age 16 years Normal [facility] Comment on above: Performed By: #### 2 78994 ####[facility],[address] [place] [address] 04636 Albumin 4.2 g/dL Normal 2.9 - 4.2 [facility] Comment on above: Performed By: #### 2 53219 ####[facility],[address] [place] [address] 20970 Albumin/Globulin Ratio 1.5 {ratio} Normal 0.9 - 1.6 [facility] Comment on above: Performed By: #### 2 92702 ####[facility],[address] [place] [address] 10263 ALK PHOS 53 U/L Normal 47 - 119 [facility] Comment on above: Performed By: #### 2 61669 ####[facility],[address] [place] [address] 15642 ALT/SGPT 14 U/L Normal 8 - 35 [facility] Comment on above: Performed By: #### 2 20516 ####[facility],[address] [place] [address] 29131 Anion gap 10 mmol/L Normal 10 - 20 [facility] Comment on above: Performed By: #### 2 04125 ####[facility],[address] [place] [address] 18770 AST/SGOT 14 U/L Normal 0 - 30 [facility] Comment on above: Performed By: #### 2 44763 ####[facility],[address] [place], [place] [address] B/C RATIO 15 ratio Normal 0 - 30 [facility] Comment on above: Performed By: #### 2 45733 ####[facility],[address] [place] [address] Bilirubin (total) 0.2 mg/dL Normal 0.0 - 1.5 [facility] Comment on above: Performed By: #### 2 36198 ####[facility],[address] [place], [place] [id number] Calcium 9.6 mg/dL Normal 8.6 - 9.8 [facility] Comment on above: Performed By: #### 2 67507 ####[facility],[address] [place], [place] [address] Chloride 105 mmol/L Normal 98 - 107 [facility] Comment on above: Performed By: #### 2 58989 ####[facility],[address] [place] [address] 19289 CO2 28.6 mmol/L Normal 21.0 - 31.0 [facility] Comment on above: Performed By: #### 2 33887 ####[facility],[address] [place] [address] 67205 Creatinine 0.6 mg/dL Low 0.8 - 1.2 [facility] Comment on above: Performed By: #### 2 72818 ####[facility],[address] [place], [place] [id number] eGFR (non-black) mL/min/{1.73_m2} Normal 60 - 999 [facility] Comment on above: Performed By: #### 2 49152 ####[facility],[address] [place] [address] 68849 Result Comment: ACCO RDING TO THE NATIONAL KIDNEY DISEASE EDUCATION PROGRAM(NKDE), A NORMAL eGFRIS A VALUE GREATER THAN OR EQUAL TO 60 ML/MIN/1.73 SQ METERS.CHRONIC KIDNEY DISEASE: <60mL/MIN/1.73 SQ METERSKIDNEY FAILURE: <15mL/MIN/1.73 SQ METERSTHIS TEST SHOULD ONLY BE USED FOR PATIENTS 18 YEARS OF AGE AND OLDER. eGFR (non-black) Normal [facility] Comment on above: Result Comment: COMP REHENSIVE METABOLIC PANEL Performed By: #### 2 36396 ####[facility],[address] [place] [address] 47442 Globulin 2.8 g/dL Normal 1.5 - 3.8 [facility] Comment on above: Performed By: #### 2 80084 ####[facility],[address] [place] [address] 67298 Glucose mass conc 84 mg/dL Normal 74 - 106 [facility] Comment on above: Performed By: #### 2 78538 ####[facility],[address] [place] [address] 63361 Potassium molar conc 3.5 mmol/L Normal 3.5 - 5.1 [facility] Comment on above: Performed By: #### 2 58376 ####[facility],[address] [place] [address] 95040 Protein 7.0 g/dL Normal 5.7 - 8.0 [facility] Comment on above: Performed By: #### 2 46107 ####[facility],[address] [place] [address] 30774 Sodium 140 mmol/L Normal 136 - 145 [facility] Comment on above: Performed By: #### 2 18800 ####[facility],[address] [place] [address] Urea nitrogen 9 mg/dL Normal 6 - 20 [facility] Comment on above: Performed By: #### 2 87210 ####[facility],[address] [place] [address] URINEon 04-11-2017 EXTERNAL QC DONE? YES Normal [facility] Comment on above: Performed By: #### 2 05321 ####[facility],[address] [place] [address] INTERNAL QC PASS Normal [facility] Comment on above: Performed By: #### 2 97760 ####[facility],[address] [place] [address] UR Negative Normal NEGATIVE [facility] Comment on above: Performed By: #### 2 42345 ####[facility],[address] [place] [address] URINALYSISon 04-11-2017 Amorphous NONE Normal [facility] Comment on above: Performed By: #### 2 60307 ####[facility],[address] [place] [address] Bacteria TRACE Normal [facility] Comment on above: Performed By: #### 2 64072 ####[facility],[address] [place] [address] 39429 Bilirubin Negative Normal NORMAL: NEGATIVE [facility] Comment on above: Performed By: #### 2 36328 ####[facility],[address] [place] [address] 22538 Blood 25 Abnormal NORMAL: NEGATIVE [facility] Comment on above: Performed By: #### 2 01658 ####[facility],[address] [place], [place] [id number] Casts NONE Normal [facility] Comment on above: Performed By: #### 2 36223 ####[facility],[address] [place] [address] Clarity clear Normal NORMAL: CLEAR [facility] Comment on above: Performed By: #### 2 70391 ####[facility],[address] [place] [address],[facility] [address] Color yellow Normal NORMAL: YELLOW [facility] Comment on above: Performed By: #### 2 05078 ####[facility],[address] [facility],[place] [address] Crystals NONE Normal [facility] Comment on above: Performed By: #### 2 26392 ####[facility],[address] [place] [address],[facility] [address] Epi Cells FEW Normal [facility] Comment on above: Performed By: #### 2 96826 ####[facility],[address] [place] [address],[facility] [address] Glucose NORM Normal NORMAL: NORMAL [facility] Comment on above: Performed By: #### 2 73873 ####[facility],[address] [place] [address],[facility] [address] Ketone Negative Normal NORMAL: NEGATIVE [facility] Comment on above: Performed By: #### 2 30970 ####[facility],[address] [place] [address],[facility] [address] Leukocytes Negative Normal NORMAL: NEGATIVE [facility] Comment on above: Performed By: #### 2 25690 ####[facility],[address] [place] [address],[facility] [address] Microscopic SEE BELOW Normal [facility] Comment on above: Result Comment: MICR OSCOPIC Performed By: #### 2 42483 ####[facility],[address] [place] [address],[facility] [address] Mucous TRACE Normal [facility] Comment on above: Performed By: #### 2 68754 ####[facility],[address] [place] [address],[facility] [address] Nitrite Negative Normal NORMAL: NEGATIVE [facility] Comment on above: Performed By: #### 2 64968 ####[facility],[address] [place] [address] 47612 ph 5 Normal NORMAL: 5.0-8.0 [facility] Comment on above: Performed By: #### 2 24720 ####[facility],[address] [place] [address] 29416 Protein 15 Abnormal NORMAL: NEGATIVE [facility] Comment on above: Performed By: #### 2 46489 ####[facility],[address] [place] [address] Rbc 0-5 Abnormal 0-3/hpf [facility] Comment on above: Performed By: #### 2 95611 ####[facility],[address] [place] [address] Sp [place] 1.025 Normal NORMAL: 1.010-1.030 [facility] Comment on above: Performed By: #### 2 68398 ####[facility],[address] [place] [address] Specimen Type Clean catch Normal [facility] Comment on above: Performed By: #### 2 31124 ####[facility],[address] [place] [address] URINALYSIS Normal [facility] Comment on above: Result Comment: URIN ALYSIS Performed By: #### 2 33485 ####[facility],[address] [place] [address] 22627 Urobilinog NORM Normal NORMAL: NORMAL [facility] Comment on above: Performed By: #### 2 76573 ####[facility],[address] [place] [address] 16706 Wbc NONE Normal 0-5/hpf [facility] Comment on above: Performed By: #### 2 53449 ####[facility],[address] [place] [address] 38484 Yeast NONE Normal [facility] Comment on above: Performed By: #### 2 76787 ####[facility],[address] [place], [place] [id number] NM HIDA SCANon 04-08-2017 NM HIDA SCAN [address] [address] Patient: TERESA CERON V. Phone#: : 2000 Age: 16 Gender: F Pt. Type: Out Account: [id number] Location: Ordering: SANCHO ORONA Exam Date: 04/08/2017/12:57 Family Phys: KELLIE ORONA Charge Code: [id number] Physician: [place] Order #: [id number] DLP Dose#: PROCEDURE: HIDA SCAN COMPARISON: None. INDICATIONS: Abdominal pain TECHNIQUE: Informed consent was obtained. A routine radionuclide hepatobiliary scan was performed after intravenous injection of 7.8 mCi Tc Choletec with sequential acquisitions every 5 minutes for one hour. Then, a repeat hepatobiliary scan with gallbladder ejection fraction analysis was performed after oral administration of 8 ounces of Ensure. Biliary imaging was again performed with sequential imaging performed every 30 seconds for 30 minutes, followed by computer quantitative ejection fraction analysis. PHARMACEUTICAL(S): Tc-99m BALJINDER derivative (see dose listed above). Cholecystokinin (Kinevac ) (see dose listed above). FINDINGS: BILIARY DUCTS: Normal radioisotopic biliary excretion. GALLBLADDER: Normal with no evidence of cystic duct obstruction. INTESTINE: Normal with no evidence of common biliary ductal obstruction. EJECTION FRACTION: 57 % at 30 minutes. (Normal EF > 35%). OTHER: Negative. CONCLUSION: 1. Normal HIDA scan. Ejection fraction is 57%. Dictated by: Derrell Fuentes MD on 04/08/2017 at 15:22 Approved by: Derrell Fuentes MD on 04/08/2017 at 15:22 Normal [facility] US PELVICon 03-15-[address] [address] Patient: TERESA CERON V. Phone#: : 2000 Age: 16 Gender: F Pt. Type: Out Account: [id number] Location: Ordering: KELLIE CASTROD Exam Date: 03/15/2017/12:57 Family Phys: Charge Code: [id number] Physician: [place] Order #: [id number] DLP Dose#: PROCEDURE: PELVIC ULTRASOUND, TRANSABDOMINAL COMPARISON: None. INDICATIONS: Dysfunctional Uterine Bleeding TECHNIQUE: Pelvic ultrasound was performed in the usual manner. FINDINGS: UTERUS: Size is 7.4 x 4.4 x 5.6 cm with unremarkable appearance. Endometrial thickness is 12.1 mm. ADNEXAE: The right ovary measures 4.4 x 3.1 x 3.3 cm. A 2.2 x 2.1 x 3.1 cm right ovarian cyst is present. Left ovary is 3.4 x 2.9 x 1.8 cm. CUL-DE-SAC: Normal. No fluid or mass. OTHER: Negative. CONCLUSION: 1. A 3.1 cm right ovarian cyst is present. 2. The endometrium is 12.1 mm in thickness. Dictated by: Derrell Fuentes MD on 03/15/2017 at 13:48 Approved by: Derrell Fuentes MD on 03/15/2017 at 13:48 Normal [facility] US RUQ (GB/PANCREAS)on 03-15 RUQ (GB/PANCREAS) [place] [address] Patient: TERESA CERON V. Phone#: : 2000 Age: 16 Gender: F Pt. Type: Out Account: [id number] Location: Ordering: KELLIE CASTROD Exam Date: 03/15/2017/9:10 Family Phys: Charge Code: [id number] Physician: [place] Order #: [id number] DLP Dose#: PROCEDURE: RUQ (GB) ULTRASOUND COMPARISON: None. INDICATIONS: Right Sided Pain FINDINGS: LIVER: Normal. Normal size and echotexture. No significant masses. BILIARY: The gallbladder is partially contracted. Gallbladder wall is at upper limits of normal in thickness and may be related to contraction. There is no evidence of intraluminal calculus. The common bile duct is normal at 3.2 mm. PANCREAS: Normal. No visible mass, abnormal atrophy, or ductal dilatation. RIGHT KIDNEY: Normal. No mass or obstruction. OTHER: Negative. CONCLUSION: 1. The gallbladder is mildly contracted. Gallbladder wall is at upper limits of normal in thickness. There is no evidence of intraluminal calculus. DICTATED BY: DERRELL FUENTES MD ON 03/15/2017 AT 9:47 APPROVED BY: DERRELL FUENTES MD ON 03/15/2017 AT 9:47 Normal [facility] Vital Signs Date Time Vital Sign Value Performing Clinician Ernesto rodríguez 10-27-2024 10:02-0400 Body height 157.5 cm Lindsey Tineo APRN.CNM Work Phone: [facility] 10-27-2024 10:02-0400 Body mass index (BMI) [Ratio] 41.88 kg/m2 Lindsey Tineo APRN.CNM Work Phone: [facility] 10-27-2024 10:02-0400 Body weight 103.87 kg Lindsey Tineo APRN.CNM Work Phone: [facility] 10-27-2024 10:02-0400 Diastolic blood pressure 64 mm[Hg] Lindsey Tineo APRN.CNM Work Phone: [facility] 10-27-2024 10:02-0400 Systolic blood pressure 112 mm[Hg] Lindsey Tineo APRN.CNM Work Phone: [facility] 10-23-2023 11:33-0500 Body height 157.48 cm No Primary Care Physician [facility] 10-23-2023 11:32-0500 Body mass index (BMI) [Ratio] 38.4 kg/m2 No Primary Care Physician [facility] 10-23-2023 11:32-0500 Body weight 95.25 kg No [facility] Physician [facility] [facility] 10-23-2023 11:32-0500 Diastolic blood pressure 75 mm[Hg] No Primary Care Physician [facility] 10-23-2023 11:32-0500 Systolic blood pressure 119 mm[Hg] No Primary Care Physician [facility] 09-23-2023 10:58-0500 Body mass index (BMI) [Ratio] 38.6 kg/m2 No Primary Care Physician [facility] 09-23-2023 10:58-0500 Body weight 95.87 kg No Primary Care Physician [facility] 09-23-2023 10:58-0500 Diastolic blood pressure 72 mm[Hg] No Primary Care Physician [facility] 09-23-2023 10:58-0500 Systolic blood pressure 112 mm[Hg] No Primary Care Physician [facility] 09-10-2023 12:25-0500 Body temperature 97.6 [degF] No Primary Care Physician [facility] 09-10-2023 12:25-0500 Diastolic blood pressure 65 mm[Hg] No Primary Care Physician [facility] 09-10-2023 12:25-0500 Heart rate 94 /min No Primary Care Physician [facility] 09-10-2023 12:25-0500 Respiratory rate 16 /min No Primary Care Physician [facility] 09-10-2023 12:25-0500 Systolic blood pressure 135 mm[Hg] No Primary Care Physician [facility] 09-10-2023 08:15-0500 SaO2% (BldA) [Mass fraction] 100 % No Primary Care Physician [facility] 09-09-2023 05:33-0500 Body weight 104.9 kg No Primary Care Physician [facility] 09-06-2023 10:11-0500 Body height 157.48 cm No Primary Care Physician [facility] 09-06-2023 10:09-0500 Body mass index (BMI) [Ratio] 42.6 kg/m2 No Primary Care Physician [facility] 09-06-2023 10:09-0500 Body weight 105.74 kg No Primary Care Physician [facility] 09-06-2023 10:09-0500 Diastolic blood pressure 80 mm[Hg] No Primary Care Physician [facility] 09-06-2023 10:09-0500 Systolic blood pressure 124 mm[Hg] No Primary Care Physician [facility] 08-27-2023 10:25-0500 Body mass index (BMI) [Ratio] 42.3 kg/m2 No Primary Care Physician [facility] 08-27-2023 10:25-0500 Body weight 104.83 kg No Primary Care Physician [facility] 08-27-2023 10:25-0500 Diastolic blood pressure 78 mm[Hg] No Primary Care Physician [facility] 08-27-2023 10:25-0500 Systolic blood pressure 116 mm[Hg] No Primary Care Physician [facility] 08-20-2023 14:21-0500 Body mass index (BMI) [Ratio] 42.1 kg/m2 No Primary Care Physician [facility] 08-20-2023 14:21-0500 Body weight 104.49 kg No Primary Care Physician [facility] 08-06-2023 10:51-0500 Body mass index (BMI) [Ratio] 42.1 kg/m2 No Primary Care Physician [facility] 08-06-2023 10:51-0500 Body weight 104.49 kg No Primary Care Physician [facility] 08-06-2023 10:51-0500 Diastolic blood pressure 80 mm[Hg] No Primary Care Physician [facility] 08-06-2023 10:51-0500 Systolic blood pressure 117 mm[Hg] No Primary Care Physician [facility] 07-23-2023 11:33-0500 Body mass index (BMI) [Ratio] 41 kg/m2 No Primary Care Physician [facility] 07-23-2023 11:33-0500 Body weight 101.77 kg No Primary Care Physician [facility] 07-23-2023 11:33-0500 Diastolic blood pressure 76 mm[Hg] No Primary Care Physician [facility] 07-23-2023 11:33-0500 Systolic blood pressure 125 mm[Hg] No Primary Care Physician [facility] 07-08-2023 10:34-0500 Body mass index (BMI) [Ratio] 40.4 kg/m2 No Primary Care Physician [facility] 07-08-2023 10:34-0500 Body weight 100.41 kg No Primary Care Physician [facility] 07-08-2023 10:34-0500 Diastolic blood pressure 78 mm[Hg] No Primary Care Physician [facility] 07-08-2023 10:34-0500 Systolic blood pressure 113 mm[Hg] No Primary Care Physician [facility] 06-18-2023 13:14-0400 Body mass index (BMI) [Ratio] 40.6 kg/m2 No Primary Care Physician [facility] 06-18-2023 13:14-0400 Body weight 100.86 kg No Primary Care Physician [facility] 06-18-2023 13:14-0400 Diastolic blood pressure 81 mm[Hg] No Primary Care Physician [facility] 06-18-2023 13:14-0400 Systolic blood pressure 115 mm[Hg] No Primary Care Physician [facility] 05-28-2023 13:22-0400 Body mass index (BMI) [Ratio] 40 kg/m2 No Primary Care Physician [facility] 05-28-2023 13:22-0400 Body weight 99.33 kg No Primary Care Physician [facility] 05-28-2023 13:22-0400 Diastolic blood pressure 81 mm[Hg] No Primary Care Physician [facility] 05-28-2023 13:-0400 Systolic blood pressure 114 mm[Hg] No Primary Care Physician [facility] Encounters Encounter Date Encounter Type Care Provider Facility Start: 11-05-2024 End: 01-05-2025 Follow-up encounter Trang Cruz APRN.CNP Work Phone: OB/Gynecology Start: 10-27-2024 End: 10-27-2024 ambulatory SELF Facility:[facility] Start: 10-27-2024 End: 10-27-2024 Patient encounter procedure Lindsey Tineo APRN.CNM Work Phone: OB/Gynecology Comment on above: Encounter for gyneco logical examination (general) (routine) with abnormal findings (Primary Dx); Screening for cervical cancer; Encounter for screening for human papillomavirus (HPV); Encounter for surveillance of contraceptive pills Start: 10-27-2024 End: 10-27-2024 Patient encounter status Lindsey Tineo APRN.CNM Work Phone: [facility] Start: 10-23-2023 End: 10-23-2023 Patient encounter procedure No Primary Care Physician [facility] Work Phone: Start: 10-23-2023 End: 10-23-2023 ambulatory No Primary Care Physician [facility] Work Phone: Start: 10-23-2023 End: 10-23-2023 Patient encounter procedure No [facility] Work Phone: Start: 09-23-2023 End: 09-23-2023 ambulatory No Primary Care Physician Facility:[facility] Start: 09-23-2023 End: 09-23-2023 Patient encounter procedure No Primary Care Physician [facility] Work Phone: Start: 09-10-2023 Non-patient / Non-visit No Ivy arrington [facility] Physician [facility] Start: 09-09-2023 ambulatory Priscilla Moore Fa cility:[facility] Start: 09-09-2023 End: 09-10-2023 Evaluation and management of inpatient No Primary Care Physician Facility:[facility] Start: 09-09-2023 Non-patient / Non-visit No Ivy arrington [facility] Physician [facility] Start: 09-09-2023 End: 09-10-2023 Evaluation and management of inpatient No Primary Care Physician [facility] Work Phone: Start: 09-06-2023 End: 09-06-2023 ambulatory No Primary Care Physician Facility:[facility] Start: 09-06-2023 End: 09-06-2023 Patient encounter procedure No Primary Care Physician [facility] Work Phone: Start: 08-27-2023 End: 08-27-2023 ambulatory No Primary Care Physician Facility:[facility] Start: 08-27-2023 End: 08-27-2023 Patient encounter procedure No Primary Care Physician [facility] Work Phone: Start: 08-20-2023 End: 08-20-2023 Patient encounter procedure No Primary Care Physician [facility] Work Phone: Start: 08-20-2023 End: 08-20-2023 Patient encounter procedure No Primary Care Physician [facility] Work Phone: Start: 08-20-2023 End: 08-20-2023 ambulatory No Primary Care Physician Facility:[facility] Start: 08-06-2023 End: 08-06-2023 ambulatory No Primary Care Physician Facility:[facility] Start: 08-06-2023 End: 08-06-2023 Patient encounter procedure No Primary Care Physician [facility] Work Phone: Start: 07-23-2023 End: 07-23-2023 ambulatory No Primary Care Physician Facility:[facility] Start: 07-23-2023 End: 07-23-2023 Patient encounter procedure No Primary Care Physician [facility] Work Phone: Start: 07-08-2023 End: 07-08-2023 ambulatory No Primary Care Physician Facility:[facility] Start: 07-08-2023 End: 07-08-2023 Patient encounter procedure No Primary Care Physician [facility] Work Phone: Start: 06-18-2023 End: 06-18-2023 ambulatory No Primary Care Physician Facility:[facility] Start: 06-18-2023 End: 06-18-2023 Patient encounter procedure No Primary Care Physician [facility] Work Phone: Start: 06-18-2023 End: 06-18-2023 ambulatory No Primary Care Physician [facility] Work Phone: Start: 06-18-2023 End: 06-18-2023 Patient encounter procedure No Primary Care Physician [facility] Work Phone: Start: 05-28-2023 End: 05-28-2023 ambulatory No Primary Care Physician Facility:[facility] Start: 05-28-2023 End: 05-28-2023 Patient encounter procedure No Primary Care Physician [facility] Work Phone: Start: 01-22-2023 End: 01-22-2023 ambulatory No Primary Care Physician Facility:[facility] Start: 03-04-2018 End: 03-04-2018 Emergency department patient visit ROXANNE DAY [facility] Start: 04-11-2017 End: 04-11-2017 Emergency department patient visit BRISEYDA NOVAK [facility] Start: 04-08-2017 End: 04-08-2017 Patient encounter SANCHO ORONA [facility] Start: 03-15-2017 End: 03-15-2017 Patient encounter KELLIE Guardado YEYO [facility] Procedures Date Procedure Procedure Detail Performing Clinician Start: 09-09-2023 Bacterial nucleic acid assay No Primary Care Physician Start: 09-09-2023 Chlamydia trachomatis (PCR) No Primary Care Physician Start: 08-20-2023 Group B Streptococcus Culture No Primary Care Physician H/O: section History of delivery affecting No Primary Care Physician H/O: section Status pos t repeat low transverse section No Primary Care Physician Plan of Treatment Date Care Activity Detail Author Start: 07-08-2033 Urine microalbumin profile DTaP,Tdap,Td Vaccine (3 - Td or Tdap) [facility] Start: 10-28-2027 Screening for malign ant neoplasm of cervix Cervical Cancer Screening [facility] Start: 10-27-2025 End: 10-27-2025 Patient encounter procedure 10/27/2025 8:15 AM EDT Office Visit OB/Gynecology [address] [place] [address] Lindsey Tineo APRN.CN [address] [place] [address] Annual OB/Gynecology Comment on above: Annual Start: 04-19-2025 Influenza vaccination Influenz a Vaccine (Season Ended) [facility] Start: 04-19-2024 Covid-19 Vaccine ( season) Covid-19 Vaccine ( season) [facility] Start: 04-19-2024 Influenza vaccination Influenza Vacc ine (#1) [facility] Start: 10-23-2023 Liquid based cervica l cytology screening [facility] Start: 09-10-2023 Application of abdom inal corset [facility] Start: 09-10-2023 Patient discharge [facility] Start: 09-09-2023 End: 09-10-2023 [facility] Start: 09-09-2023 Administration of medication [facility] Start: 09-09-2023 Ambulation therapy management [facility] Start: 09-09-2023 Application of device [facility] Start: 09-09-2023 Application of intermittent pneumatic compression device [facility] Start: 09-09-2023 Assessment of risk o f venous thromboembolism [facility] Start: 09-09-2023 Catheterization of vein [facility] Start: 09-09-2023 Deep breathing and coughing exercises [facility] Start: 09-09-2023 Exercises [facility] Start: 09-09-2023 Measuring intake and output [facility] Start: 09-09-2023 End: 09-09-2023 Notification of physician [facility] Start: 09-09-2023 Procedure discontinued [facility] Start: 09-09-2023 Provision of activit y privileges [facility] Start: 09-09-2023 Skin care [facility] Start: 09-09-2023 Wound care [facility] Start: 09-09-2023 Application of abdom inal corset [facility] Start: 09-09-2023 Continuous pulse oximetry [facility] Start: 09-09-2023 Oxygen therapy [facility] Start: 09-09-2023 Vital signs measurements [facility] Start: 09-09-2023 section Repeat C-Sect ion (Not Applicable) [facility] Start: 09-09-2023 Admission procedure [facility] Start: 09-09-2023 Consultation [facility] Start: 06-18-2023 [facility] Start: 2020 Screening for malign ant neoplasm of cervix Cervical Cancer Screening [facility] Start: 2018 Hepatitis B Vaccine (1 of 3 - 19+ 3-dose series) Hepatitis B Vaccine (1 of 3 - 19+ 3-dose series) [facility] Start: 2017 Anxiety Screening Anxiety Screening [facility] Start: 2017 Depression Screening Depression Scre lorena [facility] Start: 2017 Hepatitis C screening Hepatitis C Sc dara [facility] Start: 2017 HIV screening HIV Screening [facility] Start: 2014 HPV Vaccine (1 - 3-d ose series) HPV Vaccine (1 - 3-dose series) [facility] Start: 2013 Peds To Adult Transi tion Annual Assessment Peds To Adult Transition Annual Assessment [facility] Start: 2011 Peds To Adult Transi tion Initial Discussion Peds To Adult Transition Initial Discussion [facility] PAP TEST PAP TEST Lab Veronica monsalve Encounter for gynecological examination (general) (routine) with abnormal findings Screening for cervical cancer Encounter for screening for human papillomavirus (HPV) 10/27/2024 10:29 AM EDT [facility] Work Phone: Path report.final Dx Spec [facility] Patient Education After a [facility] Work Phone: Patient referral [facility] Work Phone: Immunizations Immunization Date Immunization Notes Care Provider [facility] 07-08-2023 tetanus toxoid, redu marylu diphtheria toxoid, and acellular pertussis vaccine, adsorbed No Primary Care Physician [facility] 08-20-2020 measles, mumps and rubella virus vaccine No Primary Care Physician [facility] Payers Date Payer Category Payer Medicaid [employer] Member Armstrong bscriber Plan / Payer (Effective 2024-Present) Name: Teresa Ceron V Relation to Subscriber: Self Name: Teresa Ceron V Payer ID: [id number] (NAIC) Group ID: Not on file Type: Medicaid Address: [place] [address] [id number] 2024 Medicaid [id number] 2023 Self-pay [id number] 2023 Unknown [id number] feecac Unknown [id number] Unknown [employer] [id number] Unknown [id number] Unknown [id number] Unknown [id number] Unknown [id number] Unknown [id number] [id number] Unknown [id number] [id number] Unknown [id number] [id number] Unknown [id number] [id number] Unknown [id number] [id number] Unknown [id number] [id number] Unknown [id number] [id number] Unknown [id number] [id number] Unknown [id number] [id number] Unknown [id number] [id number] Unknown [id number] [id number] Unknown [id number] [id number] Unknown [id number] Social History Date Type Detail Facility Start: 06-18-2023 End: 10-23-2023 Tobacco smoking status MOIS Unknown if ever smoked [facility] Start: 08-17-2020 None [facility] Start: 2000 Sex Assigned At Female [facility] Start: 10-27-2024 Tobacco smoking stat us NHIS Never smoked tobacco [facility] Start: 10-27-2024 Tobacco use and exposure Smokeless tobacco non-user [facility] Start: 10-27-2024 Alcoholic beverage intake Lifetime non-drinker (finding) [facility] Start: 10-27-2024 History of Social function [facility] Start: 10-27-2024 Tobacco use panel [facility] National Score (1-10 0), lower number is lower risk 83 [facility] Start: 2000 Sex assigned at Not on file [facility] Goals Date Patient Goal Desired Activity /State Mental Status Date Assessment Result Facility 09-10-2023 Cognitive function Voice/Name [facility] Work Phone: Clinical Notes 09-09-2023 to 11-10-2024 Telephone Encounter - Nette Chavira - 11/10/2024 9:24 AM EDTTelephone Encounter - Nette Chavira - 11/10/2024 9:24 AM Lindsey Velasquez APRN.CNM - 10/27/2024 9:58 AM EDT Note Date & Type Note Facility 11-10-2024 Telephone encounter Note Mailed letter [facility] 11-10-2024 Miscellaneous Notes Mailed letter documented in this encounter [facility] 10-27-2024 Note HNO ID: [id number] Author: LINDSEY TINEO APRN.CNM Service: ? Author Type: Paving Inspector Type: Progress Notes Filed: 10/27/2024 11:09 Note Text: Teresa is a 24 year old who presents for an annual gynecologic exam without complaints. Still get period: Yes LMP: 10/19/2024 Menses: takes OCP continuously gets period every 3 months Menstrual flow: Heavy Bleeding amount bothersome: Yes Bleeding between periods: No Period symptoms: Cramps, headaches Sexually active: Yes Contraception: Pill Contraception frequency: Always HPV vaccine: No HPV: NA Last pap smear: possibly 1 year ago per patient History of abnormal pap: No Colposcopy: No. Leep: No. Cone biopsy: No. Bothersome pelvic pain: No Last mammogram: never Sexually active: Yes Pain with intercourse: No Postcoital bleeding: No Mood swings: No Insomnia: No OB History Gravida2 Para2 Term2 Preterm0 AB0 Living2 SAB0 IAB0 Ectopic0 Multiple0 Live Births2 Auditor History LMP: 10/19/2024 (Exact Date), Having periods Age at Menarche: Age at First : Age at Menopause: Auditor History Comments: Sexual Activity: Yes; Male Contraception: Pill No past medical history on file.No past surgical history on file.No family history on file.SOCIAL HISTORY Social History Tobacco Use Smoking status: Never Smokeless tobacco: Never Substance Use Topics Alcohol use: Never Drug use: Never REVIEW OF SYSTEMS Abdomen: No abdominal pain, nausea, vomiting, diarrhea, or constipation. No bloating, early satiety, indigestion, or increased flatulence. Bladder: No dysuria, gross hematuria, urinary frequency, urinary urgency, or incontinence. Breast: No breast lumps, nipple d/c, overlying skin changes, redness or skin retraction. Allergies and current medication updated:Yes SENSITIVE EXAM: The sensitive examination was discussed with the Patient or Patient's Authorized Electric Motor Tester. As applicable, any other physician, advance practice provider, medical student, or other health professional student that will be observing or involved in the sensitive examination for educational or training purposes was discussed with the Patient or Authorized Electric Motor Tester. The Patient or Authorized Electric Motor Tester has agreed to proceed with the sensitive examination. (Sensitive examination includes inspection and/or palpation of the breasts, pelvis, prostate and anorectal regions). EXAM: BP 112/64 Ht 5' 2 (1.58m) Wt 229 lb (103.9kg) LMP 10/19/2024 BMI 41.87 kg/(m2). GENERAL: pleasant, female in no apparent distress HEENT: Normocephalic, atraumatic, mucus membranes moist, and no lesions NECK: Supple, full range of motion, no adenopathy, and thyroid normal DERMATOLOGY: Normal, without lesions, non-icteric, and non-hirsute BREAST: soft, non-tender, symmetric, no dominant mass, normal nipple-areolar complex, no lymphadenopathy, and no nipple discharge CHEST: Normal inspiratory effort ABDOMEN: soft, non-tender, and no masses PELVIC: external genitalia normal, normal Bartholin's glands, urethra, Trail's glands, no vulvar lesions, no cervical lesions, good vaginal support, physiologic discharge present, normal appearing perineal body and perianal region BIMANUAL: uterus normal size, shape and consistency, no adnexal masses, and non-tender RECTOVAGINAL: deferred. NEURO: alert and oriented x3,exam grossly non-focal EXTREMITIES: normal ASSESSMENT/PLAN: 1. Encounter for gynecological examination (general) (routine) with abnormal findings - ICD9: V72.31, ICD10: Z01.411 (primary diagnosis) - Completed pelvic and breast exam - Encouraged monthly BSE - Follow up for annual exam in one year. - PAP TEST 2. Screening for cervical cancer - ICD9: V76.2, ICD10: Z12.4 - Completed pelvic and breast exam - Encouraged monthly BSE - Follow up for annual exam in one year. - PAP TEST 3. Encounter for screening for human papillomavirus (HPV) - ICD9: V73.81, ICD10: Z11.51 - PAP TEST 4. Encounter for surveillance of contraceptive pills - ICD9: V25.41, ICD10: Z30.41 - discussed with patient on how to take OCP's. - counseled on benefits, risks and possible severe side effects of OCP's. - discussed need to use Condoms to help to prevent STD's including HIV etc. 1) Health maintenance: Pap done with HPV. Nutrition, exercise and routine health maintenance exams reviewed. Calcium/Vitamin D supplementation information provided. Lipids/glucose: followed by PCP Vitamin D: followed by PCP 2) Contraception: combined hormonal contraceptives. Contraceptive options reviewed and information provided. 3) STD screening: Declined STD check. 4) Follow up one year or sooner as needed Lindsey Tineo APRN.BETH [facility] 10-27-2024 History of Presen t illness Narrative Teresa is a 24 year old who presents for an annual gynecologic exam without complaints. Still get period: Yes LMP: 10/19/2024 Menses: takes OCP continuously gets period every 3 months Menstrual flow: Heavy Bleeding amount bothersome: Yes Bleeding between periods: No Period symptoms: Cramps, headaches Sexually active: Yes Contraception: Pill Contraception frequency: Always HPV vaccine: No HPV: NA Last pap smear: possibly 1 year ago per patient History of abnormal pap: No Colposcopy: No. Leep: No. Cone biopsy: No. Bothersome pelvic pain: No Last mammogram: never Sexually active: Yes Pain with intercourse: No Postcoital bleeding: No Mood swings: No Insomnia: No OB History Gravida2 Para2 Term2 Preterm0 AB0 Living2 SAB0 IAB0 Ectopic0 Multiple0 Live Births2 Auditor History LMP: 10/19/2024 (Exact Date), Having periods Age at Menarche: Age at First : Age at Menopause: Auditor History Comments: Sexual Activity: Yes; Male Contraception: Pill No past medical history on file.No past surgical history on file.No family history on file.SOCIAL HISTORY Social History Tobacco Use Smoking status: Never Smokeless tobacco: Never Substance Use Topics Alcohol use: Never Drug use: Never REVIEW OF SYSTEMS Abdomen: No abdominal pain, nausea, vomiting, diarrhea, or constipation. No bloating, early satiety, indigestion, or increased flatulence. Bladder: No dysuria, gross hematuria, urinary frequency, urinary urgency, or incontinence. Breast: No breast lumps, nipple d/c, overlying skin changes, redness or skin retraction. Allergies and current medication updated:Yes SENSITIVE EXAM: The sensitive examination was discussed with the Patient or Patient's Authorized Electric Motor Tester. As applicable, any other physician, advance practice provider, medical student, or other health professional student that will be observing or involved in the sensitive examination for educational or training purposes was discussed with the Patient or Authorized Electric Motor Tester. The Patient or Authorized Electric Motor Tester has agreed to proceed with the sensitive examination. (Sensitive examination includes inspection and/or palpation of the breasts, pelvis, prostate and anorectal regions). EXAM: BP 112/64 Ht 5' 2 (1.58m) Wt 229 lb (103.9kg) LMP 10/19/2024 BMI 41.87 kg/(m^2). GENERAL: pleasant, female in no apparent distress HEENT: Normocephalic, atraumatic, mucus membranes moist, and no lesions NECK: Supple, full range of motion, no adenopathy, and thyroid normal DERMATOLOGY: Normal, without lesions, non-icteric, and non-hirsute BREAST: soft, non-tender, symmetric, no dominant mass, normal nipple-areolar complex, no lymphadenopathy, and no nipple discharge CHEST: Normal inspiratory effort ABDOMEN: soft, non-tender, and no masses PELVIC: external genitalia normal, normal Bartholin's glands, urethra, Trail's glands, no vulvar lesions, no cervical lesions, good vaginal support, physiologic discharge present, normal appearing perineal body and perianal region BIMANUAL: uterus normal size, shape and consistency, no adnexal masses, and non-tender RECTOVAGINAL: deferred. NEURO: alert and oriented x3,exam grossly non-focal EXTREMITIES: normal ASSESSMENT/PLAN: 1. Encounter for gynecological examination (general) (routine) with abnormal findings - ICD9: V72.31, ICD10: Z01.411 (primary diagnosis) - Completed pelvic and breast exam - Encouraged monthly BSE - Follow up for annual exam in one year. - PAP TEST 2. Screening for cervical cancer - ICD9: V76.2, ICD10: Z12.4 - Completed pelvic and breast exam - Encouraged monthly BSE - Follow up for annual exam in one year. - PAP TEST 3. Encounter for screening for human papillomavirus (HPV) - ICD9: V73.81, ICD10: Z11.51 - PAP TEST 4. Encounter for surveillance of contraceptive pills - ICD9: V25.41, ICD10: Z30.41 - discussed with patient on how to take OCP's. - counseled on benefits, risks and possible severe side effects of OCP's. - discussed need to use Condoms to help to prevent STD's including HIV etc. 1) Health maintenance: Pap done with HPV. Nutrition, exercise and routine health maintenance exams reviewed. Calcium/Vitamin D supplementation information provided. Lipids/glucose: followed by PCP Vitamin D: followed by PCP 2) Contraception: combined hormonal contraceptives. Contraceptive options reviewed and information provided. 3) STD screening: Declined STD check. 4) Follow up one year or sooner as needed Lindsey Tineo APRN.CNM documented in this encounter [facility] 09-10-2023 Discharge summary Note Date/Time September 10, 2023 8:10am [facility] Medical Records Department [address] [place] [address] Instructions for Home/Discharge Instructions 09/10/23 0810 MR#: [id number] Acct: [id number] Name: TERESA CERON V Rep #:[id number] : 2000 23 From: Feli Nichols CNM PCP: Care Physician,No Primary Status :ADM IN Discharge Instructions Diet Discharge Diet: No restrictions Activity May resume sexual activity in: 4-6 weeks Weight Bearing Status: Full weight bearing Dressing / Incision Call your doctor if your incision/area has: Continuous Slow Oozing, Sudden Increased Bleeding, Increased Pain/ Swelling, Increased Redness and Foul Smelling Discharge Call your doctor if you observe: Fever of 101 or Higher and Using more than 1 pad per hour Suture Line Care: Avoid Pulling/Pushing and Avoid Pinching/Bending Cleanse incision/area with: Soap & Water and Keep Dressing Clean & Dry Follow Up Care Please Follow Up With: Priscilla Moore DO Test Results: Test results from this visit will be discussed in further detail at your follow-up appointment, if applicable. Discharge Plan Admission Admit Date/Time: 09/09/23 05:30 Attending Provider: Priscilla Moore Primary Care Provider: Adan Moncada,Lauren Primary Discharge Orders/Prescriptions Prescriptions: New naproxen 500 mg tablet 500 mg PO BID PRN (Reason: pain) Qty: 30 0RF No Action docusate sodium 100 MG capsule 100 mg PO BID PRN PRN (Reason: Constipation) Qty: 60 1RF Referrals / Follow Up: Care Physician,Lauren Primary [Primary Care Provider] - Disposition Disposition (needs filled in before D/C Order can be placed): Home, Self Care 09/10/23 0810<Electronically signed by Feli Nichols CNM>Feli Nichols CNM CC: No Primary Care Physician ~ Signed [facility] Work Phone: 1(975) 905-799801-23-2024 Progress note Author Feli Nichols [facility] September 10, 2023 8:09am Note Date/Time September 10, 2023 8 :10am [facility] Medical Records Department [address] [place] [address] Progress Note - OBGYN 09/10/23 0807 MR#: [id number] Acct: [id number] Name: TERESA CERON V Rep #:[id number] : 2000 23 From: Feli Nichols CNM PCP: Care Physician,No Primary Status :ADM IN Location: [place] [address] Subjective Subjective Patient doing well without complaints. Tolerating PO. Ambulating and voiding without difficulty. Feeding well. Denies chest pain, shortness of breath, calf pain/swelling, fevers, chills, lightheadedness. Objective Data Objective Data Vital Signs: Vital Signs Temp Pulse Resp BP Pulse Ox O2 Del Method 97.8 F 80 16 118/68 98 Room Air 09/10/23 03:02 09/10/23 03:02 09/10/23 05:02 09/10/23 03:02 09/10/23 05:02 09/10/23 05:02 Oxygen Delivery Method Room Air Weight: 231 lb 4.238 oz Intake & Output: Intake and Output for Last 24 Hours 09/08/23 09/09/23 09/10/23 23:59 23:59 23:59 Intake Total 3624 / 3624 Output Total 1650 / 2050 1200 / 1200 Balance 1974 / 1574 -1200 / -1200 Lab / Micro Data 09/10/23 04:12 Labs: Laboratory Results - last 24 hr 09/09/23 06:05: Syphilis Total Ab Non-reactive 09/10/23 04:12: WBC 10.9, RBC 3.44 L, Hgb 9.0 L, Hct 28.1 L, MCV 81.7, MCH 26.2 L, MCHC 32.0, RDW Std Deviation 42.5, RDW Coeff of [place] 14.9 H, Plt Count 140 L, MPV 10.3 Micro: Microbiology 09/09/23 06:00 Interface Orders Chlamydia trachomatis (PCR) - Final 09/09/23 06:00 Interface Orders Neisseria gonorrhoeae (PCR) - Final ROS Constitutional Constitutional: Reports systems reviewed and no addt'l complaints, except as documented; Denies anorexia or headache(s) Cardiovascular Cardiovascular: Reports systems reviewed and no addt'l complaints, except as documented; Denies dizziness, dyspnea, nausea or tachypnea Respiratory/Chest Respiratory/Chest: Reports systems reviewed and no addt'l complaints, except as documented; Denies cough, dyspnea, shortness of breath at rest or tachypnea Gastrointestinal Gastrointestinal: Reports systems reviewed and no addt'l complaints, except as documented; Denies abdominal pain, constipation or nausea Genitourinary Genitourinary: Reports systems reviewed and no addt'l complaints, except as documented; Denies burning urination, difficulty urinating, dysuria, urinary frequency or urinary incontinence Musculoskeletal Musculoskeletal: Reports systems reviewed and no addt'l complaints, except as documented Integumentary Integumentary: Reports systems reviewed and no addt'l complaints, except as documented Neurologic Neurologic: Reports systems reviewed and no addt'l complaints, except as documented; Denies abnormal speech, dizziness or headache(s) Psychiatric Psychiatric: Reports systems reviewed and no addt'l complaints, except as documented Endocrine Endocrinology: Reports systems reviewed and no addt'l complaints, except as documented Hematologic/Lymphatic Hematologic/Lymphatic: Reports systems reviewed and no addt'l complaints, exceptas documented Physical Exam Const alert, oriented x3 and no apparent distress Neck full ROM Resp normal respiratory effort, normal air movement and no retractions Effort and Inspection: able to speak in complete sentences and symmetric chest movement GI soft to palpation Inspection: incision intact Bladder / Kidney Exam: bladder normal to palpation Uterus Palpation: uterus fundus firm Extremity normal to inspection and full ROM Psych mental status grossly normal, thought process normal and cooperative Assessment & Plan (1) Status post repeat low transverse section: PLAN: s/p LTCS PPD # 1 1. routine post care 2. breast feeding- support given 3. rh positive 4. rubella immune 5. Discharge Home (2) Supervision of high-risk : COMMENT: VILMA 09/14/23 PC: Lawrence, Spouse Issa (3) : QUALIFIERS: Weeks of gestation: 38 weeks Qualified Code(s): Z3A.38 - 38 weeks gestation of COMMENT: GBS neg, declines NIPT (4) History of delivery affecting : COMMENT: plans RLTCS. Scheduled for 09/09/23 @ 7:30 with JV (5) Obesity affecting : COMMENT: passed 3 hour gct (6) Need for Tdap vaccination: COMMENT: Given 07/08/23 Charges/Coding Multi Select Codes Urinary/Genital Urinary/Genital CPT Codes: No Charge 09/10/23 0809 <Electronically signed by Feli Nichols CNM> Cosigner Signature (if applicable): CC: ~ Signed [facility] Work Phone: 1(166) 565-285501-22-2024 Discharge summary Author Priscilla Espitia [facility] September 09, 2023 7:23am Note Date/Time September 09, 2023 7 :22am [facility] Medical Records Department [address] [place] [address] Instructions for Home/Discharge Instructions 09/09/23 0722 MR#: [id number] Acct: [id number] Name: TERESA CERON V Rep #:[id number] : 2000 23 From: Priscilla Moore DO PCP: Care Physician,No Primary Status :ADM IN Discharge Instructions Diet Discharge Diet: No restrictions Activity Discharge Activity: May Not Drive (for 2 weeks or while taking narcotic pain medications.), May Shower and May Take a Tub Bath (in 7 days.) May resume sexual activity in: 4-6 weeks Weight Bearing Status: Full weight bearing Lifting Restrictions: 20 pounds Dressing / Incision Call your doctor if your incision/area has: Continuous Slow Oozing, Sudden Increased Bleeding, Increased Pain/ Swelling, Increased Redness and Foul Smelling Discharge Call your doctor if you observe: Fever of 101 or Higher and Using more than 1 pad per hour Suture Line Care: Avoid Pulling/Pushing and Avoid Pinching/Bending Cleanse incision/area with: Soap & Water and Keep Dressing Clean & Dry Follow Up Care Please Follow Up With: Priscilla Moore DO When: Call [phone] to make an appointment for an incision check in 1-2 weeks. Test Results: Test results from this visit will be discussed in further detail at your follow- up appointment, if applicable. Discharge Plan Admission Admit Date/Time: 09/09/23 05:30 Attending Provider: Priscilla Moore Primary Care Provider: Adan Physician,Lauren Primary Discharge Orders/Prescriptions Prescriptions: New naproxen 500 mg tablet 500 mg PO BID PRN (Reason: pain) Qty: 30 0RF No Action docusate sodium 100 MG capsule 100 mg PO BID PRN PRN (Reason: Constipation) Qty: 60 1RF Referrals / Follow Up: Care Physician,No Primary [Primary Care Provider] - Disposition Disposition (needs filled in before D/C Order can be placed): Home, Self Care 09/09/23 07<Electronically signed by Priscilla Moore DO>Priscilla Moore DO CC: No Primary Care Physician ~ Signed [facility] Work Phone: 1([phone]) 719-513901-22-2024 History and physical note Author Priscilla Espitia [facility] September 09, 2023 7:22am Note Date/Time September 09, 2023 7 :22am [facility] Medical Records Department [address] [facility] [place] [address] 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 09/09/23720 MR#: [id number] Acct: [id number] Name: TERESA CERON V Rep #:[id number] : 2000 23 From: Priscilla Moore DO PCP: Care Physician,No Primary Status :ADM IN Location: [id number] HPI - General General Date of Admission: 09/09/23 HPI Narrative TERESA CERON, is a 23 y/o @ 39 weeks 2 days who presents to L&D for a repeatcesarean section Maternal Data Information VILMA Calculator Estimated Delivery Date Method Current WG Current Estimate 09/14/23 Manual 39w 2d per [place] records PFSH PFSH Medical History Depression Home Medications docusate sodium 100 mg capsule 100 mg PO BID PRN PRN Constipation #60 caps 08/18/20 [Rx Last Taken Unknown] Allergy/AdvReac Type Severity Reaction Status Date / Time No Known Allergies Allergy Verified 09/06/23 10:09 Family History Grandmother No problems noted. Son Cleft palate Other Diabetes Heart disease Surgical History H/O section Social History adopted: No household members: spouse and children housing: house current occupational status: employed current occupation: [employer] current occupational exposures/hazards: No pets and animals: No history of recent travel: No sexually active: Yes Smoking Status: Former smoker alcohol intake: never substance use type: does not use caffeine: Yes seatbelt use: always do you feel safe at home: Yes additional social history: spouse - issa children - lawrence History 2 Elective abortions Hx Para 1 Spontaneous abortions Hx # Term Pregnancies Ectopic pregnancies Hx # Pregnancies Multiple births # of living children 1 Past Pregnancies Del. Date Name GA/Weeks Outcome Route Bth Weight Gen Labor Lgth Anesthesia Del Locatn Provider FOB 08/18/20 Lawrence 2019 38 live - full term Male [facility] Andrzej Delivery Date: 08/18/20 Last Updated by: Lindsey Recinos Baby with cleft palate Visit Details Expected Delivery Route/Plan desires repeat C/S Plans Covid status: unvaccinated Flu vaccine: Declines Tdap vaccine: [] Rhogam: NA LARC form signed: yes Problem list reviewed and updated with the most current plan of care details and appropriate orders placed. Relevant counseling for the gestational age provided. Continue routine care and follow up unless otherwise noted in visit notes/problem list details OB Flowsheet Initial Weight: Not Recorded Date -?-?-?-?-?-?-?-?-?-?-?-?- EGA Weight BP Urine Prot -?-?-?-?-?-?-?-?-?-?-?-?- Glucose FHR FuHt Pres Dilation -?-?-?-?-?-?-?-?-?-?-?-?- Effaced St Visit Note 05/28/23 -?-?-?-?-?-?-?-?-?-?-?-?- 24w 3d 219 lb 114/81 Negative -?-?-?-?-?-?-?-?-?-?-?-?- Negative 140 -?-?-?-?-?-?-?-?-?-?-?-?- KW-Transfer from [place], had all appts until 20 weeks with them. Had labs and anatomy US with them. R C/S desired. Desires to skip 1 hour GCT and do 3 hour at 28 weeks. no vb/cramping. good fm. Larc done today 06/18/23 -?-?-?-?-?-?-?-?-?-?-?-?- 27w 3d 222 lb 6 oz 115/81 Nega tive -?-?-?-?-?-?-?-?-?-?-?-?- Negative 140 -?-?-?-?-?-?-?-?-?-?-?-?- KW- no vb/ctx/lo f/ good fm. passed 3 hr gct. C/S with JV 09/09/23 730am 07/08/23 -?-?-?-?-?-?-?-?-?-?-?-?- 30w 2d 221 lb 6 oz 113/78 Nega tive -?-?-?-?-?-?-?-?-?-?-?-?- Negative 141 -?-?-?-?-?-?-?-?-?-?-?-?- JV- no lof, vagi nal bleeding, or dec fm. tdap today. 07/23/23 -?-?-?-?-?-?-?-?-?-?-?-?- 32w 3d 224 lb 6 oz 125/76 Nega tive -?-?-?-?-?-?-?-?-?-?-?-?- Negative 159 32 -?-?-?-?-?-?-?-?-?-?-?-?- JV- pt complains of back and hip pain. exercises discussed. 08/06/23 -?-?-?-?-?-?-?-?-?-?-?-?- 34w 3d 230 lb 6 oz 117/80 Nega tive -?-?-?-?-?-?-?-?-?-?-?-?- Negative 155 35 -?-?-?-?-?-?-?-?-?-?-?-?- KW-no vb/crampin gVirgen allen fm. discussed infant feeding plan. wants to pump not breastfeed. gbs next visit. 08/20/23 -?-?-?-?-?-?-?-?-?-?-?-?- 36w 3d 230 lb 6 oz Negative -?-?-?-?-?-?-?-?-?-?-?-?- Negative 150 36 -?-?-?-?-?-?-?-?-?-?-?-?- KW- no vb/crampi ng. good fm. declines SVE. GBS done. 08/27/23 -?-?-?-?-?-?-?-?-?-?-?-?- 37w 3d 231 lb 2 oz 116/78 Nega tive -?-?-?-?-?-?-?-?-?-?-?-?- Negative 150 37 -?-?-?-?-?-?-?-?-?-?-?-?- kw- no vb/lof/ct x. good fm. 09/06/23 -?-?-?-?-?-?-?-?-?-?-?-?- 38w 6d 233 lb 2 oz 124/80 Nega tive -?-?--?-?-?-?-?-?-?-?-?-?- Negative 150 39 -?-?-?-?-?-?-?-?-?-?-?-?- JV- no lof vagin al bleeding, or dec fm. consent signed for surgery today. ROS Constitutional Constitutional: Denies change in weight, fatigue, fever(s), headache(s), poor appetite or weakness Eyes Eyes: Denies blurry vision, change in vision, seeing flashes or spots in vision ENT HEENT: Denies dizziness, headache(s), loss taste/smell or sore throat Cardiovascular Cardiovascular: Denies chest pain, dizziness, dyspnea, irregular heart rhythm, leg edema, palpitations, rapid heart rate or vomiting Respiratory/Chest Respiratory/Chest: Denies chest tightness, cough, dyspnea or breast pain Gastrointestinal Gastrointestinal: Denies abdominal pain, anorexia, constipation, cramping, diarrhea, hemorrhoids, vomiting or weight changes Genitourinary Genitourinary: Denies dysuria, flank pain, genital lesions, genital pain, urinary frequency or urinary urgency Musculoskeletal Musculoskeletal: Denies back pain, difficulty walking, joint pain, limited range of motion, muscle cramps or numbness Integumentary Integumentary: Denies lesions or unusual bruising Neurologic Neurologic: Denies abnormal movements, abnormal speech, dizziness, numbness, seizure-like activity or syncope Psychiatric Psychiatric: Denies anxiety, behavioral changes, change in appetite, change in libido, cognitive impairment, confusion, depression, difficulty concentrating, hallucinations or suicidal thoughts Endocrine Endocrinology: Denies excessive sweating, polydipsia or polyuria Hematologic/Lymphatic Hematologic/Lymphatic: Denies easy bleeding, easy bruising or lymphadenopathy Allergic/Immunologic Allergic/Immunologic: Denies itchy eyes, lip swelling, seasonal rhinorrhea, rhinitis, throat swelling, tongue swelling, eczemia, wheezing or asthma Vital Signs Vital Signs Vital Signs: 09/09/23 05:41 09/09/23 05:41 09/09/23 06:02 Temperature 97.4 F L Temperature Source Temporal Pulse Rate 73 73 Respiratory Rate 15 Blood Pressure 123/72 H 123/72 H Blood Pressure Mean 89 BP Systolic 123 BP Diastolic 72 Blood Pressure Source Monitor Blood Pressure Position Semi-Fowlers Blood Pressure Location Left Arm Pulse Ox 98 Oxygen Delivery Method Room Air Weight Weight: 231 lb 4.238 oz Physical Exam Const alert, oriented x3, no apparent distress and healthy appearing General Appearance: cooperative; Negative for anxious HEENT normocephalic Face and Sinus: normal facial exam Eyes EOMs intact bilaterally and no scleral icterus General Eye: normal appearance of both eyes Neck full ROM and supple Lymph Lymphatic: no lymphadenopathy noted Chest Chest: abnormal inspection of the chest Resp normal respiratory effort Effort and Inspection: able to speak in complete sentences Cardio regular rate GI soft to palpation and non-tender Inspection: gravid Palpation: soft; Negative for tender Back/Spine no CVA tenderness Extremity normal to inspection, full ROM and no clubbing, cyanosis or edema General Extremity: Negative for calf tenderness or edema Skin Lesions: no lesions Rashes: no rashes Psych mental status grossly normal Labs Labs Labs: Blood Type O POSITIVE Antibody Screen NEGATIVE Hct 32.9 % (37-47) L Hgb 10.6 g/dL (12.0-15.0) L Syphilis Total Ab Non-reactive VZV IgG Antibody < 135 index (Immune >165) L Rubella IgG Antibody Reactive (Nonreactive) Hep Bs Antigen Non-Reactive (Nonreactive) Hepatitis C Antibody Non-Reactive (Nonreactive) HIV 1&2 Antibody Non-Reactive (Nonreactive) Glucose 1 Hr 50 gm 194 mg/dL (70-140) H Gest Glucose Tolerance MG/DL Rhogam given: No Assessment & Plan (1) Need for Tdap vaccination: COMMENT: Given 07/08/23 (2) Obesity affecting : COMMENT: passed 3 hour gct (3) History of delivery affecting : COMMENT: plans RLTCS. Scheduled for 09/09/23 @ 7:30 with JV (4) : QUALIFIERS: Weeks of gestation: 38 weeks Qualified Code(s): Z3A.38 - 38 weeks gestation of COMMENT: GBS neg, declines NIPT (5) Supervision of high-risk : COMMENT: VILMA 09/14/23 PC: Lawrence, Spouse Issa PLAN: Plan After discussing the patient's diagnosis and treatment plan options, patient wishes to proceed with surgical management. I have discussed with the patient the risks, benefits, and alternatives of the procedure which include but are not limited to risks of anesthesia, bleeding, infection, possible damage to bowel, bladder, or surrounding vasculature which could lead to additional surgery to evaluate any complications. Patient agrees to procedure and wishes to proceed. ACOG/uptodate references given for additional information regarding procedure. plan repeat section today. 09/09/23721 <Electronically signed by Priscilla Moore DO> Cosigner Signature (if applicable): CC: Dr. Priscilla Moore, ; No Primary Care Physician~ Signed [facility] Work Phone: 1(752) 264-721101-22-2024 Procedure [facility] Evaluation note* Diagnosis Onset Date Resolution Status History of delivery affecting acute Obesity affecting acute acute Supervision of high-risk acute History of delivery affecting acute Obesity affecting acute acute Supervision of high-risk acute [facility] Work Phone: Evaluation note* Diagnosis Onset Date Resolution Status History of delivery affecting acute Obesity affecting acute acute Supervision of high-risk acute History of delivery affecting acute Obesity affecting acute acute Supervision of high-risk acute History of delivery affecting acute Obesity affecting acute acute Supervision of high-risk acute History of delivery affecting acute Need for Tdap vaccination ac [place] Obesity affecting acute acute Supervision of high-risk acute History of delivery affecting acute Need for Tdap vaccination ac [place] Obesity affecting acute acute Supervision of high-risk acute History of delivery affecting acute Need for Tdap vaccination [place] Obesity affecting acute acute Supervision of high-risk acute History of delivery affecting acute Need for Tdap vaccination [place] Obesity affecting acute acute Supervision of high-risk acute History of delivery affecting acute Need for Tdap vaccination [place] Obesity affecting acute acute Supervision of high-risk acute History of delivery affecting acute Need for Tdap vaccination [place] Obesity affecting acute acute Status post repeat low transverse section acute Supervision of high-risk acute [facility] Work Phone: Evaluation note* Diagnosis Onset Date Resolution Status Obesity affecting resolved resolved Supervision of high-risk resolved Need for Tdap vaccination re solved Obesity affecting resolved resolved Supervision of high-risk resolved Need for Tdap vaccination re solved Obesity affecting resolved resolved Supervision of high-risk resolved Need for Tdap vaccination re solved Obesity affecting resolved resolved Supervision of high-risk resolved Need for Tdap vaccination re solved Obesity affecting resolved resolved Supervision of high-risk resolved Need for Tdap vaccination re solved Obesity affecting resolved resolved Supervision of high-risk resolved Status post repeat low transverse section acute Need for Tdap vaccination re solved Obesity affecting resolved resolved Supervision of high-risk resolved Status post repeat low transverse section acute Postop check noneactive Routine Follow-Up noneactive [facility] Work Phone: Evaluation note* Diagnosis Encounter for gynecological examination (general) (routine) with abnormal findings- Primary Screening for cervical cancer Screening for malignant neoplasm of the cervix Encounter for screening for human papillomavirus (HPV) Special screening examination for human papillomavirus (HPV) Encounter for surveillance of contraceptive pills Surveillance of previously prescribed contraceptive pill documented in this encounter [facility] Summary Purpose Family History Relationship Condition Age at Onset Recorded Date/T farzana Not Specified Diabetes mellitus Unknown Cardiac disease Unknown son Cleft palate Unknown Advance Directives Advance Directive Response Recorded Date/ Time Living Will No June 18 1:36pm Power of Geriatric Nurse Assistant No June 18, 2023 1:36pm Advance Directive Response Recorded Date/ Time Living Will No September 09 5:47am Power of Geriatric Nurse Assistant No September 09, 2023 5:47am Advance Directive Response Recorded Date/ Time Living Will No September 09 6:47am Power of Geriatric Nurse Assistant No September 09, 2023 6:47am Chief Complaint and Reason for Visit Chief Complaint transfer from [facility] 09/14 Encounter for screening for diabetes mellitus 27 WK OB / 3 HR GLUCOSE in the AM Reason for Visit History of delivery affecting Obesity affecting Supervision of high-risk History of delivery affecting Obesity affecting Supervision of high-risk Chief Complaint transfer from [facility] 09/14 Encounter for screening for diabetes mellitus 27 WK OB / 3 HR GLUCOSE in the AM 30 WK OB, pt to see JV per Kw 32 WK OB 34 WK OB 36 WK OB 37 WK OB 38 WK OB REPEAT C SECTION SCHEDULED C SECTION REPEAT C SECTION Reason for Visit History of delivery affecting Obesity affecting Supervision of high-risk History of delivery affecting Obesity affecting Supervision of high-risk History of delivery affecting Obesity affecting Supervision of high-risk History of delivery affecting Need for Tdap vaccination Obesity affecting Supervision of high-risk History of delivery affecting Need for Tdap vaccination Obesity affecting Supervision of high-risk History of delivery affecting Need for Tdap vaccination Obesity affecting Supervision of high-risk History of delivery affecting Need for Tdap vaccination Obesity affecting Supervision of high-risk History of delivery affecting Need for Tdap vaccination Obesity affecting Supervision of high-risk History of delivery affecting Need for Tdap vaccination Obesity affecting Status post repeat low transverse section Supervision of high-risk Chief Complaint 30 WK OB, pt to see JV per Kw 32 WK OB 34 WK OB 36 WK OB 37 WK OB 38 WK OB REPEAT C SECTION SCHEDULED C SECTION REPEAT C SECTION 2 WK C/S CHECK, *sched 6 wk pp visit* visit (obstetrics) Reason for Visit Obesity affecting pr egnancy Supervision of high-risk Need for Tdap vaccination Obesity affecting Supervision of high-risk Need for Tdap vaccination Obesity affecting Supervision of high-risk Need for Tdap vaccination Obesity affecting Supervision of high-risk Need for Tdap vaccination Obesity affecting Supervision of high-risk Need for Tdap vaccination Obesity affecting Supervision of high-risk Status post repeat low transverse section Need for Tdap vaccination Obesity affecting Supervision of high-risk Status post repeat low transverse section Postop check Routine Follow-Up Additional Source Comments INFORMATION SOURCE (unrecogn ized section and content) DATE CREATED AUTHOR 03/10/2018 Artie Hernandez [facility] DATE CREATED AUTHOR AUTHOR'S ORGANIZ ATION 10/29/2023 [facility] DATE CREATED AUTHOR AUTHOR'S ORGANIZ ATION 11/11/2024 [facility] Care Teams (unrecognized sec tion and content) Team Status: Active Member Role Status Dates No Primary Care Physician Primary Care Provider Active Team Status: Inactive Member Role Status Dates No Primary Care Physician Primary Care Provider, Refer ring Provider Active Feli Nichols CNM Attending Provider Active Team Status: Inactive Member Role Status Dates No Primary Care Physician Primary Care Provider Active Feli Nichols CNM Attending Provider, Referring Pro vider Active Team Status: Inactive Member Role Status Dates No Primary Care Physician Primary Care Provider, Refer ring Provider Active Dr. Priscilla Moore DO Attending Provider Activ e Team Status: Active Member Role Status Dates No Primary Care Physician Primary Care Provider Active Dr. Priscilla Moore DO Admit Prov ider, Attending Provider, Other Provider Active Team Status: Active Member Role Status Dates No Primary Care Physician Primary Care Provider Active Dr. Priscilla Moore DO Admit Provider, Other Pr ovider Active Feli Nichols CNM Attending Provider Active Team Status: Inactive Member Role Status Dates No Primary Care Physician Primary Care Provider Active Dr. Priscilla Moore DO Admit Provider, Attendin g Provider Active Team Status: Inactive Member Role Status Dates No Primary Care Physician Primary Care Provider, Refer ring Provider Active Melina Vidales MEAL COOK, MEAL COOK-C Attending Provider Active Team Status: Inactive Member Role Status Dates No Primary Care Physician Primary Care Provider, Refer ring Provider Active Lily Ohara CNM Attending Provider Active Team Status: Inactive Member Role Status Dates No Primary Care Physician Primary Care Provider Active Lily Ohara CNM Attending Provider, Referring Pr ovider Active Goals (unrecognized section and content) Goals may be documented in a n alternate section Source Comments (unrecognize d section and content) In the event this informatio n is protected by the Federal Confidentiality of Alcohol and Drug Abuse Patient Records regulations: The Federal rules restrict any use of the information to criminally investigate or prosecute any alcohol or drug abuse patient.[facility] the event this information is protected by the Federal Confidentiality of Alcohol and Drug Abuse Patient Records regulations: The Federal rules restrict any use of the information to criminally investigate or prosecute any alcohol or drug abuse patient.[facility] Reason for Visit (unrecogniz ed section and content) Reason Comments [facility] [employer] FOR RECORDS PERTAINING TO PATIENTS WHO ARE [...] BE BASED ON THE PRIMARY CLINICAL RECORDS. [employer] provides no warranty or guarantee of the accuracy or completeness of information in this document.
[2025-08-08 16:08] LABS: hCG Titer Quant., Serum 43070 mIU/mL (<9 non-preg)
== END | disposition home or self-care (01) ==
PROVIDERS: Referring Provider Advanced Practice Midwife; Visit Provider Advanced Practice Midwife
DX: O20.0 Threatened abortion (principal); Z3A.00 Weeks of gestation of pregnancy not specified
CPT/HCPCS: 36415; 84702

== ENCOUNTER → 2025-08-10 | Outpatient (CLI) | payer MEDICAID, SELFPAY ==
--- OUTSIDE RECORDS SUMMARY | 2025-08-10 17:10 | XMS RPT_ITS | CCD ---
Author Organization [facility] Care Team Providers Care Transportation Economics Teacher Name Role Phone ORONA, KELLIE T Unavailable [...] Provider Un available BETH Nichols Attending Provider [phone] Care Physician, No Primary Primary Care Provider Unavailable Care Physician, No Primary Referring Provider Un available BETH Nichols Attending Provider [phone] Dr. Priscilla Moore Attending Provider [phone] Dr. Priscilla Moore Admit Provider Dr. Priscilla Moore Other Provider Care Physician, No Primary Primary Care Provider Unavailable Care Physician, No Primary Referring Provider Un available Dr. Priscilla Moore Attending Provider [phone] BETH Nichols Attending Provider [phone] Priscilla Moore Admit Provider Dr. 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 As applicable, any other physician, advance practice provider, medical student, or other health professional student that will be observing or involved in the sensitive examination for educational or training purposes was discussed with the Patient or Authorized [employer]. The Patient or Authorized [employer] has agreed to proceed with the sensitive examination. (Sensitive examination includes inspection and/or palpation of the breasts, pelvis, prostate and anorectal regions). EXAM: BP 112/64 Ht 5' 2" (1.58m) Wt 229 lb (103.9kg) LMP 10/19/2024 [...] external genitalia normal, normal Bartholin's glands, urethra, [place]'s glands, no vulvar lesions, no cervical lesions, [...] 4) Follow (more content not included)... [facility] PAP TESTon 10-27-2024 ADEQUACY [facility] Comment on above: Order Comment: Speci men Type: FLUID SPECIMEN Ordering Facility: [facility] Address: [address] [place] [address] Result Comment: Mu sfactory for interpretation. Transformation zone present Performed By: #### L [id number] #### [facility] CLIA [id number] [address] [place] [address] [place] CASE REPORT [facility] Comment on above: Order Comment: Speci men Type: FLUID SPECIMEN Ordering Facility: [facility] Address: [address] [place] [address] Result Comment: Gyne cologic Cytology Report Case: [id number] Authorizing Provider: Lindsey Tineo APRN.CNM Collected: 10/27/2024 10:29 AM Ordering Location: OB/Gynecology Received: 10/27/2024 01:20 PM First Screen: Deanna Beltrán CT, ASCP Specimen: Pap Test, ThinPrep, Cervix Performed By: #### L [id number] #### [facility] CLIA [id number] [address] [place] [address] [place] CLINICAL HISTORY, CYTOLOGY, GRANULATOR TENDER Routine Exam [facility] Comment on above: Order Comment: Speci men Type: FLUID SPECIMEN Ordering Facility: [facility] Address: [address] [place], [place] [id number] Performed By: #### L [id number] #### [facility] CLIA [id number] [address] [place] [address] [place] FINAL PERFORMING LAB [facility] Comment on above: Order Comment: Speci men Type: FLUID SPECIMEN Ordering Facility: [facility] Address: [address] [place] [address] Result Comment: Tech nical component, mothers helper screening performed at [facility], [address] [place] [address] [place] [address] CLIA# [id number] Diagnostic interpretation performed at [facility], [address] [place] [address] [place] [address] CLIA# [id number] Fourdrinier Wire Weaver: Kwesi Parsons M.D. Performed By: #### L [id number] #### [facility] CLIA [id number] [address] [place] [address] [place] INTERPRETATION, CYTOLOGY, GRANULATOR TENDER [facility] Comment on above: Order Comment: Speci men Type: FLUID SPECIMEN Ordering Facility: [facility] Address: [address] [place] [address] Result Comment: Nega tive for intraepithelial lesion or malignancy. at 1227 EDT Performed By: #### L [id number] #### [facility] CLIA [id number] [address] [place] [address] [place] LMP 10/19/2024 [facility] Comment on above: Order Comment: Speci men Type: FLUID SPECIMEN Ordering Facility: [facility] Address: [address] [place] [address] Performed By: #### L [id number] #### [facility] CLIA [id number] [address] [place] [address] [place] PAP DISCLAIMER COMMENT The Pap Smear is a screening test for cervical cancer. False negative results occur with all screening tests, emphasizing the need for rescreening at recommended intervals, and clinical correlation. [facility] Comment on above: Order Comment: Speci men Type: FLUID SPECIMEN Ordering Facility: [facility] Address: [address] [place] [address] Performed By: #### L [id number] #### [facility] CLIA [id number] [address] [place] [address] [place] PAP DOOR INSTALLER COMMENT This specimen has been analyzed by the ThinPrep Imaging System, an automated imaging and review system, which assists the laboratory in evaluating cells on ThinPrep Pap tests. Following automated imaging, selected mata from every slide are reviewed by a mothers helper. [facility] Comment on above: Order Comment: Speci josefina Type: FLUID SPECIMEN Ordering Facility: [facility] Address: [address] [place] [address] Performed By: #### L [id number] #### [facility] CLIA [id number] [address] [place] [address] [place] PAP I-G w/rfx hrHPV-Aptimaon 10-28-2023 ADEQ Comment Normal . [facility] Comment on above: Order Comment: Speci men Comment: [id number] Comment: Source.............CervixSpecimen Comment: Other..............OtherSpecimen Comment: No. of containers..01 ThinPrep Vial Result Comment: Sati sfactory for evaluation. Endocervical and/or squamous metaplastic cells (endocervical component) are present. Performed By: #### L 7400.0353 ####[facility] [address] [place], [place], [id number] COMM . Normal . [facility] Comment on above: Order Comment: Speci men Comment: [id number] Comment: Source.............CervixSpecimen Comment: Other..............OtherSpecimen Comment: No. of containers..01 ThinPrep Vial Performed By: #### L 7400.0353 ####[facility] [address] [place], [place], [id number] COMMENT Comment Normal . [facility] Comment on above: Order Comment: Speci men Comment: [id number] Comment: Source.............CervixSpecimen Comment: Other..............OtherSpecimen Comment: No. of containers..01 ThinPrep Vial Result Comment: This liquid based ThinPrep(R) pap test was screened with the use of an image guided system. Performed By: #### L 7400.0353 ####[facility] [address] [place], [place], [id number] DIAG Comment Normal . [facility] Comment on above: Order Comment: Speci men Comment: [id number] Comment: Source.............CervixSpecimen Comment: Other..............OtherSpecimen Comment: No. of containers..01 ThinPrep Vial Result Comment: NEGA TIVE FOR INTRAEPITHELIAL LESION OR MALIGNANCY. Performed By: #### L 7400.0353 ####[facility] [address] [place], [place], [address] HPV RFLX Comment Normal . [facility] Comment on above: Order Comment: Speci men Comment: [id number] Comment: Source.............CervixSpecimen Comment: Other..............OtherSpecimen Comment: No. of containers..01 ThinPrep Vial Result Comment: The HPV DNA reflex criteria were not met with this specimen result therefore, no HPV testing was performed. Performed at: [address] [place] [id number] Machine Stripper: Pricila Montesinos MD, Phone: [phone] Performed By: #### L 7400.0353 ####[facility] [address] [place], [place], [id number] PAPSMR Comment Normal . [facility] Comment on above: Order Comment: Speci men Comment: [id number] Comment: Source.............CervixSpecimen Comment: Other..............OtherSpecimen Comment: No. of [...] do occur. Performed By: #### L 7400.0353 ####[facility] [address] [place], [place], [id number] PERFORM Comment Normal . [facility] Comment on above: Order Comment: Speci men Comment: [id number] Comment: Source.............CervixSpecimen Comment: Other..............OtherSpecimen Comment: No. of containers..01 ThinPrep Vial Result Comment: Deepthi Ortega Resource Director (ASCP) Performed By: #### L 7400.0353 ####[facility] [address] [place], [place], [id number] Print Line Tailer Office Visit Reporton 10-23-2023 Print Line Tailer Office Visit Report [facility] Department [address] [place], [place] [address] OFFICE VISIT Date of Service: 10/23/23 MR#: [id number] Acct: [id number] Name: TERESA CERON V Rep #: [id number] : 2000 Provider: BETH scruggs Age/Sex: 23/F Location[place] [facility] Status: Signed Intake Vital Signs 09/23/23 10:58 10/23/23 11:32 10/23/23 11:33 Height 5 ft 2 in 5 ft 2 in 5 ft 2 in Weight: 211 lb 6 oz 210 lb BMI 38.6 38.4 BP 112/72 119/75 Intake Visit Reasons: visit (obstetrics) Chief Complaint: pt here for 6 week visit. 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 Feeding: Bottle Menses resumed: Yes [place] since delivery: Yes Emotional Support: Yes Last [...] normal respi (more content not included)... Normal [facility] Print Line Tailer Office Visit Reporton 09-23-2023 Print Line Tailer Office Visit Report [facility] 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 current occupational exposures/hazards: No pets and animals: [...] 4 weeks 09/23/23 1115 Date Melina Vidales COILED COIL INSPECTOR COILED COIL INSPECTOR-C Cosigner Signature: Date (if applicable) CC: Normal [facility] Basophil percentageOrdered B y: Priscilla Espitia on 09-10-2023 Hemoglobin (Bld) [Mass/Vol] 9.0 g/dL 12.0-15.0 [facility] WBC (Bld) [#/Vol] 10.9 10*3/uL 4.4-11.0 [facility] CBC-Complete Blood Cnt No Di ffon 09-10-2023 Erythrocyte distribution width (RBC) [Ratio] 14.9 % High 11.6-14.6 [facility] Comment on above: Order Comment: Comme nts: Day #1Reason for Laboratory Test Performed By: #### L 100.0500 ####[facility] [address] [place], [address] Hematocrit (Bld) [Volume fraction] 28.1 % Low 37-47 [facility] Comment on above: Order Comment: Comme nts: Day #1Reason for Laboratory Test Performed By: #### L 100.0500 ####[facility] [address] [place], [address] Hemoglobin (Bld) [Mass/Vol] 9.0 g/dL Low 12.0-15.0 [facility] Comment on above: Order Comment: Comme nts: Day #1Reason for Laboratory Test Performed By: #### L 100.0500 ####[facility] [address] [place], [address] MCH (RBC) [Entitic mass] 26.2 pg Low 27.0-32.0 [facility] Comment on above: Order Comment: Comme nts: Day #1Reason for Laboratory Test Performed By: #### L 100.0500 ####[facility] [address] [place], [address] MCHC (RBC) [Mass/Vol] 32.0 g/dL Normal 32-36 [facility] Comment on above: Order Comment: Comme nts: Day #1Reason for Laboratory Test Performed By: #### L 100.0500 ####[facility] [address] [place], [address] MCV (RBC) [Entitic vol] 81.7 fL Normal 81-99 [facility] Comment on above: Order Comment: Comme nts: Day #1Reason for Laboratory Test Performed By: #### L 100.0500 ####[facility] [address] [place], [address] Platelet mean volume (Bld) [Entitic vol] 10.3 fL Normal 6.2-12.0 [facility] Comment on above: Order Comment: Comme nts: Day #1Reason for Laboratory Test Performed By: #### L 100.0500 ####[facility] [address] [place], [address] Platelets (Bld) [#/Vol] 140 10*3/uL Low 150-450 [facility] Comment on above: Order Comment: Comme nts: Day #1Reason for Laboratory Test Performed By: #### L 100.0500 ####[facility] [address] [place], [address] RBC (Bld) [#/Vol] 3.44 10*6/uL Low 4.2-5.4 [facility] Comment on above: Order Comment: Comme nts: Day #1Reason for Laboratory Test Performed By: #### L 100.0500 ####[facility] [address] [place], [address] RDW SD 42.5 fl Normal 35.1-43.9 [facility] Comment on above: Order Comment: Comme nts: Day #1Reason for Laboratory Test Performed By: #### L 100.0500 ####[facility] [address] [place], [place], [address] WBC (Bld) [#/Vol] 10.9 10*3/uL Normal 4.4-11.0 [facility] Comment on above: Order Comment: Comme nts: Day #1Reason for Laboratory Test Performed By: #### L 100.0500 ####[facility] [address] [place], [address] Determination of erythrocyte mean corpuscular volume (MCV)Ordered By: Priscilla Espitia on 09-10-2023 MCV (RBC) [Entitic vol] 81.7 fL 81-99 [facility] Discharge Instructionon 08-20 Discharge Instruction [facility] Medical Records Department [address] [place] [address] Instructions for Home/Discharge Instructions 09/10/23 0810 MR#: [id number] Acct: [id number] Name: TERESA CERON V Rep #: [id number] : 2000 23 From: Feli Nichols CNM PCP: Care Physician,No Primary Status:ADM IN Discharge [...] CC: No Primary Care Physician Signed Normal [facility] Erythrocyte distribution wid th ratioOrdered By: Priscilla Espitia on 09-10-2023 Erythrocyte distribution width (RBC) [Ratio] 14.9 % 11.6-14.6 [facility] Erythrocyte distribution wid th standard deviationOrdered By: Priscilla Espitia on 09-10-2023 Erythrocyte distribution width (RBC) [Entitic vol] 42.5 fL 35.1-43.9 [facility] Hematocrit Auto (Bld) [Volum e fraction]Ordered By: Priscilla Espitia on 09-10-2023 Hematocrit (Bld) [Volume fraction] 28.1 % 37-47 [facility] Laboratory - Hematology and Cell countsOrdered By: Priscilla Espitia on 09-10-2023 MCH (RBC) [Entitic mass] 26.2 pg 27.0-32.0 [facility] MCHC (RBC) [Mass/Vol] 32.0 g/dL 32-36 [facility] Platelets (Bld) [#/Vol] 140 10*3/uL 150-450 [facility] Platelet mean volume Jonny-Ec ker (Bld) [Entitic vol]Ordered By: Priscilla Espitia on 09-10-2023 Platelet mean volume (Bld) [Entitic vol] 10.3 fL 6.2-12.0 [facility] RBC Auto (Bld) [#/Vol]Ordere d By: Priscilla Espitia on 09-10-2023 RBC (Bld) [#/Vol] 3.44 10*6/uL 4.2-5.4 [facility] Absolute lymphocyte countOrd ered By: Priscilla Espitia on 09-09-2023 Lymphocytes Auto (Unsp spec) [#/Vol] 2.33 10*3/uL 0.83-4.51 [facility] Automated lymphocyte count a s percentage of total leukocytesOrdered By: Priscilla Espitia on 09-09-2023 Lymphocytes/100 WBC Auto (Unsp spec) 20.9 % 19-41 [facility] Basophil percentageOrdered B y: Priscilla Espitia on 09-09-2023 Basophils/100 WBC (Bld) 0.6 % 0-1 [facility] Eosinophils/100 WBC (Bld) 0.8 % 0-5 [facility] Monocytes/100 WBC (Bld) 7.3 % 0-10 [facility] Neutrophils (Bld) [#/Vol] 7.6 10*3/uL 2.0-7.7 [facility] Neutrophils/100 WBC (Bld) 68.5 % 47-70 [facility] CBC W/Diff, Automatedon 08-20 Absolute Lymph 2.33 X10 3/uL Normal 0.83-4.51 [facility] Comment on above: Performed By: #### Jame TS, L100.0100 #### [facility] [address] [place], [address] Absolute Neut 7.6 X10 3/uL Normal 2.0-7.7 [facility] Comment on above: Performed By: #### Jame TS, L100.0100 #### [facility] [address] [place], [address] Basophils/100 WBC (Bld) 0.6 % Normal 0-1 [facility] Comment on above: Performed By: #### Jame TS, L100.0100 #### [facility] [address] [place], [address] Eosinophils/100 WBC (Bld) 0.8 % Normal 0-5 [facility] Comment on above: Performed By: #### Jame TS, L100.0100 #### [facility] [address] [place], [address] Erythrocyte distribution width (RBC) [Ratio] 14.6 % Normal 11.6-14.6 [facility] Comment on above: Performed By: #### Jame WOO, L100.0100 #### [facility] [address] [place], [address] Hematocrit (Bld) [Volume fraction] 32.9 % Low 37-47 [facility] Comment on above: Performed By: #### Jame WOO, L100.0100 #### [facility] [address] [place], [address] Hemoglobin (Bld) [Mass/Vol] 10.6 g/dL Low 12.0-15.0 [facility] Comment on above: Performed By: #### Jame WOO, L100.0100 #### [facility] [address] [facility] [place], [address] IG% 1.900 High 0.0-0.9 [facility] Comment on above: Result Comment: IG% - Immature Granulocytes (promyelocytes, myelocytes and metamyelocytes) > 1% indicates that a LEFT SHIFT is Present. Performed By: #### Jame WOO, L100.0100 #### [facility] [address] [place], [address] Lymphocytes/100 WBC (Bld) 20.9 % Normal 19-41 [facility] Comment on above: Performed By: #### Jame WOO, L100.0100 #### [facility] [address] [place], [address] MCH (RBC) [Entitic mass] 25.9 pg Low 27.0-32.0 [facility] Comment on above: Performed By: #### Jame WOO, L100.0100 #### [facility] [address] [place], [address] MCHC (RBC) [Mass/Vol] 32.2 g/dL Normal 32-36 [facility] Comment on above: Performed By: #### Jame WOO, L100.0100 #### [facility] [address] [place], [address] MCV (RBC) [Entitic vol] 80.4 fL Low 81-99 [facility] Comment on above: Performed By: #### Jame WOO, L100.0100 #### [facility] [address] [place], [address] Monocytes/100 WBC (Bld) 7.3 % Normal 0-10 [facility] Comment on above: Performed By: #### Jame WOO, L100.0100 #### [facility] [address] [place], [address] Neutrophils/100 WBC (Bld) 68.5 % Normal 47-70 [facility] Comment on above: Performed By: #### Jame WOO, L100.0100 #### [facility] [address] [place], [address] Nucleated RBC (Bld) [#/Vol] 0 10*3/uL Normal 0-5 [facility] Comment on above: Performed By: #### Jame WOO, L100.0100 #### [facility] [address] [place], [address] Platelet mean volume (Bld) [Entitic vol] 10.6 fL Normal 6.2-12.0 [facility] Comment on above: Performed By: #### Jame WOO, L100.0100 #### [facility] [address] [place], [address] Platelets (Bld) [#/Vol] 185 10*3/uL Normal 150-450 [facility] Comment on above: Performed By: #### Jame WOO, L100.0100 #### [facility] [address] [place], [address] RBC (Bld) [#/Vol] 4.09 10*6/uL Low 4.2-5.4 [facility] Comment on above: Performed By: #### B TS, L100.0100 #### [facility] [address] [place], [address] RDW SD 41.6 fl Normal 35.1-43.9 [facility] Comment on above: Performed By: #### B TS, L100.0100 #### [facility] [address] [place], [address] WBC (Bld) [#/Vol] 11.2 10*3/uL High 4.4-11.0 [facility] Comment on above: Performed By: #### B TS, L100.0100 #### [facility] [address] [place], [address] Discharge Instructionon 08-20 Discharge Instruction [facility] Medical Records Department [address] [place] [address] Instructions for Home/Discharge Instructions 09/09/23 0722 MR#: [id number] Acct: [id number] Name: TERESA CERON V Rep #: [id number] : 2000 23 From: Priscilla Moore DO [...] Up With: Priscilla Moore DO When: Call [phone] to make an appointment for an incision [...] DO CC: No Primary Care Physician Signed [facility] H AND P Exam - OB/GYNon 08-20 H&P Exam - TELLERS SUPERVISOR [facility] Medical Records Department [address] [place] [address] H P Exam - TELLERS SUPERVISOR 09/09/23720 MR#: [id number] Acct: [id number] Name: TERESA CERON V Rep #: [id number] : 2000 23 From: Priscilla Moore DO PCP: Care Physician,No Primary Status:ADM IN Location: [place] [address] HPI - General General Date of Admission: 09/09/23 HPI Narrative TERESA CERON, is a 23 y/o @ 39 weeks 2 days who presents to [facility] for a repeat section Maternal Data Information VILMA Calculator Estimated Delivery Date Method Current WG Current Estimate 09/14/23 Manual 39w 2d per [facility] records [facility] Medical History Depression Home Medications docusate sodium [...] house 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 -???-???-???-???-??? -???-???- KW-Transfer from [place], had all appts until 20 weeks with [...] Negative 155 35 -???-???-???-???-??? -???-???-???-???-??? 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 good fm. discussed feeding plan. wants to pump not breastfeed. gbs next visit. 01/02/24 -???-???-???-???-??? -???-???-???-???-??? -???-???- 36w 3d 230 lb 6 oz Negative -???-???-???-???-??? -???-???-???-???-??? -???-???- Negative 150 36 -???-???-???-???-??? -?? (more content not included)... [facility] [facility] Immature granulocytes/100 WB C Auto (Bld)Ordered By: Priscilla Espitia on 09-09-2023 Immature granulocytes/100 WBC (Bld) 1.900 % 0.0-0.9 [facility] Comment on above: IG% - Immature Granu locytes (promyelocytes, myelocytes and metamyelocytes) > 1% indicates that a LEFT SHIFT is Present. L509.8000on 09-09-2023 Syphilis Abs Non-Reactive Normal [facility] Comment on above: Performed By: #### L 509.8000 #### [facility] [address] [place], [address] Laboratory - Hematology and Cell countsOrdered By: Priscilla Espitia on 09-09-2023 Nucleated RBC/100 WBC (Bld) [Ratio] 0 % 0-5 [facility] M8200.2100on 09-09-2023 M8200.2100 Normal Reference Range = Negative Chlamydia Trachomatis PCR GeneXpert Instrument, PCR method Chlamydia Trachomatis PCR Negative Normal [facility] Comment on above: Performed By: #### M 8200.2200, M8200.2100 ####[facility] [address] [facility]. [place], [place], [address] M8200.2200on 09-09-2023 M8200.2200 Normal Reference Range = Negative N gonorrhoea DNA Genital Ql JUSTIN+probe GeneXpert Instrument, PCR method N. gonorrhoeae PCR Negative Normal [facility] Comment on above: Performed By: #### M 8200.2200, M8200.2100 ####[facility] [address] [place], [address] Neisseria gonorrhoeae genita l PCROrdered By: Ruth Will on 09-09-2023 N. gonorrhoeae DNA JUSTIN+probe Ql (Genital specimen) [facility] No Panel InformationOrdered By: Ruth Will on 09-09-2023 Chlamydia trachomatis (PCR) [facility] Operative Reporton 4 Operative Report [facility] Medical Records Department [address] [place] [address] Operative Report 09/09/23 0834 MR#: [id number] Acct: [id number] Name: TERESA CERON V Rep #: [id number] : 2000 23 From: Priscilla Moore DO PCP: Care Physician,No Primary Status:ADM IN Location: [place] [address] Assessment Plan (1) Obesity affecting : COMMENT: [...] Current Estimate 09/14/23 Manual 39w 2d per [facility] records Final [facility] Source: LMP Details Operative Information Date of Procedure: 09/09/23 Pre-Operative Diagnosis: 23 y/o @ 39 weeks 2 days, prior section, desires repeat section Post-Operative Diagnosis: 23 y/o @ 39 weeks 2 days, prior section, desires repeat section Indications for : Repeat Elective Classification: Scheduled Procedure Type: low transverse setter out #1: Daniel Prince Type of Anesthesia: Spinal [...] Vessel Description: 3 Vessels Cord Entanglement: None A Gender: Male (1 minute): 9 (5 minute): 9 Delayed Cord Clamping: Yes Complications Risks of Surgery Discussed w/Patient: Bleeding, Anesthesia Risks, Infection, Need for Future C- Sections and Injury to surrounding structure(s) including bowel and bladder Complications: none Multi Select Codes Urinary/Genital Urinary/Genital CPT Codes: 42586 Delivery global pkg 09/09/23 0841 Cosigner Signature (if applicable): CC: Dr. Priscilla Moore, ; No Primary Care Physician Signed Normal [facility] Serum Treponema species anti body detectionOrdered By: Priscilla Espitia on 09-09-2023 Treponema sp Ab Ql (S) Non-Reactive [facility] Type AND Screenon 09-09-2023 Ab SCREEN GEL Negative Normal [facility] Comment on above: Order Comment: S Performed By: #### B TS, L100.0100 #### [facility] [address] [place], [address] ABO and Rh group Nom (Bld) Blood group O Rh(D) positive [facility] Comment on above: Order Comment: S Performed By: #### B TS, L100.0100 #### [facility] [address] [place], [address] Laboratory - Chemistry and C hemistry - challengeon 09-06-2023 Glucose Ql (U) Negative [facility] Laboratory - Urinalysison Protein Ql (U) Negative [facility] Print Line Tailer Office Visit Reporton 09-06-2023 Print Line Tailer Office Visit Report [facility] [address] [place] [address] OFFICE VISIT Date of Service: 09/06/23 MR#: [id number] Acct: [id number] Name: TERESA CERON V Rep #: [id number] : 2000 Provider: Dr. 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 -???-???-???-???-??? -???-???- KW-Transfer from [place], had all appts until 20 weeks with [...] Negative 155 35 -???-???-???-???-??? -???-???-???-???-??? 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 good fm. discussed (more content not included)... Normal [facility] Laboratory - Chemistry and C hemistry - challengeon 08-27-2023 Glucose Ql (U) Negative [facility] Laboratory - Urinalysison Protein Ql (U) Negative [facility] Print Line Tailer Office Visit Reporton 08-27-2023 Print Line Tailer Office Visit Report [facility] Emergency Department [address] [place] [address]. 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 OB Visit [facility] Calculator Estimated Delivery Date Method Current Current Estimate 09/14/23 Manual 37w 3d [facility] Expected Delivery Route/Plan desires repeat C/S [...] Negative 140 -???-???-???-???-??? -???-???-???-???-??? -???-???- KW-Transfer from [place], had all appts until 20 weeks with [...] Negative 155 35 -???-???-???-???-??? -???-???-???-???-??? 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 good fm. discussed feeding plan. wants to pump not breastfeed. gbs (more content not included)... Normal [facility] Rule out Beta Strep (Grp. B) on 08-22-2023 JACQUELINE Group B Beta Streptococcus is not isolated. [facility] Comment on above: Performed By: #### L 8200.0000, M100.3400 #### [facility] [address] [place], [address] Group B Strep DNA By PCRon 0 08-20-2023 GBS DNA ASSAY Normal Negative [facility] Comment on above: Order Comment: Vagin al-Rectal Result Comment: ORDE R ERROR Performed By: #### L 8200.0000, M100.3400 #### [facility] [address] [place], [address] IC [facility] Comment on above: Order Comment: Vagin al-Rectal Result Comment: ORDE R ERROR Performed By: #### L 8200.0000, M100.3400 #### [facility] [address] [place], [address] PROBE CHECK [facility] Comment on above: Order Comment: Vagin al-Rectal Result Comment: ORDE R ERROR Performed By: #### L 8200.0000, M100.3400 #### [facility] [address] [place], [address] SPC Normal [facility] Comment on above: Order Comment: Vagin al-Rectal Result Comment: ORDE R ERROR Performed By: #### L 8200.0000, M100.3400 #### [facility] [address] [place], [address] SWAB TYPE IS: Normal [facility] Comment on above: Order Comment: Vagin al-Rectal Result Comment: ORDE R ERROR Performed By: #### L 8200.0000, M100.3400 #### [facility] [address] [place], [address] Laboratory - Chemistry and C hemistry - challengeon 08-20-2023 Glucose Ql (U) Negative [facility] Laboratory - Urinalysison Protein Ql (U) Negative [facility] No Panel InformationOrdered By: Feli Nichols on 08-20-2023 Group B Streptococcus Culture Group B Beta Streptococcus is not isolated. [facility] Group B Streptococcus Culture Group B Beta Streptococcus is not isolated. [facility] Print Line Tailer Office Visit Reporton 08-20-2023 Print Line Tailer Office Visit Report [facility] 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 -???-???-???-???-??? -???-???- KW-Transfer from [place], had all appts until 20 weeks with [...] Negative 155 35 -???-???-???-???-??? -???-???-???-???-??? 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 good fm. discussed feeding plan. wants to pump not breastfeed. gbs next visit. (more content not included)... Normal [facility] Laboratory - Chemistry and C hemistry - challengeon 08-06-2023 Glucose Ql (U) Negative [facility] Laboratory - Urinalysison Protein Ql (U) Negative [facility] Print Line Tailer Office Visit Reporton 08-06-2023 Print Line Tailer Office Visit Report [facility] 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 -???-???-???-???-??? -???-???- KW-Transfer from [place], had all appts until 20 weeks with [...] -???-???- 155 35 -???-???-???-???-??? -???-???-???-???-??? 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 good fm. discussed infant feeding plan. wants to pump not breastfeed. gbs next visit. ACOG First Trimester (more content not included)... Normal [facility] Laboratory - Chemistry and C hemistry - challengeon 07-23-2023 Glucose Ql (U) Negative [facility] Laboratory - Urinalysison Protein Ql (U) Negative [facility] Print Line Tailer Office Visit Reporton 07-23-2023 Print Line Tailer Office Visit Report [facility] Emergency Department [address] [place] [address] OFFICE VISIT Date of Service: 07/23/23 MR#: [id number] Acct: [id number] Name: TERESA CERON V Rep #: [id number] : 2000 Provider: Dr. 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 -???-???-???-???-??? -???-???- KW-Transfer from [place], had all appts until 20 weeks with [...] use, Chil (more content not included)... Normal [facility] Laboratory - Chemistry and C hemistry - challengeon 07-08-2023 Glucose Ql (U) Negative [facility] Laboratory - Urinalysison Protein Ql (U) Negative [facility] Print Line Tailer Office Visit Reporton 07-08-2023 Print Line Tailer Office Visit Report [facility] Department [address] [place] [address]. [address] [place] [address] OFFICE VISIT Date of Service: 07/08/23 MR#: [id number] Acct: [id number] Name: TERESA CERON V Rep #: [id number] : 2000 Provider: Dr. 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 -???-???-???-???-??? -???-???- KW-Transfer from [place], had all appts until 20 weeks with [...] Discussed Environmenta (more content not included)... Normal [facility] Absolute lymphocyte countOrd ered By: Feli Nichols on 06-18-2023 Lymphocytes Auto (Unsp spec) [#/Vol] 1.55 10*3/uL 0.83-4.51 [facility] Basophil percentageOrdered B y: Feli Nichols on 06-18-2023 Basophils/100 WBC (Bld) 0.4 % 0-1 [facility] Eosinophils/100 WBC (Bld) 0.6 % 0-5 [facility] Neutrophils (Bld) [#/Vol] 7.7 10*3/uL 2.0-7.7 [facility] Neutrophils/100 WBC (Bld) 78.3 % 47-70 [facility] WBC (Bld) [#/Vol] 9.8 10*3/uL 4.4-11.0 [facility] Blood erythrocytes count (nu mber/volume)Ordered By: Feli Nichols on 06-18-2023 RBC (Bld) [#/Vol] 4.16 10*6/uL 4.2-5.4 [facility] Blood hemoglobin measurement (mass/volume)Ordered By: Feli Nichols on 06-18-2023 Hemoglobin (Bld) [Mass/Vol] 11.9 g/dL 12.0-15.0 [facility] Blood lymphocytes/100 leukoc ytesOrdered By: Feli Nichols on 06-18-2023 Lymphocytes/100 WBC (Bld) 15.8 % 19-41 [facility] Blood monocytes/100 leukocyt esOrdered By: Feli Nichols on 06-18-2023 Monocytes/100 WBC (Bld) 3.8 % 0-10 [facility] Blood platelet mean volumeOr dered By: Feli Nichols on 06-18-2023 Platelet mean volume (Bld) [Entitic vol] 10.4 fL 6.2-12.0 [facility] CBC W/Diff, Automatedon 05-21 Absolute Lymph 1.55 X10 3/uL Normal 0.83-4.51 [facility] Comment on above: Performed By: #### L 100.0100, L3890.6005, L500.4710, L509.8000 ####[facility] [address] [place], [address] Absolute Neut 7.7 X10 3/uL Normal 2.0-7.7 [facility] Comment on above: Performed By: #### L 100.0100, L3890.6005, L500.4710, L509.8000 ####[facility] [address] [place], [address] Basophils/100 WBC (Bld) 0.4 % Normal 0-1 [facility] Comment on above: Performed By: #### L 100.0100, L3890.6005, L500.4710, L509.8000 ####[facility] [address] [place], [address] Eosinophils/100 WBC (Bld) 0.6 % Normal 0-5 [facility] Comment on above: Performed By: #### L 100.0100, L3890.6005, L500.4710, L509.8000 ####[facility] [address] [place], [address] Erythrocyte distribution width (RBC) [Ratio] 14.0 % Normal 11.6-14.6 [facility] Comment on above: Performed By: #### L 100.0100, L3890.6005, L500.4710, L509.8000 ####[facility] [address] [place], [address] Hematocrit (Bld) [Volume fraction] 35.2 % Low 37-47 [facility] Comment on above: Performed By: #### L 100.0100, L3890.6005, L500.4710, L509.8000 ####[facility] [address] [place], [address] Hemoglobin (Bld) [Mass/Vol] 11.9 g/dL Low 12.0-15.0 [facility] Comment on above: Performed By: #### L 100.0100, L3890.6005, L500.4710, L509.8000 ####[facility] [address] [place], [address] IG% 1.100 High 0.0-0.9 [facility] Comment on above: Result Comment: IG% - Immature Granulocytes (promyelocytes, myelocytes and metamyelocytes) > 1% indicates that a LEFT SHIFT is Present. Performed By: #### L 100.0100, L3890.6005, L500.4710, L509.8000 ####[facility] [address] [place], [address] Lymphocytes/100 WBC (Bld) 15.8 % Low 19-41 [facility] Comment on above: Performed By: #### L 100.0100, L3890.6005, L500.4710, L509.8000 ####[facility] [address] [place], [address] MCH (RBC) [Entitic mass] 28.6 pg Normal 27.0-32.0 [facility] Comment on above: Performed By: #### L 100.0100, L3890.6005, L500.4710, L509.8000 ####[facility] [address] [place], [address] MCHC (RBC) [Mass/Vol] 33.8 g/dL Normal 32-36 [facility] Comment on above: Performed By: #### L 100.0100, L3890.6005, L500.4710, L509.8000 ####[facility] [address] [place], [address] MCV (RBC) [Entitic vol] 84.6 fL Normal 81-99 [facility] Comment on above: Performed By: #### L 100.0100, L3890.6005, L500.4710, L509.8000 ####[facility] [address] [place], [address] Monocytes/100 WBC (Bld) 3.8 % Normal 0-10 [facility] Comment on above: Performed By: #### L 100.0100, L3890.6005, L500.4710, L509.8000 ####[facility] [address] [place], [address] Neutrophils/100 WBC (Bld) 78.3 % High 47-70 [facility] Comment on above: Performed By: #### L 100.0100, L3890.6005, L500.4710, L509.8000 ####[facility] [address] [place], [address] Nucleated RBC (Bld) [#/Vol] 0 10*3/uL Normal 0-5 [facility] Comment on above: Performed By: #### L 100.0100, L3890.6005, L500.4710, L509.8000 ####[facility] [address] [place], [address] Platelet mean volume (Bld) [Entitic vol] 10.4 fL Normal 6.2-12.0 [facility] Comment on above: Performed By: #### L 100.0100, L3890.6005, L500.4710, L509.8000 ####[facility] [address] [place], [address] Platelets (Bld) [#/Vol] 209 10*3/uL Normal 150-450 [facility] Comment on above: Performed By: #### L 100.0100, L3890.6005, L500.4710, L509.8000 ####[facility] [address] [place], [address] RBC (Bld) [#/Vol] 4.16 10*6/uL Low 4.2-5.4 [facility] Comment on above: Performed By: #### L 100.0100, L3890.6005, L500.4710, L509.8000 ####[facility] [address] [place], [address] RDW SD 42.8 fl Normal 35.1-43.9 [facility] Comment on above: Performed By: #### L 100.0100, L3890.6005, L500.4710, L509.8000 ####[facility] [address] [place], [address] WBC (Bld) [#/Vol] 9.8 10*3/uL Normal 4.4-11.0 [facility] Comment on above: Performed By: #### L 100.0100, L3890.6005, L500.4710, L509.8000 ####[facility] [address] [place], [address] Determination of erythrocyte mean corpuscular volume (MCV)Ordered By: Feli Nichols on 06-18-2023 MCV (RBC) [Entitic vol] 84.6 fL 81-99 [facility] Gestational GTT 3HR 100gon 1 3HR GTT- GEST. Normal [facility] Comment on above: Order Comment: Y [...] By: #### L 100.0100, L3890.6005, L500.4710, L509.8000 ####[facility] [address] [place], [address] HIV - WCHon 06-18-2023 HIV Non-Reactive Normal Nonreactive [facility] Comment on above: Performed By: #### L 100.0100, L3890.6005, L500.4710, L509.8000 ####[facility] [address] [place], [address] HIV 1 and HIV-2 antibody ass ay with HIV-1 p24 antigen detectionOrdered By: Feli Nichols on 06-18-2023 HIV 1+2 Ab+HIV1 p24 Ag IA Ql Non-Reactive Nonreactive [facility] Hematocrit Auto (Bld) [Volum e fraction]Ordered By: Feli Nichols on 06-18-2023 Hematocrit (Bld) [Volume fraction] 35.2 % 37-47 [facility] L509.8000on 06-18-2023 Syphilis Abs Non-Reactive Normal [facility] Comment on above: Performed By: #### L 100.0100, L3890.6005, L500.4710, L509.8000 ####[facility] [address] [place], [address] Laboratory - Chemistry and C hemistry - challengeon 06-18-2023 Glucose Ql (U) Negative [facility] Laboratory - Hematology and Cell countsOrdered By: Feli Nichols on 06-18-2023 Erythrocyte distribution width (RBC) [Entitic vol] 42.8 fL 35.1-43.9 [facility] Erythrocyte distribution width (RBC) [Ratio] 14.0 % 11.6-14.6 [facility] Immature granulocytes/100 WBC (Bld) 1.100 % 0.0-0.9 [facility] Comment on above: IG% - Immature Granu locytes (promyelocytes, myelocytes and metamyelocytes) > 1% indicates that a LEFT SHIFT is Present. MCH (RBC) [Entitic mass] 28.6 pg 27.0-32.0 [facility] Nucleated RBC/100 WBC (Bld) [Ratio] 0 % 0-5 [facility] Laboratory - Urinalysison Protein Ql (U) Negative [facility] MCHC Auto (RBC) [Mass/Vol]Or dered By: Feli Nichols on 06-18-2023 MCHC (RBC) [Mass/Vol] 33.8 g/dL 32-36 [facility] Print Line Tailer Office Visit Reporton 06-18-2023 Print Line Tailer Office Visit Report [facility] Emergency Department [address] [place], [place] [address] OFFICE VISIT Date of Service: 06/18/23 MR#: [id number] Acct: [id number] Name: TERESA CERON V Rep #: [id number] : 2000 Provider: BETH Suarez ams Age/Sex: 22/F Location[place] [facility] [place] Status: Signed Intake Vital Signs 05/28/23 13:24 06/18/23 13:14 06/18/23 13:15 Height 5 ft 2 in 5 ft 2 in 5 ft 2 in Weight: 222 lb 6 oz BMI 40.6 BP 115/81 H Intake Visit Reasons: 27 WK OB / 3 HR GLUCOSE in the AM Civil Lawyer Required: No Is patient in pain?: No [...] 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 -???-???-???-???-??? -???-???- KW-Transfer from [facility], had all appts until 20 weeks with [...] Discussed Tobacco (more content not included)... Normal [facility] Platelets bldOrdered By: Yao Nichols on 06-18-2023 Platelets (Bld) [#/Vol] 209 10*3/uL 150-450 [facility] Quantitative serum or plasma 3 hour gestational glucose tolerance panelOrdered By: Feli Nichols on 06-18-2023 Glucose tolerance 3 hours gestational panel See comment [facility] Comment on above: FASTING 79 Col: [...] 06-18-2023 Treponema sp Ab Ql (S) Non-Reactive [facility] Laboratory - Chemistry and C hemistry - challengeon 05-28-2023 Glucose Ql (U) Negative [facility] - Urinalysison Protein Ql (U) Negative [facility] Print Line Tailer Office Visit Reporton 05-28-2023 Print Line Tailer Office Visit Report [facility] [address] [place] [address] OFFICE VISIT Date of Service: 05/28/23 MR#: [id number] Acct: [id number] Name: TERESA CERON V Rep #: [id number] : 2000 Provider: BETH Suarez ams Age/Sex: 22/F Location[place] [facility] [place]: Signed Intake Vital Signs 08/17/20 07:59 05/28/23 13:22 05/28/23 13:24 Height 5 ft 2 in 5 ft 2 in 5 ft 2 in Weight: 219 lb BMI 40.0 BP 114/81 H Intake Visit Reasons: transfer from [facility] 09/14 Civil Lawyer Required: No Is patient in pain?: No [...] Baby with cleft palate HPI transfer from [facility] 09/14 Details: TERESA CERON is a 22 year old who presents for routine OB visit. OB Visit [facility] Calculator Estimated Delivery Date Method Current Current Estimate 09/14/23 Manual 24w 3d per [facility] records Comments: HIV: Urine Culture: Sequential Screen: [...] Negative 140 -???-???-???-???-??? -???-???-???-???-??? -???-???- KW-Transfer from [facility], had all appts until 20 weeks with [...] Immediate Larc, Signs and Symptoms of Preeclampsia, Feeding Yes , Edu (more content not included)... Normal [facility] V-Zoster IgG (Immunity)on V ZOSTER IgG < 135 Low Immune >165 [facility] Comment on above: Result Comment: Nega tive <135 Equivocal 135 - 165 Positive >165 A positive result generally indicates exposure to the pathogen or administration of specific immunoglobulins, but it is not indication of active infection or stage of disease. Performed at: [facility] [address] [id number] Machine Stripper: Haris Flores PhD, Phone: [phone] Performed By: #### L 3400.0000, M100.2200, L3890.6300, L509.8000, L509.4005, BPNTSNC, L3890.6100, L100.0100, L3890.6005 ####[facility] [address] [place], [place], [id number] Urine Cultureon 01-23-2023 URC Mixed Gram Positive Organisms [place] Count 1000-10,000 MIXC Mixed contaminants. Submit a new specimen if indicated. Normal [facility] Comment on above: Performed By: #### L 3400.0000, M100.2200, L3890.6300, L509.8000, L509.4005, BPNTSNC, L3890.6100, L100.0100, L3890.6005 ####[facility] [address] [place], [place], [id number] CBC W/Diff, Automatedon Absolute Lymph 1.61 X10 3/uL Normal 0.83-4.51 [facility] Comment on above: Performed By: #### L 3400.0000, M100.2200, L3890.6300, L509.8000, L509.4005, BPNTSNC, L3890.6100, L100.0100, L3890.6005 ####[facility] [address] [place], [place], [id number] Absolute Neut 6.1 X10 3/uL Normal 2.0-7.7 [facility] Comment on above: Performed By: #### L 3400.0000, M100.2200, L3890.6300, L509.8000, L509.4005, BPNTSNC, L3890.6100, L100.0100, L3890.6005 ####[facility] [address] [place], [address] Basophils/100 WBC (Bld) 0.5 % Normal 0-1 [facility] Comment on above: Performed By: #### L 3400.0000, M100.2200, L3890.6300, L509.8000, L509.4005, BPNTSNC, L3890.6100, L100.0100, L3890.6005 ####[facility] [address] [place], [address] Eosinophils/100 WBC (Bld) 0.2 % Normal 0-5 [facility] Comment on above: Performed By: #### L 3400.0000, M100.2200, L3890.6300, L509.8000, L509.4005, BPNTSNC, L3890.6100, L100.0100, L3890.6005 ####[facility] [address] [place], [address] Erythrocyte distribution width (RBC) [Ratio] 14.0 % Normal 11.6-14.6 [facility] Comment on above: Performed By: #### L 3400.0000, M100.2200, L3890.6300, L509.8000, L509.4005, BPNTSNC, L3890.6100, L100.0100, L3890.6005 ####[facility] [address] [place], [address] Hematocrit (Bld) [Volume fraction] 40.1 % Normal 37-47 [facility] Comment on above: Performed By: #### L 3400.0000, M100.2200, L3890.6300, L509.8000, L509.4005, BPNTSNC, L3890.6100, L100.0100, L3890.6005 ####[facility] [address] [place], [address] Hemoglobin (Bld) [Mass/Vol] 13.2 g/dL Normal 12.0-15.0 [facility] Comment on above: Performed By: #### L 3400.0000, M100.2200, L3890.6300, L509.8000, L509.4005, BPNTSNC, L3890.6100, L100.0100, L3890.6005 ####[facility] [address] [place], [address] IG% 0.400 Normal 0.0-0.9 [facility] Comment on above: Result Comment: IG% - Immature Granulocytes (promyelocytes, myelocytes and metamyelocytes) > 1% indicates that a LEFT SHIFT is Present. Performed By: #### L 3400.0000, M100.2200, L3890.6300, L509.8000, L509.4005, BPNTSNC, L3890.6100, L100.0100, L3890.6005 ####[facility] [address] [place], [address] Lymphocytes/100 WBC (Bld) 19.1 % Normal 19-41 [facility] Comment on above: Performed By: #### L 3400.0000, M100.2200, L3890.6300, L509.8000, L509.4005, BPNTSNC, L3890.6100, L100.0100, L3890.6005 ####[facility] [address] [place], [address] MCH (RBC) [Entitic mass] 27.1 pg Normal 27.0-32.0 [facility] Comment on above: Performed By: #### L 3400.0000, M100.2200, L3890.6300, L509.8000, L509.4005, BPNTSNC, L3890.6100, L100.0100, L3890.6005 ####[facility] [address] [place], [address] MCHC (RBC) [Mass/Vol] 32.9 g/dL Normal 32-36 [facility] Comment on above: Performed By: #### L 3400.0000, M100.2200, L3890.6300, L509.8000, L509.4005, BPNTSNC, L3890.6100, L100.0100, L3890.6005 ####[facility] [address] [place], [address] MCV (RBC) [Entitic vol] 82.3 fL Normal 81-99 [facility] Comment on above: Performed By: #### L 3400.0000, M100.2200, L3890.6300, L509.8000, L509.4005, BPNTSNC, L3890.6100, L100.0100, L3890.6005 ####[facility] [address] [place], [address] Monocytes/100 WBC (Bld) 7.0 % Normal 0-10 [facility] Comment on above: Performed By: #### L 3400.0000, M100.2200, L3890.6300, L509.8000, L509.4005, BPNTSNC, L3890.6100, L100.0100, L3890.6005 ####[facility] [address] [place], [address] Neutrophils/100 WBC (Bld) 72.8 % High 47-70 [facility] Comment on above: Performed By: #### L 3400.0000, M100.2200, L3890.6300, L509.8000, L509.4005, BPNTSNC, L3890.6100, L100.0100, L3890.6005 ####[facility] [address] [place], [address] Nucleated RBC (Bld) [#/Vol] 0 10*3/uL Normal 0-5 [facility] Comment on above: Performed By: #### L 3400.0000, M100.2200, L3890.6300, L509.8000, L509.4005, BPNTSNC, L3890.6100, L100.0100, L3890.6005 ####[facility] [address] [place], [address] Platelet mean volume (Bld) [Entitic vol] 10.7 fL Normal 6.2-12.0 [facility] Comment on above: Performed By: #### L 3400.0000, M100.2200, L3890.6300, L509.8000, L509.4005, BPNTSNC, L3890.6100, L100.0100, L3890.6005 ####[facility] [address] [place], [address] Platelets (Bld) [#/Vol] 256 10*3/uL Normal 150-450 [facility] Comment on above: Performed By: #### L 3400.0000, M100.2200, L3890.6300, L509.8000, L509.4005, BPNTSNC, L3890.6100, L100.0100, L3890.6005 ####[facility] [address] [facility] [place], [address] RBC (Bld) [#/Vol] 4.87 10*6/uL Normal 4.2-5.4 [facility] Comment on above: Performed By: #### L 3400.0000, M100.2200, L3890.6300, L509.8000, L509.4005, BPNTSNC, L3890.6100, L100.0100, L3890.6005 ####[facility] [address] [place], [address] RDW SD 41.2 fl Normal 35.1-43.9 [facility] Comment on above: Performed By: #### L 3400.0000, M100.2200, L3890.6300, L509.8000, L509.4005, BPNTSNC, L3890.6100, L100.0100, L3890.6005 ####[facility] [address] [place], [address] WBC (Bld) [#/Vol] 8.4 10*3/uL Normal 4.4-11.0 [facility] Comment on above: Performed By: #### L 3400.0000, M100.2200, L3890.6300, L509.8000, L509.4005, BPNTSNC, L3890.6100, L100.0100, L3890.6005 ####[facility] [address] [place], [address] HIV - WCHon 01-22-2023 HIV Non-Reactive Normal Nonreactive [facility] Comment on above: Performed By: #### L 3400.0000, M100.2200, L3890.6300, L509.8000, L509.4005, BPNTSNC, L3890.6100, L100.0100, L3890.6005 ####[facility] [address] [place], [address] Hepatitis B Surface Antigeno n 01-22-2023 HEP B Surf Ag Non-Reactive Normal Nonreactive [facility] Comment on above: Performed By: #### L 3400.0000, M100.2200, L3890.6300, L509.8000, L509.4005, BPNTSNC, L3890.6100, L100.0100, L3890.6005 ####[facility] [address] [place], [address] Hepatitis C Antibodyon 01-22 Hepatitis C Ab Non-Reactive Normal Nonreactive [facility] Comment on above: Result Comment: Non Reactive: < 0.8 Equivocal: >/= 0.8 to < 1.0 Reactive: >/= 1.0 The CDC recommends that a reactive/equivocal HCV antibody result be followed up by the HCV Nucleic Acid Amplification test (089923) Performed By: #### L 3400.0000, M100.2200, L3890.6300, L509.8000, L509.4005, BPNTSNC, L3890.6100, L100.0100, L3890.6005 ####[facility] [address] [place], [place], [id number] L509.8000on 01-22-2023 Syphilis Abs Non-Reactive Normal [facility] Comment on above: Performed By: #### L 3400.0000, M100.2200, L3890.6300, L509.8000, L509.4005, BPNTSNC, L3890.6100, L100.0100, L3890.6005 ####[facility] [address] [place], [address] T AND S-No Charge w /PNPon 01-22-2023 Ab SCREEN GEL Negative Normal [facility] Comment on above: Order Comment: PNN Performed By: #### L 3400.0000, M100.2200, L3890.6300, L509.8000, L509.4005, BPNTSNC, L3890.6100, L100.0100, L3890.6005 ####[facility] [address] [place], [address] ABO and Rh group Nom (Bld) Blood group O Rh(D) positive Normal [facility] Comment on above: Order Comment: PNN Performed By: #### L 3400.0000, M100.2200, L3890.6300, L509.8000, L509.4005, BPNTSNC, L3890.6100, L100.0100, L3890.6005 ####[facility] [address] [place], [place], [id number] Rubella IgGon 01-22-2023 Rubella IgG Reactive Normal Nonreactive [facility] Comment on above: Result Comment: Anti body Results Interpretation of Immune Status Non Reactive Presumed Non-Immune Equivocal Equivocal Reactive Presumed Immune Performed By: #### L 3400.0000, M100.2200, L3890.6300, L509.8000, L509.4005, BPNTSNC, L3890.6100, L100.0100, L3890.6005 ####[facility] [address] [place], [address] EMERGENCY REPORTon 8 EMERGENCY REPORT [facility] EMERGENCY ROOM REPORT NAME ACCOUNT SEX AGE ADMIT DISCHARGE PT MED. 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 Very nice people. She is seen [...] Roxanne Silva DO 03/04/18 04:24 JOB #: [id number] Transcribed By: 03/04/18 20:44 Electronically signed by: E-SIGN ROXANNE SILVA DO 03/08/18 22:25 Page 2 of 2 TERESA CERON V Emergency Room Report Normal [facility] EMERGENCY REPORTon 7 EMERGENCY REPORT [facility] EMERGENCY ROOM REPORT NAME NUMBER SEX AGE ADMIT DISC TYPE MED.RECORD# TERESA CERON V [id number] F 16 04/11/2017 04/11/2017 [facility] [id number] ROOM:ER DATE OF :2000 PHYSICIAN NO.: PHYSICIAN [...] Novak M.D. TD: 04/11/2017 17:21:06 JOB #: [id number] DR. BRISEYDA NOVAK EMERGENCY DEPARTMENT 05/01/17 09:51 Transcribed by: NMGeo 04/11/2017 17:21:06 Copy for: KISHORE RAIN MD Copy for: YEYO Guardado EMERGENCY ROOM REPORT TERESA CERON V 1 Normal [facility] CBCon 04-11-2017 Basophils Auto #/vol (Bld) 0.10 x10EE3/UL Normal 0.00 - 0.10 [facility] Comment on above: Performed By: #### 2 66176 ####[facility],[address] [place] [address] Basophils/100 WBC Auto (Bld) 0.8 % Normal 0.0 - 2.0 [facility] Comment on above: Performed By: #### 2 08178 ####[facility],[address] [place] [address] Blood morphology N/A Normal [facility] Comment on above: Result Comment: {CD] Performed By: #### 2 29078 ####[facility],[address] [place], [place] [address] CBC Normal [facility] Comment on above: Result Comment: CBC- COMPLETE BLOOD COUNT Performed By: #### 2 13531 ####[facility],[address] [place] [address] Eosinophils 0.10 x10EE3/UL Normal 0.00 - 0.50 [facility] Comment on above: Performed By: #### 2 33836 ####[facility],[address] [place] [address] Eosinophils/100 leukocytes 1.0 % Normal 0.0 - 7.0 [facility] Comment on above: Performed By: #### 2 11223 ####[facility],[address] [place] [address] Erythrocyte distribution width Auto Ratio (RBC) 13.3 % Normal 12.0 - 15.6 [facility] Comment on above: Performed By: #### 2 42692 ####[facility],[address] [place], [place] [id number] Erythrocytes (RBC) 4.41 x 10EE6/UL Normal 4.10 - 5.30 [facility] Comment on above: Performed By: #### 2 12660 ####[facility],[address] [place] [address] Hematocrit (HCT) 36.1 % Normal 34.0 - 46.0 [facility] Comment on above: Performed By: #### 2 81671 ####[facility],[address] [place] [address] Hemoglobin mass conc (Bld) 12.0 g/dL Normal 12.0 - 16.0 [facility] Comment on above: Performed By: #### 2 79176 ####[facility],[address] [place] [address] Lymphocytes 2.30 x10EE3/UL Normal 0.80 - 2.80 [facility] Comment on above: Performed By: #### 2 36493 ####[facility],[address] [place] [address] Lymphocytes/100 leukocytes 31.1 % Normal 20.0 - 45.0 [facility] Comment on above: Performed By: #### 2 04408 ####[facility],[address] [place] [address] MANUAL DIFF N/A Normal [facility] Comment on above: Performed By: #### 2 21444 ####[facility],[address] [place] [address] MCH 27 pg Normal 27 - 33 [facility] Comment on above: Performed By: #### 2 79388 ####[facility],[address] [place] [address] MCHC mass conc (RBC) 33 X10 3 Normal 32 - 36 [facility] Comment on above: Performed By: #### 2 67515 ####[facility],[address] [place] [address] MCV 82 fL Normal 80 - 99 [facility] Comment on above: Performed By: #### 2 89355 ####[facility],[address] [place], [place] [address] Monocytes 0.60 x10EE3/UL Normal 0.20 - 1.00 [facility] Comment on above: Performed By: #### 2 75707 ####[facility],[address] [place] [address] MONOS % 7.8 % Normal 0.0 - 10.0 [facility] Comment on above: Performed By: #### 2 97567 ####[facility],[address] [place], [place] [address] Neutrophils 4.40 x10EE3/UL Normal 1.50 - 7.10 [facility] Comment on above: Performed By: #### 2 70031 ####[facility],[address] [place], [place] [address] Neutrophils/100 WBC Auto (Bld) 59.3 % Normal 46.0 - 76.0 [facility] Comment on above: Performed By: #### 2 58567 ####[facility],[address] [place] [address] Platelet mean volume (PMV) 8.1 fL Normal 6.6 - 10.5 [facility] Comment on above: Result Comment: AUTO MATED DIFFERENTIAL Performed By: #### 2 69237 ####[facility],[address] [place] [address] Platelets 286 x10EE3/UL Normal 150 - 450 [facility] Comment on above: Performed By: #### 2 79711 ####[facility],[address] [place] [address] WBC (Leukocytes) 7.4 x 10EE3/UL Normal 4.5 - 10.8 [facility] Comment on above: Performed By: #### 2 45476 ####[facility],[address] [place] [address] CMP with eGFRon 04-11-2017 Age 16 years Normal [facility] Comment on above: Performed By: #### 2 61406 ####[facility],[address] [place] [address] Albumin 4.2 g/dL Normal 2.9 - 4.2 [facility] Comment on above: Performed By: #### 2 60602 ####[facility],[address] [place] [address] Albumin/Globulin Ratio 1.5 {ratio} Normal 0.9 - 1.6 [facility] Comment on above: Performed By: #### 2 53406 ####[facility],[address] [place] [address] ALK PHOS 53 U/L Normal 47 - 119 [facility] Comment on above: Performed By: #### 2 90206 ####[facility],[address] [place] [address] ALT/SGPT 14 U/L Normal 8 - 35 [facility] Comment on above: Performed By: #### 2 32489 ####[facility],[address] [place] [address] Anion gap 10 mmol/L Normal 10 - 20 [facility] Comment on above: Performed By: #### 2 90100 ####[facility],[address] [place], [place] [phone] AST/SGOT 14 U/L Normal 0 - 30 [facility] Comment on above: Performed By: #### 2 51216 ####[facility],[address] [place] [address] B/C RATIO 15 ratio Normal 0 - 30 [facility] Comment on above: Performed By: #### 2 93263 ####[facility],[address] [place] [address] Bilirubin (total) 0.2 mg/dL Normal 0.0 - 1.5 [facility] Comment on above: Performed By: #### 2 04793 ####[facility],[address] [place] [address] Calcium 9.6 mg/dL Normal 8.6 - 9.8 [facility] Comment on above: Performed By: #### 2 09724 ####[facility],[address] [place] [address] Chloride 105 mmol/L Normal 98 - 107 [facility] Comment on above: Performed By: #### 2 41473 ####[facility],[address] [place], [place] [id number] CO2 28.6 mmol/L Normal 21.0 - 31.0 [facility] Comment on above: Performed By: #### 2 92467 ####[facility],[address] [place] [address] Creatinine 0.6 mg/dL Low 0.8 - 1.2 [facility] Comment on above: Performed By: #### 2 86683 ####[facility],[address] [place], [place] [id number] eGFR (non-black) mL/min/{1.73_m2} Normal 60 - 999 [facility] Comment on above: Performed By: #### 2 03739 ####[facility],[address] [place] [address] Result Comment: ACCO RDING TO THE NATIONAL KIDNEY DISEASE EDUCATION PROGRAM(NKDE), A NORMAL eGFRIS A VALUE GREATER THAN OR EQUAL TO 60 ML/MIN/1.73 SQ METERS.CHRONIC KIDNEY DISEASE: <60mL/MIN/1.73 SQ METERSKIDNEY FAILURE: <15mL/MIN/1.73 SQ METERSTHIS TEST SHOULD ONLY BE USED FOR PATIENTS 18 YEARS OF AGE AND OLDER. eGFR (non-black) Normal [facility] Comment on above: Result Comment: COMP REHENSIVE METABOLIC PANEL Performed By: #### 2 40278 ####[facility],[address] [place] [address] Globulin 2.8 g/dL Normal 1.5 - 3.8 [facility] Comment on above: Performed By: #### 2 80889 ####[facility],[address] [place] [address] Glucose mass conc 84 mg/dL Normal 74 - 106 [facility] Comment on above: Performed By: #### 2 97399 ####[facility],[address] [place] [address] Potassium molar conc 3.5 mmol/L Normal 3.5 - 5.1 [facility] Comment on above: Performed By: #### 2 89419 ####[facility],[address] [place] [address] Protein 7.0 g/dL Normal 5.7 - 8.0 [facility] Comment on above: Performed By: #### 2 69272 ####[facility],[address] [place] [address] Sodium 140 mmol/L Normal 136 - 145 [facility] Comment on above: Performed By: #### 2 15961 ####[facility],[address] [place] [address] Urea nitrogen 9 mg/dL Normal 6 - 20 [facility] Comment on above: Performed By: #### 2 63040 ####[facility],[address] [place] [address] URINEon 04-11-2017 EXTERNAL QC DONE? YES Normal [facility] Comment on above: Performed By: #### 2 47509 ####[facility],[address] [place] [address] INTERNAL QC PASS Normal [facility] Comment on above: Performed By: #### 2 38080 ####[facility],[address] [place] [address] UR Negative Normal NEGATIVE [facility] Comment on above: Performed By: #### 2 86548 ####[facility],[address] [place], [place] [phone] URINALYSISon 04-11-2017 Amorphous NONE Normal [facility] Comment on above: Performed By: #### 2 78372 ####[facility],[address] [place] [address] Bacteria TRACE Normal [facility] Comment on above: Performed By: #### 2 61602 ####[facility],[address] [place] [address] Bilirubin Negative Normal NORMAL: NEGATIVE [facility] Comment on above: Performed By: #### 2 53881 ####[facility],[address] [place] [address]47 Blood 25 Abnormal NORMAL: NEGATIVE [facility] Comment on above: Performed By: #### 2 76956 ####[facility],[address] [place], [place] [phone] Casts NONE Normal [facility] Comment on above: Performed By: #### 2 31714 ####[facility],[address] [place], [place] [phone] Clarity clear Normal NORMAL: CLEAR [facility] Comment on above: Performed By: #### 2 51002 ####[facility],[address] [place] [address],[facility] [address] Color yellow Normal NORMAL: YELLOW [facility] Comment on above: Performed By: #### 2 20380 ####[facility],[address] [facility],[place] [address] Crystals NONE Normal [facility] Comment on above: Performed By: #### 2 03368 ####[facility],[address] [place] [address],[facility] [address] Epi Cells FEW Normal [facility] Comment on above: Performed By: #### 2 09954 ####[facility],[address] [place] [address],[facility] [address] Glucose NORM Normal NORMAL: NORMAL [facility] Comment on above: Performed By: #### 2 63022 ####[facility],[address] [place] [address],[facility] [address] Ketone Negative Normal NORMAL: NEGATIVE [facility] Comment on above: Performed By: #### 2 48120 ####[facility],[address] [place] [address],[facility] [address] Leukocytes Negative Normal NORMAL: NEGATIVE [facility] Comment on above: Performed By: #### 2 76907 ####[facility],[address] [place] [address],[facility] [address] Microscopic SEE BELOW Normal [facility] Comment on above: Result Comment: MICR OSCOPIC Performed By: #### 2 15570 ####[facility],[address] [place] [address],[facility] [address] Mucous TRACE Normal [facility] Comment on above: Performed By: #### 2 [id number] ####[facility],[address] [place] [address],[facility] [address] Nitrite Negative Normal NORMAL: NEGATIVE [facility] Comment on above: Performed By: #### 2 [id number] ####[facility],[address] [place], [place] [id number] ph 5 Normal NORMAL: 5.0-8.0 [facility] Comment on above: Performed By: #### 2 13825 ####[facility],[address] [place] [address] Protein 15 Abnormal NORMAL: NEGATIVE [facility] Comment on above: Performed By: #### 2 40141 ####[facility],[address] [place] [address] Rbc 0-5 Abnormal 0-3/hpf [facility] Comment on above: Performed By: #### 2 67538 ####[facility],[address] [place] [address] Sp [place] 1.025 Normal NORMAL: 1.010-1.030 [facility] Comment on above: Performed By: #### 2 77170 ####[facility],[address] [place] [address] Specimen Type Clean catch Normal [facility] Comment on above: Performed By: #### 2 49386 ####[facility],[address] [place] [address] URINALYSIS Normal [facility] Comment on above: Result Comment: URIN ALYSIS Performed By: #### 2 39141 ####[facility],[address] [place], [place] [id number] Urobilinog NORM Normal NORMAL: NORMAL [facility] Comment on above: Performed By: #### 2 29297 ####[facility],[address] [place], [place] [id number] Wbc NONE Normal 0-5/hpf [facility] Comment on above: Performed By: #### 2 13651 ####[facility],[address] [place], [place] [id number] Yeast NONE Normal [facility] Comment on above: Performed By: #### 2 03525 ####[facility],[address] [place] [address] NM HIDA SCANon 04-08-2017 NM HIDA SCAN [address] [address] Patient: TERESA CERON V. Phone#: : 2000 Age: 16 Gender: F Pt. Type: Out Account: [id number] Location: Ordering: SANCHO ORONA Exam Date: 04/08/2017/12:57 Family Phys: KELLIE ORONA Charge Code: [id number] Physician: [place] Order #: [id number] DLP Dose#: PROCEDURE: HIDA SCAN COMPARISON: None. [...] Fuentes MD on 04/08/2017 at 15:22 Normal [facility] US PELVICon 03-15-[address] [address] Patient: TERESA CERON V. Phone#: : 2000 Age: 16 Gender: F Pt. Type: Out Account: [id number] Location: Ordering: KELLIE ORONA Exam Date: 03/15/2017/12:57 Family Phys: Charge Code: [id number] Physician: [place] Order #: [id number] DLP Dose#: PROCEDURE: PELVIC ULTRASOUND, TRANSABDOMINAL COMPARISON: [...] Fuentes MD on 03/15/2017 at 13:48 Normal [facility] US RUQ (GB/PANCREAS)on 03-15 RUQ (GB/PANCREAS) [place] [address] Patient: TERESA CERON V. Phone#: : 2000 Age: 16 Gender: F Pt. Type: Out Account: [id number] Location: Ordering: KELLIE CASTROD Exam Date: 03/15/2017/9:10 Family Phys: Charge Code: [id number] Physician: [place] Order #: [id number] DLP Dose#: PROCEDURE: RUQ (GB) ULTRASOUND COMPARISON: [...] FUENTES MD ON 03/15/2017 AT 9:47 Normal [facility] Vital Signs Date Time Vital Sign Value Performing Clinician Ernesto rodríguez 10-27-2024 10:02-0400 Body height 157.5 cm Lindsey Tineo APRN.CNM Work Phone: [facility] 10-27-2024 10:02-0400 Body mass index (BMI) [Ratio] 41.88 kg/m2 Lindsey Tineo APRN.CNM Work Phone: [facility] 10-27-2024 10:02-0400 Body weight 103.87 kg Lindsey Tineo APRN.CNM Work Phone: [facility] 10-27-2024 10:02-0400 Diastolic blood pressure 64 mm[Hg] Lindsey Tineo APRN.CNM Work Phone: [facility] 10-27-2024 10:02-0400 Systolic blood pressure 112 mm[Hg] Lindsey Tineo APRN.CNM Work Phone: [facility] 10-23-2023 11:33-0500 Body height 157.48 cm No Primary Care Physician [facility] 10-23-2023 11:32-0500 Body mass index (BMI) [Ratio] 38.4 kg/m2 No Primary Care Physician [facility] 10-23-2023 11:32-0500 Body weight 95.25 kg No Primary Care Physician [facility] 10-23-2023 11:32-0500 Diastolic blood pressure 75 mm[Hg] No Primary Care Physician [facility] 10-23-2023 11:32-0500 Systolic blood pressure 119 mm[Hg] No Primary Care Physician [facility] 09-23-2023 10:58-0500 Body mass index (BMI) [Ratio] 38.6 kg/m2 No Primary Care Physician [facility] 09-23-2023 10:58-0500 Body weight 95.87 kg No Primary Care Physician [facility] 09-23-2023 10:58-0500 Diastolic blood pressure 72 mm[Hg] No Primary Care Physician [facility] 09-23-2023 10:58-0500 Systolic blood pressure 112 mm[Hg] No Primary Care Physician [facility] 09-10-2023 12:25-0500 Body temperature 97.6 [degF] No Primary Care Physician [facility] 09-10-2023 12:25-0500 Diastolic blood pressure 65 mm[Hg] No Primary Care Physician [facility] 09-10-2023 12:25-0500 Heart rate 94 /min No Primary Care Physician [facility] 09-10-2023 12:25-0500 Respiratory rate 16 /min No Primary Care Physician [facility] 09-10-2023 12:25-0500 Systolic blood pressure 135 mm[Hg] No Primary Care Physician [facility] 09-10-2023 08:15-0500 SaO2% (BldA) [Mass fraction] 100 % No Primary Care Physician [facility] 09-09-2023 05:33-0500 Body weight 104.9 kg No Primary Care Physician [facility] 09-06-2023 10:11-0500 Body height 157.48 cm No Primary Care Physician [facility] 09-06-2023 10:09-0500 Body mass index (BMI) [Ratio] 42.6 kg/m2 No Primary Care Physician [facility] 09-06-2023 10:09-0500 Body weight 105.74 kg No Primary Care Physician [facility] 09-06-2023 10:09-0500 Diastolic blood pressure 80 mm[Hg] No Primary Care Physician [facility] 09-06-2023 10:09-0500 Systolic blood pressure 124 mm[Hg] No Primary Care Physician [facility] 08-27-2023 10:25-0500 Body mass index (BMI) [Ratio] 42.3 kg/m2 No Primary Care Physician [facility] 08-27-2023 10:25-0500 Body weight 104.83 kg No Primary Care Physician [facility] 08-27-2023 10:25-0500 Diastolic blood pressure 78 mm[Hg] No Primary Care Physician [facility] 08-27-2023 10:25-0500 Systolic blood pressure 116 mm[Hg] No Primary Care Physician [facility] 08-20-2023 14:21-0500 Body mass index (BMI) [Ratio] 42.1 kg/m2 No Primary Care Physician [facility] 08-20-2023 14:21-0500 Body weight 104.49 kg No Primary Care Physician [facility] 08-06-2023 10:51-0500 Body mass index (BMI) [Ratio] 42.1 kg/m2 No Primary Care Physician [facility] 08-06-2023 10:51-0500 Body weight 104.49 kg No Primary Care Physician [facility] 08-06-2023 10:51-0500 Diastolic blood pressure 80 mm[Hg] No Primary Care Physician [facility] 08-06-2023 10:51-0500 Systolic blood pressure 117 mm[Hg] No Primary Care Physician [facility] 07-23-2023 11:33-0500 Body mass index (BMI) [Ratio] 41 kg/m2 No Primary Care Physician [facility] 07-23-2023 11:33-0500 Body weight 101.77 kg No Primary Care Physician [facility] 07-23-2023 11:33-0500 Diastolic blood pressure 76 mm[Hg] No Primary Care Physician [facility] 07-23-2023 11:33-0500 Systolic blood pressure 125 mm[Hg] No Primary Care Physician [facility] 07-08-2023 10:34-0500 Body mass index (BMI) [Ratio] 40.4 kg/m2 No Primary Care Physician [facility] 07-08-2023 10:34-0500 Body weight 100.41 kg No Primary Care Physician [facility] 07-08-2023 10:34-0500 Diastolic blood pressure 78 mm[Hg] No Primary Care Physician [facility] 07-08-2023 10:34-0500 Systolic blood pressure 113 mm[Hg] No Primary Care Physician [facility] 06-18-2023 13:14-0400 Body mass index (BMI) [Ratio] 40.6 kg/m2 No Primary Care Physician [facility] 06-18-2023 13:14-0400 Body weight 100.86 kg No Primary Care Physician [facility] 06-18-2023 13:14-0400 Diastolic blood pressure 81 mm[Hg] No Primary Care Physician [facility] 06-18-2023 13:14-0400 Systolic blood pressure 115 mm[Hg] No Primary Care Physician [facility] 05-28-2023 13:22-0400 Body mass index (BMI) [Ratio] 40 kg/m2 No Primary Care Physician [facility] 05-28-2023 13:22-0400 Body weight 99.33 kg No Primary Care Physician [facility] 05-28-2023 13:22-0400 Diastolic blood pressure 81 mm[Hg] No Primary Care Physician [facility] 05-28-2023 13:22-0400 Systolic blood pressure 114 mm[Hg] No Primary Care Physician [facility] Encounters Encounter Date Encounter Type Care Provider Facility Start: 11-05-2024 End: 01-05-2025 Follow-up encounter Trang Cruz APRN.CNP Work Phone: OB/Gynecology Start: 10-27-2024 End: 10-27-2024 ambulatory SELF Facility:[facility] Start: 10-27-2024 End: 10-27-2024 Patient encounter procedure Lindsey Tineo APRN.CNM Work Phone: OB/Gynecology Comment on above: Encounter for gyneco logical examination (general) (routine) with abnormal findings (Primary Dx); Screening for cervical cancer; Encounter for screening for human papillomavirus (HPV); Encounter for surveillance of contraceptive pills Start: 10-27-2024 End: 10-27-2024 Patient encounter status Lindsey Tineo APRN.CNM Work Phone: [facility] Start: 10-23-2023 End: 10-23-2023 Patient encounter procedure No Primary Care Physician [facility] Work Phone: Start: 10-23-2023 End: 10-23-2023 ambulatory No Primary Care Physician [facility] Work Phone: Start: 10-23-2023 End: 10-23-2023 Patient encounter procedure No Primary Care Physician [facility] Work Phone: Start: 09-23-2023 End: 09-23-2023 ambulatory No Primary Care Physician Facility:[facility] Start: 09-23-2023 End: 09-23-2023 Patient encounter procedure No Primary Care Physician [facility] Work Phone: Start: 09-10-2023 Non-patient / Non-visit No Ivy arrington [facility] Emergency Department Physician [facility] Start: 09-09-2023 ambulatory Priscilla Moore Fa cility:[facility] Start: 09-09-2023 End: 09-10-2023 Evaluation and management of inpatient No Primary Care Physician Facility:[facility] Start: 09-09-2023 Non-patient / Non-visit No Ivy arrington [facility] Emergency Department Physician [facility] Start: 09-09-2023 End: 09-10-2023 Evaluation and management of inpatient No Primary Care Physician [facility] Work Phone: Start: 09-06-2023 End: 09-06-2023 ambulatory No Primary Care Physician Facility:[facility] Start: 09-06-2023 End: 09-06-2023 Patient encounter procedure No Primary Care Physician [facility] Work Phone: Start: 08-27-2023 End: 08-27-2023 ambulatory No Primary Care Physician Facility:[facility] Start: 08-27-2023 End: 08-27-2023 Patient encounter procedure No Primary Care Physician [facility] Work Phone: Start: 08-20-2023 End: 08-20-2023 Patient encounter procedure No Primary Care Physician [facility] Work Phone: Start: 08-20-2023 End: 08-20-2023 Patient encounter procedure No Primary Care Physician [facility] Work Phone: Start: 08-20-2023 End: 08-20-2023 ambulatory No Primary Care Physician Facility:[facility] Start: 08-06-2023 End: 08-06-2023 ambulatory No Primary Care Physician Facility:[facility] Start: 08-06-2023 End: 08-06-2023 Patient encounter procedure No Primary Care Physician [facility] Work Phone: Start: 07-23-2023 End: 07-23-2023 ambulatory No Primary Care Physician Facility:[facility] Start: 07-23-2023 End: 07-23-2023 Patient encounter procedure No Primary Care Physician [facility] Work Phone: Start: 07-08-2023 End: 07-08-2023 ambulatory No Primary Care Physician Facility:[facility] Start: 07-08-2023 End: 07-08-2023 Patient encounter procedure No Primary Care Physician [facility] Work Phone: Start: 06-18-2023 End: 06-18-2023 ambulatory No Primary Care Physician Facility:[facility] Start: 06-18-2023 End: 06-18-2023 Patient encounter procedure No Primary Care Physician [facility] Work Phone: Start: 06-18-2023 End: 06-18-2023 ambulatory No Primary Care Physician [facility] Work Phone: Start: 06-18-2023 End: 06-18-2023 Patient encounter procedure No Primary Care Physician [facility] Work Phone: Start: 05-28-2023 End: 05-28-2023 ambulatory No Primary Care Physician Facility:[facility] Start: 05-28-2023 End: 05-28-2023 Patient encounter procedure No Primary Care Physician [facility] Work Phone: Start: 01-22-2023 End: 01-22-2023 ambulatory No Primary Care Physician Facility:[facility] Start: 03-04-2018 End: 03-04-2018 Emergency department patient visit ROXANNE DAY [facility] Start: 04-11-2017 End: 04-11-2017 Emergency department patient visit BRISEYDA NOVAK [facility] Start: 04-08-2017 End: 04-08-2017 Patient encounter SANCHO CASTILLO ORONA [facility] Start: 03-15-2017 End: 03-15-2017 Patient encounter KELLIE ORONA [facility] Procedures Date Procedure Procedure Detail Performing Clinician [...] DTaP,Tdap,Td Vaccine (3 - Td or Tdap) [facility] Start: 10-28-2027 Screening for malign ant neoplasm of cervix Cervical Cancer Screening [facility] Start: 10-27-2025 End: 10-27-2025 Patient encounter procedure 10/27/2025 8:15 AM EDT Office Visit OB/Gynecology [address] [place] [address] Lindsey Tineo APRN.[facility] [address] [place] [address] Annual OB/Gynecology Comment on above: Annual Start: 04-19-2025 Influenza vaccination Influenz a Vaccine (Season Ended) [facility] Start: 04-19-2024 Covid-19 Vaccine ( season) Covid-19 Vaccine ( season) [facility] Start: 04-19-2024 Influenza vaccination Influenza Vacc ine (#1) [facility] Start: 10-23-2023 Liquid based cervica l cytology screening [facility] Start: 09-10-2023 Application of abdom inal corset [facility] Start: 09-10-2023 Patient discharge [facility] Start: 09-09-2023 End: 09-10-2023 [facility] Start: 09-09-2023 Administration of medication [facility] Start: 09-09-2023 Ambulation therapy management [facility] Start: 09-09-2023 Application of device [facility] Start: 09-09-2023 Application of intermittent pneumatic compression device [facility] Start: 09-09-2023 Assessment of risk o f venous thromboembolism [facility] Start: 09-09-2023 Catheterization of vein [facility] Start: 09-09-2023 Deep breathing and coughing exercises [facility] Start: 09-09-2023 Exercises [facility] Start: 09-09-2023 Measuring intake and output [facility] Start: 09-09-2023 End: 09-09-2023 Notification of physician [facility] Start: 09-09-2023 Procedure discontinued [facility] Start: 09-09-2023 Provision of activit y privileges [facility] Start: 09-09-2023 Skin care [facility] Start: 09-09-2023 Wound care [facility] Start: 09-09-2023 Application of abdom inal corset [facility] Start: 09-09-2023 Continuous pulse oximetry [facility] Start: 09-09-2023 Oxygen therapy [facility] Start: 09-09-2023 Vital signs measurements [facility] Start: 09-09-2023 section Repeat C-Sect ion (Not Applicable) [facility] Start: 09-09-2023 Admission procedure [facility] Start: 09-09-2023 Consultation [facility] Start: 06-18-2023 [facility] Start: 2020 Screening for malign ant neoplasm of cervix Cervical Cancer Screening [facility] Start: 2018 Hepatitis B Vaccine (1 of 3 - 19+ 3-dose series) Hepatitis B Vaccine (1 of 3 - 19+ 3-dose series) [facility] Start: 2017 Anxiety Screening Anxiety Screening [facility] Start: 2017 Depression Screening Depression Scre lorena [facility] Start: 2017 Hepatitis C screening Hepatitis C Sc dara [facility] Start: 2017 HIV screening HIV Screening [facility] Start: 2014 HPV Vaccine (1 - 3-d ose series) HPV Vaccine (1 - 3-dose series) [facility] Start: 2013 Peds To Adult Transi tion Annual Assessment Peds To Adult Transition Annual Assessment [facility] Start: 2011 Peds To Adult Transi tion Initial Discussion Peds To Adult Transition Initial Discussion [facility] PAP TEST PAP TEST Lab Veronica monsalve Encounter for gynecological examination (general) (routine) with abnormal findings Screening for cervical cancer Encounter for screening for human papillomavirus (HPV) 10/27/2024 10:29 AM EDT [facility] Work Phone: Path report.final Dx Spec [facility] Patient Education After a [facility] Work Phone: Patient referral [facility] Work Phone: Immunizations Immunization Date Immunization Notes Care Provider [facility] 07-08-2023 tetanus toxoid, redu marylu diphtheria toxoid, and acellular pertussis vaccine, adsorbed No Primary Care Physician [facility] 08-20-2020 measles, mumps and rubella virus vaccine No Primary Care Physician [facility] Payers Date Payer Category Payer Medicaid [employer] Member [employer] bscriber Plan / Payer (Effective 2024-Present) Name: Teresa Ceron V Relation to Subscriber: Self Name: Teresa Ceron V Payer ID: [id number] (NAIC) Group ID: Not on file Type: Medicaid Address: [place] [address] [id number] 2024 Medicaid [id number] 2023 Self-pay [id number] 2023 Unknown [id number] Unknown [id number] Unknown [employer] [id number] Unknown [id number] Unknown [id number] [id number] Unknown [id number] [id number] Unknown [id number] 2.16.840.1.126384.3.579.2.462 Unknown [id number] 2.16.840.1.524382.3.579.2.462 Unknown [id number] 2.16.840.1.266903.3.579.2.462 Unknown [id number] 2.16.840.1.432443.3.579.2.462 Unknown [id number] [id number] Unknown [id number] 2.16.840.1.504139.3.579.2.462 Unknown [id number] 2.16.840.1.532813.3.579.2.462 Unknown [id number] 2.16.840.1.027935.3.579.2.462 Unknown [id number] 2.16.840.1.065199.3.579.2.462 Unknown [id number] 2.16.840.1.989646.3.579.2.462 Unknown [id number] 2.16.840.1.979362.3.579.2.462 Unknown [id number] [id number] Unknown [id number] [id number] Unknown [id number] [id number] Social History Date Type Detail Facility Start: 06-18-2023 End: 10-23-2023 Tobacco smoking status MDIS Unknown if ever smoked [facility] Start: 08-17-2020 None [facility] Start: 2000 Sex Assigned At Female [facility] Start: 10-27-2024 Tobacco smoking stat us NHIS Never smoked tobacco [facility] Start: 10-27-2024 Tobacco use and exposure Smokeless tobacco non-user [facility] Start: 10-27-2024 Alcoholic beverage intake Lifetime non-drinker (finding) [facility] Start: 10-27-2024 History of Social function [facility] Start: 10-27-2024 Tobacco use panel [facility] National Score (1-10 0), lower number is lower risk 83 [facility] Start: 2000 Sex assigned at Not on file [facility] Goals Date Patient Goal Desired Activity /State Mental Status Date Assessment Result Facility 09-10-2023 Cognitive function Voice/Name [facility] Work Phone: Clinical Notes 09-09-2023 to 11-10-2024 Telephone Encounter - Nette Chavira - 11/10/2024 9:24 AM EDTTelephone Encounter - Nette Chavira - 11/10/2024 9:24 AM Lindsey Velasquez APRN.CNM - 10/27/2024 9:58 AM EDT Note Date & Type Note Facility 11-10-2024 Telephone encounter Note Mailed letter [facility] 11-10-2024 Miscellaneous Notes Mailed letter documented in this encounter [facility] 10-27-2024 Note HNO ID: [id number] Author: LINDSEY TINEO APRN.CNM Service: ? Author Type: Forms Builder Type: Progress Notes Filed: 10/27/2024 11:09 Note [...] Living2 SAB0 IAB0 Ectopic0 Multiple0 Live Births2 [employer] History LMP: 10/19/2024 (Exact Date), Having periods Age at Menarche: Age at First : Age at Menopause: [employer] History Comments: Sexual Activity: Yes; Male Contraception: [...] discussed with the Patient or Patient's Authorized [employer]. As applicable, any other physician, advance practice provider, medical student, or other health professional student that will be observing or involved in the sensitive examination for educational or training purposes was discussed with the Patient or Authorized [employer]. The Patient or Authorized [employer] has agreed to proceed with the sensitive examination. (Sensitive examination includes inspection and/or palpation of the breasts, pelvis, prostate and anorectal regions). EXAM: BP 112/64 Ht 5' 2" (1.58m) Wt 229 lb (103.9kg) LMP 10/19/2024 [...] external genitalia normal, normal Bartholin's glands, urethra, [place]'s glands, no vulvar lesions, no cervical lesions, [...] or sooner as needed Lindsey Tineo APRN.[facility] 10-27-2024 History of Presen t illness Narrative [...] Living2 SAB0 IAB0 Ectopic0 Multiple0 Live Births2 [employer] History LMP: 10/19/2024 (Exact Date), Having periods Age at Menarche: Age at First : Age at Menopause: [employer] History Comments: Sexual Activity: Yes; Male Contraception: [...] discussed with the Patient or Patient's Authorized [employer]. As applicable, any other physician, advance practice provider, medical student, or other health professional student that will be observing or involved in the sensitive examination for educational or training purposes was discussed with the Patient or Authorized [employer]. The Patient or Authorized [employer] has agreed to proceed with the sensitive examination. (Sensitive examination includes inspection and/or palpation of the breasts, pelvis, prostate and anorectal regions). EXAM: BP 112/64 Ht 5' 2" (1.58m) Wt 229 lb (103.9kg) LMP 10/19/2024 [...] external genitalia normal, normal Bartholin's glands, urethra, [place]'s glands, no vulvar lesions, no cervical lesions, [...] Lindsey Tineo APRN.CNM documented in this encounter [facility] 09-10-2023 Discharge summary Note Date/Time September 10, 2023 8:10am [facility] Medical Records Department [address] [place] [address] Instructions for Home/Discharge Instructions 09/10/23 0810 MR#: [id number] Acct: [id number] Name: TERESA CERON V Rep #:[id number] : 2000 23 From: Feli Nichols CNM [...] Attending Provider: Priscilla Moore Primary Care Provider: Lauren Bender Primary Discharge Orders/Prescriptions Prescriptions: New naproxen 500 [...] CC: No Primary Care Physician ~ Signed [facility] Work Phone: 1(671) 745-813001-23-2024 Progress note Author Feli Nichols [facility] September 10, 2023 8:09am Note Date/Time September 10, 2023 8 :10am [facility] Medical Records Department [address] [place] [address] Progress Note - OBGYN 09/10/23 0807 MR#: [id number] Acct: [id number] Name: TERESA CERON V Rep #:[id number] : 2000 23 From: Feli Nichols CNM PCP: Care Physician,No Primary Status :ADM IN Location: [place] [address] Subjective Subjective Patient doing well without complaints. [...] Cosigner Signature (if applicable): CC: ~ Signed [facility] Work Phone: 1(486) 901-541701-22-2024 Discharge summary Author Priscilla Espitia [facility] September 09, 2023 7:23am Note Date/Time September 09, 2023 7 :22am [facility] Medical Records Department [address] [place] [address] Instructions for Home/Discharge Instructions 09/09/23 0722 MR#: [id number] Acct: [id number] Name: TERESA CERON V Rep #:[id number] : 2000 23 From: Priscilla Moore DO [...] Up With: Priscilla Moore DO When: Call [phone] to make an appointment for an incision check in 1-2 weeks. Test Results: Test results from this visit will be discussed in further detail at your follow- up appointment, if applicable. 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 09/09/23720 MR#: [id number] Acct: [id number] Name: TERESA CERON V Rep #:[id number] : 2000 23 From: Priscilla Moore DO PCP: Care Physician,No Primary Status :ADM IN Location: [id number] HPI - General General Date of Admission: 09/09/23 HPI Narrative TERESA CERON, is a 23 y/o @ 39 weeks 2 days who presents to L&D for a repeatcesarean section Maternal Data Information VILMA Calculator Estimated Delivery Date Method Current Current Estimate 09/14/23 Manual 39w 2d per [facility] records PFS PFS Medical History Depression Home Medications docusate sodium [...] house current occupational status: employed 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 good fm. discussed feeding plan. wants to [...] Cosigner Signature (if applicable): CC: Dr. Priscilla Moore DO; No Primary Care Physician~ Signed [facility] Work Phone: 1(646) 691-166501-22-2024 Procedure [place] Evaluation note* Diagnosis Onset Date Resolution Status History of delivery affecting acute Obesity affecting acute acute Supervision of high-risk acute History of delivery affecting acute Obesity affecting acute acute Supervision of high-risk acute [facility] Work Phone: Evaluation note* Diagnosis Onset Date Resolution Status History of delivery affecting acute Obesity affecting acute acute Supervision of high-risk acute History of delivery affecting acute Obesity affecting acute acute Supervision of high-risk acute History of delivery affecting acute Obesity affecting acute acute Supervision of high-risk acute History of delivery affecting acute Need for Tdap vaccination ac koi Obesity affecting acute acute Supervision of high-risk acute History of delivery affecting acute Need for Tdap vaccination ac koi Obesity affecting acute acute Supervision of high-risk acute History of delivery affecting acute Need for Tdap vaccination ac koi Obesity affecting acute acute Supervision of high-risk acute History of delivery affecting acute Need for Tdap vaccination ac koi Obesity affecting acute acute Supervision of high-risk acute History of delivery affecting acute Need for Tdap vaccination ac koi Obesity affecting acute acute Supervision of high-risk acute History of delivery affecting acute Need for Tdap vaccination ac koi Obesity affecting acute acute Status post repeat low transverse section acute Supervision of high-risk acute [facility] Work Phone: Evaluation note* Diagnosis Onset [...] acute Postop check noneactive Routine Follow-Up noneactive [facility] Work Phone: Evaluation note* Diagnosis Encounter for gynecological examination (general) (routine) with abnormal findings- Primary Screening for cervical cancer Screening for malignant neoplasm of the cervix Encounter for screening for human papillomavirus (HPV) Special screening examination for human papillomavirus (HPV) Encounter for surveillance of contraceptive pills Surveillance of previously prescribed contraceptive pill documented in this encounter [facility] Summary Purpose Family History Relationship Condition Age at Onset Recorded Date/T farzana Not Specified Diabetes mellitus Unknown Cardiac disease Unknown son Cleft palate Unknown Advance Directives Advance Directive Response Recorded Date/ Time Living Will No June 18 1:36pm Power of Ophthalmic Medical Assistant No June 18, 2023 1:36pm Advance Directive Response Recorded Date/ Time Living Will No September 09 5:47am Power of Ophthalmic Medical Assistant No September 09, 2023 5:47am Advance Directive Response Recorded Date/ Time Living Will No September 09 6:47am Power of Ophthalmic Medical Assistant No September 09, 2023 6:47am Chief Complaint and Reason for Visit Chief Complaint transfer from [facility] 09/14 Encounter for screening for diabetes mellitus 27 WK OB / 3 HR GLUCOSE in the AM Reason for Visit History of delivery affecting Obesity affecting Supervision of high-risk History of delivery affecting Obesity affecting Supervision of high-risk Chief Complaint transfer from [facility] 09/14 Encounter for screening for diabetes mellitus [...] content) DATE CREATED AUTHOR 03/10/2018 Artie Hernandez [facility] DATE CREATED AUTHOR AUTHOR'S ORGANIZ ATION 10/29/2023 [facility] DATE CREATED AUTHOR AUTHOR'S ORGANIZ ATION 11/11/2024 [facility] Care Teams (unrecognized sec tion and content) [...] Provider, Refer ring Provider Active Melina Vidales COILED COIL INSPECTOR, COILED COIL INSPECTOR-C Attending Provider Active Team Status: Inactive Member Role Status Dates No Primary Care Physician Primary Care Provider, Refer ring Provider Active Lily Ohara CNM Attending Provider Active Team Status: Inactive Member Role Status Dates No Primary Care Physician Primary Care Provider Active Lily Ohara , CNM Attending Provider, Referring Pr ovider Active [...] or prosecute any alcohol or drug abuse patient.[facility] the event this information is protected by the Federal Confidentiality of Alcohol and Drug Abuse Patient Records regulations: The Federal rules restrict any use of the information to criminally investigate or prosecute any alcohol or drug abuse patient.[facility] Reason for Visit (unrecogniz ed section and [...] BE BASED ON THE PRIMARY CLINICAL RECORDS. [employer] [facility]. provides no warranty or guarantee of the accuracy or completeness of information in this document.
== END | disposition home or self-care (01) ==
PROVIDERS: Visit Provider Student in an Organized Health Care Education/Training Program
DX: O20.0 Threatened abortion (principal); Z3A.00 Weeks of gestation of pregnancy not specified
CPT/HCPCS: 36415; 84702

== ENCOUNTER → 2025-08-11 | Outpatient (CLI) | payer MEDICAID, SELFPAY ==
--- NOTE | 2025-08-11 12:45 | US_ITS ---
PROCEDURE: EARLY TRANSVAGINAL US 08/11/2025 REASON FOR EXAM: VIABILITY TECHNIQUE: Procedure Code: USTVAGP Modality: US Procedure: TRANSVAGINAL W/PREG US Real-time grayscale and color flow imaging was performed along with routine image documentation. COMPARISON: No relevant prior. FINDINGS An intrauterine gestational sac is noted measuring 2.5 cm, an estimated gestational age of 7 weeks and 4 days. No evidence of a pole. No evidence of a yolk sac. No heart activity. Estimated gestational age by LMP: 9 weeks and 2 days. Estimated due date by LMP: 03/14/2026. Estimated gestational age by ultrasound: 7 weeks 4 days. Estimated due date by ultrasound: 03/26/2026. Uterus measures 11.0 x 7.9 x 5.9 cm. No uterine abnormalities. Closed cervix. No fluid in the cul-de-sac. Right ovary measures 3.2 x 2.0 x 1.9 cm. No masses are identified. Left ovary measures 3.1 x 2.1 x 1.8 cm. No masses are identified. US/Transvaginal w/Preg US IMPRESSION: NO SIGNS OF VIABILITY. A pole, yolk sac, or heart activity are NOT demonstrated on this study. Consider BLIGHTED OVUM. Reading Location: [place] [address]
--- OUTSIDE RECORDS SUMMARY | 2025-08-11 12:51 | XMS RPT_ITS | CCD ---
Author Organization [facility] Care Team Providers Care Physician Pediatrician Name Role Phone ORONA, KELLIE T Unavailable [...] Provider Un available BETH Nichols Attending Provider [phone] Care Physician, No Primary Primary Care Provider Unavailable Care Physician, No Primary Referring Provider Un available BETH Nichols Attending Provider [phone] Dr. Priscilla Moore Attending Provider [phone] Dr. Priscilla Moore Admit Provider Dr. Priscilla Moore Other Provider Care Physician, No Primary Primary Care Provider Unavailable Care Physician, No Primary Referring Provider Un available Dr. Priscilla Moore Attending Provider [phone] BETH Nichols Attending Provider [phone] Priscilla Moore Admit Provider Dr. Priscilla [...] ity CNCOon 11-10-2024 CNCO Letter Text Normal [facility] CNOVon 10-27-2024 CNOV Office Visit (OBGYWM) TERESA CERON V ([id number]) 2000 F Date Time Provider Department 10/27/24 [...] Living2 SAB0 IAB0 Ectopic0 Multiple0 Live Births2 Housekeeper/Laundry Assistant History LMP: 10/19/2024 (Exact Date), Having periods Age at Menarche: Age at First : Age at Menopause: Housekeeper/Laundry Assistant History Comments: Sexual Activity: Yes; Male Contraception: [...] discussed with the Patient or Patient's Authorized Tin Container Straightener. As applicable, any other physician, advance practice provider, medical student, or other health professional student that will be observing or involved in the sensitive examination for educational or training purposes was discussed with the Patient or Authorized Tin Container Straightener. The Patient or Authorized Tin Container Straightener has agreed to proceed with the sensitive [...] external genitalia normal, normal Bartholin's glands, urethra, Maramec's glands, no vulvar lesions, no cervical lesions, [...] 4) Follow (more content not included)... Normal [facility] PAP TESTon 10-27-2024 ADEQUACY Normal [facility] Comment on above: Order Comment: Speci men Type: FLUID SPECIMEN Ordering Facility: [facility] Address: [address] [place] [address] Result Comment: Mu sfactory for interpretation. Transformation zone present Performed By: #### L [id number] #### [facility] CLIA [id number] [address] [place] [address] [place] CASE REPORT Normal [facility] Comment on above: Order Comment: Speci men Type: FLUID SPECIMEN Ordering Facility: [facility] Address: [address] [place] [address] Result Comment: Gyne cologic Cytology Report Case: [id number] Authorizing Provider: Lindsey Tineo APRN.CNM Collected: 10/27/2024 10:29 AM Ordering Location: OB/Gynecology Received: 10/27/2024 01:20 PM First Screen: Deanna Beltrán CT, ASCP Specimen: Pap Test, ThinPrep, Cervix Performed By: #### L [id number] #### [facility] CLIA [id number] [address] [place] [address] [place] CLINICAL HISTORY, CYTOLOGY, UNIVERSITY TUTOR Routine Exam Normal [facility] Comment on above: Order Comment: Speci men Type: FLUID SPECIMEN Ordering Facility: [facility] Address: [address] [place], [place] [address] Performed By: #### L [id number] #### [facility] CLIA [id number] [address] [place] [address] [place] FINAL PERFORMING LAB Normal [facility] Comment on above: Order Comment: Speci men Type: FLUID SPECIMEN Ordering Facility: [facility] Address: [address] [place] [address] Result Comment: Tech nical component, dry molder screening performed at [facility], [address] [place] [address] [place] [address] CLIA# [id number] Diagnostic interpretation performed at [facility], [address] [place] [address] [place] [address] CLIA# [id number] Certified Legal Investigator: Kwesi Parsons M.D. Performed By: #### L [id number] #### [facility] CLIA [id number] [address] [place] [address] [place] INTERPRETATION, CYTOLOGY, UNIVERSITY TUTOR Normal [facility] Comment on above: Order Comment: Speci men Type: FLUID SPECIMEN Ordering Facility: [facility] Address: [address] [place] [address] Result Comment: Nega tive for intraepithelial lesion or malignancy. at 1227 EDT Performed By: #### L [id number] #### [facility] CLIA [id number] [address] [place] [address] [place] LMP 10/19/2024 Normal [facility] Comment on above: Order Comment: Speci men Type: FLUID SPECIMEN Ordering Facility: [facility] Address: [address] [place] [address] Performed By: #### L [id number] #### [facility] CLIA [id number] [address] [place] [address] [place] PAP DISCLAIMER COMMENT The Pap Smear is a screening test for cervical cancer. False negative results occur with all screening tests, emphasizing the need for rescreening at recommended intervals, and clinical correlation. Normal [facility] Comment on above: Order Comment: Speci men Type: FLUID SPECIMEN Ordering Facility: [facility] Address: [address] [place] [address] Performed By: #### L [id number] #### [facility] CLIA [id number] [address] [place] [address] [place] PAP HOUSEKEEPING ASSISTANT COMMENT This specimen has been analyzed by the ThinPrep Imaging System, an automated imaging and review system, which assists the laboratory in evaluating cells on ThinPrep Pap tests. Following automated imaging, selected mata from every slide are reviewed by a dry molder. Normal [facility] Comment on above: Order Comment: Speci josefina Type: FLUID SPECIMEN Ordering Facility: [facility] Address: [address] [place] [address] Performed By: #### L [id number] #### [facility] CLIA [id number] [address] [place] [address] [place] PAP I-G w/rfx hrHPV-Aptimaon 10-28-2023 ADEQ Comment Normal . [facility] Comment on above: Order Comment: Speci men Comment: [id number] Comment: Source.............CervixSpecimen Comment: Other..............OtherSpecimen Comment: No. of containers..01 ThinPrep Vial Result Comment: Sati sfactory for evaluation. Endocervical and/or squamous metaplastic cells (endocervical component) are present. Performed By: #### L 7400.0353 ####[facility] [address] [place], [place], [id number] COMM . Normal . [facility] Comment on above: Order Comment: Speci men Comment: [id number] Comment: Source.............CervixSpecimen Comment: Other..............OtherSpecimen Comment: No. of containers..01 ThinPrep Vial Performed By: #### L 7400.0353 ####[facility] [address] [place], [place], [id number] COMMENT Comment Normal . [facility] Comment on above: Order Comment: Speci men Comment: [id number] Comment: Source.............CervixSpecimen Comment: Other..............OtherSpecimen Comment: No. of containers..01 ThinPrep Vial Result Comment: This liquid based ThinPrep(R) pap test was screened with the use of an image guided system. Performed By: #### L 7400.0353 ####[facility] [address] [place], [place], [id number] DIAG Comment Normal . [facility] Comment on above: Order Comment: Speci men Comment: [id number] Comment: Source.............CervixSpecimen Comment: Other..............OtherSpecimen Comment: No. of containers..01 ThinPrep Vial Result Comment: NEGA TIVE FOR INTRAEPITHELIAL LESION OR MALIGNANCY. Performed By: #### L 7400.0353 ####[facility] [address] [place], [place], [address] HPV RFLX Comment Normal . [facility] Comment on above: Order Comment: Speci men Comment: [id number] Comment: Source.............CervixSpecimen Comment: Other..............OtherSpecimen Comment: No. of containers..01 ThinPrep Vial Result Comment: The HPV DNA reflex criteria were not met with this specimen result therefore, no HPV testing was performed. Performed at: [address] [place] [id number] [place] Lead: Pricila Montesinos MD, Phone: [phone] Performed By: #### L 7400.0353 ####[facility] [address] [place], [place], [id number] PAPSMR Comment Normal . [facility] Comment on above: Order Comment: Speci men Comment: [id number] Comment: Source.............CervixSpecimen Comment: Other..............OtherSpecimen Comment: No. of [...] do occur. Performed By: #### L 7400.0353 ####[facility] [address] [place], [place], [id number] PERFORM Comment Normal . [facility] Comment on above: Order Comment: Speci men Comment: [id number] Comment: Source.............CervixSpecimen Comment: Other..............OtherSpecimen Comment: No. of containers..01 ThinPrep Vial Result Comment: Deepthi Ortega Primer Inserting Machine Adjuster (ASCP) Performed By: #### L 7400.0353 ####[facility] [address] [place], [place], [id number] Agricultural Economics Teacher Office Visit Reporton 10-23-2023 Agricultural Economics Teacher Office Visit Report [facility] [address] [place], [place] [address] OFFICE VISIT Date of Service: 10/23/23 MR#: [id number] Acct: [id number] Name: TERESA CERON V Rep #: [id number] : 2000 Provider: BETH scruggs Age/Sex: 23/F Location: [facility] Status: Signed Intake Vital Signs 09/23/23 10:58 10/23/23 11:32 10/23/23 11:33 Height 5 ft 2 in 5 ft 2 in 5 ft 2 in Weight: 211 lb 6 oz 210 lb BMI 38.6 38.4 BP 112/72 119/75 Intake Visit Reasons: visit (obstetrics) Chief Complaint: pt here for 6 week visit. 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 Feeding: Bottle Menses resumed: Yes Stearns since delivery: Yes Emotional Support: Yes Last [...] normal respi (more content not included)... Normal [facility] Agricultural Economics Teacher Office Visit Reporton 09-23-2023 Agricultural Economics Teacher Office Visit Report [facility] [address] [place] [address] OFFICE VISIT Date of Service: 09/23/23 MR#: [id number] Acct: [id number] Name: TERESA CERON V Rep #: [id number] : 2000 Provider: ANTON hoyos Age/Sex: 23/F Location: [facility] Status: Signed Intake Vital Signs 08/06/23 10:51 09/06/23 10:11 09/23/23 10:58 Height 5 ft 2 in 5 ft 2 in 5 ft 2 in Weight: 211 lb 6 oz BMI 38.6 BP 112/72 Intake Visit Reasons: 2 WK C/S CHECK, *sched 6 wk pp visit* Chief Complaint: 2 Week incision check Java Security Engineer Required: No Is patient in pain?: No [...] house current occupational status: employed 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 Basophil percentageOrdered B y: Priscilla Espitia on 09-10-2023 Hemoglobin (Bld) [Mass/Vol] 9.0 g/dL 12.0-15.[address] [facility] WBC (Bld) [#/Vol] 10.9 10*3/uL 4.4-11.0 [facility] CBC-Complete Blood Cnt No Di ffon 09-10-2023 Erythrocyte distribution width (RBC) [Ratio] 14.9 % High 11.6-14.[address] [facility] Comment on above: Order Comment: Comme nts: Day #1Reason for Laboratory Test Performed By: #### L 100.0500 ####[facility] [address] [place], [address] Hematocrit (Bld) [Volume fraction] 28.1 % Low 37-[address] [facility] Comment on above: Order Comment: Comme nts: Day #1Reason for Laboratory Test Performed By: #### L 100.0500 ####[facility] [address] [place], [address] Hemoglobin (Bld) [Mass/Vol] 9.0 g/dL Low 12.0-15.[address] [facility] Comment on above: Order Comment: Comme nts: Day #1Reason for Laboratory Test Performed By: #### L 100.0500 ####[facility] [address] [place], [address] MCH (RBC) [Entitic mass] 26.2 pg Low 27.0-32.[address] [facility] Comment on above: Order Comment: Comme nts: Day #1Reason for Laboratory Test Performed By: #### L 100.0500 ####[facility] [address] [place], [address] MCHC (RBC) [Mass/Vol] 32.0 g/dL Normal 32-36 [facility] Comment on above: Order Comment: Comme nts: Day #1Reason for Laboratory Test Performed By: #### L 100.0500 ####[facility] [address] [place], [address] MCV (RBC) [Entitic vol] 81.7 fL Normal 81-[address] [facility] Comment on above: Order Comment: Comme nts: Day #1Reason for Laboratory Test Performed By: #### L 100.0500 ####[facility] [address] [place], [address] Platelet mean volume (Bld) [Entitic vol] 10.3 fL Normal 6.2-12.[address] [facility] Comment on above: Order Comment: Comme nts: Day #1Reason for Laboratory Test Performed By: #### L 100.0500 ####[facility] [address] [place], [address] Platelets (Bld) [#/Vol] 140 10*3/uL Low 150-[address] [facility] Comment on above: Order Comment: Comme nts: Day #1Reason for Laboratory Test Performed By: #### L 100.0500 ####[facility] [address] [place], [address] RBC (Bld) [#/Vol] 3.44 10*6/uL Low 4.2-5.4 [facility] Comment on above: Order Comment: Comme nts: Day #1Reason for Laboratory Test Performed By: #### L 100.0500 ####[facility] [address] [place], [address] RDW SD 42.5 fl Normal 35.1-43.[address] [facility] Comment on above: Order Comment: Comme nts: Day #1Reason for Laboratory Test Performed By: #### L 100.0500 ####[facility] [address] [place], [place], [address] WBC (Bld) [#/Vol] 10.9 10*3/uL Normal 4.4-11.0 [facility] Comment on above: Order Comment: Comme nts: Day #1Reason for Laboratory Test Performed By: #### L 100.0500 ####[facility] [address] [place], [address] Determination of erythrocyte mean corpuscular volume (MCV)Ordered By: Priscilla Espitia on 09-10-2023 MCV (RBC) [Entitic vol] 81.7 fL 81-[address] [facility] Discharge Instructionon 08-20 Discharge Instruction [facility] Medical Records Department [address] [place] [address] Instructions for Home/Discharge Instructions 09/10/23 0810 MR#: [id number] Acct: [id number] Name: TERESA CERON V Rep #: [id number] : 2000 23 From: Feli Nichols CNM [...] CC: No Primary Care Physician Signed Normal [facility] Erythrocyte distribution wid th ratioOrdered By: Priscilla Espitia on 09-10-2023 Erythrocyte distribution width (RBC) [Ratio] 14.9 % 11.6-14.[address] [facility] Erythrocyte distribution wid th standard deviationOrdered By: Priscilla Espitia on 09-10-2023 Erythrocyte distribution width (RBC) [Entitic vol] 42.5 fL 35.1-43.[address] [facility] Hematocrit Auto (Bld) [Volum e fraction]Ordered By: Priscilla Espitia on 09-10-2023 Hematocrit (Bld) [Volume fraction] 28.1 % 37-[address] [facility] Laboratory - Hematology and Cell countsOrdered By: Priscilla Espitia on 09-10-2023 MCH (RBC) [Entitic mass] 26.2 pg 27.0-32.[address] [facility] MCHC (RBC) [Mass/Vol] 32.0 g/dL 32-36 [facility] Platelets (Bld) [#/Vol] 140 10*3/uL 150-[address] [facility] Platelet mean volume Jonny-Ec ker (Bld) [Entitic vol]Ordered By: Priscilla Espitia on 09-10-2023 Platelet mean volume (Bld) [Entitic vol] 10.3 fL 6.2-12.[address] [facility] RBC Auto (Bld) [#/Vol]Ordere d By: Priscilla Espitia on 09-10-2023 RBC (Bld) [#/Vol] 3.44 10*6/uL 4.2-5.4 [facility] Absolute lymphocyte countOrd ered By: Priscilla Espitia on 09-09-2023 Lymphocytes Auto (Unsp spec) [#/Vol] 2.33 10*3/uL 0.83-4.[address] [facility] Automated lymphocyte count a s percentage of total leukocytesOrdered By: Priscilla Espitia on 09-09-2023 Lymphocytes/100 WBC Auto (Unsp spec) 20.9 % 19-[address] [facility] Basophil percentageOrdered B y: Priscilla Espitia on 09-09-2023 Basophils/100 WBC (Bld) 0.6 % 0-[address] [facility] Eosinophils/100 WBC (Bld) 0.8 % 0-[address] [facility] Monocytes/100 WBC (Bld) 7.3 % 0-[address] [facility] Neutrophils (Bld) [#/Vol] 7.6 10*3/uL 2.0-7.[address] [facility] Neutrophils/100 WBC (Bld) 68.5 % 47-[address] [facility] CBC W/Diff, Automatedon 08-20 Absolute Lymph 2.33 X10 3/uL Normal 0.83-4.[address] [facility] Comment on above: Performed By: #### Jame TS, L100.0100 #### [facility] Laboratory [address] [place], [address] Absolute Neut 7.6 X10 3/uL Normal 2.0-7.[address] [facility] Comment on above: Performed By: #### Jame TS, L100.0100 #### [facility] [address] [place], [address] Basophils/100 WBC (Bld) 0.6 % Normal 0-[address] [facility] Comment on above: Performed By: #### Jame TS, L100.0100 #### [facility] [address] [place], [address] Eosinophils/100 WBC (Bld) 0.8 % Normal 0-[address] [facility] Comment on above: Performed By: #### Jame TS, L100.0100 #### [facility] [address] [place], [address] Erythrocyte distribution width (RBC) [Ratio] 14.6 % Normal 11.6-14.[address] [facility] Comment on above: Performed By: #### Jame WOO, L100.0100 #### [facility] [address] [place], [address] Hematocrit (Bld) [Volume fraction] 32.9 % Low 37-[address] [facility] Comment on above: Performed By: #### Jame WOO, L100.0100 #### [facility] [address] [place], [address] Hemoglobin (Bld) [Mass/Vol] 10.6 g/dL Low 12.0-15.[address] [facility] Comment on above: Performed By: #### Jame WOO, L100.0100 #### [facility] [address] [facility] [place], [address] IG% 1.900 High 0.0-0.[address] [facility] Comment on above: Result Comment: IG% - Immature Granulocytes (promyelocytes, myelocytes and metamyelocytes) > 1% indicates that a LEFT SHIFT is Present. Performed By: #### Jame WOO, L100.0100 #### [facility] [address] [place], [address] Lymphocytes/100 WBC (Bld) 20.9 % Normal 19-[address] [facility] Comment on above: Performed By: #### Jame WOO, L100.0100 #### [facility] [address] [place], [address] MCH (RBC) [Entitic mass] 25.9 pg Low 27.0-32.[address] [facility] Comment on above: Performed By: #### Jame WOO, L100.0100 #### [facility] [address] [place], [address] MCHC (RBC) [Mass/Vol] 32.2 g/dL Normal 32-36 [facility] Comment on above: Performed By: #### Jame WOO, L100.0100 #### [facility] [address] [place], [address] MCV (RBC) [Entitic vol] 80.4 fL Low 81-[address] [facility] Comment on above: Performed By: #### aJme WOO, L100.0100 #### [facility] [address] [place], [address] Monocytes/100 WBC (Bld) 7.3 % Normal 0-[address] [facility] Comment on above: Performed By: #### Jame WOO, L100.0100 #### [facility] [address] [place], [address] Neutrophils/100 WBC (Bld) 68.5 % Normal 47-[address] [facility] Comment on above: Performed By: #### Jame WOO, L100.0100 #### [facility] [address] [place], [address] Nucleated RBC (Bld) [#/Vol] 0 10*3/uL Normal 0-[address] [facility] Comment on above: Performed By: #### Jame WOO, L100.0100 #### [facility] [address] [place], [address] Platelet mean volume (Bld) [Entitic vol] 10.6 fL Normal 6.2-12.[address] [facility] Comment on above: Performed By: #### Jame WOO, L100.0100 #### [facility] [address] [place], [address] Platelets (Bld) [#/Vol] 185 10*3/uL Normal 150-[address] [facility] Comment on above: Performed By: #### Jame WOO, L100.0100 #### [facility] [address] [place], [address] RBC (Bld) [#/Vol] 4.09 10*6/uL Low 4.2-5.4 [facility] Comment on above: Performed By: #### B TS, L100.0100 #### [facility] [address] [place], [address] RDW SD 41.6 fl Normal 35.1-43.[address] [facility] Comment on above: Performed By: #### B TS, L100.0100 #### [facility] [address] [place], [address] WBC (Bld) [#/Vol] 11.2 10*3/uL High 4.4-11.0 [facility] Comment on above: Performed By: #### B TS, L100.0100 #### [facility] [address] [place], [address] Discharge Instructionon 08-20 Discharge Instruction [facility] Medical Records Department [address] [place] [address] Instructions for Home/Discharge Instructions 09/09/23 0722 MR#: [id number] Acct: [id number] Name: TERESA CERON V Rep #: [id number] : 2000 23 From: Priscilla Moore DO [...] Up With: Priscilla Moore DO When: Call [phone] to make an appointment for an incision [...] DO CC: No Primary Care Physician Signed [facility] H AND P Exam - OB/GYNon 08-20 H&P Exam - MILLINERY DEPARTMENT MANAGER [facility] Medical Records Department [address] [place] [address] H P Exam - MILLINERY DEPARTMENT MANAGER 09/09/23720 MR#: [id number] Acct: [id number] Name: TERESA CERON V Rep #: [id number] : 2000 23 From: Priscilla Moore DO PCP: Care Physician,No Primary Status:ADM IN Location: [place] [address] HPI - General General Date of Admission: 09/09/23 HPI Narrative TERESA CERON, is a 23 y/o @ 39 weeks 2 days who presents to [facility] for a repeat section Maternal Data Information VILMA Calculator Estimated Delivery Date Method Current WG Current Estimate 09/14/23 Manual 39w 2d per [facility] Medical History Depression Home Medications docusate sodium [...] house current occupational status: employed 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 -???-???-???-???-??? -???-???- KW-Transfer from [place], had all appts until 20 weeks with [...] Negative 155 35 -???-???-???-???-??? -???-???-???-???-??? 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 good fm. discussed feeding plan. wants to pump not breastfeed. gbs next visit. 01/02/24 -???-???-???-???-??? -???-???-???-???-??? -???-???- 36w 3d 230 lb 6 oz Negative -???-???-???-???-??? -???-???-???-???-??? -???-???- Negative 150 36 -???-???-???-???-??? -?? (more content not included)... Normal [facility] Immature granulocytes/100 WB C Auto (Bld)Ordered By: Priscilla Espitia on 09-09-2023 Immature granulocytes/100 WBC (Bld) 1.900 % 0.0-0.[address] [facility] Comment on above: IG% - Immature Granu locytes (promyelocytes, myelocytes and metamyelocytes) > 1% indicates that a LEFT SHIFT is Present. L509.8000on 09-09-2023 Syphilis Abs Non-Reactive Normal [facility] Comment on above: Performed By: #### L 509.8000 #### [facility] Laboratory [address] [place], [address] Laboratory - Hematology and Cell countsOrdered By: Priscilla Espitia on 09-09-2023 Nucleated RBC/100 WBC (Bld) [Ratio] 0 % 0-[address] [facility] M8200.2100on 09-09-2023 M8200.2100 Normal Reference Range = Negative Chlamydia Trachomatis PCR GeneXpert Instrument, PCR method Chlamydia Trachomatis PCR Negative Normal [facility] Comment on above: Performed By: #### M 8200.2200, M8200.2100 ####[facility] [address] [facility]. [place], [place], [address] M8200.2200on 09-09-2023 M8200.2200 Normal Reference Range = Negative N gonorrhoea DNA Genital Ql JUSTIN+probe GeneXpert Instrument, PCR method N. gonorrhoeae PCR Negative Normal [facility] Comment on above: Performed By: #### M 8200.2200, M8200.2100 ####[facility] [address] [place], [address] Neisseria gonorrhoeae genita l PCROrdered By: Ruth Will on 09-09-2023 N. gonorrhoeae DNA JUSTIN+probe Ql (Genital specimen) [facility] No Panel InformationOrdered By: Ruth Will on 09-09-2023 Chlamydia trachomatis (PCR) [facility] Operative Reporton 4 Operative Report [facility] Medical Records Department [address] [place] [address] Operative Report 09/09/23 0834 MR#: [id number] Acct: [id number] Name: TERESA CERON V Rep #: [id number] : 2000 23 From: Priscilla Moore DO PCP: Care Physician,No Primary Status:ADM IN Location: [place] [address] Assessment Plan (1) Obesity affecting : COMMENT: [...] Elective Classification: Scheduled Procedure Type: low transverse dressed poultry grader #1: Daniel Prince Type of Anesthesia: Spinal [...] Multi Select Codes Urinary/Genital Urinary/Genital CPT Codes: 19175 Delivery global pkg 09/09/23 0841 Cosigner Signature (if applicable): CC: Dr. Priscilla Moore, ; No Primary Care Physician Signed Normal [facility] Serum Treponema species anti body detectionOrdered By: Priscilla Espitia on 09-09-2023 Treponema sp Ab Ql (S) Non-Reactive [facility] Type AND Screenon 09-09-2023 Ab SCREEN GEL Negative Normal [facility] Comment on above: Order Comment: S Performed By: #### B TS, L100.0100 #### [facility] Laboratory [address] [place], [address] ABO and Rh group Nom (Bld) Blood group O Rh(D) positive [facility] Comment on above: Order Comment: S Performed By: #### B TS, L100.0100 #### [facility] Laboratory [address] [place], [address] Laboratory - Chemistry and C hemistry - challengeon 09-06-2023 Glucose Ql (U) Negative [facility] Laboratory - Urinalysison Protein Ql (U) Negative [facility] Agricultural Economics Teacher Office Visit Reporton 09-06-2023 Agricultural Economics Teacher Office Visit Report [facility] [address] [place] [address] OFFICE VISIT Date of Service: 09/06/23 MR#: [id number] Acct: [id number] Name: TERESA CERON V Rep #: [id number] : 2000 Provider: Dr. Priscilla Maya DO Age/Sex: 23/F Location: [facility] 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 -???-???-???-???-??? -???-???- KW-Transfer from [place], had all appts until 20 weeks with [...] Negative 155 35 -???-???-???-???-??? -???-???-???-???-??? 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 good fm. discussed (more content not included)... Normal [facility] Laboratory - Chemistry and C hemistry - challengeon 08-27-2023 Glucose Ql (U) Negative [facility] Laboratory - Urinalysison Protein Ql (U) Negative [facility] Agricultural Economics Teacher Office Visit Reporton 08-27-2023 Agricultural Economics Teacher Office Visit Report [facility] [address] [place] [address]. 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 OB Visit VILMA Calculator Estimated Delivery Date Method Current Current Estimate 09/14/23 Manual 37w 3d per [facility] records Expected Delivery Route/Plan desires repeat [...] Negative 140 -???-???-???-???-??? -???-???-???-???-??? -???-???- KW-Transfer from [place], had all appts until 20 weeks with [...] Negative 155 35 -???-???-???-???-??? -???-???-???-???-??? 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 good fm. discussed feeding plan. wants to pump not breastfeed. gbs (more content not included)... Normal [facility] Rule out Beta Strep (Grp. B) on 08-22-2023 JACQUELINE Group B Beta Streptococcus is not isolated. [facility] Comment on above: Performed By: #### L 8200.0000, M100.3400 #### [facility] Laboratory [address] [place], [address] Group B Strep DNA By PCRon 0 08-20-2023 GBS DNA ASSAY Normal Negative [facility] Comment on above: Order Comment: Vagin al-Rectal Result Comment: ORDE R ERROR Performed By: #### L 8200.0000, M100.3400 #### [facility] [address] [place], [address] IC [facility] Comment on above: Order Comment: Vagin al-Rectal Result Comment: ORDE R ERROR Performed By: #### L 8200.0000, M100.3400 #### [facility] [address] [place], [address] PROBE CHECK [facility] Comment on above: Order Comment: Vagin al-Rectal Result Comment: ORDE R ERROR Performed By: #### L 8200.0000, M100.3400 #### [facility] [address] [place], [address] SPC Normal [facility] Comment on above: Order Comment: Vagin al-Rectal Result Comment: ORDE R ERROR Performed By: #### L 8200.0000, M100.3400 #### [facility] [address] [place], [address] SWAB TYPE IS: Normal [facility] Comment on above: Order Comment: Vagin al-Rectal Result Comment: ORDE R ERROR Performed By: #### L 8200.0000, M100.3400 #### [facility] [address] [place], [address] Laboratory - Chemistry and C hemistry - challengeon 08-20-2023 Glucose Ql (U) Negative [facility] Laboratory - Urinalysison Protein Ql (U) Negative [facility] No Panel InformationOrdered By: Feli Nichols on 08-20-2023 Group B Streptococcus Culture Group B Beta Streptococcus is not isolated. [facility] Group B Streptococcus Culture Group B Beta Streptococcus is not isolated. [facility] Agricultural Economics Teacher Office Visit Reporton 08-20-2023 Agricultural Economics Teacher Office Visit Report [facility] 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 OB Visit VILMA Calculator Estimated Delivery Date Method Current Current Estimate 09/14/23 Manual 36w 3d per [facility] records Expected Delivery Route/Plan desires repeat C/S [...] Negative 140 -???-???-???-???-??? -???-???-???-???-??? -???-???- KW-Transfer from [place], had all appts until 20 weeks with [...] Negative 155 35 -???-???-???-???-??? -???-???-???-???-??? 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 good fm. discussed feeding plan. wants to pump not breastfeed. gbs next visit. (more content not included)... Normal [facility] Laboratory - Chemistry and C hemistry - challengeon 08-06-2023 Glucose Ql (U) Negative [facility] Laboratory - Urinalysison Protein Ql (U) Negative [facility] Agricultural Economics Teacher Office Visit Reporton 08-06-2023 Agricultural Economics Teacher Office Visit Report [facility] 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 -???-???-???-???-??? -???-???- KW-Transfer from [place], had all appts until 20 weeks with [...] -???-???- 155 35 -???-???-???-???-??? -???-???-???-???-??? 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 good fm. discussed infant feeding plan. wants to pump not breastfeed. gbs next visit. ACOG First Trimester (more content not included)... Normal [facility] Laboratory - Chemistry and C hemistry - challengeon 07-23-2023 Glucose Ql (U) Negative [facility] Laboratory - Urinalysison Protein Ql (U) Negative [facility] Agricultural Economics Teacher Office Visit Reporton 07-23-2023 Agricultural Economics Teacher Office Visit Report [facility] [place] [facility] [address] [place] [address] OFFICE VISIT Date of Service: 07/23/23 MR#: [id number] Acct: [id number] Name: TERESA CERON V Rep #: [id number] : 2000 Provider: Dr. 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 -???-???-???-???-??? -???-???- KW-Transfer from [place], had all appts until 20 weeks with [...] use, Chil (more content not included)... Normal [facility] Laboratory - Chemistry and C hemistry - challengeon 07-08-2023 Glucose Ql (U) Negative [facility] Laboratory - Urinalysison Protein Ql (U) Negative [facility] Agricultural Economics Teacher Office Visit Reporton 07-08-2023 Agricultural Economics Teacher Office Visit Report [facility] [address] [place] [address]. [address] [place] [address] OFFICE VISIT Date of Service: 07/08/23 MR#: [id number] Acct: [id number] Name: TERESA CERON V Rep #: [id number] : 2000 Provider: Dr. 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 -???-???-???-???-??? -???-???- KW-Transfer from [place], had all appts until 20 weeks with [...] Discussed Environmenta (more content not included)... Normal [facility] Absolute lymphocyte countOrd ered By: Feli Nichols on 06-18-2023 Lymphocytes Auto (Unsp spec) [#/Vol] 1.55 10*3/uL 0.83-4.[address] [facility] Basophil percentageOrdered B y: Feli Nichols on 06-18-2023 Basophils/100 WBC (Bld) 0.4 % 0-[address] [facility] Eosinophils/100 WBC (Bld) 0.6 % 0-[address] [facility] Neutrophils (Bld) [#/Vol] 7.7 10*3/uL 2.0-7.[address] [facility] Neutrophils/100 WBC (Bld) 78.3 % 47-[address] [facility] WBC (Bld) [#/Vol] 9.8 10*3/uL 4.4-11.0 [facility] Blood erythrocytes count (nu mber/volume)Ordered By: Feli Nichols on 06-18-2023 RBC (Bld) [#/Vol] 4.16 10*6/uL 4.2-5.4 [facility] Blood hemoglobin measurement (mass/volume)Ordered By: Feli Nichols on 06-18-2023 Hemoglobin (Bld) [Mass/Vol] 11.9 g/dL 12.0-15.[address] [facility] Blood lymphocytes/100 leukoc ytesOrdered By: Feli Nichols on 06-18-2023 Lymphocytes/100 WBC (Bld) 15.8 % 19-[address] [facility] Blood monocytes/100 leukocyt esOrdered By: Feli Nichols on 06-18-2023 Monocytes/100 WBC (Bld) 3.8 % 0-[address] [facility] Blood platelet mean volumeOr dered By: Feli Nichols on 06-18-2023 Platelet mean volume (Bld) [Entitic vol] 10.4 fL 6.2-12.[address] [facility] CBC W/Diff, Automatedon 05-21 Absolute Lymph 1.55 X10 3/uL Normal 0.83-4.[address] [facility] Comment on above: Performed By: #### L 100.0100, L3890.6005, L500.4710, L509.8000 ####[facility] [address] [place], [address] Absolute Neut 7.7 X10 3/uL Normal 2.0-7.[address] [facility] Comment on above: Performed By: #### L 100.0100, L3890.6005, L500.4710, L509.8000 ####[facility] [address] [place], [address] Basophils/100 WBC (Bld) 0.4 % Normal 0-[address] [facility] Comment on above: Performed By: #### L 100.0100, L3890.6005, L500.4710, L509.8000 ####[facility] [address] [place], [address] Eosinophils/100 WBC (Bld) 0.6 % Normal 0-[address] [facility] Comment on above: Performed By: #### L 100.0100, L3890.6005, L500.4710, L509.8000 ####[facility] [address] [place], [address] Erythrocyte distribution width (RBC) [Ratio] 14.0 % Normal 11.6-14.[address] [facility] Comment on above: Performed By: #### L 100.0100, L3890.6005, L500.4710, L509.8000 ####[facility] [address] [place], [address] Hematocrit (Bld) [Volume fraction] 35.2 % Low 37-[address] [facility] Comment on above: Performed By: #### L 100.0100, L3890.6005, L500.4710, L509.8000 ####[facility] [address] [place], [address] Hemoglobin (Bld) [Mass/Vol] 11.9 g/dL Low 12.0-15.[address] [facility] Comment on above: Performed By: #### L 100.0100, L3890.6005, L500.4710, L509.8000 ####[facility] [address] [place], [address] IG% 1.100 High 0.0-0.[address] [facility] Comment on above: Result Comment: IG% - Immature Granulocytes (promyelocytes, myelocytes and metamyelocytes) > 1% indicates that a LEFT SHIFT is Present. Performed By: #### L 100.0100, L3890.6005, L500.4710, L509.8000 ####[facility] [address] [place], [address] Lymphocytes/100 WBC (Bld) 15.8 % Low 19-[address] [facility] Comment on above: Performed By: #### L 100.0100, L3890.6005, L500.4710, L509.8000 ####[facility] [address] [place], [address] MCH (RBC) [Entitic mass] 28.6 pg Normal 27.0-32.[address] [facility] Comment on above: Performed By: #### L 100.0100, L3890.6005, L500.4710, L509.8000 ####[facility] [address] [place], [address] MCHC (RBC) [Mass/Vol] 33.8 g/dL Normal 32-36 [facility] Comment on above: Performed By: #### L 100.0100, L3890.6005, L500.4710, L509.8000 ####[facility] [address] [place], [address] MCV (RBC) [Entitic vol] 84.6 fL Normal 81-[address] [facility] Comment on above: Performed By: #### L 100.0100, L3890.6005, L500.4710, L509.8000 ####[facility] [address] [place], [address] Monocytes/100 WBC (Bld) 3.8 % Normal 0-[address] [facility] Comment on above: Performed By: #### L 100.0100, L3890.6005, L500.4710, L509.8000 ####[facility] [address] [place], [address] Neutrophils/100 WBC (Bld) 78.3 % High 47-[address] [facility] Comment on above: Performed By: #### L 100.0100, L3890.6005, L500.4710, L509.8000 ####[facility] [address] [place], [address] Nucleated RBC (Bld) [#/Vol] 0 10*3/uL Normal 0-[address] [facility] Comment on above: Performed By: #### L 100.0100, L3890.6005, L500.4710, L509.8000 ####[facility] [address] [place], [address] Platelet mean volume (Bld) [Entitic vol] 10.4 fL Normal 6.2-12.[address] [facility] Comment on above: Performed By: #### L 100.0100, L3890.6005, L500.4710, L509.8000 ####[facility] [address] [place], [address] Platelets (Bld) [#/Vol] 209 10*3/uL Normal 150-[address] [facility] Comment on above: Performed By: #### L 100.0100, L3890.6005, L500.4710, L509.8000 ####[facility] [address] [place], [address] RBC (Bld) [#/Vol] 4.16 10*6/uL Low 4.2-5.4 [facility] Comment on above: Performed By: #### L 100.0100, L3890.6005, L500.4710, L509.8000 ####[facility] [address] [place], [address] RDW SD 42.8 fl Normal 35.1-43.[address] [facility] Comment on above: Performed By: #### L 100.0100, L3890.6005, L500.4710, L509.8000 ####[facility] [address] [place], [address] WBC (Bld) [#/Vol] 9.8 10*3/uL Normal 4.4-11.0 [facility] Comment on above: Performed By: #### L 100.0100, L3890.6005, L500.4710, L509.8000 ####[facility] [address] [place], [address] Determination of erythrocyte mean corpuscular volume (MCV)Ordered By: Feli Nichols on 06-18-2023 MCV (RBC) [Entitic vol] 84.6 fL 81-[address] [facility] Gestational GTT 3HR 100gon 1 3HR GTT- GEST. Normal [facility] Comment on above: Order Comment: Y [...] By: #### L 100.0100, L3890.6005, L500.4710, L509.8000 ####[facility] [address] [place], [address] HIV - WCHon 06-18-2023 HIV Non-Reactive Normal Nonreactive [facility] Comment on above: Performed By: #### L 100.0100, L3890.6005, L500.4710, L509.8000 ####[facility] [address] [place], [address] HIV 1 and HIV-2 antibody ass ay with HIV-1 p24 antigen detectionOrdered By: Feli Nichols on 06-18-2023 HIV 1+2 Ab+HIV1 p24 Ag IA Ql Non-Reactive Nonreactive [facility] Hematocrit Auto (Bld) [Volum e fraction]Ordered By: Feli Nichols on 06-18-2023 Hematocrit (Bld) [Volume fraction] 35.2 % 37-[address] [facility] L509.8000on 06-18-2023 Syphilis Abs Non-Reactive Normal [facility] Comment on above: Performed By: #### L 100.0100, L3890.6005, L500.4710, L509.8000 ####[facility] [address] [place], [address] Laboratory - Chemistry and C hemistry - challengeon 06-18-2023 Glucose Ql (U) Negative [facility] Laboratory - Hematology and Cell countsOrdered By: Feli Nichols on 06-18-2023 Erythrocyte distribution width (RBC) [Entitic vol] 42.8 fL 35.1-43.[address] [facility] Erythrocyte distribution width (RBC) [Ratio] 14.0 % 11.6-14.[address] [facility] Immature granulocytes/100 WBC (Bld) 1.100 % 0.0-0.[address] [facility] Comment on above: IG% - Immature Granu locytes (promyelocytes, myelocytes and metamyelocytes) > 1% indicates that a LEFT SHIFT is Present. MCH (RBC) [Entitic mass] 28.6 pg 27.0-32.[address] [facility] Nucleated RBC/100 WBC (Bld) [Ratio] 0 % 0-[address] [facility] Laboratory - Urinalysison Protein Ql (U) Negative [facility] MCHC Auto (RBC) [Mass/Vol]Or dered By: Feli Nichols on 06-18-2023 MCHC (RBC) [Mass/Vol] 33.8 g/dL 32-36 [facility] Agricultural Economics Teacher Office Visit Reporton 06-18-2023 Agricultural Economics Teacher Office Visit Report [facility] [address] [place], [place] [address] OFFICE VISIT Date of Service: 06/18/23 MR#: [id number] Acct: [id number] Name: TERESA CERON V Rep #: [id number] : 2000 Provider: BETH Suarez ams Age/Sex: 22/F Location: [facility] Status: Signed Intake Vital Signs 05/28/23 13:24 06/18/23 13:14 06/18/23 13:15 Height 5 ft 2 in 5 ft 2 in 5 ft 2 in Weight: 222 lb 6 oz BMI 40.6 BP 115/81 H Intake Visit Reasons: 27 WK OB / 3 HR GLUCOSE in the AM Java Security Engineer Required: No Is patient in pain?: No [...] house current occupational status: employed 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 OB Visit [facility] Calculator Estimated Delivery Date Method Current WG Current Estimate 09/14/23 Manual 27w 3d per [facility] records Expected Delivery Route/Plan desires repeat C/S [...] Negative 140 -???-???-???-???-??? -???-???-???-???-??? -???-???- KW-Transfer from [place], had all appts until 20 weeks with [...] Discussed Tobacco (more content not included)... Normal [facility] Platelets bldOrdered By: Yao Nichols on 06-18-2023 Platelets (Bld) [#/Vol] 209 10*3/uL 150-[address] [facility] Quantitative serum or plasma 3 hour gestational glucose tolerance panelOrdered By: Feli Nichols on 06-18-2023 Glucose tolerance 3 hours gestational panel See comment [facility] Comment on above: FASTING 79 Col: [...] 06-18-2023 Treponema sp Ab Ql (S) Non-Reactive [facility] Laboratory - Chemistry and C hemistry - challengeon 05-28-2023 Glucose Ql (U) Negative [facility] Laboratory - Urinalysison Protein Ql (U) Negative [facility] Agricultural Economics Teacher Office Visit Reporton 05-28-2023 Agricultural Economics Teacher Office Visit Report [facility] [address] [place] [address] OFFICE VISIT Date of Service: 05/28/23 MR#: [id number] Acct: [id number] Name: TERESA CERON V Rep #: [id number] : 2000 Provider: BETH Suarez ams Age/Sex: 22/F Location: [facility] Status: Signed Intake Vital Signs 08/17/20 07:59 05/28/23 13:22 05/28/23 13:24 Height 5 ft 2 in 5 ft 2 in 5 ft 2 in Weight: 219 lb BMI 40.0 BP 114/81 H Intake Visit Reasons: transfer from [facility] 09/14 Java Security Engineer Required: No Is patient in pain?: No [...] 2020 38 live - full term Male [facility] Erancory Delivery Date: 08/18/20 Last Updated by: Lindsey Recinos Baby with cleft palate HPI transfer from [place] [facility] 09/14 Details: TERESA CERON is a 22 year old who presents for routine OB visit. OB Visit [facility]ILMA Calculator Estimated Delivery Date Method Current Current Estimate 09/14/23 Manual 24w 3d per [facility] records Comments: HIV: Urine Culture: Sequential Screen: [...] Negative 140 -???-???-???-???-??? -???-???-???-???-??? -???-???- KW-Transfer from [place], had all appts until 20 weeks with [...] , Edu (more content not included)... Normal [facility] V-Zoster IgG (Immunity)on V ZOSTER IgG < 135 Low Immune >[address] [facility] Comment on above: Result Comment: Nega tive <135 Equivocal 135 - 165 Positive >165 A positive result generally indicates exposure to the pathogen or administration of specific immunoglobulins, but it is not indication of active infection or stage of disease. Performed at: [facility] [address] [id number] [place] Lead: Haris Flores PhD, Phone: [phone] Performed By: #### L 3400.0000, M100.2200, L3890.6300, L509.8000, L509.4005, BPNTSNC, L3890.6100, L100.0100, L3890.6005 ####[facility] [address] [place], [place], [id number] Urine Cultureon 01-23-2023 [facility] Mixed Gram Positive Organisms Parsons Count 1000-10,000 MIXC Mixed contaminants. Submit a new specimen if indicated. Normal [facility] Comment on above: Performed By: #### L 3400.0000, M100.2200, L3890.6300, L509.8000, L509.4005, BPNTSNC, L3890.6100, L100.0100, L3890.6005 ####[facility] [address] [place], [place], [id number] CBC W/Diff, Automatedon Absolute Lymph 1.61 X10 3/uL Normal 0.83-4.[address] [facility] Comment on above: Performed By: #### L 3400.0000, M100.2200, L3890.6300, L509.8000, L509.4005, BPNTSNC, L3890.6100, L100.0100, L3890.6005 ####[facility] [address] [place], [place], [address] Absolute Neut 6.1 X10 3/uL Normal 2.0-7.[address] [facility] Comment on above: Performed By: #### L 3400.0000, M100.2200, L3890.6300, L509.8000, L509.4005, BPNTSNC, L3890.6100, L100.0100, L3890.6005 ####[facility] [address] [place], [address] Basophils/100 WBC (Bld) 0.5 % Normal 0-[address] [facility] Comment on above: Performed By: #### L 3400.0000, M100.2200, L3890.6300, L509.8000, L509.4005, BPNTSNC, L3890.6100, L100.0100, L3890.6005 ####[facility] [address] [place], [address] Eosinophils/100 WBC (Bld) 0.2 % Normal 0-[address] [facility] Comment on above: Performed By: #### L 3400.0000, M100.2200, L3890.6300, L509.8000, L509.4005, BPNTSNC, L3890.6100, L100.0100, L3890.6005 ####[facility] [address] [place], [address] Erythrocyte distribution width (RBC) [Ratio] 14.0 % Normal 11.6-14.[address] [facility] Comment on above: Performed By: #### L 3400.0000, M100.2200, L3890.6300, L509.8000, L509.4005, BPNTSNC, L3890.6100, L100.0100, L3890.6005 ####[facility] [address] [place], [address] Hematocrit (Bld) [Volume fraction] 40.1 % Normal 37-[address] [facility] Comment on above: Performed By: #### L 3400.0000, M100.2200, L3890.6300, L509.8000, L509.4005, BPNTSNC, L3890.6100, L100.0100, L3890.6005 ####[facility] [address] [place], [address] Hemoglobin (Bld) [Mass/Vol] 13.2 g/dL Normal 12.0-15.[address] [facility] Comment on above: Performed By: #### L 3400.0000, M100.2200, L3890.6300, L509.8000, L509.4005, BPNTSNC, L3890.6100, L100.0100, L3890.6005 ####[facility] [address] [place], [address] IG% 0.400 Normal 0.0-0.[address] [facility] Comment on above: Result Comment: IG% - Immature Granulocytes (promyelocytes, myelocytes and metamyelocytes) > 1% indicates that a LEFT SHIFT is Present. Performed By: #### L 3400.0000, M100.2200, L3890.6300, L509.8000, L509.4005, BPNTSNC, L3890.6100, L100.0100, L3890.6005 ####[facility] [address] [place], [address] Lymphocytes/100 WBC (Bld) 19.1 % Normal 19-[address] [facility] Comment on above: Performed By: #### L 3400.0000, M100.2200, L3890.6300, L509.8000, L509.4005, BPNTSNC, L3890.6100, L100.0100, L3890.6005 ####[facility] [address] [place], [address] MCH (RBC) [Entitic mass] 27.1 pg Normal 27.0-32.[address] [facility] Comment on above: Performed By: #### L 3400.0000, M100.2200, L3890.6300, L509.8000, L509.4005, BPNTSNC, L3890.6100, L100.0100, L3890.6005 ####[facility] [address] [place], [address] MCHC (RBC) [Mass/Vol] 32.9 g/dL Normal 32-36 [facility] Comment on above: Performed By: #### L 3400.0000, M100.2200, L3890.6300, L509.8000, L509.4005, BPNTSNC, L3890.6100, L100.0100, L3890.6005 ####[facility] [address] [place], [address] MCV (RBC) [Entitic vol] 82.3 fL Normal 81-[address] [facility] Comment on above: Performed By: #### L 3400.0000, M100.2200, L3890.6300, L509.8000, L509.4005, BPNTSNC, L3890.6100, L100.0100, L3890.6005 ####[facility] [address] [place], [address] Monocytes/100 WBC (Bld) 7.0 % Normal 0-[address] [facility] Comment on above: Performed By: #### L 3400.0000, M100.2200, L3890.6300, L509.8000, L509.4005, BPNTSNC, L3890.6100, L100.0100, L3890.6005 ####[facility] [address] [place], [address] Neutrophils/100 WBC (Bld) 72.8 % High 47-[address] [facility] Comment on above: Performed By: #### L 3400.0000, M100.2200, L3890.6300, L509.8000, L509.4005, BPNTSNC, L3890.6100, L100.0100, L3890.6005 ####[facility] [address] [place], [address] Nucleated RBC (Bld) [#/Vol] 0 10*3/uL Normal 0-[address] [facility] Comment on above: Performed By: #### L 3400.0000, M100.2200, L3890.6300, L509.8000, L509.4005, BPNTSNC, L3890.6100, L100.0100, L3890.6005 ####[facility] [address] [place], [address] Platelet mean volume (Bld) [Entitic vol] 10.7 fL Normal 6.2-12.[address] [facility] Comment on above: Performed By: #### L 3400.0000, M100.2200, L3890.6300, L509.8000, L509.4005, BPNTSNC, L3890.6100, L100.0100, L3890.6005 ####[facility] [address] [place], [address] Platelets (Bld) [#/Vol] 256 10*3/uL Normal 150-[address] [facility] Comment on above: Performed By: #### L 3400.0000, M100.2200, L3890.6300, L509.8000, L509.4005, BPNTSNC, L3890.6100, L100.0100, L3890.6005 ####[facility] [address] [facility] [place], [address] RBC (Bld) [#/Vol] 4.87 10*6/uL Normal 4.2-5.4 [facility] Comment on above: Performed By: #### L 3400.0000, M100.2200, L3890.6300, L509.8000, L509.4005, BPNTSNC, L3890.6100, L100.0100, L3890.6005 ####[facility] [address] [place], [address] RDW SD 41.2 fl Normal 35.1-43.[address] [facility] Comment on above: Performed By: #### L 3400.0000, M100.2200, L3890.6300, L509.8000, L509.4005, BPNTSNC, L3890.6100, L100.0100, L3890.6005 ####[facility] [address] [place], [address] WBC (Bld) [#/Vol] 8.4 10*3/uL Normal 4.4-11.0 [facility] Comment on above: Performed By: #### L 3400.0000, M100.2200, L3890.6300, L509.8000, L509.4005, BPNTSNC, L3890.6100, L100.0100, L3890.6005 ####[facility] [address] [place], [address] HIV - WCHon 01-22-2023 HIV Non-Reactive Normal Nonreactive [facility] Comment on above: Performed By: #### L 3400.0000, M100.2200, L3890.6300, L509.8000, L509.4005, BPNTSNC, L3890.6100, L100.0100, L3890.6005 ####[facility] [address] [place], [address] Hepatitis B Surface Antigeno n 01-22-2023 HEP B Surf Ag Non-Reactive Normal Nonreactive [facility] Comment on above: Performed By: #### L 3400.0000, M100.2200, L3890.6300, L509.8000, L509.4005, BPNTSNC, L3890.6100, L100.0100, L3890.6005 ####[facility] [address] [place], [address] Hepatitis C Antibodyon 01-22 Hepatitis C Ab Non-Reactive Normal Nonreactive [facility] Comment on above: Result Comment: Non Reactive: < 0.8 Equivocal: >/= 0.8 to < 1.0 Reactive: >/= 1.0 The CDC recommends that a reactive/equivocal HCV antibody result be followed up by the HCV Nucleic Acid Amplification test (669684) Performed By: #### L 3400.0000, M100.2200, L3890.6300, L509.8000, L509.4005, BPNTSNC, L3890.6100, L100.0100, L3890.6005 ####[facility] [address] [place], [place], [address] L509.8000on 01-22-2023 Syphilis Abs Non-Reactive Normal [facility] Comment on above: Performed By: #### L 3400.0000, M100.2200, L3890.6300, L509.8000, L509.4005, BPNTSNC, L3890.6100, L100.0100, L3890.6005 ####[facility] [address] [place], [address] T AND S-No Charge w /PNPon 01-22-2023 Ab SCREEN GEL Negative Normal [facility] Comment on above: Order Comment: PNN Performed By: #### L 3400.0000, M100.2200, L3890.6300, L509.8000, L509.4005, BPNTSNC, L3890.6100, L100.0100, L3890.6005 ####[facility] [address] [place], [address] ABO and Rh group Nom (Bld) Blood group O Rh(D) positive Normal [facility] Comment on above: Order Comment: PNN Performed By: #### L 3400.0000, M100.2200, L3890.6300, L509.8000, L509.4005, BPNTSNC, L3890.6100, L100.0100, L3890.6005 ####[facility] [address] [place], [place], [address] Rubella IgGon 01-22-2023 Rubella IgG Reactive Normal Nonreactive [facility] Comment on above: Result Comment: Anti body Results Interpretation of Immune Status Non Reactive Presumed Non-Immune Equivocal Equivocal Reactive Presumed Immune Performed By: #### L 3400.0000, M100.2200, L3890.6300, L509.8000, L509.4005, BPNTSNC, L3890.6100, L100.0100, L3890.6005 ####[facility] [address] [place], [address] EMERGENCY REPORTon 8 EMERGENCY REPORT [facility] EMERGENCY ROOM REPORT NAME ACCOUNT SEX AGE ADMIT DISCHARGE PT MED. 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 Very nice people. She is seen [...] Roxanne Silva DO 03/04/18 04:24 JOB #: [id number] Transcribed By: 03/04/18 20:44 Electronically signed by: E-SIGN ROXANNE SILVA DO 03/08/18 22:25 Page 2 of 2 TERESA CERON V Emergency Room Report Normal [facility] EMERGENCY REPORTon 7 EMERGENCY REPORT [facility] EMERGENCY ROOM REPORT NAME NUMBER SEX AGE ADMIT DISC TYPE MED.RECORD# TERESA CERON V [id number] F 16 04/11/2017 04/11/2017 [employer] [id number] ROOM:ER DATE OF :2000 PHYSICIAN NO.: PHYSICIAN [...] Novak M.D. TD: 04/11/2017 17:21:06 JOB #: [id number] DR. BRISEYDA NOVAK EMERGENCY DEPARTMENT 05/01/17 09:51 Transcribed by: NMGeo 04/11/2017 17:21:06 Copy for: KISHORE RAIN MD Copy for: YEYO Guardado EMERGENCY ROOM REPORT TERESA CERON V 1 Normal [facility] CBCon 04-11-2017 Basophils Auto #/vol (Bld) 0.10 x10EE3/UL Normal 0.00 - 0.10 [facility] Comment on above: Performed By: #### 2 39277 ####[facility],[address] [place] [address] Basophils/100 WBC Auto (Bld) 0.8 % Normal 0.0 - 2.0 [facility] Comment on above: Performed By: #### 2 79034 ####[facility],[address] [place] [address] Blood morphology N/A Normal [facility] Comment on above: Result Comment: {CD] Performed By: #### 2 87303 ####[facility],[address] [place], [place] [address] CBC Normal [facility] Comment on above: Result Comment: CBC- COMPLETE BLOOD COUNT Performed By: #### 2 43749 ####[facility],[address] [place] [address] Eosinophils 0.10 x10EE3/UL Normal 0.00 - 0.50 [facility] Comment on above: Performed By: #### 2 34124 ####[facility],[address] [place] [address] Eosinophils/100 leukocytes 1.0 % Normal 0.0 - 7.0 [facility] Comment on above: Performed By: #### 2 99976 ####[facility],[address] [place] [address] Erythrocyte distribution width Auto Ratio (RBC) 13.3 % Normal 12.0 - 15.6 [facility] Comment on above: Performed By: #### 2 38983 ####[facility],[address] [place], [place] [address] Erythrocytes (RBC) 4.41 x 10EE6/UL Normal 4.10 - 5.30 [facility] Comment on above: Performed By: #### 2 74656 ####[facility],[address] [place] [address] Hematocrit (HCT) 36.1 % Normal 34.0 - 46.0 [facility] Comment on above: Performed By: #### 2 31898 ####[facility],[address] [place] [address] Hemoglobin mass conc (Bld) 12.0 g/dL Normal 12.0 - 16.0 [facility] Comment on above: Performed By: #### 2 69527 ####[facility],[address] [place] [address] Lymphocytes 2.30 x10EE3/UL Normal 0.80 - 2.80 [facility] Comment on above: Performed By: #### 2 05923 ####[facility],[address] [place] [address] Lymphocytes/100 leukocytes 31.1 % Normal 20.0 - 45.0 [facility] Comment on above: Performed By: #### 2 65606 ####[facility],[address] [place] [address] MANUAL DIFF N/A Normal [facility] Comment on above: Performed By: #### 2 27443 ####[facility],[address] [place] [address] MCH 27 pg Normal 27 - 33 [facility] Comment on above: Performed By: #### 2 73506 ####[facility],[address] [place] [address] MCHC mass conc (RBC) 33 X10 3 Normal 32 - 36 [facility] Comment on above: Performed By: #### 2 26313 ####[facility],[address] [place] [address] MCV 82 fL Normal 80 - 99 [facility] Comment on above: Performed By: #### 2 61949 ####[facility],[address] [place], [place] [address] Monocytes 0.60 x10EE3/UL Normal 0.20 - 1.00 [facility] Comment on above: Performed By: #### 2 78243 ####[facility],[address] [place] [address] MONOS % 7.8 % Normal 0.0 - 10.0 [facility] Comment on above: Performed By: #### 2 65950 ####[facility],[address] [place], [place] [address] Neutrophils 4.40 x10EE3/UL Normal 1.50 - 7.10 [facility] Comment on above: Performed By: #### 2 00233 ####[facility],[address] [place], [place] [address] Neutrophils/100 WBC Auto (Bld) 59.3 % Normal 46.0 - 76.0 [facility] Comment on above: Performed By: #### 2 35796 ####[facility],[address] [place] [address] Platelet mean volume (PMV) 8.1 fL Normal 6.6 - 10.5 [facility] Comment on above: Result Comment: AUTO MATED DIFFERENTIAL Performed By: #### 2 17952 ####[facility],[address] [place] [address] Platelets 286 x10EE3/UL Normal 150 - 450 [facility] Comment on above: Performed By: #### 2 70662 ####[facility],[address] [place] [address] WBC (Leukocytes) 7.4 x 10EE3/UL Normal 4.5 - 10.8 [facility] Comment on above: Performed By: #### 2 18600 ####[facility],[address] [place] [address] CMP with eGFRon 04-11-2017 Age 16 years Normal [facility] Comment on above: Performed By: #### 2 07108 ####[facility],[address] [place] [address] Albumin 4.2 g/dL Normal 2.9 - 4.2 [facility] Comment on above: Performed By: #### 2 82672 ####[facility],[address] [place] [address] Albumin/Globulin Ratio 1.5 {ratio} Normal 0.9 - 1.6 [facility] Comment on above: Performed By: #### 2 98294 ####[facility],[address] [place] [address] ALK PHOS 53 U/L Normal 47 - 119 [facility] Comment on above: Performed By: #### 2 87065 ####[facility],[address] [place] [address] ALT/SGPT 14 U/L Normal 8 - 35 [facility] Comment on above: Performed By: #### 2 02197 ####[facility],[address] [place] [address] Anion gap 10 mmol/L Normal 10 - 20 [facility] Comment on above: Performed By: #### 2 63476 ####[facility],[address] [place], [place] [address] AST/SGOT 14 U/L Normal 0 - 30 [facility] Comment on above: Performed By: #### 2 06243 ####[facility],[address] [place] [address] B/C RATIO 15 ratio Normal 0 - 30 [facility] Comment on above: Performed By: #### 2 00993 ####[facility],[address] [place] [address] Bilirubin (total) 0.2 mg/dL Normal 0.0 - 1.5 [facility] Comment on above: Performed By: #### 2 98791 ####[facility],[address] [place] [address] Calcium 9.6 mg/dL Normal 8.6 - 9.8 [facility] Comment on above: Performed By: #### 2 06026 ####[facility],[address] [place] [address] Chloride 105 mmol/L Normal 98 - 107 [facility] Comment on above: Performed By: #### 2 91664 ####[facility],[address] [place], [place] [address] CO2 28.6 mmol/L Normal 21.0 - 31.0 [facility] [facility] Comment on above: Performed By: #### 2 63046 ####[facility],[address] [place] [address]35[address] Creatinine 0.6 mg/dL Low 0.8 - 1.2 [facility] Comment on above: Performed By: #### 2 19461 ####[facility],[address] [place], [place] [id number] eGFR (non-black) mL/min/{1.73_m2} Normal 60 - 999 [facility] Comment on above: Performed By: #### 2 75923 ####[facility],[address] [place] [address]11 Result Comment: ACCO RDING TO THE NATIONAL KIDNEY DISEASE EDUCATION PROGRAM(NKDE), A NORMAL eGFRIS A VALUE GREATER THAN OR EQUAL TO 60 ML/MIN/1.73 SQ METERS.CHRONIC KIDNEY DISEASE: <60mL/MIN/1.73 SQ METERSKIDNEY FAILURE: <15mL/MIN/1.73 SQ METERSTHIS TEST SHOULD ONLY BE USED FOR PATIENTS 18 YEARS OF AGE AND OLDER. eGFR (non-black) Normal [facility] Comment on above: Result Comment: COMP REHENSIVE METABOLIC PANEL Performed By: #### 2 30029 ####[facility],[address] [place] [address] 85482 Globulin 2.8 g/dL Normal 1.5 - 3.8 [facility] Comment on above: Performed By: #### 2 50404 ####[facility],[address] [place] [address] 87274 Glucose mass conc 84 mg/dL Normal 74 - 106 [facility] Comment on above: Performed By: #### 2 97348 ####[facility],[address] [place] [address]72 Potassium molar conc 3.5 mmol/L Normal 3.5 - 5.1 [facility] Comment on above: Performed By: #### 2 10244 ####[facility],[address] [place] [address] 90848 Protein 7.0 g/dL Normal 5.7 - 8.0 [facility] Comment on above: Performed By: #### 2 53657 ####[facility],[address] [place] [address] 70138 Sodium 140 mmol/L Normal 136 - 145 [facility] Comment on above: Performed By: #### 2 93405 ####[facility],[address] [place] [address] Urea nitrogen 9 mg/dL Normal 6 - 20 [facility] Comment on above: Performed By: #### 2 53746 ####[facility],[address] [place] [address]69 URINEon 04-11-2017 EXTERNAL QC DONE? YES Normal [facility] Comment on above: Performed By: #### 2 72712 ####[facility],[address] [place] [address] INTERNAL QC PASS Normal [facility] Comment on above: Performed By: #### 2 17815 ####[facility],[address] [place] [address] UR Negative Normal NEGATIVE [facility] Comment on above: Performed By: #### 2 05292 ####[facility],[address] [place], [place] [id number] URINALYSISon 04-11-2017 Amorphous NONE Normal [facility] Comment on above: Performed By: #### 2 03487 ####[facility],[address] [place] [address] Bacteria TRACE Normal [facility] Comment on above: Performed By: #### 2 80771 ####[facility],[address] [place] [address] 09049 Bilirubin Negative Normal NORMAL: NEGATIVE [facility] Comment on above: Performed By: #### 2 41164 ####[facility],[address] [place] [address]602 Blood 25 Abnormal NORMAL: NEGATIVE [facility] Comment on above: Performed By: #### 2 00253 ####[facility],[address] [place], [place] [id number] Casts NONE Normal [facility] Comment on above: Performed By: #### 2 56187 ####[facility],[address] [place], [place] [id number] Clarity clear Normal NORMAL: CLEAR [facility] Comment on above: Performed By: #### 2 95060 ####[facility],[address] [place] [address],[facility] [address] Color yellow Normal NORMAL: YELLOW [facility] Comment on above: Performed By: #### 2 90921 ####[facility],[address] [facility],[place] [address] Crystals NONE Normal [facility] Comment on above: Performed By: #### 2 42254 ####[facility],[address] [place] [address],[facility] [address] Epi Cells FEW Normal [facility] Comment on above: Performed By: #### 2 55882 ####[facility],[address] [place] [address],[facility] [address] Glucose NORM Normal NORMAL: NORMAL [facility] Comment on above: Performed By: #### 2 05341 ####[facility],[address] [place] [address],[facility] [address] Ketone Negative Normal NORMAL: NEGATIVE [facility] Comment on above: Performed By: #### 2 72435 ####[facility],[address] [place] [address],[facility] [address] Leukocytes Negative Normal NORMAL: NEGATIVE [facility] Comment on above: Performed By: #### 2 08215 ####[facility],[address] [place] [address],[facility] [address] Microscopic SEE BELOW Normal [facility] Comment on above: Result Comment: MICR OSCOPIC Performed By: #### 2 12678 ####[facility],[address] [place] [address],[facility] [address] Mucous TRACE Normal [facility] Comment on above: Performed By: #### 2 39367 ####[facility],[address] [place] [address],[facility] [address] Nitrite Negative Normal NORMAL: NEGATIVE [facility] Comment on above: Performed By: #### 2 83622 ####[facility],[address] [place], [place] [id number] ph 5 Normal NORMAL: 5.0-8.0 [facility] Comment on above: Performed By: #### 2 77185 ####[facility],[address] [place] [address] Protein 15 Abnormal NORMAL: NEGATIVE [facility] Comment on above: Performed By: #### 2 15579 ####[facility],[address] [place] [address] Rbc 0-5 Abnormal 0-3/hpf [facility] Comment on above: Performed By: #### 2 45141 ####[facility],[address] [place] [address] Sp [place] 1.025 Normal NORMAL: 1.010-1.030 [facility] Comment on above: Performed By: #### 2 77071 ####[facility],[address] [place] [address] Specimen Type Clean catch Normal [facility] Comment on above: Performed By: #### 2 14145 ####[facility],[address] [place] [address] URINALYSIS Normal [facility] Comment on above: Result Comment: URIN ALYSIS Performed By: #### 2 52047 ####[facility],[address] [place], [place] [id number] Urobilinog NORM Normal NORMAL: NORMAL [facility] Comment on above: Performed By: #### 2 75556 ####[facility],[address] [place], [place] [id number] Wbc NONE Normal 0-5/hpf [facility] Comment on above: Performed By: #### 2 60350 ####[facility],[address] [place], [place] [id number] Yeast NONE Normal [facility] Comment on above: Performed By: #### 2 81560 ####[facility],[address] [place] [address] NM HIDA SCANon 04-08-2017 NM HIDA SCAN [address] [address] Patient: TERESA CERON V. Phone#: : 2000 Age: 16 Gender: F Pt. Type: Out Account: [id number] Location: Ordering: SANCHO ORONA Exam Date: 04/08/2017/12:57 Family Phys: KELLIE ORONA Charge Code: [id number] Physician: [facility] Order #: [id number] DLP Dose#: PROCEDURE: HIDA SCAN COMPARISON: None. [...] Fuentes MD on 04/08/2017 at 15:22 Normal [facility] US PELVICon 03-15-[address] [address] Patient: TERESA CERON V. Phone#: : 2000 Age: 16 Gender: F Pt. Type: Out Account: [id number] Location: Ordering: KELLIE ORONA Exam Date: 03/15/2017/12:57 Family Phys: Charge Code: [id number] Physician: [facility] Order #: [id number] DLP Dose#: PROCEDURE: PELVIC ULTRASOUND, TRANSABDOMINAL COMPARISON: [...] Fuentes MD on 03/15/2017 at 13:48 Normal [facility] US RUQ (GB/PANCREAS)on 03-15 RUQ (GB/PANCREAS) [place] [address] Patient: TERESA CERON V. Phone#: : 2000 Age: 16 Gender: F Pt. Type: Out Account: [id number] Location: Ordering: KELLIE CASTROD Exam Date: 03/15/2017/9:10 Family Phys: Charge Code: [id number] Physician: [facility] Order #: [id number] DLP Dose#: PROCEDURE: RUQ (GB) ULTRASOUND COMPARISON: [...] FUENTES MD ON 03/15/2017 AT 9:47 Normal [facility] Vital Signs Date Time Vital Sign Value Performing Clinician Ernesto rodríguez 10-27-2024 10:02-0400 Body height 157.5 cm Lindsey Tineo APRN.CNM Work Phone: [facility] 10-27-2024 10:02-0400 Body mass index (BMI) [Ratio] 41.88 kg/m2 Lindsey Tineo APRN.CNM Work Phone: [facility] 10-27-2024 10:02-0400 Body weight 103.87 kg Lindsey Tineo APRN.CNM Work Phone: [facility] 10-27-2024 10:02-0400 Diastolic blood pressure 64 mm[Hg] Lindsey Tineo APRN.CNM Work Phone: [facility] 10-27-2024 10:02-0400 Systolic blood pressure 112 mm[Hg] Lindsey Tineo APRN.CNM Work Phone: [facility] 10-23-2023 11:33-0500 Body height 157.48 cm No Primary Care Physician [facility] 10-23-2023 11:32-0500 Body mass index (BMI) [Ratio] 38.4 kg/m2 No Primary Care Physician [facility] 10-23-2023 11:32-0500 Body weight 95.25 kg No Primary Care Physician [facility] 10-23-2023 11:32-0500 Diastolic blood pressure 75 mm[Hg] No Primary Care Physician [facility] 10-23-2023 11:32-0500 Systolic blood pressure 119 mm[Hg] No Primary Care Physician [facility] 09-23-2023 10:58-0500 Body mass index (BMI) [Ratio] 38.6 kg/m2 No Primary Care Physician [facility] 09-23-2023 10:58-0500 Body weight 95.87 kg No Primary Care Physician [facility] 09-23-2023 10:58-0500 Diastolic blood pressure 72 mm[Hg] No Primary Care Physician [facility] 09-23-2023 10:58-0500 Systolic blood pressure 112 mm[Hg] No Primary Care Physician [facility] 09-10-2023 12:25-0500 Body temperature 97.6 [degF] No Primary Care Physician [facility] 09-10-2023 12:25-0500 Diastolic blood pressure 65 mm[Hg] No Primary Care Physician [facility] 09-10-2023 12:25-0500 Heart rate 94 /min No Primary Care Physician [facility] 09-10-2023 12:25-0500 Respiratory rate 16 /min No Primary Care Physician [facility] 09-10-2023 12:25-0500 Systolic blood pressure 135 mm[Hg] No Primary Care Physician [facility] 09-10-2023 08:15-0500 SaO2% (BldA) [Mass fraction] 100 % No Primary Care Physician [facility] 09-09-2023 05:33-0500 Body weight 104.9 kg No Primary Care Physician [facility] 09-06-2023 10:11-0500 Body height 157.48 cm No Primary Care Physician [facility] 09-06-2023 10:09-0500 Body mass index (BMI) [Ratio] 42.6 kg/m2 No Primary Care Physician [facility] 09-06-2023 10:09-0500 Body weight 105.74 kg No Primary Care Physician [facility] 09-06-2023 10:09-0500 Diastolic blood pressure 80 mm[Hg] No Primary Care Physician [facility] 09-06-2023 10:09-0500 Systolic blood pressure 124 mm[Hg] No Primary Care Physician [facility] 08-27-2023 10:25-0500 Body mass index (BMI) [Ratio] 42.3 kg/m2 No Primary Care Physician [facility] 08-27-2023 10:25-0500 Body weight 104.83 kg No Primary Care Physician [facility] 08-27-2023 10:25-0500 Diastolic blood pressure 78 mm[Hg] No Primary Care Physician [facility] 08-27-2023 10:25-0500 Systolic blood pressure 116 mm[Hg] No Primary Care Physician [facility] 08-20-2023 14:21-0500 Body mass index (BMI) [Ratio] 42.1 kg/m2 No Primary Care Physician [facility] 08-20-2023 14:21-0500 Body weight 104.49 kg No Primary Care Physician [facility] 08-06-2023 10:51-0500 Body mass index (BMI) [Ratio] 42.1 kg/m2 No Primary Care Physician [facility] 08-06-2023 10:51-0500 Body weight 104.49 kg No Primary Care Physician [facility] 08-06-2023 10:51-0500 Diastolic blood pressure 80 mm[Hg] No Primary Care Physician [facility] 08-06-2023 10:51-0500 Systolic blood pressure 117 mm[Hg] No Primary Care Physician [facility] 07-23-2023 11:33-0500 Body mass index (BMI) [Ratio] 41 kg/m2 No Primary Care Physician [facility] 07-23-2023 11:33-0500 Body weight 101.77 kg No Primary Care Physician [facility] 07-23-2023 11:33-0500 Diastolic blood pressure 76 mm[Hg] No Primary Care Physician [facility] 07-23-2023 11:33-0500 Systolic blood pressure 125 mm[Hg] No Primary Care Physician [facility] 07-08-2023 10:34-0500 Body mass index (BMI) [Ratio] 40.4 kg/m2 No Primary Care Physician [facility] 07-08-2023 10:34-0500 Body weight 100.41 kg No Primary Care Physician [facility] 07-08-2023 10:34-0500 Diastolic blood pressure 78 mm[Hg] No Primary Care Physician [facility] 07-08-2023 10:34-0500 Systolic blood pressure 113 mm[Hg] No Primary Care Physician [facility] 06-18-2023 13:14-0400 Body mass index (BMI) [Ratio] 40.6 kg/m2 No Primary Care Physician [facility] 06-18-2023 13:14-0400 Body weight 100.86 kg No Primary Care Physician [facility] 06-18-2023 13:14-0400 Diastolic blood pressure 81 mm[Hg] No Primary Care Physician [facility] 06-18-2023 13:14-0400 Systolic blood pressure 115 mm[Hg] No Primary Care Physician [facility] 05-28-2023 13:22-0400 Body mass index (BMI) [Ratio] 40 kg/m2 No Primary Care Physician [facility] 05-28-2023 13:22-0400 Body weight 99.33 kg No Primary Care Physician [facility] 05-28-2023 13:22-0400 Diastolic blood pressure 81 mm[Hg] No Primary Care Physician [facility] 05-28-2023 13:22-0400 Systolic blood pressure 114 mm[Hg] No Primary Care Physician [facility] Encounters Encounter Date Encounter Type Care Provider Facility Start: 11-05-2024 End: 01-05-2025 Follow-up encounter Trang Cruz APRN.CNP Work Phone: OB/Gynecology Start: 10-27-2024 End: 10-27-2024 ambulatory SELF Facility:[facility] Start: 10-27-2024 End: 10-27-2024 Patient encounter procedure Lindsey Tineo APRN.CNM Work Phone: OB/Gynecology Comment on above: Encounter for gyneco logical examination (general) (routine) with abnormal findings (Primary Dx); Screening for cervical cancer; Encounter for screening for human papillomavirus (HPV); Encounter for surveillance of contraceptive pills Start: 10-27-2024 End: 10-27-2024 Patient encounter status Lindsey Tineo APRN.CNM Work Phone: [facility] Start: 10-23-2023 End: 10-23-2023 Patient encounter procedure No Primary Care Physician [facility] Work Phone: Start: 10-23-2023 End: 10-23-2023 ambulatory No Primary Care Physician [facility] Work Phone: Start: 10-23-2023 End: 10-23-2023 Patient encounter procedure No Primary Care Physician [facility] Work Phone: Start: 09-23-2023 End: 09-23-2023 ambulatory No Primary Care Physician Facility:[facility] Start: 09-23-2023 End: 09-23-2023 Patient encounter procedure No Primary Care Physician [facility] Work Phone: Start: 09-10-2023 Non-patient / Non-visit No Ivy arrington [facility] Physician [facility] Start: 09-09-2023 ambulatory Priscilla Moore Fa cility:[facility] Start: 09-09-2023 End: 09-10-2023 Evaluation and management of inpatient No Primary Care Physician Facility:[facility] Start: 09-09-2023 Non-patient / Non-visit No Ivy arrington [facility] Physician [facility] Start: 09-09-2023 End: 09-10-2023 Evaluation and management of inpatient No Primary Care Physician [facility] Work Phone: Start: 09-06-2023 End: 09-06-2023 ambulatory No Primary Care Physician Facility:[facility] Start: 09-06-2023 End: 09-06-2023 Patient encounter procedure No Primary Care Physician [facility] Work Phone: Start: 08-27-2023 End: 08-27-2023 ambulatory No Primary Care Physician Facility:[facility] Start: 08-27-2023 End: 08-27-2023 Patient encounter procedure No Primary Care Physician [facility] Work Phone: Start: 08-20-2023 End: 08-20-2023 Patient encounter procedure No Primary Care Physician [facility] Work Phone: Start: 08-20-2023 End: 08-20-2023 Patient encounter procedure No Primary Care Physician [facility] Work Phone: Start: 08-20-2023 End: 08-20-2023 ambulatory No Primary Care Physician Facility:[facility] Start: 08-06-2023 End: 08-06-2023 ambulatory No Primary Care Physician Facility:[facility] Start: 08-06-2023 End: 08-06-2023 Patient encounter procedure No Primary Care Physician [facility] Work Phone: Start: 07-23-2023 End: 07-23-2023 ambulatory No Primary Care Physician Facility:[facility] Start: 07-23-2023 End: 07-23-2023 Patient encounter procedure No Primary Care Physician [facility] Work Phone: Start: 07-08-2023 End: 07-08-2023 ambulatory No Primary Care Physician Facility:[facility] Start: 07-08-2023 End: 07-08-2023 Patient encounter procedure No Primary Care Physician [facility] Work Phone: Start: 06-18-2023 End: 06-18-2023 ambulatory No Primary Care Physician Facility:[facility] Start: 06-18-2023 End: 06-18-2023 Patient encounter procedure No Primary Care Physician [facility] Work Phone: Start: 06-18-2023 End: 06-18-2023 ambulatory No Primary Care Physician [facility] Work Phone: Start: 06-18-2023 End: 06-18-2023 Patient encounter procedure No Primary Care Physician [facility] Work Phone: Start: 05-28-2023 End: 05-28-2023 ambulatory No Primary Care Physician Facility:[facility] Start: 05-28-2023 End: 05-28-2023 Patient encounter procedure No Primary Care Physician [facility] Work Phone: Start: 01-22-2023 End: 01-22-2023 ambulatory No Primary Care Physician Facility:[facility] Start: 03-04-2018 End: 03-04-2018 Emergency department patient visit ROXANNE DAY [facility] Start: 04-11-2017 End: 04-11-2017 Emergency department patient visit BRISEYDA NOVAK [facility] Start: 04-08-2017 End: 04-08-2017 Patient encounter SANCHO CASTILLO ORONA [facility] Start: 03-15-2017 End: 03-15-2017 Patient encounter KELLIE ORONA [facility] Procedures Date Procedure Procedure Detail Performing Clinician [...] (3 - Td or Tdap) [facility] Start: 10-28-2027 Screening for malign ant neoplasm of cervix Cervical Cancer Screening [facility] Start: 10-27-2025 End: 10-27-2025 Patient encounter procedure 10/27/2025 8:15 AM EDT Office Visit OB/Gynecology [address] [place] [address] Lindsey Tineo APRN.[facility] [address] [place] [address] Annual OB/Gynecology Comment on above: Annual Start: 04-19-2025 Influenza vaccination Influenz a Vaccine (Season Ended) [facility] Start: 04-19-2024 Covid-19 Vaccine ( season) Covid-19 Vaccine ( season) [facility] Start: 04-19-2024 Influenza vaccination Influenza Vacc ine (#1) [facility] Start: 10-23-2023 Liquid based cervica l cytology screening [facility] Start: 09-10-2023 Application of abdom inal corset [facility] Start: 09-10-2023 Patient discharge [facility] Start: 09-09-2023 End: 09-10-[address] [facility] Start: 09-09-2023 Administration of medication [facility] Start: 09-09-2023 Ambulation therapy management [facility] Start: 09-09-2023 Application of device [facility] Start: 09-09-2023 Application of intermittent pneumatic compression device [facility] Start: 09-09-2023 Assessment of risk o f venous thromboembolism [facility] Start: 09-09-2023 Catheterization of vein [facility] Start: 09-09-2023 Deep breathing and coughing exercises [facility] Start: 09-09-2023 Exercises [facility] Start: 09-09-2023 Measuring intake and output [facility] Start: 09-09-2023 End: 09-09-2023 Notification of physician [facility] Start: 09-09-20[address] Procedure [address] [facility] Start: 09-09-2023 Provision of activit y privileges [facility] Start: 09-09-2023 Skin care [facility] Start: 09-09-2023 Wound care [facility] Start: 09-09-2023 Application of abdom inal corset [facility] Start: 09-09-2023 Continuous pulse oximetry [facility] Start: 09-09-2023 [address] therapy [facility] Start: 09-09-2023 Vital signs measurements [facility] Start: 09-09-2023 section Repeat C-Sect ion (Not Applicable) [facility] Start: 09-09-2023 Admission procedure [facility] Start: 09-09-2023 Consultation [facility] Start: 06-18-2023 [facility] Start: 2020 Screening for malign ant neoplasm of cervix Cervical Cancer Screening [facility] Start: 2018 Hepatitis B Vaccine (1 of 3 - 19+ 3-dose series) Hepatitis B Vaccine (1 of 3 - 19+ 3-dose series) [facility] Start: 2017 Anxiety Screening Anxiety Screening [facility] Start: 2017 Depression Screening Depression Scre lorena [facility] Start: 2017 Hepatitis C screening Hepatitis C Sc dara [facility] Start: 2017 HIV screening HIV Screening [facility] Start: 2014 HPV Vaccine (1 - 3-d ose series) HPV Vaccine (1 - 3-dose series) [facility] Start: 2013 Peds To Adult Transi tion Annual Assessment Peds To Adult Transition Annual Assessment [facility] Start: 2011 Peds To Adult Transi tion Initial Discussion Peds To Adult Transition Initial Discussion [facility] PAP TEST PAP TEST Lab Veronica monsalve Encounter for gynecological examination (general) (routine) with abnormal findings Screening for cervical cancer Encounter for screening for human papillomavirus (HPV) 10/27/2024 10:29 AM EDT [facility] Work Phone: Path report.final Dx Spec [facility] Patient Education After a [facility] Work Phone: Patient referral [facility] Work Phone: Immunizations Immunization Date Immunization Notes Care Provider [facility] 07-08-2023 tetanus toxoid, redu marylu diphtheria toxoid, and acellular pertussis vaccine, adsorbed No Primary Care Physician [facility] 08-20-2020 measles, mumps and rubella virus vaccine No Primary Care Physician [facility] Payers Date Payer Category Payer Medicaid [employer] Member Armstrong bscriber Plan / Payer (Effective 2024-Present) Name: Teresa Ceron V Relation to Subscriber: Self Name: Teresa Ceron V Payer ID: [id number] (NAIC) Group ID: Not on file Type: Medicaid Address: [place] [address] [id number] 2024 Medicaid [id number] 2023 Self-pay [id number] 2023 Unknown [id number] Unknown [id number] Unknown [employer] [id number] Unknown [id number] Unknown [id number] 2.16.840.1.882646.3.579.2.462 Unknown [id number] 2.16.840.1.202306.3.579.2.462 Unknown [id number] 2.16.840.1.275933.3.579.2.462 Unknown [id number] 2.16.840.1.064213.3.579.2.462 Unknown [id number] 2.16.840.1.111405.3.579.2.462 Unknown [id number] 2.16.840.1.089560.3.579.2.462 Unknown [id number] 2.16.840.1.573679.3.579.2.462 Unknown [id number] 2.16.840.1.137024.3.579.2.462 Unknown [id number] 2.16.840.1.478038.3.579.2.462 Unknown [id number] 2.16.840.1.487175.3.579.2.462 Unknown [id number] 2.16.840.1.097021.3.579.2.462 Unknown [id number] 2.16.840.1.741421.3.579.2.462 Unknown [id number] 2.16.840.1.038138.3.579.2.462 Unknown [id number] 2.16840.1.524606.3.579.2.462 Unknown [id number] 2.16840.1.876415.3.579.2.462 Unknown [id number] 2.16840.1.701977.3.579.2.462 Social History Date Type Detail Facility Start: 06-18-2023 End: 10-23-2023 Tobacco smoking status NVIS Unknown if ever smoked [facility] Start: 08-17-2020 None [facility] Start: 2000 Sex Assigned At Female W [facility] Start: 10-27-2024 Tobacco smoking stat us NHIS Never smoked tobacco [facility] Start: 10-27-2024 Tobacco use and exposure Smokeless tobacco non-user [facility] Start: 10-27-2024 Alcoholic beverage intake Lifetime non-drinker (finding) [facility] Start: 10-27-2024 History of Social function [facility] Start: 10-27-2024 Tobacco use panel [facility] National Score (1-10 0), lower number is lower risk 83 [facility] Start: 2000 Sex assigned at Not on file [facility] Goals Date Patient Goal Desired Activity /State Mental Status Date Assessment Result Facility 09-10-2023 Cognitive function Voice/Name [facility] Work Phone: Clinical Notes 09-09-2023 to 11-10-2024 Telephone Encounter - Nette Chavira - 11/10/2024 9:24 AM EDTTelephone Encounter - Nette Chavira - 11/10/2024 9:24 AM Lindsey Velasquez APRN.CNM - 10/27/2024 9:58 AM EDT Note Date & Type Note Facility 11-10-2024 Telephone encounter Note Mailed letter [facility] 11-10-2024 Miscellaneous Notes Mailed letter documented in this encounter [facility] 10-27-2024 Note HNO ID: [id number] Author: LINDSEY TINEO APRN.CNM Service: ? 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 As applicable, any other physician, advance practice provider, medical student, or other health professional student that will be observing or involved in the sensitive examination for educational or training purposes was discussed with the Patient or Authorized Tin Container Straightener. 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 As applicable, any other physician, advance practice provider, medical student, or other health professional student that will be observing or involved in the sensitive examination for educational or training purposes was discussed with the Patient or Authorized Tin Container Straightener. The Patient or Authorized Tin Container Straightener has agreed to proceed with the sensitive [...] external genitalia normal, normal Bartholin's glands, urethra, Maramec's glands, no vulvar lesions, no cervical lesions, [...] up one year or sooner as needed Lnidsey Tineo APRN.CNM documented in this encounter [facility] 09-10-2023 Discharge summary Note Date/Time September 10, 2023 8:10am [facility] Medical Records Department [address] [place] [address] Instructions for Home/Discharge Instructions 09/10/23 0810 MR#: [id number] Acct: [id number] Name: TERESA CERON V Rep #:[id number] : 2000 23 From: Feli Nichols CNM [...] CC: No Primary Care Physician ~ Signed [facility] Work Phone: 1(625) 432-408701-23-2024 Progress note Author Feli Nichols [facility] September 10, 2023 8:09am Note Date/Time September 10, 2023 8 :10am [facility] Medical Records Department [address] [place] [address] Progress Note - OBGYN 09/10/23 0807 MR#: [id number] Acct: [id number] Name: TERESA CERON V Rep #:[id number] : 2000 23 From: Feli Nichols CNM PCP: Care Physician,No Primary Status :ADM IN Location: [place] [address] Subjective Subjective Patient doing well without complaints. [...] Cosigner Signature (if applicable): CC: ~ Signed [facility] Work Phone: 1(944) 417-348701-22-2024 Discharge summary Author Priscilla Espitia [facility] September 09, 2023 7:23am Note Date/Time September 09, 2023 7 :22am [facility] Medical Records Department [address] [place] [address] Instructions for Home/Discharge Instructions 09/09/23 0722 MR#: [id number] Acct: [id number] Name: TERESA CERON V Rep #:[id number] : 2000 23 From: Priscilla Moore DO [...] Up With: Priscilla Moore DO When: Call [phone] to make an appointment for an incision [...] CC: No Primary Care Physician ~ Signed [facility] Work Phone: 1(333) 948-224901-22-2024 History and physical note Author Priscilla Espitia [facility] September 09, 2023 7:22am Note Date/Time September 09, 2023 7 :22am [facility] Medical Records Department 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 09/09/23720 MR#: [id number] Acct: [id number] Name: TERESA CERON V Rep #:[id number] : 2000 23 From: Priscilla Moore DO PCP: Care Physician,No Primary Status :ADM IN Location: [id number] HPI - General General Date of Admission: 09/09/23 HPI Narrative TERESA CERON, is a 23 y/o @ 39 weeks 2 days who presents to L&D for a repeatcesarean section Maternal Data Information VILMA Calculator Estimated Delivery Date Method Current Current Estimate 09/14/23 Manual 39w 2d per [facility] records PFS PFS Medical History Depression Home [...] house current occupational status: employed 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 Work Phone: 1(820) 439-224701-22-2024 Procedure [facility] Evaluation note* Diagnosis Onset Date Resolution Status History of delivery affecting acute Obesity affecting acute acute Supervision of high-risk acute History of delivery affecting acute Obesity affecting acute acute Supervision of high-risk acute [facility] Work Phone: Evaluation note* Diagnosis Onset Date Resolution Status History of delivery affecting acute Obesity affecting acute acute Supervision of high-risk acute History of delivery affecting acute Obesity affecting acute acute Supervision of high-risk acute History of delivery affecting acute Obesity affecting acute acute Supervision of high-risk acute History of delivery affecting acute Need for Tdap vaccination ac hopi Obesity affecting acute acute Supervision of high-risk acute History of delivery affecting acute Need for Tdap vaccination ac hopi Obesity affecting acute acute Supervision of high-risk acute History of delivery affecting acute Need for Tdap vaccination ac hopi Obesity affecting acute acute Supervision of high-risk acute History of delivery affecting acute Need for Tdap vaccination ac hopi Obesity affecting acute acute Supervision of high-risk acute History of delivery affecting acute Need for Tdap vaccination ac hopi Obesity affecting acute acute Supervision of high-risk acute History of delivery affecting acute Need for Tdap vaccination ac hopi Obesity affecting acute acute Status post repeat low transverse section acute Supervision of high-risk acute [facility] Work Phone: Evaluation note* Diagnosis Onset [...] acute Postop check noneactive Routine Follow-Up noneactive [facility] Work Phone: Evaluation note* Diagnosis Encounter for gynecological examination (general) (routine) with abnormal findings- Primary Screening for cervical cancer Screening for malignant neoplasm of the cervix Encounter for screening for human papillomavirus (HPV) Special screening examination for human papillomavirus (HPV) Encounter for surveillance of contraceptive pills Surveillance of previously prescribed contraceptive pill documented in this encounter [facility] Summary Purpose Family History Relationship Condition Age at Onset Recorded Date/T farzana Not Specified Diabetes mellitus Unknown Cardiac disease Unknown son Cleft palate Unknown Advance Directives Advance Directive Response Recorded Date/ Time Living Will No June 18 1:36pm Power of Chemotherapist No June 18, 2023 1:36pm Advance Directive Response Recorded Date/ Time Living Will No September 09 5:47am Power of Chemotherapist No September 09, 2023 5:47am Advance Directive Response Recorded Date/ Time Living Will No September 09 6:47am Power of Chemotherapist No September 09, 2023 6:47am Chief Complaint and Reason for Visit Chief Complaint transfer from [facility] 09/14 Encounter for screening for diabetes mellitus 27 WK OB / 3 HR GLUCOSE in the AM Reason for Visit History of delivery affecting Obesity affecting Supervision of high-risk History of delivery affecting Obesity affecting Supervision of high-risk Chief Complaint transfer from [facility] 09/14 Encounter for screening for diabetes [...] content) DATE CREATED AUTHOR 03/10/2018 Artie Hernandez [facility] DATE CREATED AUTHOR AUTHOR'S ORGANIZ ATION 10/29/2023 [facility] DATE CREATED AUTHOR AUTHOR'S ORGANIZ ATION 11/11/2024 [facility] Care Teams (unrecognized sec tion and [...] Provider, Refer ring Provider Active Melina Vidales KAIAKO KURA TUARUA, KAIAKO KURA TUARUA-C Attending Provider Active Team Status: Inactive Member [...] any alcohol or drug abuse patient.[facility], IncIn the event this information is protected by the Federal Confidentiality of Alcohol and Drug Abuse Patient Records regulations: The Federal rules restrict any use of the information to criminally investigate or prosecute any alcohol or drug abuse patient.[facility] Reason for Visit (unrecogniz ed section and [...] BE BASED ON THE PRIMARY CLINICAL RECORDS. [facility]. provides no warranty or guarantee of the accuracy or completeness of information in this document.
== END | disposition home or self-care (01) ==
PROVIDERS: Referring Provider Student in an Organized Health Care Education/Training Program; Visit Provider Student in an Organized Health Care Education/Training Program
DX: O20.0 Threatened abortion (principal); Z3A.00 Weeks of gestation of pregnancy not specified
CPT/HCPCS: 76817